=== PATIENT | male | born 1960 | race Caucasian/White ===

== ENCOUNTER 2016-06-12 19:55 | Inpatient (IN) | payer MEDICARE, MEDICAID ==
--- NOTE | 2016-06-12 20:09 | ED Physician Chart ---
Chief Complaint/HPI - Patient Information Date Seen:: 06/12/16 Time Seen:: 20:00 Chief Complaint:: change in mental status History of Present Illness:: 56-year-old male with worsening, constant, moderate to severe, change in mental status which is marked by increased agitation 2 days. Has associated aggressive behavior towards staff and other patients at his care facility. History limited as patient has underlying uncooperative behavior History provided by EMS and EMS run sheet Historian:: EMS Review:: Nurse's Note Reviewed, EMS run form Reviewed, Transfer documents Reviewed Review of Systems - Review of Systems Other: Complete system review otherwise unremarkable except as noted in HPI. Family Medical History - Family Member Mother History Unknown: Yes Physical Exam - Physical Examination Other:: INITIAL VITAL SIGNS: Reviewed by me GENERAL: Alert but uncooperative. No acute distress HEAD: Head is normocephalic and atraumatic EYES: EOMI. . No scleral icterus. No conjunctival injection ENT: Moist mucous membranes. NECK: Supple. No masses. Full range of motion RESPIRATORY: No tachypnea. Clear breath sounds bilaterally. No wheezing, rales, or rhonchi CV: Regular rate and rhythm. No murmurs, rubs, or gallops ABDOMEN: Soft, non-distended, non-tender. No guarding. No rebound. No masses. EXTREMITIES: No deformity. No cyanosis. No edema. SKIN: Warm and dry. No obvious rashes. NEUROLOGIC: Alert and oriented. Face is symmetric. Speech is normal. Moves all extremities equally. Motor and sensory distally intact. Labs/Radiology/EKG Results - Lab Results Results: Lab Results 06/12/16 06/12/16 Range/Units 22:17 22:17 WBC 11.1 H (4.8-10.8) Th/cmm RBC 4.93 (4.30-5.70) Mil/cmm Hgb 14.9 (13.2-17.3) gm/dL Hct 44.0 (39.0-49.0) % MCV 89.3 (80-99) fl MCH 30.1 H (26.0-30.0) pg MCHC Differential 33.8 (28.0-36.0) pg RDW 12.8 (11.5-20.0) % Plt Count 255 (150-400) Th/cmm MPV 7.5 fl Neutrophils % 58.8 (40.0-80.0) % Lymphocytes % 34.8 (20.0-50.0) % Monocytes % 4.9 (2.0-10.0) % Eosinophils % 1.2 (0.0-5.0) % Basophils % 0.3 (0.0-2.0) % Sodium 134 L (136-145) mEq/L Potassium 3.8 (3.5-5.1) mEq/L Chloride 104 (98-107) mEq/L Carbon Dioxide 26.4 (21.0-31.0) mEq/L Anion Gap 7.4 (7.0-16.0) BUN 20 (7-25) mg/dL Creatinine 0.9 (0.7-1.3) mg/dL Est GFR ( Amer) > 60.0 (>90) ml/min Est GFR (Non-Af Amer) > 60.0 ml/min BUN/Creatinine Ratio 22.2 Glucose 95 (70-105) mg/dL Calcium 9.8 (8.6-10.3) mg/dL Total Bilirubin 0.4 (0.3-1.0) mg/dL AST 13 (13-39) U/L ALT 6 L (7-52) U/L Alkaline Phosphatase 65 (34-104) U/L Total Protein 6.7 (6.0-8.3) gm/dL Albumin 3.9 L (4.2-5.5) gm/dL Globulin 2.8 gm/dL Albumin/Globulin Ratio 1.4 (1.0-1.8) Triglycerides 160 H (<150) mg/dL Cholesterol 154 (<200) mg/dL LDL Cholesterol Direct 107 (75-193) mg/dL HDL Cholesterol 32 (23-92) mg/dL - Radiology Results Results: CT head without contrast No acute disease ED Septic Shock - . Is Septic Shock (SBP<90, OR Lactate>4 mmol\L) present?: No Reassessment (Disposition) - Reassessment Reassessment:: Patient is extremely agitated and has totally uncooperative behavior. He is been aggressive toward staff and physically aggressive toward the nurses. Patient has altered mental status. I spoke to the primary admitting physician for the patient. He is good understanding of the case. He will admit the patient for further workup and treatment. Reassessment Condition:: Improved - Diagnosis Diagnosis:: Altered level of consciousness - Patient Disposition Discharge/Transfer:: Acute Care w/in this hosp Admitting Medical Physician:: Darion Auguste Time:: 23:11 Condition at Disposition:: Stable ED Discharge Plan - Patient Disposition Admit/Discharge/Transfer: Acute Care w/in this hosp
[2016-06-12] MEDS ORDERED: OLANZapine 5 mg Oral Disintegrating Tab PO ONE (20:10)
[2016-06-12] MEDS ORDERED: OLANZapine 5 mg Oral Disintegrating Tab ONE (21:13)
[2016-06-12 22:23] LABS: % BASOPHILS 0.3 % (0.0-2.0); % EOSINOPHILS 1.2 % (0.0-5.0); % LYMPHOCYTES 34.8 % (20.0-50.0); % MONOCYTES 4.9 % (2.0-10.0); % NEUTROPHILS 58.8 % (40.0-80.0); HEMOGLOBIN 14.9 gm/dL (13.2-17.3); MEAN CELL VOLUME 89.3 fl (80-99); MEAN CORPUSCULAR HEMOGLOBIN 30.1 pg (26.0-30.0); MEAN CORPUSCULAR HGB CONC 33.8 pg (28.0-36.0); MEAN PLATELET VOLUME 7.5 fl; NEUTROPHILE ABSOLUTE 6.6 Th/cmm (1.8-8.0); PLATELET COUNT 255 Th/cmm (150-400); RED BLOOD COUNT 4.93 Mil/cmm (4.30-5.70); RED CELL DISTRIBUTION WIDTH 12.8 % (11.5-20.0); WHITE BLOOD COUNT 11.1 Th/cmm (4.8-10.8)
[2016-06-12 22:39] LABS: ALB/GLOB RATIO 1.4 (1.0-1.8); ALKALINE PHOSPHATASE 65 U/L (34-104); ANION GAP 7.4 (7.0-16.0); BILIRUBIN,TOTAL 0.4 mg/dL (0.3-1.0); BUN - UREA NITROGEN 20 mg/dL (7-25); BUN/CREATININE RATIO 22.2; CALCIUM SERUM 9.8 mg/dL (8.6-10.3); CARBON DIOXIDE 26.4 mEq/L (21.0-31.0); CHLORIDE 104 mEq/L (98-107); CHOLESTEROL 154 mg/dL (<200); CREATININE - SERUM 0.9 mg/dL (0.7-1.3); GLUCOSE 95 mg/dL (70-105); POTASSIUM SERUM 3.8 mEq/L (3.5-5.1); SGOT 13 U/L (13-39); SGPT/ALT 6 U/L (7-52); SODIUM SERUM 134 mEq/L (136-145); TRIGLYCERIDES 160 mg/dL (<150)
[2016-06-12] MEDS ORDERED: Sodium Chloride 0.9% 1,000 ML IV ONE (22:47)
[2016-06-12 23:50] LABS: URINE BACTERIA OCCASIONAL /hpf (NONE SEEN); URINE BILIRUBIN NEGATIVE (NEGATIVE); URINE BLOOD NEGATIVE (NEGATIVE); URINE COLOR YELLOW; URINE EPITHELIAL CELLS NONE SEEN /lpf (FEW); URINE GLUCOSE (UA) NEGATIVE (NEGATIVE); URINE KETONE NEGATIVE (NEGATIVE); URINE PROTEIN NEGATIVE (NEGATIVE); URINE RBC 0-2 /hpf (0-5); URINE UROBILINOGEN 0.2 E.U./dL (0.2 - 1.0); URINE WBC 0-2 /hpf (0-5)
[2016-06-13] MEDS ORDERED: Sodium Chloride 0.9% 1,000 ML IV SCH (01:05)
[2016-06-13] MEDS ORDERED: Non-Formulary Item 1 EA (Ferrous Sulfate [Ferosul] 330 MG) PO SCH (09:00)
[2016-06-13] MEDS ORDERED: Non-Formulary Item 1 EA (Cranberry Fruit Concentrate [Cranberry] 450 MG) PO SCH (09:00)
[2016-06-13] MEDS: Ferrous Sulfate 325 MG TAB PO SCH ×2 (09:06→17:26)
--- NOTE | 2016-06-13 09:07 | General Progress Note ---
Objective - Results Result Diagrams: 06/12/16 22:17 06/12/16 22:17 Recent Labs: Laboratory Last Values WBC 11.1 Th/cmm (4.8-10.8) H 06/12/16 22: RBC 4.93 Mil/cmm (4.30-5.70) 06/12/16 22:17 Hgb 14.9 gm/dL (13.2-17.3) 06/12/16 22: Hct 44.0 % (39.0-49.0) 06/12/16 22: MCV 89.3 fl (80-99) 06/12/16 22: MCH 30.1 pg (26.0-30.0) H 06/12/16: MCHC Differential 33.8 pg (28.0-36.0) 06/12/16: RDW 12.8 % (11.5-20.0) 06/12/16 22: Plt Count 255 Th/cmm (150-400) 06/12/16 22: MPV 7.5 fl 06/12/16 22:17 Neutrophils % 58.8 % (40.0-80.0) 06/12/16 22: Lymphocytes % 34.8 % (20.0-50.0) 06/12/16: Monocytes % 4.9 % (2.0-10.0) 06/12/16: Eosinophils % 1.2 % (0.0-5.0) 06/12/16: Basophils % 0.3 % (0.0-2.0) 06/12/16 22:17 Sodium 134 mEq/L (136-145) L 06/12/16 22:17 Potassium 3.8 mEq/L (3.5-5.1) 06/12/16 22: Chloride 104 mEq/L (98-107) 06/12/16 22: Carbon Dioxide 26.4 mEq/L (21.0-31.0) 06/12/16 22:17 Anion Gap 7.4 (7.0-16.0) 06/12/16 22: BUN 20 mg/dL (7-25) 06/12/16 22: Creatinine 0.9 mg/dL (0.7-1.3) 06/12/16 22:17 Est GFR ( Amer) > 60.0 ml/min (>90) 06/12/16 22:17 Est GFR (Non-Af Amer) > 60.0 ml/min 06/12/16 22:17 BUN/Creatinine Ratio 22.2 06/12/16 22:17 Glucose 95 mg/dL (70-105) 06/12/16 22: Calcium 9.8 mg/dL (8.6-10.3) 06/12/16 22:17 Total Bilirubin 0.4 mg/dL (0.3-1.0) 06/12/16 22:17 AST 13 U/L (13-39) 06/12/16 22:17 ALT 6 U/L (7-52) L 06/12/16 22:17 Alkaline Phosphatase 65 U/L (34-104) 06/12/16 22:17 Total Protein 6.7 gm/dL (6.0-8.3) 06/12/16 22: Albumin 3.9 gm/dL (4.2-5.5) L 06/12/16 22: Globulin 2.8 gm/dL 06/12/16 22: Albumin/Globulin Ratio 1.4 (1.0-1.8) 06/12/16 22:17 Triglycerides 160 mg/dL (<150) H 06/12/16 22:17 Cholesterol 154 mg/dL (<200) 06/12/16 22:17 LDL Cholesterol Direct 107 mg/dL (75-193) 06/12/16 22: HDL Cholesterol 32 mg/dL (23-92) 06/12/16 22:17 TSH 1.81 uIU/ml (0.34-5.60) 06/12/16 22:17 Urine Source CLEAN C 06/12/16 23:00 Urine Color YELLOW 06/12/16 23:00 Urine Clarity CLEAR (CLEAR) 06/12/16 23:00 Urine pH 7.0 06/12/16 23:00 Ur Specific [place] 1.010 (1.005-1.030) 06/12/16 23:00 Urine Protein NEGATIVE mg/dL (NEGATIVE) 06/12/16 23:00 Urine Glucose (UA) NEGATIVE mg/dL (NEGATIVE) 06/12/16 23:00 Urine Ketones NEGATIVE mg/dL (NEGATIVE) 06/12/16 23:00 Urine Blood NEGATIVE (NEGATIVE) 06/12/16 23:00 Urine Nitrate NEGATIVE (NEGATIVE) 06/12/16 23:00 Urine Bilirubin NEGATIVE (NEGATIVE) 06/12/16 23:00 Urine Urobilinogen 0.2 E.U./dL (0.2 - 1.0) 06/12/16 23:00 Ur Leukocyte Esterase NEGATIVE (NEGATIVE) 06/12/16 23:00 Urine RBC 0-2 /hpf (0-5) H 06/12/16 23:00 Urine WBC 0-2 /hpf (0-5) 06/12/16 23:00 Ur Epithelial Cells NONE SEEN /lpf (FEW) 06/12/16 23:00 Urine Bacteria OCCASIONAL /hpf (NONE SEEN) 06/12/16 23:00 - Physical Exam Vitals and I&O: Vital Signs Temp 96.8 F 06/13/16 08:46 Pulse 77 06/13/16 08:46 Resp 18 06/13/16 08:46 BP 128/81 06/13/16 08:46 Pulse Ox 100 06/13/16 08:46 Active Medications: Current Medications Aripiprazole (Abilify) 2.5 mg PO DAILY [facility] PRN Reason: Protocol Stop: 08/12/16 08:59 Ascorbic Acid (Vitamin C) 500 mg PO DAILY [facility] Stop: 08/12/16 08:59 Carbidopa/Levodopa (Sinemet 25mg-100 Mg) 1 tab PO TID [facility] Stop: 08/12/16 08:59 Docusate Sodium (Colace) 200 mg PO HS [facility] Stop: 08/12/16 20:59 Ferrous Sulfate (Iron) 325 mg PO BID [facility] Stop: 08/12/16 08:59 Hydrocortisone (Cortef) 25 mg PO BID [facility] Stop: 08/12/16 08:59 Sodium Chloride (Nacl 0.9%) 1,000 mls @ 100 mls/hr IV .Q10H [facility] Stop: 08/12/16 01:04 Last Admin: 06/13/16 06:03 Dose: 100 mls/hr Lisinopril (Zestril) 10 mg PO DAILY [facility] Stop: 08/12/16 08:59 Lorazepam (Ativan) 1 mg IVP Q6HR PRN; Protocol PRN Reason: Agitation Stop: 08/12/16 00:59 Nitroglycerin (Nitrostat) 0.4 mg SL Q5MIN PRN PRN Reason: Chest Pain Stop: 08/12/16 01:05 Ondansetron HCl (Zofran Odt) 4 mg PO Q4HR PRN PRN Reason: Nausea / Vomiting Stop: 08/12/16 01:05 Pantoprazole Sodium (Protonix) 40 mg PO DAILY [facility] Stop: 08/12/16 08:59 Senna (Senna) 8.6 mg PO Q6HR PRN PRN Reason: Constipation Stop: 08/12/16 01:05 Sevelamer HCl (Renagel) 800 mg PO TIDWM [facility] Stop: 08/12/16 07:59 Vitamin B Complex/Vit C/Folic Acid (Vitamin B Complex W/Vitamin C) 1 tab PO DAILY [facility] Stop: 08/12/16 08:59
[2016-06-13] MEDS: Vitamin B Complex w/Vitamin C Tab PO SCH (09:08)
[2016-06-13] MEDS: Pantoprazole 40 mg EC Tab PO SCH (09:08)
--- NOTE | 2016-06-13 09:22 | Diagnostic Imaging Report ---
CT brain INDICATION: Rule out bleed Technique: Serial axial images were performed from the skull base to the vertex using 5 mm slice thickness and interval.CTDI [id number] FINDINGS: Ventricles are enlarged due to central white matter volume loss. Symmetrical low-density changes in the periventricular white matter..Cortical sulcal markings are prominent. There are no areas of hemorrhage or edema in the brain or brainstem. No extra-axial fluid collections. IMPRESSION: Atrophy. No acute intracranial pathology.
[2016-06-13 10:17] LABS: % BASOPHILS 0.2 % (0.0-2.0); % EOSINOPHILS 1.4 % (0.0-5.0); % LYMPHOCYTES 35.2 % (20.0-50.0); % NEUTROPHILS 58.2 % (40.0-80.0); HEMATOCRIT 42.9 % (39.0-49.0); HEMOGLOBIN 14.3 gm/dL (13.2-17.3); MEAN CELL VOLUME 90.3 fl (80-99); MEAN CORPUSCULAR HGB CONC 33.2 pg (28.0-36.0); MEAN PLATELET VOLUME 7.6 fl; NEUTROPHILE ABSOLUTE 5.9 Th/cmm (1.8-8.0); PLATELET COUNT 225 Th/cmm (150-400); RED BLOOD COUNT 4.75 Mil/cmm (4.30-5.70); RED CELL DISTRIBUTION WIDTH 12.5 % (11.5-20.0)
[2016-06-13 10:42] LABS: BNP < 5.0 pg/mL (5.0-100.0)
[2016-06-13 10:45] LABS: ALB/GLOB RATIO 1.4 (1.0-1.8); ALKALINE PHOSPHATASE 64 U/L (34-104); ANION GAP 8.9 (7.0-16.0); BILIRUBIN,TOTAL 0.5 mg/dL (0.3-1.0); BUN - UREA NITROGEN 20 mg/dL (7-25); BUN/CREATININE RATIO 22.2; CALCIUM SERUM 9.8 mg/dL (8.6-10.3); CARBON DIOXIDE 26.5 mEq/L (21.0-31.0); CHLORIDE 104 mEq/L (98-107); CHOLESTEROL 153 mg/dL (<200); CREATININE - SERUM 0.9 mg/dL (0.7-1.3); GLUCOSE 126 mg/dL (70-105); POTASSIUM SERUM 3.4 mEq/L (3.5-5.1); SGOT 13 U/L (13-39); SGPT/ALT 11 U/L (7-52); SODIUM SERUM 136 mEq/L (136-145); TRIGLYCERIDES 152 mg/dL (<150)
--- NOTE | 2016-06-13 19:57 | History & Physical ---
HISTORY OF PRESENT ILLNESS: This is a 56-year-old male patient admitted because of change in his mental condition and also increasing agitation for the last 2 days has been aggressive behavior. This patient is known to have a history of CVA in the past, history of hyperlipidemia. REVIEW OF SYSTEMS: Difficult to obtain. PHYSICAL EXAMINATION: GENERAL: The patient is awake and very uncooperative patient. HEAD: Normal. ENT: Normal. LUNGS: Clear. CARDIOVASCULAR SYSTEM: S1, S2 heard. ABDOMEN: Soft. Bowel sounds heard. CENTRAL NERVOUS SYSTEM: The patient has hemiplegia. LABORATORY DATA: White count was 11.1, hemoglobin 14.9, hematocrit was normal. Electrolytes were normal. A chest x-ray and the CAT scan negative. DIAGNOSES: Altered level of consciousness, acute encephalopathy. Psychosis, rule out sepsis, history of cerebrovascular accident and the patient is being admitted and I will go ahead and will follow the patient. We will give him Ativan 1 mg IV q.4h. and we will also have Dr. Nicole see the patient and also we will have Dr. Narendra Roach see the patient for leukocytosis, possible sepsis. I will follow the patient. JOB# [id number]
--- NOTE | 2016-06-14 00:43 | Admit Criteria Form ---
Admit Criteria Forms - Admit Criteria Diagnosis: ACUTE LOSS OF CONSCIOUSNESS- ALOC Clinical Indications for Inpatient Care (Place 'X' for any and all applicable criteria): Ongoing inpatient care may be needed for ANY ONE of the following(1)(2)(3)(5)(6) : [x ]I. Suspected serious etiology (eg, medical disorder, CERTIFIED EXECUTIVE CHEF event) of mental status change [ ]II. Danger to self or others not manageable at lower level of care [ ]III. Grave disability (eg, inability to perform self care necessary at lower level of care) [ ]IV. Agitation or inappropriate behavior interfering with care for primary condition (eg, attempting to discontinue lines or drains prematurely, unable to cooperate with respiratory care) [ ]V. Delirium [A] [D][E] as described by ANY ONE of the following(26): [ ]a) Delirium due to alcohol or sedative [F] withdrawal [ ]b) Delirium of uncertain etiology that has not responded to appropriate empiric treatment [ ]c) Delirium that prevents performance of a life-sustaining function (eg, feeding or hydrating oneself) [ ]. General contraindications and/or Inappropriate clinical situations for Observational Care in patients with Acute Loss of Consciousness, when ANY ONE of the following is required: [ ]a) Prediction of prolongation of LOS based on ANY ONE of the following may be considered as a contraindication for observational care 2, 3, 4, 5, 6, 7, 8 , 9, 10, 11 [ ]i) Age > 65 yrs. [ ]ii) Patient arriving by ambulance [ ]iii) Patient with high acuity [ ]iv) Patient requiring vital sign monitoring [ ]v) Patient on IV medication [ ]b) Systolic blood pressures 180mmHg 3,12 [ ]c) Patient with altered mental status including delirium and other alteration of consciousness, (3) [ ]d) Patient whose discharge disposition will be to a custodial home or rehabilitation home should not be managed in Emergency Department Observation Unit. CMS rule requires 3 days hospital stay before such placement.3,13 [ ]e) Patient with failure to thrive due to broad array of etiologies 3,16,17 [ ]f) Inability to ambulate 3,14 Extended stay beyond goal length of stay for the primary condition may be needed until ALL of the following are present(3)(5): [ ]a) Underlying medical etiology of mental status change is absent, or has been established and adequately treated [ ]b) Danger to self or others is absent or manageable at lower level of care. [ ]c) Behavior crisis management, including physical or chemical restraints, is not required or available at lower level of car [ ]d) Substance or alcohol withdrawal is absent or manageable at lower level of care. [ ]e) Behavioral symptoms (eg, agitation, somnolence, inappropriate behavior) are absent, or are manageable at lower level of care. The original [facility] content created by [facility] has been revised. The portions of the content which have been revised are identified through the use of italic text or in bold, and [facility] has neither reviewed nor approved the modified material. All other unmodified content is copyright [facility]. Please see references footnoted in the original [facility] edition 2016 Admit Criteria Met?: Yes
--- NOTE | 2016-06-14 08:38 | General Progress Note ---
Objective - Results Result Diagrams: 06/13/16 10:11 06/13/16 10:11 Recent Labs: Laboratory Last Values WBC 10.0 Th/cmm (4.8-10.8) 06/13/16 10:11 RBC 4.75 Mil/cmm (4.30-5.70) 06/13/16 10:11 Hgb 14.3 gm/dL (13.2-17.3) 06/13/16 10:11 Hct 42.9 % (39.0-49.0) 06/13/16 10:11 MCV 90.3 fl (80-99) 06/13/16 10:11 MCH 30.0 pg (26.0-30.0) 06/13/16 10:11 MCHC Differential 33.2 pg (28.0-36.0) 06/13/16 10:11 RDW 12.5 % (11.5-20.0) 06/13/16 10:11 Plt Count 225 Th/cmm (150-400) 06/13/16 10:11 MPV 7.6 fl 06/13/16 10:11 Neutrophils % 58.2 % (40.0-80.0) 06/13/16 10:11 Lymphocytes % 35.2 % (20.0-50.0) 06/13/16 10:11 Monocytes % 5.0 % (2.0-10.0) 06/13/16 10:11 Eosinophils % 1.4 % (0.0-5.0) 06/13/16 10:11 Basophils % 0.2 % (0.0-2.0) 06/13/16 10:11 Sodium 136 mEq/L (136-145) 06/13/16 10:11 Potassium 3.4 mEq/L (3.5-5.1) L 06/13/16 10:11 Chloride 104 mEq/L (98-107) 06/13/16 10:11 Carbon Dioxide 26.5 mEq/L (21.0-31.0) 06/13/16 10:11 Anion Gap 8.9 (7.0-16.0) 06/13/16 10:11 BUN 20 mg/dL (7-25) 06/13/16 10:11 Creatinine 0.9 mg/dL (0.7-1.3) 06/13/16 10:11 Est GFR ( Amer) > 60.0 ml/min (>90) 06/13/16 10:11 Est GFR (Non-Af Amer) > 60.0 ml/min 06/13/16 10:11 BUN/Creatinine Ratio 22.2 06/13/16 10:11 Glucose 126 mg/dL (70-105) H 06/13/16 10:11 Calcium 9.8 mg/dL (8.6-10.3) 06/13/16 10:11 Total Bilirubin 0.5 mg/dL (0.3-1.0) 06/13/16 10:11 AST 13 U/L (13-39) 06/13/16 10:11 ALT 11 U/L (7-52) 06/13/16 10:11 Alkaline Phosphatase 64 U/L (34-104) 06/13/16 10:11 B-Natriuretic Peptide < 5.0 pg/mL (5.0-100.0) L 06/13/16 10:11 Total Protein 6.5 gm/dL (6.0-8.3) 06/13/16 10:11 Albumin 3.8 gm/dL (4.2-5.5) L 06/13/16 10:11 Globulin 2.7 gm/dL 06/13/16 10:11 Albumin/Globulin Ratio 1.4 (1.0-1.8) 06/13/16 10:11 Triglycerides 152 mg/dL (<150) H 06/13/16 10:11 Cholesterol 153 mg/dL (<200) 06/13/16 10:11 LDL Cholesterol Direct 106 mg/dL (75-193) 06/13/16 10:11 HDL Cholesterol 30 mg/dL (23-92) 06/13/16 10:11 TSH 1.49 uIU/ml (0.34-5.60) 06/13/16 10:11 Urine Source CLEAN C 06/12/16 23:00 Urine Color YELLOW 06/12/16 23:00 Urine Clarity CLEAR (CLEAR) 06/12/16 23:00 Urine pH 7.0 06/12/16 23:00 Ur Specific [place] 1.010 (1.005-1.030) 06/12/16 23:00 Urine Protein NEGATIVE mg/dL (NEGATIVE) 06/12/16 23:00 Urine Glucose (UA) NEGATIVE mg/dL (NEGATIVE) 06/12/16 23:00 Urine Ketones NEGATIVE mg/dL (NEGATIVE) 06/12/16 23:00 Urine Blood NEGATIVE (NEGATIVE) 06/12/16 23:00 Urine Nitrate NEGATIVE (NEGATIVE) 06/12/16 23:00 Urine Bilirubin NEGATIVE (NEGATIVE) 06/12/16 23:00 Urine Urobilinogen 0.2 E.U./dL (0.2 - 1.0) 06/12/16 23:00 Ur Leukocyte Esterase NEGATIVE (NEGATIVE) 06/12/16 23:00 Urine RBC 0-2 /hpf (0-5) H 06/12/16 23:00 Urine WBC 0-2 /hpf (0-5) 06/12/16 23:00 Ur Epithelial Cells NONE SEEN /lpf (FEW) 06/12/16 23:00 Urine Bacteria OCCASIONAL /hpf (NONE SEEN) 06/12/16 23:00 - Physical Exam Vitals and I&O: Vital Signs Temp 98.4 F 06/14/16 04:00 Pulse 81 06/14/16 04:00 Resp 17 06/14/16 04:00 BP 115/69 06/14/16 04:00 Pulse Ox 97 06/14/16 04:00 Intake & Output 06/13/16 06/14/16 06/14/16 18:59 06:59 18:59 Intake Total 1000 100 Output Total 0 Balance 1000 100 Intake: Oral 1000 100 Output: Stool 0 Other: # Voids 3 3 Active Medications: Current Medications Aripiprazole (Abilify) 2.5 mg PO DAILY [facility] PRN Reason: Protocol Stop: 08/12/16 08:59 Last Admin: 06/13/16 09:05 Dose: 2.5 mg Ascorbic Acid (Vitamin C) 500 mg PO DAILY [facility] Stop: 08/12/16 08:59 Last Admin: 06/13/16 09:05 Dose: 500 mg Carbidopa/Levodopa (Sinemet 25mg-100 Mg) 1 tab PO TID [facility] Stop: 08/12/16 08:59 Last Admin: 06/13/16 22:23 Dose: 1 tab Docusate Sodium (Colace) 200 mg PO HS [facility] Stop: 08/12/16 20:59 Last Admin: 06/13/16 22:22 Dose: 200 mg Ferrous Sulfate (Iron) 325 mg PO BID [facility] Stop: 08/12/16 08:59 Last Admin: 06/13/16 17:26 Dose: 325 mg Hydrocortisone (Cortef) 25 mg PO BID [facility] Stop: 08/12/16 08:59 Last Admin: 06/13/16 17:26 Dose: 25 mg Sodium Chloride (Nacl 0.9%) 1,000 mls @ 100 mls/hr IV .Q10H [facility] Stop: 08/12/16 01:04 Last Admin: 06/13/16 06:03 Dose: 100 mls/hr Lisinopril (Zestril) 10 mg PO DAILY [facility] Stop: 08/12/16 08:59 Last Admin: 06/13/16 09:07 Dose: 10 mg Lorazepam (Ativan) 1 mg PO Q6HR PRN; Protocol PRN Reason: Agitation Stop: 08/12/16 17:06 Last Admin: 06/14/16 03:28 Dose: 1 mg Nitroglycerin (Nitrostat) 0.4 mg SL Q5MIN PRN PRN Reason: Chest Pain Stop: 08/12/16 01:05 Ondansetron HCl (Zofran Odt) 4 mg PO Q4HR PRN PRN Reason: Nausea / Vomiting Stop: 08/12/16 01:05 Pantoprazole Sodium (Protonix) 40 mg PO DAILY [facility] Stop: 08/12/16 08:59 Last Admin: 06/13/16 09:08 Dose: 40 mg Senna (Senna) 8.6 mg PO Q6HR PRN PRN Reason: Constipation Stop: 08/12/16 01:05 Sevelamer HCl (Renagel) 800 mg PO TIDWM [facility] Stop: 08/12/16 07:59 Last Admin: 06/13/16 17:26 Dose: 800 mg Vitamin B Complex/Vit C/Folic Acid (Vitamin B Complex W/Vitamin C) 1 tab PO DAILY [facility] Stop: 08/12/16 08:59 Last Admin: 06/13/16 09:08 Dose: 1 tab
[2016-06-14] MEDS: Vitamin B Complex w/Vitamin C Tab PO SCH (08:51)
[2016-06-14] MEDS: Ferrous Sulfate 325 MG TAB PO SCH ×2 (08:52→16:17)
[2016-06-14] MEDS: Pantoprazole 40 mg EC Tab PO SCH (08:54)
--- NOTE | 2016-06-14 19:55 | Consultation ---
REFERRING PHYSICIAN: Dr. Auguste. REASON FOR CONSULTATION: Leukocytosis. HISTORY OF PRESENT ILLNESS: The patient is a 56-year-old male with a past medical history of aspiration pneumonia, sepsis, UTI, muscle weakness, sacral ulcers, brought in from nursing facility for change in mental status. He was more agitated for last 2 days. Because of aggressive behavior, he was sent to the ER for further evaluation and management. On initial evaluation, the patient's temperature was 97.9 degrees Fahrenheit and WBC count was 11,100. ID consult was called for leukocytosis. PAST MEDICAL HISTORY: Includes history of sepsis and infections, include pneumonitis, UTI, pressure ulcer of sacral area and it has improved. the patient has high blood pressure, Parkinson disease, dementia. ALLERGIES: NKDA. MEDICATIONS: As per medication reconciliation sheet. Antibiotic barba, none. SOCIAL HISTORY: The patient lives in a nursing facility. No history of smoking, alcohol or drug use. REVIEW OF SYSTEMS: CONSTITUTIONAL: No fever, no chills. HEENT: No diplopia, no photophobia, no sore throat. RESPIRATORY: No cough, no shortness of breath. CARDIOVASCULAR: No chest pain or palpitation. GASTROINTESTINAL: No nausea, no vomiting, no diarrhea, no constipation. GENITOURINARY: No dysuria. NEUROLOGICAL: No headache, no dizziness, no focal weakness. PHYSICAL EXAMINATION: CURRENT VITAL SIGNS: Shows temperature is 98.2, pulse 90, respiration is 18, blood pressure 105/71. GENERAL: The patient is comfortable lying in the bed, not in acute distress. HEENT: Head is normocephalic, atraumatic. Oral cavity moist, pink tongue. Eyes: No pallor, no icterus. Pupils PERRLA, EOMI. NECK: Supple, no JVD, no carotid bruit. Trachea in midline. CHEST: Bilateral breath sounds. No crackles or wheezing. CARDIOVASCULAR: S1 and S2 within normal limits. Regular rhythm. No murmur, no gallop. ABDOMEN: Soft, nontender, nondistended. Bowel sounds present. EXTREMITIES: No cyanosis, no clubbing, no edema. NEUROLOGIC: Alert, awake, oriented x 3. LABORATORY DATA: Lab barba, current lab shows WBC count is 10,000, hemoglobin 14.3, hematocrit 42.9, platelets are 225,000, neutrophil is 58%. Sodium is 136, potassium 3.4, chloride 104, bicarbonate is 26, BUN is 20, creatinine 0.9, glucose is 126. Urinalysis shows rbc 0-2 and wbc 0-2 and no epithelial cells, occasional bacteria. IMPRESSION: 1. Leukocytosis, improved, most likely reactive. 2. Aggressive behavior, rule out secondary to dementia versus psychosis. 3. Parkinson disease. 4. Hypertension. RECOMMENDATIONS: We will monitor off antibiotic and we will check RPR, TSH and vitamin B12 level. Thank you, Dr. Auguste, for involving me in taking care of this patient. JOB# [id number] MTDD
--- NOTE | 2016-06-15 10:34 | Progress Notes ---
SUBJECTIVE: The patient is lying down in bed, awake, alert, and oriented x 2 with episodes of confusion. According to the nurses, the patient has been pulling out his IV access and refusing for reinsertion. OBJECTIVE: GENERAL: The patient is awake and alert, but uncooperative with episodes of confusion. HEENT: Head is atraumatic and normocephalic. ENT; external ears are normal. Eyes; bilateral PERRL. NECK: No JVD. No nuchal rigidity. CARDIOVASCULAR: Regular rate and rhythm, S1 and S2. No murmurs. PULMONARY: Clear to auscultation. GI: The patient is obese, soft, and nontender. Positive bowel sounds. GENITOURINARY: Negative for CVA tenderness. EXTREMITIES: Bilateral lower extremities weakness. No edema. DIAGNOSES: 1. Alerted level of consciousness. 2. Acute encephalopathy. 3. Psychosis. PLAN: We will wait for Dr. Nicole for patient to be evaluated. Then, we will see if he will be ready to be discharged back to the assisted. JOB# [id number]
== END 2016-06-14 17:45 | DRG 71 ==
LOC: ER 19:55 → MSI 06-13 00:40
PROVIDERS: ADMIT Internal Medicine; ATTEND Internal Medicine
DX: G93.40 Encephalopathy, unspecified (principal); E87.1 Hypo-osmolality and hyponatremia; G20 Parkinson's disease; I10 Essential (primary) hypertension; F29 Unspecified psychosis not due to a substance or known physiological condition; D72.829 Elevated white blood cell count, unspecified; E78.5 Hyperlipidemia, unspecified; Z88.8 Allergy status to other drugs, medicaments and biological substances; Z86.73 Personal history of transient ischemic attack (TIA), and cerebral infarction without residual deficits
CPT/HCPCS: 36415-UA; 70450-TC; 80053-TC; 80061-TC; 81001-TC; 82607-90; 83880-TC; 84443-TC; 85025-TC; 86592-TC; Z7610

== ENCOUNTER 2016-06-14 17:45 | Inpatient (IN) | payer MEDICARE, MEDICAID ==
[2016-06-14] MEDS ORDERED: Magnesium Hydroxide (MOM) 30 mL UDC GT PRN (21:24)
[2016-06-14] MEDS ORDERED: Maalox 30 mL Cup PO PRN (21:24)
[2016-06-14] MEDS ORDERED: Magnesium Hydroxide (MOM) 30 mL UDC PO PRN (21:24)
[2016-06-14] MEDS ORDERED: Maalox 30 mL Cup GT PRN (21:30)
[2016-06-15 00:36] VITALS: BP 123/78
--- NOTE | 2016-06-15 02:29 | Consultation ---
Covering for Dr. Nicole . IDENTIFYING INFORMATION: The patient is a 56-year-old male who is ____ patient has been confused. He was supposed to go to [facility]. The patient was confused, unable to give information. He was apparently diagnosed with acute encephalopathy and sepsis was started on Abilify 2.5 mg at bedtime; however, when I talked to the patient, he was alert. He was able to tell me his age, but it was after saying he was 26, then he said he is 25 and then 46 and then 56, unable to tell me his date of , not sure of the date. He looked at the board and said it is Tuesday. The patient was not sure of how many children he has. He denies any auditory or visual hallucinations. Denies any current substance abuse. He denies any hallucinations or paranoia. He is very confused, however. PAST PSYCHIATRIC HISTORY: The patient reports that he went to see a psychiatrist for fine tuning, but he was unable to elaborate. MEDICAL HISTORY: Deferred to the medical doctor. The patient apparently has been pulling his PEG tube. His IV is out. The patient has been acting in a very confused manner, easily agitated. FAMILY AND SOCIAL HISTORY: The patient is . He has 2 children, but he was not sure, he was never with his children. He ____ problems. He denies family psychotic disorder, but he is not a good historian. MENTAL STATUS EXAMINATION: The patient was appropriately dressed, well groomed. He was confused, unable to tell me the exact date. He was not sure about his age. Later after many trials, he was able to tell me, unable to participate in a meaningful conversation or make safe plan for self-care or participate in memory testing. His long and short term memory is poor, does not know where he is, why he is here. Insight and judgment are questionable. He denies any suicidal ideation or homicidal ideation. IMPRESSION: AXIS I: Delirium secondary to medical condition. The patient has sepsis, also psychosis, not otherwise specified. MEDICAL DIAGNOSES: Deferred to the medical. I do recommend to continue Abilify, transfer to [facility], if medically cleared. Thank you very much for allowing me to participate in the care of this most interesting gentleman. JOB# [id number]
[2016-06-15] MEDS ORDERED: Multivitamin Tab PO SCH (09:00)
--- NOTE | 2016-06-15 09:52 | General Progress Note ---
Objective - Physical Exam Vitals and I&O: Vital Signs Temp 98.0 F 06/15/16 05:57 Pulse 101 06/15/16 05:57 Resp 19 06/15/16 05:57 BP 131/84 06/15/16 05:57 Pulse Ox 94 06/15/16 05:57 Intake & Output 06/14/16 06/15/16 06/15/16 18:59 06:59 18:59 Intake Total 240 Balance 240 Intake: Oral 240 Other: # Voids 1 # Bowel Movements 0 Active Medications: Current Medications Acetaminophen (Tylenol) 650 mg GT Q4HR PRN PRN Reason: Pain Stop: 08/13/16 21:23 Al Hydrox/Mg Hydrox/Simethicone (Maalox) 30 ml GT Q4HR PRN PRN Reason: GI DISTRESS Stop: 08/13/16 21:23 Aripiprazole (Abilify) 2.5 mg GT DAILY [facility] PRN Reason: Protocol Stop: 08/14/16 08:59 Ascorbic Acid (Vitamin C) 500 mg GT DAILY [facility] Stop: 08/14/16 08:59 Carbidopa/Levodopa (Sinemet 25mg-100 Mg) 1 tab GT TID [facility] Stop: 08/14/16 08:59 Docusate Sodium (Colace) 200 mg PO DAILY [facility] Stop: 08/14/16 08:59 Ferrous Sulfate (Iron) 325 mg PO BID [facility] Stop: 08/14/16 08:59 Hydrocortisone (Cortef) 25 mg GT BID [facility] Stop: 08/14/16 08:59 Lisinopril (Zestril) 10 mg GT DAILY [facility] Stop: 08/14/16 08:59 Lorazepam (Ativan) 0.5 mg GT Q4HR PRN; Protocol PRN Reason: Anxiety Stop: 07/14/16 21:23 Multivitamins/Vitamin C (Theragran) 1 tab GT DAILY [facility] Stop: 08/14/16 08:59 Nitroglycerin (Nitrostat) 0.4 mg SL Q5MIN PRN PRN Reason: Chest Pain Stop: 08/13/16 21:49 Ondansetron HCl (Zofran Odt) 4 mg PO Q4H PRN PRN Reason: Nausea / Vomiting Stop: 08/13/16 21:50 Pantoprazole Sodium (Protonix) 40 mg GT DAILY [facility] Stop: 08/14/16 08:59 Senna (Senna) 8.6 mg GT Q6HR PRN PRN Reason: Constipation Stop: 08/14/16 00:00 Sevelamer HCl (Renagel) 800 mg PO TIDWM [facility] Stop: 08/14/16 07:59 Vitamin B Complex/Vit C/Folic Acid (Vitamin B Complex W/Vitamin C) 1 tab GT DAILY [facility] Stop: 08/14/16 08:59
[2016-06-15] MEDS: Vitamin B Complex w/Vitamin C Tab GT SCH (10:01)
[2016-06-15] MEDS: Pantoprazole 40 mg/Packet GT SCH (10:02)
[2016-06-15] MEDS: Ferrous Sulfate 325 MG TAB PO SCH ×2 (10:04→16:41)
[2016-06-15] MEDS: Multivitamin Tab GT SCH (10:07)
--- NOTE | 2016-06-15 14:43 | History & Physical ---
IDENTIFYING INFORMATION: The patient is a 56-year-old male. CHIEF COMPLAINT: The patient was transferred from the medical floor. HISTORY OF PRESENT ILLNESS: After I saw him, apparently he did spill water on one of the nurses and he was put on the hold. The patient himself is a poor historian, unable to give information appropriately. He has a history of being diagnosed with encephalopathy and sepsis and he was started on Abilify 2.5 mg at bedtime. The patient still unable to give information. He was unsure of his age today, yesterday was able to get his age after many trials. He is not sure of the date, why he is here. He is very confused and a poor historian. PAST PSYCHIATRIC HISTORY: The patient reported that he did see a psychiatrist, but he was unable to elaborate. He admits to ____ substance abuse, unable to elaborate. He denies any recent use of alcohol, drugs, but he is not a reliable historian. MEDICAL HISTORY: THE PATIENT IS ALLERGIC to AMBIEN. The patient has been on medications for parkinsonism and anemia, on iron and high blood pressure, nitroglycerin for ischemic heart disease and pantoprazole for GERD. FAMILY AND SOCIAL HISTORY: The patient currently is and has 2 children. He was not able to give me more information about his family. MENTAL STATUS EXAMINATION: The patient is appropriately dressed, not well groomed. He appeared to be confused, unable to tell me the date. He knows he is in the hospital, he is not sure why he is here, unable to provide meaningful conversation. He was aggressive with the staff. He denies any intent to harm himself or anybody, but he is a poor historian. His long and short term memory is poor. He denies any intent to harm himself. His insight and judgment is impaired. IMPRESSION: AXIS I: Psychosis, not otherwise specified, rule out bipolar disorder with psychosis, rule out drug abuse, psychosis. MEDICAL DIAGNOSIS: Deferred to the medical doctor. His assists, he is accepting treatment. Negative poor coping skills. INITIAL TREATMENT PLAN: Increase Abilify to 5 mg. We will do group therapy, milieu therapy, and individual therapy. ESTIMATED LENGTH OF STAY: 3-7 days. DISCHARGE CRITERIA: Decrease agitation, psychosis, no longer aggressive. After discharge, outpatient. JOB# [id number]
[2016-06-16] MEDS: Multivitamin Tab GT SCH (08:51)
[2016-06-16] MEDS: Vitamin B Complex w/Vitamin C Tab GT SCH (08:52)
[2016-06-16] MEDS: Ferrous Sulfate 325 MG TAB PO SCH ×2 (08:55→18:00)
[2016-06-16] MEDS: Pantoprazole 40 mg/Packet GT SCH (08:55)
--- NOTE | 2016-06-16 09:41 | General Progress Note ---
Objective - Physical Exam Vitals and I&O: Vital Signs Temp 97.9 F 06/16/16 06:07 Pulse 94 06/16/16 08:57 Resp 19 06/16/16 06:07 BP 113/73 06/16/16 08:57 Pulse Ox 92 06/16/16 06:07 Intake & Output 06/15/16 06/16/16 06/16/16 18:59 06:59 18:59 Intake Total 1800 0 Balance 1800 0 Intake: Oral 1800 0 Other: # Voids 4 3 # Bowel Movements 0 Active Medications: Current Medications Acetaminophen (Tylenol) 650 mg GT Q4HR PRN PRN Reason: Pain Stop: 08/13/16 21:23 Al Hydrox/Mg Hydrox/Simethicone (Maalox) 30 ml GT Q4HR PRN PRN Reason: GI DISTRESS Stop: 08/13/16 21:23 Aripiprazole (Abilify) 5 mg GT DAILY [facility] PRN Reason: Protocol Stop: 08/14/16 12:56 Last Admin: 06/16/16 08:51 Dose: 5 mg Ascorbic Acid (Vitamin C) 500 mg GT DAILY [facility] Stop: 08/14/16 08:59 Last Admin: 06/16/16 08:51 Dose: 500 mg Carbidopa/Levodopa (Sinemet 25mg-100 Mg) 1 tab GT TID [facility] Stop: 08/14/16 08:59 Last Admin: 06/16/16 08:52 Dose: 1 tab Docusate Sodium (Colace) 200 mg PO DAILY [facility] Stop: 08/14/16 08:59 Last Admin: 06/16/16 08:54 Dose: 200 mg Ferrous Sulfate (Iron) 325 mg PO BID [facility] Stop: 08/14/16 08:59 Last Admin: 06/16/16 08:55 Dose: 325 mg Hydrocortisone (Cortef) 25 mg GT BID [facility] Stop: 08/14/16 08:59 Last Admin: 06/16/16 08:56 Dose: 25 mg Lisinopril (Zestril) 10 mg GT DAILY [facility] Stop: 08/14/16 08:59 Last Admin: 06/16/16 08:57 Dose: 10 mg Lorazepam (Ativan) 0.5 mg GT Q4HR PRN; Protocol PRN Reason: Anxiety Stop: 07/14/16 21:23 Last Admin: 06/16/16 00:32 Dose: 0.5 mg Multivitamins/Vitamin C (Theragran) 1 tab GT DAILY [facility] Stop: 08/14/16 08:59 Last Admin: 06/16/16 08:51 Dose: 1 tab Nitroglycerin (Nitrostat) 0.4 mg SL Q5MIN PRN PRN Reason: Chest Pain Stop: 08/13/16 21:49 Ondansetron HCl (Zofran Odt) 4 mg PO Q4H PRN PRN Reason: Nausea / Vomiting Stop: 08/13/16 21:50 Pantoprazole Sodium (Protonix) 40 mg GT DAILY [facility] Stop: 08/14/16 08:59 Last Admin: 06/16/16 08:55 Dose: 40 mg Senna (Senna) 8.6 mg GT Q6HR PRN PRN Reason: Constipation Stop: 08/14/16 00:00 Sevelamer HCl (Renagel) 800 mg PO TIDWM [facility] Stop: 08/14/16 07:59 Last Admin: 06/16/16 08:50 Dose: 800 mg Vitamin B Complex/Vit C/Folic Acid (Vitamin B Complex W/Vitamin C) 1 tab GT DAILY [facility] Stop: 08/14/16 08:59 Last Admin: 06/16/16 08:52 Dose: 1 tab
--- NOTE | 2016-06-17 01:55 | Progress Notes ---
SUBJECTIVE: Chart reviewed and the patient interviewed. Also discussed the patient's condition with the staff and reviewed records and labs. The patient is still in angry and in irritable mood. The patient said, "my feet hurts" and then started to yell and scream. He is still agitated and in angry and in irritable mood and aggressive with the staff, especially when helping him with his ADLs. The patient also is confused, was not able to answer any of my questions coherently. He also is easily agitated and he is having severe anxiety, severe mood swings. ASSESSMENT: The patient is still psychotic. TREATMENT PLAN: We will continue monitoring his behavior and his condition closely. Also, yesterday Abilify increased to 5 mg everyday. We will continue same dose and we will continue to monitor his behavior and his condition closely. JOB# [id number]
--- NOTE | 2016-06-17 08:21 | General Progress Note ---
Objective - Physical Exam Vitals and I&O: Vital Signs Temp 97.6 F 06/17/16 07:17 Pulse 93 06/17/16 07:17 Resp 18 06/17/16 07:17 BP 122/81 06/17/16 07:17 Pulse Ox 98 06/17/16 07:17 Intake & Output 06/16/16 06/17/16 06/17/16 18:59 06:59 18:59 Intake Total 1000 Balance 1000 Intake: Oral 1000 Other: # Voids 3 2 # Bowel Movements 0 Active Medications: Current Medications Acetaminophen (Tylenol) 650 mg GT Q4HR PRN PRN Reason: Pain Stop: 08/13/16 21:23 Al Hydrox/Mg Hydrox/Simethicone (Maalox) 30 ml GT Q4HR PRN PRN Reason: GI DISTRESS Stop: 08/13/16 21:23 Aripiprazole (Abilify) 5 mg GT DAILY [facility] PRN Reason: Protocol Stop: 08/14/16 12:56 Last Admin: 06/16/16 08:51 Dose: 5 mg Ascorbic Acid (Vitamin C) 500 mg GT DAILY [facility] Stop: 08/14/16 08:59 Last Admin: 06/16/16 08:51 Dose: 500 mg Carbidopa/Levodopa (Sinemet 25mg-100 Mg) 1 tab GT TID [facility] Stop: 08/14/16 08:59 Last Admin: 06/16/16 20:28 Dose: 1 tab Docusate Sodium (Colace) 200 mg PO DAILY [facility] Stop: 08/14/16 08:59 Last Admin: 06/16/16 08:54 Dose: 200 mg Ferrous Sulfate (Iron) 325 mg PO BID [facility] Stop: 08/14/16 08:59 Last Admin: 06/16/16 18:00 Dose: 325 mg Hydrocortisone (Cortef) 25 mg GT BID [facility] Stop: 08/14/16 08:59 Last Admin: 06/16/16 18:00 Dose: 25 mg Lisinopril (Zestril) 10 mg GT DAILY [facility] Stop: 08/14/16 08:59 Last Admin: 06/16/16 08:57 Dose: 10 mg Lorazepam (Ativan) 0.5 mg GT Q4HR PRN; Protocol PRN Reason: Anxiety Stop: 07/14/16 21:23 Last Admin: 06/16/16 13:52 Dose: 0.5 mg Multivitamins/Vitamin C (Theragran) 1 tab GT DAILY [facility] Stop: 08/14/16 08:59 Last Admin: 06/16/16 08:51 Dose: 1 tab Nitroglycerin (Nitrostat) 0.4 mg SL Q5MIN PRN PRN Reason: Chest Pain Stop: 08/13/16 21:49 Ondansetron HCl (Zofran Odt) 4 mg PO Q4H PRN PRN Reason: Nausea / Vomiting Stop: 08/13/16 21:50 Pantoprazole Sodium (Protonix) 40 mg GT DAILY [facility] Stop: 08/14/16 08:59 Last Admin: 06/16/16 08:55 Dose: 40 mg Senna (Senna) 8.6 mg GT Q6HR PRN PRN Reason: Constipation Stop: 08/14/16 00:00 Sevelamer HCl (Renagel) 800 mg PO TIDWM [facility] Stop: 08/14/16 07:59 Last Admin: 06/16/16 18:00 Dose: 800 mg Vitamin B Complex/Vit C/Folic Acid (Vitamin B Complex W/Vitamin C) 1 tab GT DAILY [facility] Stop: 08/14/16 08:59 Last Admin: 06/16/16 08:52 Dose: 1 tab
[2016-06-17] MEDS: Pantoprazole 40 mg/Packet GT SCH (10:00)
[2016-06-17] MEDS: Vitamin B Complex w/Vitamin C Tab GT SCH (10:00)
[2016-06-17] MEDS: Multivitamin Tab GT SCH (10:00)
[2016-06-17] MEDS: Ferrous Sulfate 325 MG TAB PO SCH ×2 (10:00→18:00)
[2016-06-18] MEDS: Ferrous Sulfate 325 MG TAB PO SCH ×2 (08:07→16:59)
[2016-06-18] MEDS: Vitamin B Complex w/Vitamin C Tab GT SCH (08:07)
[2016-06-18] MEDS: Multivitamin Tab GT SCH (08:07)
[2016-06-18] MEDS: Pantoprazole 40 mg/Packet GT SCH (08:08)
--- NOTE | 2016-06-18 12:58 | General Progress Note ---
Subjective - Review of Systems Service Date: 06/18/16 Subjective: awake alert, nad Objective - Physical Exam Vitals and I&O: Vital Signs Temp 97.1 F 06/18/16 06:52 Pulse 89 06/18/16 08:08 Resp 18 06/18/16 08:00 BP 124/76 06/18/16 08:08 Pulse Ox 98 06/18/16 06:52 Intake & Output 06/17/16 06/18/16 06/18/16 18:59 06:59 18:59 Intake Total 960 Balance 960 Intake: Oral 960 Other: # Voids 3 2 # Bowel Movements 0 Active Medications: Current Medications Acetaminophen (Tylenol) 650 mg GT Q4HR PRN PRN Reason: Pain Stop: 08/13/16 21:23 Last Admin: 06/17/16 13:42 Dose: 650 mg Al Hydrox/Mg Hydrox/Simethicone (Maalox) 30 ml GT Q4HR PRN PRN Reason: GI DISTRESS Stop: 08/13/16 21:23 Aripiprazole (Abilify) 10 mg GT DAILY [facility] PRN Reason: Protocol Stop: 08/14/16 08:59 Last Admin: 06/18/16 08:07 Dose: 10 mg Ascorbic Acid (Vitamin C) 500 mg GT DAILY [facility] Stop: 08/14/16 08:59 Last Admin: 06/18/16 08:07 Dose: 500 mg Carbidopa/Levodopa (Sinemet 25mg-100 Mg) 1 tab GT TID [facility] Stop: 08/14/16 08:59 Last Admin: 06/18/16 08:07 Dose: 1 tab Docusate Sodium (Colace) 200 mg PO DAILY [facility] Stop: 08/14/16 08:59 Last Admin: 06/18/16 08:08 Dose: 200 mg Ferrous Sulfate (Iron) 325 mg PO BID [facility] BEDS AT [facility] Stop: 08/14/16 08:59 Last Admin: 06/18/16 08:07 Dose: 325 mg Hydrocortisone (Cortef) 25 mg GT BID [facility] 234 BEDS AT [facility] Stop: 08/14/16 08:59 Last Admin: 06/18/16 08:09 Dose: 25 mg Lisinopril (Zestril) 10 mg GT DAILY [facility] 234 BEDS AT [facility] Stop: 08/14/16 08:59 Last Admin: 06/18/16 08:08 Dose: 10 mg Lorazepam (Ativan) 0.5 mg GT Q4HR PRN; Protocol PRN Reason: Anxiety Stop: 07/14/16 21:23 Last Admin: 06/16/16 13:52 Dose: 0.5 mg Multivitamins/Vitamin C (Theragran) 1 tab GT DAILY [facility] 234 B[facility]S [facility] Stop: 08/14/16 08:59 Last Admin: 06/18/16 08:07 Dose: 1 tab Nitroglycerin (Nitrostat) 0.4 mg SL Q5MIN PRN PRN Reason: Chest Pain Stop: 08/13/16 21:49 Ondansetron HCl (Zofran Odt) 4 mg PO Q4H PRN PRN Reason: Nausea / Vomiting Stop: 08/13/16 21:50 Pantoprazole Sodium (Protonix) 40 mg GT DAILY [facility] 234 BEDS AT [facility] Stop: 08/14/16 08:59 Last Admin: 06/18/16 08:08 Dose: 40 mg Senna (Senna) 8.6 mg GT Q6HR PRN PRN Reason: Constipation Stop: 08/14/16 00:00 Sevelamer HCl (Renagel) 800 mg PO TIDWM [facility] 234 BEDS AT [facility] Stop: 08/14/16 07:59 Last Admin: 06/18/16 12:00 Dose: 800 mg Vitamin B Complex/Vit C/Folic Acid (Vitamin B Complex W/Vitamin C) 1 tab GT DAILY [facility] 234 BEDS AT [facility] Stop: 08/14/16 08:59 Last Admin: 06/18/16 08:07 Dose: 1 tab General: Alert, Oriented x3 Neck: Supple Cardiovascular: Regular rate Lungs: Clear to auscultation Abdomen: Bowel sounds Neurological: Normal gait Psych/Mental Status: Mental status NL Assessment/Plan - Assessment Assessment: ANEMIA GERD HTN - Plan Plan: FALL PRECAUTIONS CONTINUE CURRENT MEDICATIONS CPM
--- NOTE | 2016-06-18 22:04 | Progress Notes ---
SUBJECTIVE: Chart reviewed and the patient interviewed. Also discussed the patient's condition with the staff and reviewed records and labs. The patient during interview seems to be depressed and at certain times, he was tearful, complaining of "too noisy." The patient according to staff is showing and exhibiting child-like behavior and he still needs a lot of attentions and when he does not get it, he gets angry and gets irritable and agitated. He also still seems to be suspicious and seems to be paranoid. The patient also still at times seems to be angry and depressed. He also gets easily agitated when he does not get his requests being met and becomes demanding and agitated. Otherwise, the patient has been compliant with taking his medications and no side effects of medications. During interview, the patient at certain times was tearful and seems to be in a depressed mood. He also has labile affect and is severely anxious. ASSESSMENT: The patient is still psychotic and agitated. TREATMENT PLAN: We will continue monitoring his behavior and his condition closely. Also, increase Abilify to 10 mg every morning and we will continue to follow up his behavior and his medications closely. JOB# [id number]
[2016-06-19] MEDS: Multivitamin Tab GT SCH (09:57)
[2016-06-19] MEDS: Ferrous Sulfate 325 MG TAB PO SCH ×2 (09:57→16:51)
[2016-06-19] MEDS: Pantoprazole 40 mg/Packet GT SCH (09:58)
[2016-06-19] MEDS: Vitamin B Complex w/Vitamin C Tab GT SCH (09:58)
--- NOTE | 2016-06-19 23:38 | Progress Notes ---
SUBJECTIVE: Chart reviewed and the patient interviewed. Also, discussed the patient's condition with the staff and reviewed records and labs. The patient remains isolative and withdrawn, and he is still interacting minimally with others. The patient told the staff that he is "lazy." The patient is asking the staff to feed him and is asking staff to help him and he is being dependent on staff. The patient said that he is depressed because "nobody talks to me." He is still restless and he is still anxious and seems to be paranoid. He also still has severe mood swings and anxiety. ASSESSMENT: The patient is still psychotic. TREATMENT PLAN: We will continue monitoring his behavior and his condition closely. Also, we will increase Abilify to 15 mg every day and we will continue to follow up closely. [facility]# [id number]
[2016-06-20] MEDS: Vitamin B Complex w/Vitamin C Tab GT SCH (08:48)
[2016-06-20] MEDS: Ferrous Sulfate 325 MG TAB PO SCH ×2 (08:50→17:13)
[2016-06-20] MEDS: Multivitamin Tab GT SCH (08:52)
[2016-06-20] MEDS: Pantoprazole 40 mg/Packet GT SCH (08:52)
--- NOTE | 2016-06-20 18:20 | General Progress Note ---
Subjective - Review of Systems Service Date: 06/20/16 Subjective: awake alert, nad Objective - Physical Exam Vitals and I&O: Vital Signs Temp 98.0 F 06/20/16 14:56 Pulse 76 06/20/16 14:56 Resp 18 06/20/16 14:56 BP 123/87 06/20/16 14:56 Pulse Ox 97 06/20/16 14:56 Intake & Output 06/19/16 06/20/16 06/20/16 18:59 06:59 18:59 Intake Total 1300 0 Balance 1300 0 Intake: Oral 1300 0 Other: # Voids 2 2 # Bowel Movements 1 Active Medications: Current Medications Acetaminophen (Tylenol) 650 mg GT Q4HR PRN PRN Reason: Pain Stop: 08/13/16 21:23 Last Admin: 06/17/16 13:42 Dose: 650 mg Al Hydrox/Mg Hydrox/Simethicone (Maalox) 30 ml GT Q4HR PRN PRN Reason: GI DISTRESS Stop: 08/13/16 21:23 Aripiprazole (Abilify) 15 mg GT DAILY [facility] PRN Reason: Protocol Stop: 08/14/16 08:59 Last Admin: 06/20/16 08:52 Dose: 15 mg Ascorbic Acid (Vitamin C) 500 mg GT DAILY [facility] Stop: 08/14/16 08:59 Last Admin: 06/20/16 08:52 Dose: 500 mg Carbidopa/Levodopa (Sinemet 25mg-100 Mg) 1 tab GT TID [facility] Stop: 08/14/16 08:59 Last Admin: 06/20/16 13:03 Dose: 1 tab Docusate Sodium (Colace) 200 mg PO DAILY [facility] Stop: 08/14/16 08:59 Last Admin: 06/20/16 08:50 Dose: 200 mg Ferrous Sulfate (Iron) 325 mg PO BID [facility] Stop: 08/14/16 08:59 Last Admin: 06/20/16 17:13 Dose: 325 mg Hydrocortisone (Cortef) 25 mg GT BID [facility] Stop: 08/14/16 08:59 Last Admin: 06/20/16 17:13 Dose: 25 mg Lisinopril (Zestril) 10 mg GT DAILY [facility] Stop: 08/14/16 08:59 Last Admin: 06/20/16 08:50 Dose: 10 mg Lorazepam (Ativan) 0.5 mg GT Q4HR PRN; Protocol PRN Reason: Anxiety Stop: 07/14/16 21:23 Last Admin: 06/19/16 09:57 Dose: 0.5 mg Multivitamins/Vitamin C (Theragran) 1 tab GT DAILY [facility] Stop: 08/14/16 08:59 Last Admin: 06/20/16 08:52 Dose: 1 tab Nitroglycerin (Nitrostat) 0.4 mg SL Q5MIN PRN PRN Reason: Chest Pain Stop: 08/13/16 21:49 Ondansetron HCl (Zofran Odt) 4 mg PO Q4H PRN PRN Reason: Nausea / Vomiting Stop: 08/13/16 21:50 Pantoprazole Sodium (Protonix) 40 mg GT DAILY [facility] Stop: 08/14/16 08:59 Last Admin: 06/20/16 08:52 Dose: 40 mg Senna (Senna) 8.6 mg GT Q6HR PRN PRN Reason: Constipation Stop: 08/14/16 00:00 Sevelamer HCl (Renagel) 800 mg PO TIDWM [facility] Stop: 08/14/16 07:59 Last Admin: 06/20/16 17:13 Dose: 800 mg Vitamin B Complex/Vit C/Folic Acid (Vitamin B Complex W/Vitamin C) 1 tab GT DAILY [facility] Stop: 08/14/16 08:59 Last Admin: 06/20/16 08:48 Dose: 1 tab Assessment/Plan - Assessment Assessment: ANEMIA GERD HTN - Plan Plan: FALL PRECAUTIONS CONTINUE CURRENT MEDICATIONS CPM
--- NOTE | 2016-06-21 04:09 | Progress Notes ---
SUBJECTIVE: Chart reviewed and the patient interviewed. Also discussed the patient's condition with the staff and reviewed records and labs. The patient is still isolative and withdrawn and still stays in his bed all the time and refusing to leave the room. The patient also is still demanding and still asking the staff to do simple things for him. Also, complaining about staff because they do not respond to his demands and staff has been trying to limit his demands. The patient also is still in angry mood and yells and screams when staff do not respond to his demands. On the other hand, the patient is compliant with taking his medications. During interview, the patient has poor eye contact with low tone and rate of speech and his thought processes are circumstantial and he is trying to get my attention. He also is still restless at times. ASSESSMENT: The patient is still psychotic and demanding. TREATMENT PLAN: We will continue monitoring his behavior and his condition closely. Also, continue adjusting psychotropic medications and also working on discharge plans and placement issue. JOB# [id number]
--- NOTE | 2016-06-21 09:00 | General Progress Note ---
Subjective - Review of Systems Subjective: awake alert, nad Objective - Physical Exam Vitals and I&O: Vital Signs Temp 98.1 F 06/21/16 06:20 Pulse 95 06/21/16 06:20 Resp 19 06/21/16 06:20 BP 138/82 06/21/16 06:20 Pulse Ox 95 06/21/16 06:20 Intake & Output 06/20/16 06/21/16 06/21/16 18:59 06:59 18:59 Intake Total 900 0 Balance 900 0 Intake: Oral 900 0 Other: # Voids 4 3 # Bowel Movements 1 0 Stool Characteristics Soft Active Medications: Current Medications Acetaminophen (Tylenol) 650 mg GT Q4HR PRN PRN Reason: Pain Stop: 08/13/16 21:23 Last Admin: 06/17/16 13:42 Dose: 650 mg Al Hydrox/Mg Hydrox/Simethicone (Maalox) 30 ml GT Q4HR PRN PRN Reason: GI DISTRESS Stop: 08/13/16 21:23 Aripiprazole (Abilify) 15 mg GT DAILY [facility] PRN Reason: Protocol Stop: 08/14/16 08:59 Last Admin: 06/20/16 08:52 Dose: 15 mg Ascorbic Acid (Vitamin C) 500 mg GT DAILY [facility] Stop: 08/14/16 08:59 Last Admin: 06/20/16 08:52 Dose: 500 mg Carbidopa/Levodopa (Sinemet 25mg-100 Mg) 1 tab GT TID [facility] Stop: 08/14/16 08:59 Last Admin: 06/20/16 20:36 Dose: 1 tab Docusate Sodium (Colace) 200 mg PO DAILY [facility] Stop: 08/14/16 08:59 Last Admin: 06/20/16 08:50 Dose: 200 mg Ferrous Sulfate (Iron) 325 mg PO BID [facility] Stop: 08/14/16 08:59 Last Admin: 06/20/16 17:13 Dose: 325 mg Hydrocortisone (Cortef) 25 mg GT BID [facility] Stop: 08/14/16 08:59 Last Admin: 06/20/16 17:13 Dose: 25 mg Lisinopril (Zestril) 10 mg GT DAILY [facility] Stop: 08/14/16 08:59 Last Admin: 06/20/16 08:50 Dose: 10 mg Lorazepam (Ativan) 0.5 mg GT Q4HR PRN; Protocol PRN Reason: Anxiety Stop: 07/14/16 21:23 Last Admin: 06/21/16 00:29 Dose: 0.5 mg Multivitamins/Vitamin C (Theragran) 1 tab GT DAILY [facility] Stop: 08/14/16 08:59 Last Admin: 06/20/16 08:52 Dose: 1 tab Nitroglycerin (Nitrostat) 0.4 mg SL Q5MIN PRN PRN Reason: Chest Pain Stop: 08/13/16 21:49 Ondansetron HCl (Zofran Odt) 4 mg PO Q4H PRN PRN Reason: Nausea / Vomiting Stop: 08/13/16 21:50 Pantoprazole Sodium (Protonix) 40 mg GT DAILY [facility] Stop: 08/14/16 08:59 Last Admin: 06/20/16 08:52 Dose: 40 mg Senna (Senna) 8.6 mg GT Q6HR PRN PRN Reason: Constipation Stop: 08/14/16 00:00 Sevelamer HCl (Renagel) 800 mg PO TIDWM [facility] Stop: 08/14/16 07:59 Last Admin: 06/20/16 17:13 Dose: 800 mg Vitamin B Complex/Vit C/Folic Acid (Vitamin B Complex W/Vitamin C) 1 tab GT DAILY [facility] Stop: 08/14/16 08:59 Last Admin: 06/20/16 08:48 Dose: 1 tab Assessment/Plan - Assessment Assessment: ANEMIA GERD HTN - Plan Plan: FALL PRECAUTIONS CONTINUE CURRENT MEDICATIONS CPM
[2016-06-21] MEDS: Pantoprazole 40 mg/Packet GT SCH (10:21)
[2016-06-21] MEDS: Ferrous Sulfate 325 MG TAB PO SCH (10:22)
[2016-06-21] MEDS: Multivitamin Tab GT SCH (10:23)
[2016-06-21] MEDS: Vitamin B Complex w/Vitamin C Tab GT SCH (10:23)
--- NOTE | 2016-06-23 21:25 | Discharge Summary ---
FINAL DIAGNOSIS/PRIMARY DIAGNOSIS: Unspecified psychosis. REASON FOR HOSPITALIZATION: The patient was admitted to the hospital because of increased agitation and irritability and difficulty following any directions and paranoia. HOSPITAL COURSE: The patient continues to be anxious and in irritable mood. The patient has episodes of yelling and screaming and was attention seeking. Also, he was suspicious and paranoid. The patient also was needing a lots of redirections. The patient also was feeling lonely and staff has to give him lots of reassurance. Gradually, the patient's affect was brighter. The patient was less irritable and less agitated. He also was interacting slightly more. The patient was accepted back to his longterm, and the patient was discharged there. Physical exam of the patient showed no major medical problems. AFTER-DISCHARGE PLANS: The patient was discharged from the hospital with plan to be followed in the longterm. At the time of discharge, the patient was calm and less agitated and less irritable. [facility]# [id number]
== END 2016-06-21 17:30 | DRG 885 ==
LOC: GERO 17:45
PROVIDERS: ADMIT Psychiatry & Neurology Psychiatry; ATTEND Psychiatry & Neurology Psychiatry
DX: F29 Unspecified psychosis not due to a substance or known physiological condition (principal); G93.40 Encephalopathy, unspecified; A41.9 Sepsis, unspecified organism; F05 Delirium due to known physiological condition; D64.9 Anemia, unspecified; K21.9 Gastro-esophageal reflux disease without esophagitis; I10 Essential (primary) hypertension; Z93.1 Gastrostomy status
CPT/HCPCS: X3401; Z7610

== ENCOUNTER 2016-12-27 19:19 | Inpatient (IN) | payer MEDICARE, MEDICAID ==
[2016-12-27 20:33] LABS: ALB/GLOB RATIO 1.6 (1.0-1.8); ALKALINE PHOSPHATASE 61 U/L (34-104); ANION GAP 9.2 (7.0-16.0); BILIRUBIN,TOTAL 0.5 mg/dL (0.3-1.0); BUN - UREA NITROGEN 24 mg/dL (7-25); BUN/CREATININE RATIO 18.5; CARBON DIOXIDE 25.7 mEq/L (21.0-31.0); CHLORIDE 104 mEq/L (98-107); CHOLESTEROL 151 mg/dL (<200); CREATININE - SERUM 1.3 mg/dL (0.7-1.3); GLUCOSE 124 mg/dL (70-105); POTASSIUM SERUM 3.9 mEq/L (3.5-5.1); SGOT 11 U/L (13-39); SGPT/ALT 3 U/L (7-52); SODIUM SERUM 135 mEq/L (136-145); TRIGLYCERIDES 193 mg/dL (<150)
[2016-12-27 20:34] LABS: % BASOPHILS 0.5 % (0.0-2.0); % EOSINOPHILS 2.3 % (0.0-5.0); % LYMPHOCYTES 42.9 % (20.0-50.0); % MONOCYTES 6.7 % (2.0-10.0); % NEUTROPHILS 47.6 % (40.0-80.0); HEMOGLOBIN 16.1 gm/dL (13.2-17.3); MEAN CELL VOLUME 92.5 fl (80-99); MEAN CORPUSCULAR HEMOGLOBIN 31.2 pg (26.0-30.0); MEAN CORPUSCULAR HGB CONC 33.8 pg (28.0-36.0); NEUTROPHILE ABSOLUTE 6.1 Th/cmm (1.8-8.0); PLATELET COUNT 244 Th/cmm (150-400); RED BLOOD COUNT 5.15 Mil/cmm (4.30-5.70); RED CELL DISTRIBUTION WIDTH 12.2 % (11.5-20.0)
[2016-12-27 20:36] LABS: HEMATOCRIT 47.7 % (39.0-49.0); WHITE BLOOD COUNT 12.9 Th/cmm (4.8-10.8)
--- NOTE | 2016-12-27 20:53 | ED Physician Chart ---
Chief Complaint/HPI - Patient Information Date Seen:: 12/27/16 Time Seen:: 19:55 Chief Complaint:: elevated white count History of Present Illness:: THIS IS A 56 YO MALE SENT TO ER BECAUSE OF AN ELEVATED WHITE COUNT. HE IS CHRONICALLY ILL WITH PARKINSON'S, WEAKNESS, DYSPHAGIA AND ENCEPHALOPATHY. Allergies:: Allergies Allergy/AdvReac Type Severity Reaction Status Date / Time zolpidem [From Ambien] Allergy Verified 06/12/16 22:49 Vitals:: Vital Signs - 8 hr 12/27/16 19:45 Temp 98.1 F HR 85 RR 20 BP 130/70 O2 Sat % 97 Historian:: Medical Records Review:: Nurse's Note Reviewed, Old Chart Reviewed Review of Systems - Review of Systems General/Constitutional: No fever, No chills, No weight loss, No weakness, No diaphoresis, No edema, No loss of appetite, Other (THIS PATIENT CANNOT GIVE A REVIEW OF SYSTEMS) Skin: No skin lesions, No rash, No bruising Head: No headache, No light-headedness Eyes: No loss of vision, No pain, No diplopia ENT: No earache, No nasal drainage, No sore throat, No tinnitus Neck: No neck pain, No swelling, No thyromegaly, No stiffness, No mass noted Cardio Vascular: No chest pain, No palpitations, No PND, No orthopnea, No edema Pulmonary: No SOB, No cough, No sputum, No wheezing GI: No nausea, No vomiting, No diarrhea, No pain, No melena, No hematochezia, No constipation, No hematemesis G/U: No dysuria, No frequency, No hematuria Musculoskeletal: No bone or joint pain, No back pain, No muscle pain Endocrine: No polyuria, No polydipsia Psychiatric: No prior psych history, No depression, No anxiety, No suicidal ideation Hematopoietic: No bruising, No lymphadenopathy Allergic/Immuno: No urticaria, No angioedema Neurological: No syncope, No focal symptoms, No weakness, No paresthesia, No headache, No seizure, No dizziness, No confusion, No vertigo Past Medical History - Past Medical History Obtainable: Yes Past Medical History: Dementia, Other (PARKINSON'S, ENCEPHALOPATHY, SCHIZO) Family History: Heart disease Social History: Non Smoker, No Alcohol, No Drug Use, Care Facility Surgical History: None Psychiatricy History: Schizophrenia, Bipolar, Dementia Medication: Reviewed Family Medical History - Family Member Mother History Unknown: Yes Ethnicity: Unknown Living Status: Unknown Hx Family Cancer: (Unknown) Hx Family Coronary Artery Disease: (Unknown) Hx Family Congestive Heart Failure: (Unknown) Hx Family Hypertension: (Unknown) Hx Family Stroke: (Unknown) Hx Family Diabetes: (Unknown) Hx Family Seizures: (Unknown) Hx Family Dementia: (Unknown) Hx Family AIDS: (Unknown) Hx Family COPD: (Unknown) Hx Family Hepatitis: (Unknown) Hx Family Psychiatric Problems: (Unknown) Hx Family Tuberculosis: (Unknown) Physical Exam - Physical Examination General/Constitutional: Awake, Well-developed, well-nourished, Alert, No distress, GCS 15, Non-toxic appearing, Ambulatory Other Gen/Cons comments:: HE IS COMBATIVE AT TIMES. Head: Atraumatic Eyes: Lids, conjuctiva normal, PERRL, EOMI Skin: Nl inspection, No rash, No skin lesions, No ecchymosis, Well hydrated, No lymphadenopathy ENMT: External ears, nose nl, Nasal exam nl, Lips, teeth, gums nl Neck: Nontender, Full ROM w/o pain, No JVD, No nuchal rigidity, No bruit, No mass, No stridor Respiratory: Nl effort/Exclusion, Clear to Auscultation, No Wheeze/Rhonchi/Rales Cardio Vascular: RRR, No murmur, gallop, rubs, NL S1 S2 GI: No organomegaly, No hernia, Normal BS's, No mass/bruits, No McBurney tenderness Other GI comments:: HE HAS A LARGE AND DISTENDED ABDOMEN. : No CVA tenderness Extremities: No tenderness or effusion, Full ROM, normal strength in all extremities, No edema, Normal digits & nails Other Extremities comments:: BOTH LOWER EXTREMITIES HAVE MUSCLE WASTING AND SPASM. Neuro/Psych: Alert/oriented, DTR's symmetric, Normal sensory exam, Normal motor strength, Judgement/insight normal, Mood normal, Normal gait, No focal deficits Misc: normal gait, Normal back, No paraspinal tenderness Labs/Radiology/EKG Results - Lab Results Results: Laboratory Tests 12/27/16 12/27/16 12/27/16 19:54 19:54 19:54 WBC 12.9 H D RBC 5.15 Hgb 16.1 Hct 47.7 D MCV 92.5 MCH 31.2 H MCHC Differential 33.8 RDW 12.2 Plt Count 244 MPV 8.0 Neutrophils % 47.6 Lymphocytes % 42.9 Monocytes % 6.7 Eosinophils % 2.3 Basophils % 0.5 Sodium 135 L Potassium 3.9 Chloride 104 Carbon Dioxide 25.7 Anion Gap 9.2 BUN 24 Creatinine 1.3 Est GFR ( Amer) > 60.0 Est GFR (Non-Af Amer) > 60.0 BUN/Creatinine Ratio 18.5 Glucose 124 H Calcium 10.0 Total Bilirubin 0.5 AST 11 L ALT 3 L Alkaline Phosphatase 61 Troponin I Total Protein 6.5 Albumin 4.0 L Globulin 2.5 Albumin/Globulin Ratio 1.6 Triglycerides 193 H Cholesterol 151 LDL Cholesterol Direct 106 HDL Cholesterol 33 12/27/16 19:54 WBC RBC Hgb Hct MCV MCH MCHC Differential RDW Plt Count MPV Neutrophils % Lymphocytes % Monocytes % Eosinophils % Basophils % Sodium Potassium Chloride Carbon Dioxide Anion Gap BUN Creatinine Est GFR ( Amer) Est GFR (Non-Af Amer) BUN/Creatinine Ratio Glucose Calcium Total Bilirubin AST ALT Alkaline Phosphatase Troponin I < 0.01 L Total Protein Albumin Globulin Albumin/Globulin Ratio Triglycerides Cholesterol LDL Cholesterol Direct HDL Cholesterol - Radiology Results Results: CHEST X-RAY = NAD Assessment - Assessment General Assessment: ELEVATED WHITE COUNT ED Septic Shock - . Is Septic Shock (SBP<90, OR Lactate>4 mmol\L) present?: No - <6hrs of presentation: Vital Signs: Vital Signs - 8 hr 12/27/16 19:45 Temp 98.1 F HR 85 RR 20 BP 130/70 O2 Sat % 97 Reassessment (Disposition) - Diagnosis Diagnosis:: ELEVATED WHITE COUNT PARKINSON'S DISEASE - Patient Disposition Discharge/Transfer:: Acute Care w/in this hosp Admitting Medical Physician:: Darion Auguste Condition at Disposition:: Unchanged ED Discharge Plan - Patient Disposition Admit/Discharge/Transfer: Acute Care w/in this hosp Condition at Disposition: Unchanged
[2016-12-27 23:46] VITALS: BP 110/72
--- NOTE | 2016-12-28 08:21 | Diagnostic Imaging Report ---
CHEST X-RAY: AP view INDICATION: Fever and cough COMPARISON: None FINDINGS: Suboptimal lung the lungs are noted. There is no focal consolidation or pleural effusions . Atherosclerosis of the aortic arch is noted. The osseous structures are intact. IMPRESSION: Suboptimal lung lungs with no focal consolidation identified. Atherosclerotic vascular disease.
--- NOTE | 2016-12-28 15:54 | History & Physical ---
ADMIT DATE: 12/28/2016 CHIEF COMPLAINT: Elevated white count. HISTORY OF PRESENT ILLNESS: This is a 56-year-old male who is a resident of [facility], was brought here to [facility] for white count of 13.49 and ALOC with aggressive behavior and increase of confusion. The patient's whole lactic acid level in the ER was 2.07. For this reason, the patient is now admitted. PAST MEDICAL HISTORY: Dementia, Parkinson's, encephalopathy, schizophrenia. SOCIAL HISTORY: The patient is a custodial resident. SURGICAL HISTORY: None. MEDICATIONS: Please see medication reconciliation sheet. REVIEW OF SYSTEMS: GENERAL: Denies any fevers or chills. CARDIOVASCULAR: Denies any chest pain. RESPIRATORY: Denies any SOB. GASTROINTESTINAL: Denies nausea, vomiting, abdominal pain. GENITOURINARY: Denies increased frequency or dysuria. NEUROLOGIC: No headaches, seizures, or syncope. PHYSICAL EXAMINATION: SKIN: The patient is awake, alert in no apparent distress. VITAL SIGNS: Temperature 97.4, heart rate 63, blood pressure 131/76, respirations 19, O2 97%. HEENT: Head; normocephalic atraumatic. NECK: Supple. No mass. LUNGS: Clear bilaterally. HEART: Regular rhythm. ABDOMEN: Soft, nontender. DIAGNOSTICS: The patient had a chest x-ray done and the impression is suboptimal lungs with no focal consolidation identified. LABORATORY DATA: WBC 12.9, H and H is 16.1 and 47.7, platelet of 244. Sodium 135, potassium 3.9, chloride 104, BUN 24, creatinine 1.3 whole lactic acid 2.07. Recent lactic acid is 1.23. ASSESSMENT: 1. Sepsis. 2. Leukocytosis. 3. Hyponatremia. 4. Dementia. 5. Parkinson's. 6. History of encephalopathy. 7. History of schizophrenia. PLAN: The patient to be admitted to the med/surg unit. We will keep the patient on IV fluids for hydration. Get a swallow evaluation as well. Keep patient on IV antibiotics of Rocephin 1 g. JOB# [id number]
[2016-12-28] MEDS: Ferrous Sulfate 325 MG TAB PO SCH (16:30)
[2016-12-28 16:49] LABS: URINE BILIRUBIN NEGATIVE (NEGATIVE); URINE BLOOD NEGATIVE (NEGATIVE); URINE GLUCOSE (UA) NEGATIVE (NEGATIVE); URINE KETONE NEGATIVE (NEGATIVE); URINE PH 7.5 (4.6 - 8.0); URINE PROTEIN NEGATIVE (NEGATIVE); URINE UROBILINOGEN 0.2 E.U./dL (0.2 - 1.0)
[2016-12-28 16:52] LABS: URINE COLOR YELLOW
[2016-12-28 16:57] LABS: URINE BACTERIA NONE SEEN /hpf (NONE SEEN); URINE EPITHELIAL CELLS NONE SEEN /lpf (FEW); URINE RBC NONE SEEN /hpf (0-5); URINE WBC NONE SEEN /hpf (0-5)
[2016-12-28] MEDS: cefTRIAXone 1 GM in Sodium Chloride 0.9% 50 ML IV SCH (20:45)
[2016-12-29] MEDS: Pantoprazole 40 mg EC Tab PO SCH (07:02)
[2016-12-29 07:37] LABS: % BASOPHILS 0.4 % (0.0-2.0); % EOSINOPHILS 2.2 % (0.0-5.0); % LYMPHOCYTES 32.2 % (20.0-50.0); % MONOCYTES 5.7 % (2.0-10.0); % NEUTROPHILS 59.5 % (40.0-80.0); HEMATOCRIT 47.7 % (39.0-49.0); HEMOGLOBIN 16.6 gm/dL (13.2-17.3); MEAN CELL VOLUME 91.9 fl (80-99); MEAN CORPUSCULAR HEMOGLOBIN 31.9 pg (26.0-30.0); MEAN CORPUSCULAR HGB CONC 34.8 pg (28.0-36.0); NEUTROPHILE ABSOLUTE 7.2 Th/cmm (1.8-8.0); PLATELET COUNT 200 Th/cmm (150-400); RED BLOOD COUNT 5.19 Mil/cmm (4.30-5.70); RED CELL DISTRIBUTION WIDTH 12.1 % (11.5-20.0)
[2016-12-29 07:40] LABS: ANION GAP 10.9 (7.0-16.0); BUN - UREA NITROGEN 18 mg/dL (7-25); BUN/CREATININE RATIO 22.5; CALCIUM SERUM 9.9 mg/dL (8.6-10.3); CHLORIDE 105 mEq/L (98-107); CREATININE - SERUM 0.8 mg/dL (0.7-1.3); GLUCOSE 91 mg/dL (70-105); POTASSIUM SERUM 3.9 mEq/L (3.5-5.1); SODIUM SERUM 138 mEq/L (136-145)
[2016-12-29 08:23] LABS: WHITE BLOOD COUNT 12.1 Th/cmm (4.8-10.8)
--- NOTE | 2016-12-29 08:30 | General Progress Note ---
Subjective - Review of Systems Events since last encounter: no distress Objective - Results Result Diagrams: 12/29/16 07:00 12/29/16 07:00 Recent Labs: Laboratory Last Values WBC 12.1 Th/cmm (4.8-10.8) H 12/29/16 07:00 RBC 5.19 Mil/cmm (4.30-5.70) 12/29/16 07:00 Hgb 16.6 gm/dL (13.2-17.3) 12/29/16 07:00 Hct 47.7 % (39.0-49.0) 12/29/16 07:00 MCV 91.9 fl (80-99) 12/29/16 07:00 MCH 31.9 pg (26.0-30.0) H 12/29/16 07:00 MCHC Differential 34.8 pg (28.0-36.0) 12/29/16 07:00 RDW 12.1 % (11.5-20.0) 12/29/16 07:00 Plt Count 200 Th/cmm (150-400) 12/29/16 07:00 MPV 8.0 fl 12/29/16 07:00 Neutrophils % 59.5 % (40.0-80.0) 12/29/16 07:00 Lymphocytes % 32.2 % (20.0-50.0) 12/29/16 07:00 Monocytes % 5.7 % (2.0-10.0) 12/29/16 07:00 Eosinophils % 2.2 % (0.0-5.0) 12/29/16 07:00 Basophils % 0.4 % (0.0-2.0) 12/29/16 07:00 Sodium 138 mEq/L (136-145) 12/29/16 07:00 Potassium 3.9 mEq/L (3.5-5.1) 12/29/16 07:00 Chloride 105 mEq/L (98-107) 12/29/16 07:00 Carbon Dioxide 26.0 mEq/L (21.0-31.0) 12/29/16 07:00 Anion Gap 10.9 (7.0-16.0) 12/29/16 07:00 BUN 18 mg/dL (7-25) 12/29/16 07:00 Creatinine 0.8 mg/dL (0.7-1.3) 12/29/16 07:00 Est GFR ( Amer) > 60.0 ml/min (>90) 12/29/16 07:00 Est GFR (Non-Af Amer) > 60.0 ml/min 12/29/16 07:00 BUN/Creatinine Ratio 22.5 12/29/16 07:00 Glucose 91 mg/dL (70-105) 12/29/16 07:00 Whole Bld Lactic Acid 1.23 mmol/L (0.60-1.99) 12/27/16 22:45 Calcium 9.9 mg/dL (8.6-10.3) 12/29/16 07:00 Total Bilirubin 0.5 mg/dL (0.3-1.0) 12/27/16 19:54 AST 11 U/L (13-39) L 12/27/16 19:54 ALT 3 U/L (7-52) L 12/27/16 19:54 Alkaline Phosphatase 61 U/L (34-104) 12/27/16 19:54 Troponin I < 0.01 ng/mL (0.01-0.05) L 12/27/16 19:54 Total Protein 6.5 gm/dL (6.0-8.3) 12/27/16 19:54 Albumin 4.0 gm/dL (4.2-5.5) L 12/27/16 19:54 Globulin 2.5 gm/dL 12/27/16 19:54 Albumin/Globulin Ratio 1.6 (1.0-1.8) 12/27/16 19:54 Triglycerides 193 mg/dL (<150) H 12/27/16 19:54 Cholesterol 151 mg/dL (<200) 12/27/16 19:54 LDL Cholesterol Direct 106 mg/dL (75-193) 12/27/16 19:54 HDL Cholesterol 33 mg/dL (23-92) 12/27/16 19:54 TSH 2.46 uIU/ml (0.34-5.60) 12/27/16 19:54 Urine Source CLEAN C 12/28/16 16:05 Urine Color YELLOW 12/28/16 16:05 Urine Clarity CLEAR (CLEAR) 12/28/16 16:05 Urine pH 7.5 (4.6 - 8.0) 12/28/16 16:05 Ur Specific [place] 1.010 (1.005-1.030) 12/28/16 16:05 Urine Protein NEGATIVE mg/dL (NEGATIVE) 12/28/16 16:05 Urine Glucose (UA) NEGATIVE mg/dL (NEGATIVE) 12/28/16 16:05 Urine Ketones NEGATIVE mg/dL (NEGATIVE) 12/28/16 16:05 Urine Blood NEGATIVE (NEGATIVE) 12/28/16 16:05 Urine Nitrate NEGATIVE (NEGATIVE) 12/28/16 16:05 Urine Bilirubin NEGATIVE (NEGATIVE) 12/28/16 16:05 Urine Urobilinogen 0.2 E.U./dL (0.2 - 1.0) 12/28/16 16:05 Ur Leukocyte Esterase NEGATIVE (NEGATIVE) 12/28/16 16:05 Urine RBC NONE SEEN /hpf (0-5) 12/28/16 16:05 Urine WBC NONE SEEN /hpf (0-5) 12/28/16 16:05 Ur Epithelial Cells NONE SEEN /lpf (FEW) 12/28/16 16:05 Urine Bacteria NONE SEEN /hpf (NONE SEEN) 12/28/16 16:05 RPR NONREACTIVE (NONREACTIVE) 12/27/16 19:54 - Physical Exam Vitals and I&O: Vital Signs Temp 97.7 F 12/29/16 07:41 Pulse 73 12/29/16 07:41 Resp 17 12/29/16 07:41 BP 130/77 12/29/16 07:41 Pulse Ox 97 12/29/16 07:41 Intake & Output 12/28/16 12/29/16 12/29/16 18:59 06:59 18:59 Intake Total 200 50 Output Total 300 Balance -100 50 Weight (lbs) 99.79 kg Intake: Intake, IV Amount 50 cefTRIAXone 1 gm In 50 Sodium Chloride 0.9% 50 ml @ 100 mls/hr IV Q24HR PENDING SALE TO [facility] Rx#:[id number] Oral 200 Output: Emesis 100 Other 200 Other: # Voids 5 Active Medications: Current Medications Acetaminophen (Tylenol) 650 mg PO Q6H PRN PRN Reason: FOR MILD PAIN Stop: 02/26/17 14:53 Aripiprazole (Abilify) 20 mg PO DAILY PENDING SALE TO [facility] Stop: 02/27/17 08:59 Ascorbic Acid (Vitamin C) 500 mg PO DAILY PENDING SALE TO [facility] Stop: 02/27/17 08:59 Carbidopa/Levodopa (Sinemet 25mg-100 Mg) 1 tab PO TID [facility] Stop: 02/26/17 20:59 Last Admin: 12/28/16 20:44 Dose: 1 tab Docusate Sodium (Colace) 200 mg PO HS [facility] Stop: 02/26/17 20:59 Last Admin: 12/28/16 20:44 Dose: 200 mg Ferrous Sulfate (Iron) 325 mg PO BID [facility] Stop: 02/26/17 16:59 Last Admin: 12/28/16 16:30 Dose: Not Given Hydrocortisone (Cortef) 25 mg PO DAILY [facility] Stop: 02/27/17 08:59 Ceftriaxone Sodium 1 gm/ (Sodium Chloride) 50 mls @ 100 mls/hr IV Q24HR [facility] Stop: 02/26/17 20:59 Last Infusion: 12/29/16 01:02 Dose: Infused Lisinopril (Zestril) 10 mg PO DAILY [facility] Stop: 02/27/17 08:59 Miscellaneous (Cranberry Fruit Concentrate [Cranberry]) 450 mg PO DAILY [facility]URDES Stop: 02/27/17 08:59 Nitroglycerin (Nitrostat) 0.4 mg SL Q5MIN PRN PRN Reason: Chest Pain Stop: 02/26/17 14:53 Pantoprazole Sodium (Protonix) 20 mg PO QDAC [facility] Stop: 02/27/17 07:29 Last Admin: 12/29/16 07:02 Dose: 20 mg Sevelamer HCl (Renagel) 800 mg PO TIDWM [facility] Stop: 02/26/17 16:59 Last Admin: 12/28/16 16:30 Dose: Not Given Vitamin B Complex/Vit C/Folic Acid (Vitamin B Complex W/Vitamin C) 1 tab PO DAILY [facility]UR[facility] Stop: 02/27/17 08:59
[2016-12-29] MEDS ORDERED: Non-Formulary Item 1 EA (Cranberry Fruit Concentrate [Cranberry] 450 MG) PO SCH (09:00)
[2016-12-29] MEDS: Ferrous Sulfate 325 MG TAB PO SCH ×2 (10:01→17:06)
[2016-12-29] MEDS: Vitamin B Complex w/Vitamin C Tab PO SCH (10:01)
[2016-12-29] MEDS: D5-0.9%NS 1,000 ML IV SCH (18:25)
[2016-12-29] MEDS: cefTRIAXone 1 GM in Sodium Chloride 0.9% 50 ML IV SCH (21:58)
--- NOTE | 2016-12-30 04:48 | Admit Criteria Form ---
Admit Criteria Forms - Admit Criteria Diagnosis: SEPSIS and OTHER FEBRILE ILLNESS, W/O FOCAL INFECTION Clinical Indications for Admission to Inpatient Care ( Place 'X' for any and all applicable criteria): Admission is indicated for ANY ONE of the following (1)(2)(3)(4): [ ] I. Bacteremia [ X]II. Suspected or identified specific infection requiring hospitalization (eg, meningitis, endocarditis) [ ]III. Hemodynamic instability [ ]IV. Altered mental status [ ]V. Failure or unavailability of outpatient antimicrobial treatment [ ]. Hypoxemia [ ]VII. Seizures [ ]VIII. High-risk febrile neutropenia [ ]IX. Need for parenteral antibiotic in patient who is likely to abuse vascular access device (eg, injection drug user) [A](7) [ ]X. Temperature greater than 104.9 degrees F (40.5 degrees C) (oral) [ ]XI. Inpatient admission required rather than observation care because of ANY ONE of the following: [ ]1) Specific infection identified that is too severe for outpatient treatment or observation care trial [ ]2) Metabolic disorder (eg, hypoglycemia, hyperglycemia, metabolic acidosis) that is severe or persistent [ ]3) Temperature greater than 103.1 degrees F (39.5 degrees C) ( oral) that is not responsive to observation care treatment [ ]4) IV fluid to replace significant ongoing (eg, for over 24 hours) losses (> 3 L/m2 per day) [ ]5) Supplemental oxygen or respiratory treatments for over 24 hours that is performable only in acute inpatient setting [ ]6) Parenteral nutrition regimen need that must be implemented on inpatient basis [ ]7) Strict or protective (eg, laminar flow) isolation [ ]8) Other condition, treatment or monitoring requiring inpatient admission Extended stay beyond goal length of stay may be needed for(1)(3) [ ]a) Sepsis or septic shock(22) [ ]b) Positive blood cultures [ ]c) Insufficient oral intake [ ]d) High-risk febrile neutropenia(29)(30) [ ]e) Continued fever and clinical instability [ ]f) Clinically active comorbid illness (e.g,heart failure, renal failure , diabetes) The original [facility] [employer] content created by Zana Fong has been revised. The portions of the content which have been revised are identified through the use of italic text or in bold, and [employer] has neither reviewed nor approved the modified material. All other unmodified content is copyright [facility]. Please see references footnoted in the original [facility] edition 2016 Admit Criteria Met?: Yes
[2016-12-30] MEDS: Pantoprazole 40 mg EC Tab PO SCH (06:51)
--- NOTE | 2016-12-30 08:10 | General Progress Note ---
Subjective - Review of Systems Events since last encounter: no distress Objective - Results Result Diagrams: 12/29/16 07:00 12/29/16 07:00 Recent Labs: Laboratory Last Values WBC 12.1 Th/cmm (4.8-10.8) H 12/29/16 07:00 RBC 5.19 Mil/cmm (4.30-5.70) 12/29/16 07:00 Hgb 16.6 gm/dL (13.2-17.3) 12/29/16 07:00 Hct 47.7 % (39.0-49.0) 12/29/16 07:00 MCV 91.9 fl (80-99) 12/29/16 07:00 MCH 31.9 pg (26.0-30.0) H 12/29/16 07:00 MCHC Differential 34.8 pg (28.0-36.0) 12/29/16 07:00 RDW 12.1 % (11.5-20.0) 12/29/16 07:00 Plt Count 200 Th/cmm (150-400) 12/29/16 07:00 MPV 8.0 fl 12/29/16 07:00 Neutrophils % 59.5 % (40.0-80.0) 12/29/16 07:00 Lymphocytes % 32.2 % (20.0-50.0) 12/29/16 07:00 Monocytes % 5.7 % (2.0-10.0) 12/29/16 07:00 Eosinophils % 2.2 % (0.0-5.0) 12/29/16 07:00 Basophils % 0.4 % (0.0-2.0) 12/29/16 07:00 Sodium 138 mEq/L (136-145) 12/29/16 07:00 Potassium 3.9 mEq/L (3.5-5.1) 12/29/16 07:00 Chloride 105 mEq/L (98-107) 12/29/16 07:00 Carbon Dioxide 26.0 mEq/L (21.0-31.0) 12/29/16 07:00 Anion Gap 10.9 (7.0-16.0) 12/29/16 07:00 BUN 18 mg/dL (7-25) 12/29/16 07:00 Creatinine 0.8 mg/dL (0.7-1.3) 12/29/16 07:00 Est GFR ( Amer) > 60.0 ml/min (>90) 12/29/16 07:00 Est GFR (Non-Af Amer) > 60.0 ml/min 12/29/16 07:00 BUN/Creatinine Ratio 22.5 12/29/16 07:00 Glucose 91 mg/dL (70-105) 12/29/16 07:00 Whole Bld Lactic Acid 1.23 mmol/L (0.60-1.99) 12/27/16 22:45 Calcium 9.9 mg/dL (8.6-10.3) 12/29/16 07:00 Total Bilirubin 0.5 mg/dL (0.3-1.0) 12/27/16 19:54 AST 11 U/L (13-39) L 12/27/16 19:54 ALT 3 U/L (7-52) L 12/27/16 19:54 Alkaline Phosphatase 61 U/L (34-104) 12/27/16 19:54 Troponin I < 0.01 ng/mL (0.01-0.05) L 12/27/16 19:54 Total Protein 6.5 gm/dL (6.0-8.3) 12/27/16 19:54 Albumin 4.0 gm/dL (4.2-5.5) L 12/27/16 19:54 Globulin 2.5 gm/dL 12/27/16 19:54 Albumin/Globulin Ratio 1.6 (1.0-1.8) 12/27/16 19:54 Triglycerides 193 mg/dL (<150) H 12/27/16 19:54 Cholesterol 151 mg/dL (<200) 12/27/16 19:54 LDL Cholesterol Direct 106 mg/dL (75-193) 12/27/16 19:54 HDL Cholesterol 33 mg/dL (23-92) 12/27/16 19:54 TSH 2.46 uIU/ml (0.34-5.60) 12/27/16 19:54 Urine Source CLEAN C 12/28/16 16:05 Urine Color YELLOW 12/28/16 16:05 Urine Clarity CLEAR (CLEAR) 12/28/16 16:05 Urine pH 7.5 (4.6 - 8.0) 12/28/16 16:05 Ur Specific [place] 1.010 (1.005-1.030) 12/28/16 16:05 Urine Protein NEGATIVE mg/dL (NEGATIVE) 12/28/16 16:05 Urine Glucose (UA) NEGATIVE mg/dL (NEGATIVE) 12/28/16 16:05 Urine Ketones NEGATIVE mg/dL (NEGATIVE) 12/28/16 16:05 Urine Blood NEGATIVE (NEGATIVE) 12/28/16 16:05 Urine Nitrate NEGATIVE (NEGATIVE) 12/28/16 16:05 Urine Bilirubin NEGATIVE (NEGATIVE) 12/28/16 16:05 Urine Urobilinogen 0.2 E.U./dL (0.2 - 1.0) 12/28/16 16:05 Ur Leukocyte Esterase NEGATIVE (NEGATIVE) 12/28/16 16:05 Urine RBC NONE SEEN /hpf (0-5) 12/28/16 16:05 Urine WBC NONE SEEN /hpf (0-5) 12/28/16 16:05 Ur Epithelial Cells NONE SEEN /lpf (FEW) 12/28/16 16:05 Urine Bacteria NONE SEEN /hpf (NONE SEEN) 12/28/16 16:05 RPR NONREACTIVE (NONREACTIVE) 12/27/16 19:54 - Physical Exam Vitals and I&O: Vital Signs Temp 98.6 F 12/30/16 03:00 Pulse 45 12/30/16 03:00 Resp 20 12/29/16 23:00 BP 113/72 12/30/16 03:00 Pulse Ox 19 12/30/16 03:00 Intake & Output 12/29/16 12/30/16 12/30/16 18:59 06:59 18:59 Intake Total 25 300 Balance 25 300 Weight (lbs) 99.79 kg 99.79 kg Intake: Oral 25 Tube Feeding 300 Other: # Voids 3 2 # Bowel Movements 1 0 Active Medications: Current Medications Acetaminophen (Tylenol) 650 mg PO Q6H PRN PRN Reason: FOR MILD PAIN Stop: 02/26/17 14:53 Aripiprazole (Abilify) 20 mg PO DAILY [facility]URDES Stop: 02/27/17 08:59 Last Admin: 12/29/16 09:58 Dose: 20 mg Ascorbic Acid (Vitamin C) 500 mg PO DAILY [facility]URDES Stop: 02/27/17 08:59 Last Admin: 12/29/16 10:00 Dose: 500 mg Carbidopa/Levodopa (Sinemet 25mg-100 Mg) 1 tab PO TID [facility]URDES Stop: 02/26/17 20:59 Last Admin: 12/29/16 21:59 Dose: 1 tab Docusate Sodium (Colace) 200 mg PO HS [facility]URDES Stop: 02/26/17 20:59 Last Admin: 12/29/16 21:58 Dose: 200 mg Ferrous Sulfate (Iron) 325 mg PO BID [facility]URDES Stop: 02/26/17 16:59 Last Admin: 12/29/16 17:06 Dose: 325 mg Hydrocortisone (Cortef) 25 mg PO DAILY [facility]URDES Stop: 02/27/17 08:59 Last Admin: 12/29/16 09:59 Dose: 25 mg Ceftriaxone Sodium 1 gm/ (Sodium Chloride) 50 mls @ 100 mls/hr IV Q24HR [facility] Stop: 02/26/17 20:59 Last Admin: 12/29/16 21:58 Dose: 100 mls/hr Dextrose/Sodium Chloride (D5-0.9%Ns) 1,000 mls @ 50 mls/hr IV .Q20H [facility] Stop: 02/27/17 17:38 Last Admin: 12/29/16 18:25 Dose: 50 mls/hr Lisinopril (Zestril) 10 mg PO DAILY [facility]URDES Stop: 02/27/17 08:59 Last Admin: 12/29/16 09:59 Dose: 10 mg Nitroglycerin (Nitrostat) 0.4 mg SL Q5MIN PRN PRN Reason: Chest Pain Stop: 02/26/17 14:53 Pantoprazole Sodium (Protonix) 20 mg PO QDAC [facility]DES Stop: 02/27/17 07:29 Last Admin: 12/30/16 06:51 Dose: 20 mg Sevelamer HCl (Renagel) 800 mg PO TIDWM [facility]DES Stop: 02/26/17 16:59 Last Admin: 12/29/16 17:07 Dose: Not Given Vitamin B Complex/Vit C/Folic Acid (Vitamin B Complex W/Vitamin C) 1 tab PO DAILY [facility]URDES Stop: 02/27/17 08:59 Last Admin: 12/29/16 10:01 Dose: 1 tab General: No acute distress HEENT: Atraumatic Cardiovascular: Regular rate, Normal S1, Normal S2 Abdomen: Bowel sounds Assessment/Plan - Problem List Patient Problems: All Active Problems Dementia (Acute) F03.90 History of encephalopathy (Acute) Z86.69 History of schizoaffective disorder (Acute) Z86.59 Hyponatremia (Acute) E87.1 Leukocytosis (Acute) D72.829 Parkinson disease (Acute) G20 Sepsis (Acute) - Plan Plan: monitor vitals/diet labs f/up consultats Nutritional Asmnt/Malnutr-PDOC - Dietary Evaluation Malnutrition Findings (Please click <Entered> for more info): Nutritional Asmnt/Malnutrition Start: 12/28/16 18: 00 Text: Status: Complete Freq: Document 12/29/16 18:25 [facility] (Rec: 12/29/16 18:33 [facility] [id number]) Nutritional Asmnt/Malnutrition Patient General Information Nutritional Screening Consult Diagnosis Sepsis, leukocytosis, hyponatreamia Pertinent Medical Hx/Surgical Hx Dementia, Parkinson's, encephalopathy, schizophrenia Subjective Information Nutrition Consult for dysphagia received and completed. [facility] 56[facility] with chief complainta of elevated white countand ALOC. Swallow evaluation completed on 12/28 with need for video swallow evaluation pending 12/30. Pt placed NPO for dinner due to poor tolerance of regular diet . Pt was awake and able to answer simple questions. Pt reports good appetite prior to admit. Pt does not know UBW or wt hx but states clothes feel looser. Pt appears well nourished with no signs of muscle or fat depletion. Per chart, pt had orders to flush feeding tube with 200 ml water every 6 hours. Current Diet Order/ Nutrition Support NPO Patient / S.O Not Indicated Pertinent Medications Vitamin C, Ceftriaxone Sodium, D5-0.9 ns, Coalce, Iron, Protonix, Renagel, Vitamin B Complex Pertinent Labs Reviewed Nutritional Hx/Data Height 1.91 m Height (Calculated Centimeters) 190.5 Current Weight (lbs) 99.79 kg Weight (Calculated Kilograms) 99.8 Weight (Calculated Grams) 09126.3 Usual body Weight (lbs) 220 % Usual Body Weight 100 [place]bin Body Weight 196 % Albin Body Weight 112 Recent Weight Change Yes Weight Status Overweight GI Symptoms GI Symptoms None Difficult in: Swallowing Food Allergies No Usual diet at home Pureed CCD, honey thick liquid diet with large portions Skin Integrity/Comment: Kenan 12. Skin intact. Current %PO Negligible < 25% Estimated Nutritional Goals BEE in Kcals: Using Current wt Calories/Kcals/Kg Based on current wt 100 kg with consideration of sepsis, overwt status Kcals Calculated 3112-8701 kcals/day (25-28 kcals/kg) Protein: Using Current wt Protein g/kg: Based on current wt 100 kg with consideration of sepsis, overwt status Protein Calculated 120 gm/day (1.2 gm/kg) Fluid: ml 9478-2211 ml/day (25-30 ml/kg) Nutritional Problem 1. Problem Problem Swallowing difficulty related to Etiology possible oral dysphagia as evidenced by Signs/Symptoms: need for textured diet with thickened liquids, swallow evaluation. Malnutrition Alert Protein-Calorie Malnutrition N/A Is there a minimum of two criteria No selected? Query Text:Check all the applicable criteria. A minimum of two criteria are recommended for diagnosis of either severe or non-severe malnutrition. Malnutrition Related to Morbid Obesity Malnutrition related to morbid obesity No Intervention/Recommendation Comments 1. Diet per MD/DO and MECHANICAL INTEGRITY SPECIALIST. 2. If pt passes swallow evaluation, recommend Boost supplement TID with meals to help meet estimated nutritional needs. 3. If pt is not fit for oral diet, recommend start enteral nutrition support. Expected Outcomes/Goals Expected Outcomes/Goals Have pt meet at least 75% of estimated nutritional needs with acceptable tolerance. Physician Parameters for PEM Serum Albumin (g/dl) 3.5 - 5.0 (Normal)
[2016-12-30] MEDS: Vitamin B Complex w/Vitamin C Tab PO SCH (10:24)
[2016-12-30] MEDS: Ferrous Sulfate 325 MG TAB PO SCH ×2 (10:24→18:10)
--- NOTE | 2016-12-30 12:28 | Diagnostic Imaging Report ---
Portable chest x-ray HISTORY: Shortness of breath, cough Compared to prior exam December 27, 2016, radiopaque contrast (barium) is noted in the left lower lobe bronchial tree. Residual contrast also noted within the distal esophagus. IMPRESSION: 1. Findings associated with aspiration of area into the left lower lobe bronchial tree 2. Dilated lower esophagus with residual contrast. A DEDICATED ESOPHAGRAM IS RECOMMENDED FOR FURTHER ASSESSMENT OF THE LOWER ESOPHAGUS AND GASTROESOPHAGEAL JUNCTION AREA.
[2016-12-30] MEDS ORDERED: Fleet Enema 135 mL RC PRN (12:30)
--- NOTE | 2016-12-30 13:51 | Diagnostic Imaging Report ---
KUB single view HISTORY: Constipation. COMPARISON: None FINDINGS: Copious amount of stool is noted with distal fecal impaction. General gas-filled loops of bowel are noted. Percutaneous gastric feeding tube is noted. Degenerative changes of spine are noted with scoliosis. Degenerative changes of pelvis are noted. Atherosclerosis is noted. IMPRESSION: Copious amount of stool with distal fecal impaction. Correlate clinically for constipation and probable mild ileus.
--- NOTE | 2016-12-30 14:08 | Diagnostic Imaging Report ---
Video barium swallow (modified, in conjunction with speech pathology) HISTORY: Dysphagia The exam was performed in conjunction with speech pathology. Barium preparations of varying density and consistency were administered by mouth. Aspiration noted. See separate speech pathology report for observations and recommendations. 37 seconds fluoroscopy time was utilized. IT SHOULD BE NOTED THAT THIS EXAMINATION IS LIMITED TO THE OROPHARYNX AND CERVICAL ESOPHAGEAL REGION. IF EVALUATION OF THE THORACIC ESOPHAGUS IS NEEDED, A DEDICATED ESOPHAGRAM SHOULD BE PERFORMED.
[2016-12-30] MEDS: D5-0.9%NS 1,000 ML IV SCH (16:15)
[2016-12-30] MEDS ORDERED: Magnesium Citrate 1.75 GM/300 mL Bottle GT ONE (18:33)
[2016-12-30] MEDS: cefTRIAXone 1 GM in Sodium Chloride 0.9% 50 ML IV SCH (22:03)
--- NOTE | 2016-12-30 22:11 | Consultation ---
DATE OF CONSULTATION: 12/30/2016 REASON FOR CONSULTATION: Fecal impaction. HISTORY OF PRESENT ILLNESS: This consult was obtained through the request of Dr. Celestin for this 56-year-old with history of encephalopathy, possible some sort of dementia, Parkinson's disease, schizophrenia, dysphagia status post G-tube, who was admitted from a nursing facility for sepsis, was found while in the hospital with abdominal pain. He had an x-ray, which showed fecal impaction. GI consult was called in for further evaluation. The patient is responsive, but stating he is okay. The patient had an enema, which resulted in some good bowel movement. No documentation of weight loss, nausea, vomiting. PAST MEDICAL HISTORY: Dementia, Parkinson's disease, encephalopathy, schizophrenia. PAST SURGICAL HISTORY: Not known. SOCIAL HISTORY: Nonsmoker, nonalcoholic, non-IV drug abuser. FAMILY HISTORY: Noncontributory. ALLERGIES: ZOLPIDEM. MEDICATIONS: Tylenol, Abilify, vitamin C, carbidopa, Rocephin, Colace, iron, Solu-Cortef, lisinopril, nitroglycerin, and Zofran. REVIEW OF SYSTEMS: Unobtainable. PHYSICAL EXAMINATION: GENERAL: The patient is awake, oriented to self. VITAL SIGNS: Blood pressure is 114/72, heart rate 75, respiratory rate is 19, temperature is 98.6. HEAD AND NECK: Pupils reactive to light and accommodation. Extraocular muscles could not be tested. Oral cavity, no lesion. NECK: Supple, no jugular venous distention, no carotid bruit or lymph node. CHEST: Good respiratory movements. LUNGS: Clear to auscultation. CARDIOVASCULAR: Regular rate and rhythm. No murmur or gallop. ABDOMEN: Soft. There is a G-tube in place. Bowel sounds are present. EXTREMITIES: Lower extremities, no edema. CENTRAL NERVOUS SYSTEM: Unable to evaluate. The patient is barely moving his legs. LABORATORY DATA: White count is 12.1, H and H of 16.6 and 47.7, with platelets of 200. Liver enzymes were normal. X-ray showed fecal impaction. IMPRESSION: A 56-year-old with several medical problems admitted for sepsis and now with fecal impaction. fecal impaction, give the patient and then stop, mineral oil twice daily, then we will resume tube feeding and then further recommendations to follow. [facility]# [id number]
[2016-12-31] MEDS: Pantoprazole 40 mg EC Tab PO SCH (06:49)
--- NOTE | 2016-12-31 08:53 | General Progress Note ---
Subjective - Review of Systems Events since last encounter: no distress Objective - Results Result Diagrams: 12/29/16 07:00 12/29/16 07:00 Recent Labs: Laboratory Last Values WBC 12.1 Th/cmm (4.8-10.8) H 12/29/16 07:00 RBC 5.19 Mil/cmm (4.30-5.70) 12/29/16 07:00 Hgb 16.6 gm/dL (13.2-17.3) 12/29/16 07:00 Hct 47.7 % (39.0-49.0) 12/29/16 07:00 MCV 91.9 fl (80-99) 12/29/16 07:00 MCH 31.9 pg (26.0-30.0) H 12/29/16 07:00 MCHC Differential 34.8 pg (28.0-36.0) 12/29/16 07:00 RDW 12.1 % (11.5-20.0) 12/29/16 07:00 Plt Count 200 Th/cmm (150-400) 12/29/16 07:00 MPV 8.0 fl 12/29/16 07:00 Neutrophils % 59.5 % (40.0-80.0) 12/29/16 07:00 Lymphocytes % 32.2 % (20.0-50.0) 12/29/16 07:00 Monocytes % 5.7 % (2.0-10.0) 12/29/16 07:00 Eosinophils % 2.2 % (0.0-5.0) 12/29/16 07:00 Basophils % 0.4 % (0.0-2.0) 12/29/16 07:00 Sodium 138 mEq/L (136-145) 12/29/16 07:00 Potassium 3.9 mEq/L (3.5-5.1) 12/29/16 07:00 Chloride 105 mEq/L (98-107) 12/29/16 07:00 Carbon Dioxide 26.0 mEq/L (21.0-31.0) 12/29/16 07:00 Anion Gap 10.9 (7.0-16.0) 12/29/16 07:00 BUN 18 mg/dL (7-25) 12/29/16 07:00 Creatinine 0.8 mg/dL (0.7-1.3) 12/29/16 07:00 Est GFR ( Amer) > 60.0 ml/min (>90) 12/29/16 07:00 Est GFR (Non-Af Amer) > 60.0 ml/min 12/29/16 07:00 BUN/Creatinine Ratio 22.5 12/29/16 07:00 Glucose 91 mg/dL (70-105) 12/29/16 07:00 Whole Bld Lactic Acid 1.23 mmol/L (0.60-1.99) 12/27/16 22:45 Calcium 9.9 mg/dL (8.6-10.3) 12/29/16 07:00 Total Bilirubin 0.5 mg/dL (0.3-1.0) 12/27/16 19:54 AST 11 U/L (13-39) L 12/27/16 19:54 ALT 3 U/L (7-52) L 12/27/16 19:54 Alkaline Phosphatase 61 U/L (34-104) 12/27/16 19:54 Troponin I < 0.01 ng/mL (0.01-0.05) L 12/27/16 19:54 Total Protein 6.5 gm/dL (6.0-8.3) 12/27/16 19:54 Albumin 4.0 gm/dL (4.2-5.5) L 12/27/16 19:54 Globulin 2.5 gm/dL 12/27/16 19:54 Albumin/Globulin Ratio 1.6 (1.0-1.8) 12/27/16 19:54 Triglycerides 193 mg/dL (<150) H 12/27/16 19:54 Cholesterol 151 mg/dL (<200) 12/27/16 19:54 LDL Cholesterol Direct 106 mg/dL (75-193) 12/27/16 19:54 HDL Cholesterol 33 mg/dL (23-92) 12/27/16 19:54 TSH 2.46 uIU/ml (0.34-5.60) 12/27/16 19:54 Urine Source CLEAN C 12/28/16 16:05 Urine Color YELLOW 12/28/16 16:05 Urine Clarity CLEAR (CLEAR) 12/28/16 16:05 Urine pH 7.5 (4.6 - 8.0) 12/28/16 16:05 Ur Specific [place] 1.010 (1.005-1.030) 12/28/16 16:05 Urine Protein NEGATIVE mg/dL (NEGATIVE) 12/28/16 16:05 Urine Glucose (UA) NEGATIVE mg/dL (NEGATIVE) 12/28/16 16:05 Urine Ketones NEGATIVE mg/dL (NEGATIVE) 12/28/16 16:05 Urine Blood NEGATIVE (NEGATIVE) 12/28/16 16:05 Urine Nitrate NEGATIVE (NEGATIVE) 12/28/16 16:05 Urine Bilirubin NEGATIVE (NEGATIVE) 12/28/16 16:05 Urine Urobilinogen 0.2 E.U./dL (0.2 - 1.0) 12/28/16 16:05 Ur Leukocyte Esterase NEGATIVE (NEGATIVE) 12/28/16 16:05 Urine RBC NONE SEEN /hpf (0-5) 12/28/16 16:05 Urine WBC NONE SEEN /hpf (0-5) 12/28/16 16:05 Ur Epithelial Cells NONE SEEN /lpf (FEW) 12/28/16 16:05 Urine Bacteria NONE SEEN /hpf (NONE SEEN) 12/28/16 16:05 RPR NONREACTIVE (NONREACTIVE) 12/27/16 19:54 - Physical Exam Vitals and I&O: Vital Signs Temp 97.4 F 12/31/16 03:00 Pulse 84 12/31/16 03:00 Resp 18 12/31/16 03:00 BP 122/70 12/31/16 03:00 Pulse Ox 97 12/31/16 03:00 Intake & Output 12/30/16 12/31/16 12/31/16 18:59 06:59 18:59 Intake Total 1000 1145.833 Output Total 0 Balance 1000 1145.833 Weight (lbs) 104.054 kg Intake: Intake, IV Amount 1000 195.833 D5-0.9%Ns 1,000 ml @ 50 1000 145.833 mls/hr IV .Q20H LURDES Rx#: [id number] cefTRIAXone 1 gm In 50 Sodium Chloride 0.9% 50 ml @ 100 mls/hr IV Q24HR LURDES Rx#:[id number] Oral 0 Tube Feeding 250 Other 700 Output: Stool 0 Other: # Voids 1 # Bowel Movements 1 Active Medications: Current Medications Acetaminophen (Tylenol) 650 mg PO Q6H PRN PRN Reason: FOR MILD PAIN Stop: 02/26/17 14:53 Aripiprazole (Abilify) 20 mg PO DAILY LURDES Stop: 02/27/17 08:59 Last Admin: 12/30/16 10:26 Dose: 20 mg Ascorbic Acid (Vitamin C) 500 mg PO DAILY LURDES Stop: 02/27/17 08:59 Last Admin: 12/30/16 10:24 Dose: 500 mg Carbidopa/Levodopa (Sinemet 25mg-100 Mg) 1 tab PO TID LURDES Stop: 02/26/17 20:59 Last Admin: 12/30/16 22:03 Dose: 1 tab Docusate Sodium (Colace) 200 mg PO HS LURDES Stop: 02/26/17 20:59 Last Admin: 12/30/16 22:03 Dose: 200 mg Ferrous Sulfate (Iron) 325 mg PO BID LURDES Stop: 02/26/17 16:59 Last Admin: 12/30/16 18:10 Dose: 325 mg Hydrocortisone (Cortef) 25 mg PO DAILY LURDES Stop: 02/27/17 08:59 Last Admin: 12/30/16 10:23 Dose: 25 mg Ceftriaxone Sodium 1 gm/ (Sodium Chloride) 50 mls @ 100 mls/hr IV Q24HR LURDES Stop: 02/26/17 20:59 Last Infusion: 12/31/16 06:49 Dose: Infused Dextrose/Sodium Chloride (D5-0.9%Ns) 1,000 mls @ 50 mls/hr IV .Q20H LURDES Stop: 02/27/17 17:38 Last Infusion: 12/30/16 19:10 Dose: 50 mls/hr Lisinopril (Zestril) 10 mg PO DAILY LURDES Stop: 02/27/17 08:59 Last Admin: 12/30/16 10:24 Dose: 10 mg Mineral Oil (Mineral Oil 30 Ml) 30 ml GT BID LURDES Stop: 02/28/17 18:44 Last Admin: 12/30/16 22:03 Dose: 30 ml Nitroglycerin (Nitrostat) 0.4 mg SL Q5MIN PRN PRN Reason: Chest Pain Stop: 02/26/17 14:53 Ondansetron HCl (Zofran) 4 mg IV Q6H PRN PRN Reason: Nausea / Vomiting Stop: 02/28/17 12:28 Last Admin: 12/30/16 15:06 Dose: 4 mg Pantoprazole Sodium (Protonix) 20 mg PO QDAC LURDES Stop: 02/27/17 07:29 Last Admin: 12/31/16 06:49 Dose: Not Given Sevelamer HCl (Renagel) 800 mg PO TIDWM LURDES Stop: 02/26/17 16:59 Last Admin: 12/30/16 18:47 Dose: Not Given Sodium Phosphate (Fleet Enema) 135 ml RC HS PRN PRN Reason: Constipation Stop: 02/28/17 12:29 Last Admin: 12/30/16 15:10 Dose: 135 ml Vitamin B Complex/Vit C/Folic Acid (Vitamin B Complex W/Vitamin C) 1 tab PO DAILY LURDES Stop: 02/27/17 08:59 Last Admin: 12/30/16 10:24 Dose: 1 tab General: No acute distress HEENT: Atraumatic Cardiovascular: Regular rate, Normal S1, Normal S2 Abdomen: Bowel sounds Assessment/Plan - Problem List Patient Problems: All Active Problems Dementia (Acute) F03.90 History of encephalopathy (Acute) Z86.69 History of schizoaffective disorder (Acute) Z86.59 Hyponatremia (Acute) E87.1 Leukocytosis (Acute) D72.829 Parkinson disease (Acute) G20 Sepsis (Acute) - Plan Plan: monitor vitals/diet labs f/up consultats Nutritional Asmnt/Malnutr-PDOC - Dietary Evaluation Malnutrition Findings (Please click <Entered> for more info): Nutritional Asmnt/Malnutrition Start: 12/28/16 18: 00 Text: Status: Complete Freq: Document 12/29/16 18:25 [facility] (Rec: 12/29/16 18:33 [facility] [id number]) Nutritional Asmnt/Malnutrition Patient General Information Nutritional Screening Consult Diagnosis Sepsis, leukocytosis, hyponatreamia Pertinent Medical Hx/Surgical Hx Dementia, Parkinson's, encephalopathy, schizophrenia Subjective Information Nutrition Consult for dysphagia received and completed. Pt is a 56-year-old male from [facility] admitted with chief complainta of elevated white countand ALOC. Swallow evaluation completed on 12/28 with need for video swallow evaluation pending 12/30. Pt placed NPO for dinner due to poor tolerance of regular diet . Pt was awake and able to answer simple questions. Pt reports good appetite prior to admit. Pt does not know UBW or wt hx but states clothes feel looser. Pt appears well nourished with no signs of muscle or fat depletion. Per chart, pt had orders to flush feeding tube with 200 ml water every 6 hours. Current Diet Order/ Nutrition Support NPO Patient / S.O Not Indicated Pertinent Medications Vitamin C, Ceftriaxone Sodium, D5-0.9 ns, Coalce, Iron, Protonix, Renagel, Vitamin B Complex Pertinent Labs Reviewed Nutritional Hx/Data Height 1.91 m Height (Calculated Centimeters) 190.5 Current Weight (lbs) 99.79 kg Weight (Calculated Kilograms) 99.8 Weight (Calculated Grams) 99717.3 Usual body Weight (lbs) 220 % Usual Body Weight 100 Magnet Body Weight 196 % Magnet Body Weight 112 Recent Weight Change Yes Weight Status Overweight GI Symptoms GI Symptoms None Difficult in: Swallowing Food Allergies No Usual diet at home Pureed CCD, honey thick liquid diet with large portions Skin Integrity/Comment: Kenan 12. Skin intact. Current %PO Negligible < 25% Estimated Nutritional Goals BEE in Kcals: Using Current wt Calories/Kcals/Kg Based on current wt 100 kg with consideration of sepsis, overwt status Kcals Calculated 9037-0973 kcals/day (25-28 kcals/kg) Protein: Using Current wt Protein g/kg: Based on current wt 100 kg with consideration of sepsis, overwt status Protein Calculated 120 gm/day (1.2 gm/kg) Fluid: ml 2823-2721 ml/day (25-30 ml/kg) Nutritional Problem 1. Problem Problem Swallowing difficulty related to Etiology possible oral dysphagia as evidenced by Signs/Symptoms: need for textured diet with thickened liquids, swallow evaluation. Malnutrition Alert Protein-Calorie Malnutrition N/A Is there a minimum of two criteria No selected? Query Text:Check all the applicable criteria. A minimum of two criteria are recommended for diagnosis of either severe or non-severe malnutrition. Malnutrition Related to Morbid Obesity Malnutrition related to morbid obesity No Intervention/Recommendation Comments 1. Diet per MD/DO and COMPUTER CONSOLE OPERATOR. 2. If pt passes swallow evaluation, recommend Boost supplement TID with meals to help meet estimated nutritional needs. 3. If pt is not fit for oral diet, recommend start enteral nutrition support. Expected Outcomes/Goals Expected Outcomes/Goals Have pt meet at least 75% of estimated nutritional needs with acceptable tolerance. Physician Parameters for PEM Serum Albumin (g/dl) 3.5 - 5.0 (Normal)
[2016-12-31] MEDS: Ferrous Sulfate 325 MG TAB PO SCH ×2 (10:54→18:36)
[2016-12-31] MEDS: Vitamin B Complex w/Vitamin C Tab PO SCH (10:56)
[2016-12-31] MEDS: D5-0.9%NS 1,000 ML IV SCH (10:56)
--- NOTE | 2016-12-31 15:52 | GI Progress Note ---
Subjective - Review of Systems Service Date: 12/31/16 Events since last encounter: Pt continues with mineral oil enemas, had a BM per nursing. Leukocytosis and abd pain improved. Objective - Results Result Diagrams: 12/29/16 07:00 12/29/16 07:00 Recent Labs: Laboratory Last Values WBC 12.1 Th/cmm (4.8-10.8) H 12/29/16 07:00 RBC 5.19 Mil/cmm (4.30-5.70) 12/29/16 07:00 Hgb 16.6 gm/dL (13.2-17.3) 12/29/16 07:00 Hct 47.7 % (39.0-49.0) 12/29/16 07:00 MCV 91.9 fl (80-99) 12/29/16 07:00 MCH 31.9 pg (26.0-30.0) H 12/29/16 07:00 MCHC Differential 34.8 pg (28.0-36.0) 12/29/16 07:00 RDW 12.1 % (11.5-20.0) 12/29/16 07:00 Plt Count 200 Th/cmm (150-400) 12/29/16 07:00 MPV 8.0 fl 12/29/16 07:00 Neutrophils % 59.5 % (40.0-80.0) 12/29/16 07:00 Lymphocytes % 32.2 % (20.0-50.0) 12/29/16 07:00 Monocytes % 5.7 % (2.0-10.0) 12/29/16 07:00 Eosinophils % 2.2 % (0.0-5.0) 12/29/16 07:00 Basophils % 0.4 % (0.0-2.0) 12/29/16 07:00 Sodium 138 mEq/L (136-145) 12/29/16 07:00 Potassium 3.9 mEq/L (3.5-5.1) 12/29/16 07:00 Chloride 105 mEq/L (98-107) 12/29/16 07:00 Carbon Dioxide 26.0 mEq/L (21.0-31.0) 12/29/16 07:00 Anion Gap 10.9 (7.0-16.0) 12/29/16 07:00 BUN 18 mg/dL (7-25) 12/29/16 07:00 Creatinine 0.8 mg/dL (0.7-1.3) 12/29/16 07:00 Est GFR ( Amer) > 60.0 ml/min (>90) 12/29/16 07:00 Est GFR (Non-Af Amer) > 60.0 ml/min 12/29/16 07:00 BUN/Creatinine Ratio 22.5 12/29/16 07:00 Glucose 91 mg/dL (70-105) 12/29/16 07:00 Whole Bld Lactic Acid 1.23 mmol/L (0.60-1.99) 12/27/16 22:45 Calcium 9.9 mg/dL (8.6-10.3) 12/29/16 07:00 Total Bilirubin 0.5 mg/dL (0.3-1.0) 12/27/16 19:54 AST 11 U/L (13-39) L 12/27/16 19:54 ALT 3 U/L (7-52) L 12/27/16 19:54 Alkaline Phosphatase 61 U/L (34-104) 12/27/16 19:54 Troponin I < 0.01 ng/mL (0.01-0.05) L 12/27/16 19:54 Total Protein 6.5 gm/dL (6.0-8.3) 12/27/16 19:54 Albumin 4.0 gm/dL (4.2-5.5) L 12/27/16 19:54 Globulin 2.5 gm/dL 12/27/16 19:54 Albumin/Globulin Ratio 1.6 (1.0-1.8) 12/27/16 19:54 Triglycerides 193 mg/dL (<150) H 12/27/16 19:54 Cholesterol 151 mg/dL (<200) 12/27/16 19:54 LDL Cholesterol Direct 106 mg/dL (75-193) 12/27/16 19:54 HDL Cholesterol 33 mg/dL (23-92) 12/27/16 19:54 TSH 2.46 uIU/ml (0.34-5.60) 12/27/16 19:54 Urine Source CLEAN C 12/28/16 16:05 Urine Color YELLOW 12/28/16 16:05 Urine Clarity CLEAR (CLEAR) 12/28/16 16:05 Urine pH 7.5 (4.6 - 8.0) 12/28/16 16:05 Ur Specific Molt 1.010 (1.005-1.030) 12/28/16 16:05 Urine Protein NEGATIVE mg/dL (NEGATIVE) 12/28/16 16:05 Urine Glucose (UA) NEGATIVE mg/dL (NEGATIVE) 12/28/16 16:05 Urine Ketones NEGATIVE mg/dL (NEGATIVE) 12/28/16 16:05 Urine Blood NEGATIVE (NEGATIVE) 12/28/16 16:05 Urine Nitrate NEGATIVE (NEGATIVE) 12/28/16 16:05 Urine Bilirubin NEGATIVE (NEGATIVE) 12/28/16 16:05 Urine Urobilinogen 0.2 E.U./dL (0.2 - 1.0) 12/28/16 16:05 Ur Leukocyte Esterase NEGATIVE (NEGATIVE) 12/28/16 16:05 Urine RBC NONE SEEN /hpf (0-5) 12/28/16 16:05 Urine WBC NONE SEEN /hpf (0-5) 12/28/16 16:05 Ur Epithelial Cells NONE SEEN /lpf (FEW) 12/28/16 16:05 Urine Bacteria NONE SEEN /hpf (NONE SEEN) 12/28/16 16:05 RPR NONREACTIVE (NONREACTIVE) 12/27/16 19:54 - Physical Exam Vitals and I&O: Vital Signs Temp 97.4 F 12/31/16 03:00 Pulse 84 12/31/16 03:00 Resp 18 12/31/16 03:00 BP 122/70 12/31/16 03:00 Pulse Ox 97 12/31/16 03:00 Intake & Output 12/30/16 12/31/16 12/31/16 18:59 06:59 18:59 Intake Total 1000 1145.833 Output Total 0 Balance 1000 1145.833 Weight (lbs) 104.054 kg Intake: Intake, IV Amount 1000 195.833 D5-0.9%Ns 1,000 ml @ 50 1000 145.833 mls/hr IV .Q20H LUR[facility] Rx#: [id number] cefTRIAXone 1 gm In 50 Sodium Chloride 0.9% 50 ml @ 100 mls/hr IV Q24HR LURDES Rx#:[id number] Oral 0 Tube Feeding 250 Other 700 Output: Stool 0 Other: # Voids 1 # Bowel Movements 1 Active Medications: Current Medications Acetaminophen (Tylenol) 650 mg PO Q6H PRN PRN Reason: FOR MILD PAIN Stop: 02/26/17 14:53 Aripiprazole (Abilify) 20 mg PO DAILY LURDES Stop: 02/27/17 08:59 Last Admin: 12/31/16 10:54 Dose: Not Given Ascorbic Acid (Vitamin C) 500 mg PO DAILY LURDES Stop: 02/27/17 08:59 Last Admin: 12/31/16 10:54 Dose: Not Given Carbidopa/Levodopa (Sinemet 25mg-100 Mg) 1 tab PO TID LURDES Stop: 02/26/17 20:59 Last Admin: 12/31/16 10:54 Dose: Not Given Docusate Sodium (Colace) 200 mg PO HS LURDES Stop: 02/26/17 20:59 Last Admin: 12/30/16 22:03 Dose: 200 mg Ferrous Sulfate (Iron) 325 mg PO BID LURDES Stop: 02/26/17 16:59 Last Admin: 12/31/16 10:54 Dose: Not Given Hydrocortisone (Cortef) 25 mg PO DAILY LURDES Stop: 02/27/17 08:59 Last Admin: 12/31/16 10:54 Dose: Not Given Ceftriaxone Sodium 1 gm/ (Sodium Chloride) 50 mls @ 100 mls/hr IV Q24HR LURDES Stop: 02/26/17 20:59 Last Infusion: 12/31/16 06:49 Dose: Infused Dextrose/Sodium Chloride (D5-0.9%Ns) 1,000 mls @ 50 mls/hr IV .Q20H LURDES Stop: 02/27/17 17:38 Last Admin: 12/31/16 10:56 Dose: Not Given Lisinopril (Zestril) 10 mg PO DAILY LURDES Stop: 02/27/17 08:59 Last Admin: 12/31/16 10:55 Dose: Not Given Mineral Oil (Mineral Oil 30 Ml) 30 ml GT BID LURDES Stop: 02/28/17 18:44 Last Admin: 12/31/16 10:55 Dose: Not Given Nitroglycerin (Nitrostat) 0.4 mg SL Q5MIN PRN PRN Reason: Chest Pain Stop: 02/26/17 14:53 Ondansetron HCl (Zofran) 4 mg IV Q6H PRN PRN Reason: Nausea / Vomiting Stop: 02/28/17 12:28 Last Admin: 12/30/16 15:06 Dose: 4 mg Pantoprazole Sodium (Protonix) 20 mg PO QDAC LURDES Stop: 02/27/17 07:29 Last Admin: 12/31/16 06:49 Dose: Not Given Sevelamer HCl (Renagel) 800 mg PO TIDWM LURDES Stop: 02/26/17 16:59 Last Admin: 12/31/16 10:53 Dose: Not Given Sodium Phosphate (Fleet Enema) 135 ml RC HS PRN PRN Reason: Constipation Stop: 02/28/17 12:29 Last Admin: 12/30/16 15:10 Dose: 135 ml Vitamin B Complex/Vit C/Folic Acid (Vitamin B Complex W/Vitamin C) 1 tab PO DAILY LURDES Stop: 02/27/17 08:59 Last Admin: 12/31/16 10:56 Dose: Not Given General: No acute distress HEENT: Atraumatic Cardiovascular: Regular rate, Normal S1, Normal S2 Abdomen: Bowel sounds, Soft, Other (non tender, no rebounding, no guard. PEG in place and c/d/i) Assessment/Plan - Problem List Patient Problems: All Active Problems Dementia (Acute) F03.90 History of encephalopathy (Acute) Z86.69 History of schizoaffective disorder (Acute) Z86.59 Hyponatremia (Acute) E87.1 Leukocytosis (Acute) D72.829 Parkinson disease (Acute) G20 Sepsis (Acute) - Assessment Assessment: # Obstipation # Leukocytosis # Dementia # Parkinsons disease Pt improving after mineral oil enemas and mag citrate administration yesterday. He is receiving ceftriaxone as well and leukocytosis is better. Plan: - 7 day course of abx - would continue mineral oil enemas here, and on discharge - continue laxatives as ordered Thank you for allowing me to assist in the care of this patient
--- NOTE | 2016-12-31 15:55 | Consultation ---
DATE OF CONSULTATION: 12/30/2016 PRIMARY CARE PHYSICIAN: Dr. Auguste. HISTORY OF PRESENT ILLNESS: This is a 56-year-old male who was brought to the Emergency Room on 12/27/2016, with complaint of increased white count. The patient was found to have aspiration pneumonia and Infectious consultation. The patient's antibiotic adjusted and examined as soon as possible. PAST MEDICAL HISTORY: Parkinson disease, chronic kidney disease, hyperlipidemia, recurrent pneumonia. FAMILY HISTORY: Negative. SOCIAL HISTORY: Nonsmoker. REVIEW OF SYSTEMS: A 14-point review of system negative except above. PHYSICAL EXAMINATION: GENERAL: The patient is an elderly female. VITAL SIGNS: Temperature is 97.4, pulse 83, respirations 18, blood pressure 119/76. HEENT: Mild pallor. No icterus. Pupils are reactive to light. NECK: Supple. LUNGS: Breath sounds bilateral vesicular. HEART: S1, S2. ABDOMEN: Soft. Bowel sounds present. LYMPHATIC: No thyroid, no cervical lymph nodes. DIAGNOSTIC DATA: Chest x-ray shows infiltrate suggestive of pneumonia. DIAGNOSES: Aspiration pneumonia and nausea. PLAN: The patient was started on Rocephin, supportive care. Regarding Parkinson's, carbidopa. Depression, Abilify. Rest of the care as ordered in CPOE. Thank you Dr. Auguste for this consultation. JOB# [id number]
[2016-12-31] MEDS: cefTRIAXone 1 GM in Sodium Chloride 0.9% 50 ML IV SCH (22:07)
--- NOTE | 2017-01-06 13:23 | Discharge Summary ---
DATE OF DISCHARGE: 12/31/2016 HOSPITAL COURSE: This is a very well-known patient from [place]. This is a ____ 56-year-old male patient known to have a history of CVA with hemiparesis, history of Parkinson, ____, schizophrenia, ____ failure to thrive and not able to eat. He had a workup done by GI and the patient eventually improved and was able to eat, and sepsis improved. The patient needed much psychiatric help, so he was sent to [facility] where I will be following the patient. FINAL DIAGNOSES: Sepsis improved, hyponatremia improved, failure to thrive improved, history of dementia, history of Parkinson's disease, schizophrenia. I will follow medically ____. Condition at the time of transfer to the Geropsych Unit is stable. JOB# [id number]
== END 2016-12-31 23:20 | DRG 871 ==
LOC: ER 19:19 → MSI 20:50
PROVIDERS: ADMIT Internal Medicine; ATTEND Internal Medicine
DX: A41.9 Sepsis, unspecified organism (principal); G92 Toxic encephalopathy; J69.0 Pneumonitis due to inhalation of food and vomit; G20 Parkinson's disease; E87.1 Hypo-osmolality and hyponatremia; R13.10 Dysphagia, unspecified; F03.90 Unspecified dementia, unspecified severity, without behavioral disturbance, psychotic disturbance, mood disturbance, and anxiety; F20.9 Schizophrenia, unspecified; F31.9 Bipolar disorder, unspecified; K56.41 Fecal impaction; Z88.8 Allergy status to other drugs, medicaments and biological substances; Z82.49 Family history of ischemic heart disease and other diseases of the circulatory system; Z93.1 Gastrostomy status
CPT/HCPCS: 36415-UA; 71010-TC; 74000-TC; 74220-TC; 80048-TC; 80053-TC; 80061-TC; 81001-TC; 83605; 84443-TC; 84484-TC; 85025-TC; 86592-TC; 87070; 92611; 93005; J0696; J2405; J7042; X3401; X7704; Z7610

== ENCOUNTER 2016-12-31 23:23 | Inpatient (IN) | payer MEDICARE, MEDICAID ==
[2017-01-01 00:27] VITALS: BP 114/73
[2017-01-01] MEDS ORDERED: Maalox 30 mL Cup PO PRN (00:38)
[2017-01-01] MEDS ORDERED: Magnesium Hydroxide (MOM) 30 mL UDC PO PRN (00:38)
[2017-01-01] MEDS ORDERED: SEVELAMER CARBONATE 0.8 GM GT SCH (08:00)
[2017-01-01] MEDS ORDERED: Multivitamin Tab PO SCH (09:00)
[2017-01-01] MEDS ORDERED: Non-Formulary Item 1 EA (Cranberry Fruit Concentrate [Cranberry] 450 MG) GT SCH (09:00)
[2017-01-01] MEDS: Ferrous Sulfate 300 MG/5 ML UDC GT SCH ×2 (10:17→19:04)
[2017-01-01] MEDS: Vitamin B Complex w/Vitamin C Tab GT SCH (10:18)
[2017-01-01] MEDS: Multivitamin Tab GT SCH (10:18)
[2017-01-01] MEDS: Pantoprazole 40 mg/Packet GT SCH (10:18)
--- NOTE | 2017-01-01 11:43 | General Progress Note ---
Objective - Physical Exam Vitals and I&O: Vital Signs Temp 97.7 F 01/01/17 06:36 Pulse 75 01/01/17 10:17 Resp 18 01/01/17 06:36 BP 116/76 01/01/17 10:17 Pulse Ox 92 01/01/17 06:36 Intake & Output 12/31/16 01/01/17 01/01/17 18:59 06:59 18:59 Weight (lbs) 103.873 kg Active Medications: Current Medications Acetaminophen (Tylenol) 650 mg GT Q6HR PRN PRN Reason: Pain (Mild) Stop: 03/02/17 00:49 Al Hydrox/Mg Hydrox/Simethicone (Maalox) 30 ml PO Q4HR PRN PRN Reason: GI DISTRESS Stop: 03/02/17 00:37 Aripiprazole (Abilify) 20 mg GT DAILY LURDES Stop: 03/02/17 08:59 Last Admin: 01/01/17 10:17 Dose: 20 mg Ascorbic Acid (Vitamin C) 500 mg GT DAILY LURDES Stop: 03/02/17 08:59 Last Admin: 01/01/17 10:17 Dose: 500 mg Carbidopa/Levodopa (Sinemet 25mg-100 Mg) 1 tab GT TID LURDES Stop: 03/02/17 08:59 Last Admin: 01/01/17 10:17 Dose: 1 tab Ferrous Sulfate (Iron) 300 mg GT BID LURDES Stop: 03/02/17 08:59 Last Admin: 01/01/17 10:17 Dose: 300 mg Hydrocortisone (Cortef) 25 mg GT DAILY LURDES Stop: 03/02/17 08:59 Last Admin: 01/01/17 10:16 Dose: 25 mg Lisinopril (Zestril) 10 mg GT DAILY LURDES Stop: 03/02/17 08:59 Last Admin: 01/01/17 10:17 Dose: 10 mg Lorazepam (Ativan) 0.5 mg PO Q4HR PRN; Protocol PRN Reason: Agitation Stop: 01/31/17 00:37 Magnesium Hydroxide (Milk Of Magnesia) 30 ml PO HS PRN PRN Reason: Constipation Miscellaneous (Cranberry Fruit Concentrate [Cranberry]) 450 mg GT DAILY LURDES Stop: 03/02/17 08:59 Miscellaneous (Sevelamer Carbonate [Renvela]) 0.8 gm GT TIDWM LURDES Stop: 03/02/17 07:59 Multivitamins/Vitamin C (Theragran) 1 tab GT DAILY LURDES Stop: 03/02/17 08:59 Last Admin: 01/01/17 10:18 Dose: 1 tab Pantoprazole Sodium (Protonix) 40 mg GT DAILY LURDES Stop: 03/02/17 08:59 Last Admin: 01/01/17 10:18 Dose: 40 mg Vitamin B Complex/Vit C/Folic Acid (Vitamin B Complex W/Vitamin C) 1 tab GT DAILY LURDES Stop: 03/02/17 08:59 Last Admin: 01/01/17 10:18 Dose: 1 tab Assessment/Plan - Problem List Patient Problems: All Active Problems Dementia (Acute) F03.90 History of encephalopathy (Acute) Z86.69 History of schizoaffective disorder (Acute) Z86.59 Hyponatremia (Acute) E87.1 Leukocytosis (Acute) D72.829 Parkinson disease (Acute) G20 Sepsis (Acute) Nutritional Asmnt/Malnutr-PDOC - Dietary Evaluation Malnutrition Findings (Please click <Entered> for more info): Nutritional Asmnt/Malnutrition Start: 01/01/17 10: 25 Text: Status: Complete Freq: Document 01/01/17 10:25 MONIKA (Rec: 01/01/17 10:35 MONIKA RUIZ- [email or web address]) Nutritional Asmnt/Malnutrition Patient General Information Nutritional Screening High Risk Screening Diagnosis Psychosis Pertinent Medical Hx/Surgical Hx schizophrenia, bipolar, parkinsons disease, MS, encephalopathy, dementia, dysphagia Subjective Information Pt sitting up in bed with RN at bedside administering medications at time of visit Current Diet Order/ Nutrition Support Isosource 1.5 160ml [id number] ( 1440kcals, 65g protein and 730ml free water Patient / S.O Can't verbalize diet edu Pertinent Medications maalox, vit C, Fe, cardidopa, MOM, theragran, protonix, Vit B complex, vit C folic acid Pertinent Labs no labs noted Nutritional Hx/Data Height 1.91 m Height (Calculated Centimeters) 190.5 Current Weight (lbs) 103.873 kg Weight (Calculated Kilograms) 103.9 Weight (Calculated Grams) 360193.7 Recent Weight Change No Weight Status Overweight GI Symptoms GI Symptoms None Difficult in: Chewing Swallowing Food Allergies No Cultural/Ethnic/Mormon Belief None noted Usual diet at home Tube Feeding Skin Integrity/Comment: rafat score 14 Estimated Nutritional Goals BEE in Kcals: Using Current wt Calories/Kcals/Kg 25-30kcals/kg Kcals Calculated 2600-3120kcals/day Protein: Using Current wt Protein g/kg+/kg Protein Calculated 104g+/day Fluid: ml 2600-3120ml/day (1ml/kcal) Nutritional Problem 1. Problem Problem Inadequate enteral nutrition infusion Etiology related to increased nutrient needs Signs/Symptoms: as evidenced by current TF not meeting estimated needs. Intervention/Recommendation Comments Recommend Nutren 2.0 260ml 5x/ day to provide 2600kcals, 109g protein and 897ml free water Recommend 280ml free water 5 x /day seperate from TF formula. Expected Outcomes/Goals Expected Outcomes/Goals Tolerate TF
--- NOTE | 2017-01-01 13:42 | Psychosocial Evaluation ---
DATE OF SERVICE: 01/01/2017 AGE: 56. SEX: Male. PHYSICIAN: Dr. Nicole. CHIEF COMPLAINT: Agitation. HISTORY OF PRESENT ILLNESS: The patient is a 56-year-old male who was transferred from medical floor to the Geropsych Unit because of increased agitation. The patient has been agitated and has been restless. The patient also is irritable and labile. He also has difficulty following staff directions. The patient also has been unpredictable and he has needed lots of redirections. The patient also is having mood swings. PAST PSYCHIATRIC HISTORY: The patient has history of what seems to be dementia and psychosis. MEDICATIONS: The patient is taking Abilify 20 mg everyday. PAST MEDICAL HISTORY: The patient has a G-tube placed. He also has gastritis. ALLERGIES: No known allergies. MENTAL STATUS EXAMINATION: The patient appears older than stated age. Disheveled. Irritable moods. Thought processes are with ____ of speech. The patient did not answer questions regarding hallucinations or delusions, but actively responding to stimuli. The patient did not answer questions regarding suicide or homicide. The patient is alert and oriented to situation, but not to the place or person. Impaired immediate and recent memory, but intact remote memory. Poor insight. Poor judgment. ASSESSMENT: PRIMARY DIAGNOSIS: Unspecified psychosis. SECONDARY DIAGNOSIS: Rule out depressive disorder with psychosis. TREATMENT PLAN: We will continue monitoring his behavior and his condition closely. Also, continue Abilify in a dose of 20 mg everyday and we will monitor the dose. ESTIMATED LENGTH OF STAY: 5-7 days. THE PATIENT'S STRENGTHS AND WEAKNESSES: The patient's strength is not clear at this time. Weakness is poor impulse control. AFTER DISCHARGE PLAN: Outpatient treatment and followup will continue as an outpatient. CRITERIA FOR DISCHARGE: The patient will be calmer and less agitated and will stabilize psychotropic medications and we will establish outpatient treatment plans. JOB# [id number]
--- NOTE | 2017-01-01 22:47 | Admit Criteria Form ---
Admit Criteria Forms - Admit Criteria Diagnosis: PSYCHIATRIC DISORDERS (Place 'X' for any and all applicable criteria): Ongoing inpatient care may be needed for 1 or more of the following(1)(2)(3)(4)( 6)(7)(8): [ ]I. Danger to self or others not manageable at lower level of care. [ ]II. Grave disability (eg, inability to perform self care necessary at lower level of care) [X ]III. Agitation or inappropriate behavior interfering with care for primary condition (eg, attempting to discontinue lines or drains prematurely, unable to cooperate with respiratory care) [ ]IV. Severe disability or disorder indicated by ALL of the following: [ ]a) Severe behavioral health disorder-related symptoms or condition indicated by 1 or more of the following: [ ]i) Severe problem with cognition, memory, judgment, or impulse control [ ]ii) Severe clinical manifestations (eg, hallucinations, delusions, other acute psychotic symptoms, ariel, extreme agitation or anxiety) [ ]b) Patient management at lower level of care is not feasible until acute intervention or modification is initiated. Extended stay beyond goal length of stay for the primary condition may be needed until ALLof the following are present(1)(2)(3)(4)(722)(23): [ ]a) Danger to self or others is absent or manageable at lower level of care [ ]b) Behavior crisis management, including physical or chemical restraints, is required and is not available at a lower level of care. [ ]c) Behavioral symptoms (e.g., agitation, somnolence, inappropriate behavior) are present, and are not manageable at a lower level of care. [ ]d) Patient cannot understand follow-up treatment and crisis plan. [ ]e) Provider and supports are sufficiently available at lower level of care. [ ]f) Patient can participate (e.g., verify absence of plan for harm) and is in needed of monitoring. The original [facility] content created by [facility] [employer] has been revised. The portions of the content which have been revised are identified through the use of italic text or in bold, and [facility] [employer] has neither reviewed nor approved the modified material. All other unmodified content is copyright [facility]. Please see references footnoted in the original [facility] edition 2017 Admit Criteria Met?: Yes
[2017-01-02] MEDS: Vitamin B Complex w/Vitamin C Tab GT SCH (09:38)
[2017-01-02] MEDS: Pantoprazole 40 mg/Packet GT SCH (09:38)
[2017-01-02] MEDS: Ferrous Sulfate 300 MG/5 ML UDC GT SCH ×2 (09:39→17:07)
[2017-01-02] MEDS: Multivitamin Tab GT SCH (09:39)
--- NOTE | 2017-01-02 16:44 | History & Physical ---
ADMIT DATE: 01/02/2017 HISTORY OF PRESENT ILLNESS: This patient was admitted from the medical unit to the Geropsych Unit for his increasing agitation. The patient is known to have a history of multiple medical problems including dementia and CVA with hemiparesis, has problem with swallowing and had a GI swallow eval done and is able to swallow now and he is on a pureed diet. Because of his increasing agitation, Dr. Danilo Nicole was consulted and he planned the patient to go to Geropsych Unit. PAST MEDICAL HISTORY: As enumerated above. The patient has a G-tube replaced and the patient has history of gastritis. PHYSICAL EXAMINATION: HEAD: Normal. ENT: Normal. LUNGS: Clear. CARDIOVASCULAR SYSTEM: S1, S2 heard. ABDOMEN: Soft. Bowel sounds are heard. CENTRAL NERVOUS SYSTEM: The patient is agitated, depressed, and hemiparetic. DIAGNOSES: Hemiparesis, history of cerebrovascular accident, status post G-tube, history of failure to thrive and history of severe agitation, psychosis, and depression. The patient is going to be followed by Dr. Carrasco and I will follow the patient medically. JOB# [id number]
[2017-01-03] MEDS: Multivitamin Tab GT SCH (09:43)
[2017-01-03] MEDS: Ferrous Sulfate 300 MG/5 ML UDC GT SCH ×2 (09:43→16:25)
[2017-01-03] MEDS: Vitamin B Complex w/Vitamin C Tab GT SCH (09:43)
[2017-01-03] MEDS: Pantoprazole 40 mg/Packet GT SCH (09:44)
--- NOTE | 2017-01-04 01:49 | Progress Notes ---
DATE: 01/03/[address] Nicole. Case was discussed with staff of the patient, reviewed records. This is a 56-year-old male who was transferred from the medical floor to the Geropsych Unit because of increased agitation, has been agitated, restless. The patient is also irritable, labile. He has difficulty following staff directions. He has been unpredictable and has needed a lot of redirection with mood swings, irritability and also with history of dementia. He was on Abilify 20 mg a day. The patient has been on Abilify with no side effects. Continues to be unpredictable, impulsive, needing redirection. Continues to have poor insight and unable to make safe plan for self-care. We will continue the patient in group therapy, milieu therapy, adjust medication as needed. JOB# [id number]
[2017-01-04] MEDS: Multivitamin Tab GT SCH (09:29)
[2017-01-04] MEDS: Ferrous Sulfate 300 MG/5 ML UDC GT SCH ×2 (09:29→17:25)
[2017-01-04] MEDS: Vitamin B Complex w/Vitamin C Tab GT SCH (09:30)
[2017-01-04] MEDS: Pantoprazole 40 mg/Packet GT SCH (09:31)
--- NOTE | 2017-01-04 09:40 | General Progress Note ---
Subjective - Review of Systems Subjective: awake, confused, nad Objective - Physical Exam Vitals and I&O: Vital Signs Temp 97.6 F 01/04/17 07:04 Pulse 87 01/04/17 09:30 Resp 20 01/04/17 07:04 BP 125/75 01/04/17 09:30 Pulse Ox 95 01/04/17 07:04 Intake & Output 01/03/17 01/04/17 01/04/17 18:59 06:59 18:59 Intake Total 0 Balance 0 Intake: Oral 0 Other: # Voids 5 1 3 # Bowel Movements 0 0 Active Medications: Current Medications Acetaminophen (Tylenol) 650 mg GT Q6HR PRN PRN Reason: Pain (Mild) Stop: 03/02/17 00:49 Al Hydrox/Mg Hydrox/Simethicone (Maalox) 30 ml PO Q4HR PRN PRN Reason: GI DISTRESS Stop: 03/02/17 00:37 Aripiprazole (Abilify) 20 mg GT DAILY LURDES Stop: 03/02/17 08:59 Last Admin: 01/04/17 09:29 Dose: 20 mg Ascorbic Acid (Vitamin C) 500 mg GT DAILY LURDES Stop: 03/02/17 08:59 Last Admin: 01/04/17 09:29 Dose: 500 mg Carbidopa/Levodopa (Sinemet 25mg-100 Mg) 1 tab GT TID LURDES Stop: 03/02/17 08:59 Last Admin: 01/04/17 09:29 Dose: 1 tab Ferrous Sulfate (Iron) 300 mg GT BID LURDES Stop: 03/02/17 08:59 Last Admin: 01/04/17 09:29 Dose: 300 mg Hydrocortisone (Cortef) 25 mg GT DAILY LURDES Stop: 03/02/17 08:59 Last Admin: 01/04/17 09:31 Dose: 25 mg Lisinopril (Zestril) 10 mg GT DAILY LURDES Stop: 03/02/17 08:59 Last Admin: 01/04/17 09:30 Dose: 10 mg Lorazepam (Ativan) 0.5 mg PO Q4HR PRN; Protocol PRN Reason: Agitation Stop: 01/31/17 00:37 Magnesium Hydroxide (Milk Of Magnesia) 30 ml PO HS PRN PRN Reason: Constipation Miscellaneous (Sevelamer Carbonate [Renvela]) 0.8 gm GT TIDWM LURDES Stop: 03/02/17 07:59 Multivitamins/Vitamin C (Theragran) 1 tab GT DAILY LURDES Stop: 03/02/17 08:59 Last Admin: 01/04/17 09:29 Dose: 1 tab Pantoprazole Sodium (Protonix) 40 mg GT DAILY LURDES Stop: 03/02/17 08:59 Last Admin: 01/04/17 09:31 Dose: 40 mg Vitamin B Complex/Vit C/Folic Acid (Vitamin B Complex W/Vitamin C) 1 tab GT DAILY LURDES Stop: 03/02/17 08:59 Last Admin: 01/04/17 09:30 Dose: 1 tab Assessment/Plan - Problem List Patient Problems: All Active Problems Dementia (Acute) F03.90 History of encephalopathy (Acute) Z86.69 History of schizoaffective disorder (Acute) Z86.59 Hyponatremia (Acute) E87.1 Leukocytosis (Acute) D72.829 Parkinson disease (Acute) G20 Sepsis (Acute) Nutritional Asmnt/Malnutr-PDOC - Dietary Evaluation Malnutrition Findings (Please click <Entered> for more info): Nutritional Asmnt/Malnutrition Start: 01/01/17 10: 25 Text: Status: Complete Freq: Document 01/01/17 10:25 MONIKA (Rec: 01/01/17 10:35 MONIKA RUIZ [email or web address]) Nutritional Asmnt/Malnutrition Patient General Information Nutritional Screening High Risk Screening Diagnosis Psychosis Pertinent Medical Hx/Surgical Hx schizophrenia, bipolar, parkinsons disease, MS, encephalopathy, dementia, dysphagia Subjective Information Pt sitting up in bed with RN at bedside administering medications at time of visit Current Diet Order/ Nutrition Support Isosource 1.5 160ml [id number] ( 1440kcals, 65g protein and 730ml free water Patient / S.O Can't verbalize diet edu Pertinent Medications maalox, vit C, Fe, cardidopa, MOM, theragran, protonix, Vit B complex, vit C folic acid Pertinent Labs no labs noted Nutritional Hx/Data Height 1.91 m Height (Calculated Centimeters) 190.5 Current Weight (lbs) 103.873 kg Weight (Calculated Kilograms) 103.9 Weight (Calculated Grams) 156136.7 Recent Weight Change No Weight Status Overweight GI Symptoms GI Symptoms None Difficult in: Chewing Swallowing Food Allergies No Cultural/Ethnic/Catholic Belief None noted Usual diet at home Tube Feeding Skin Integrity/Comment: rafat score 14 Estimated Nutritional Goals BEE in Kcals: Using Current wt Calories/Kcals/Kg 25-30kcals/kg Kcals Calculated 2600-3120kcals/day Protein: Using Current wt Protein g/kg+/kg Protein Calculated 104g+/day Fluid: ml 2600-3120ml/day (1ml/kcal) Nutritional Problem 1. Problem Problem Inadequate enteral nutrition infusion Etiology related to increased nutrient needs Signs/Symptoms: as evidenced by current TF not meeting estimated needs. Intervention/Recommendation Comments Recommend Nutren 2.0 260ml 5x/ day to provide 2600kcals, 109g protein and 897ml free water Recommend 280ml free water 5 x /day seperate from TF formula. Expected Outcomes/Goals Expected Outcomes/Goals Tolerate TF
--- NOTE | 2017-01-04 14:49 | Progress Notes ---
DATE: 01/04/2017 Case was discussed with staff of the patient, reviewed records. The patient continues to isolate himself. Continues to have poor insight. Continues to need redirection. Continues to have episodes of agitation and restlessness. He is demented, confused. He denies any side effects of the medication, no sedation, no nausea, no extrapyramidal symptoms. We will continue to work with the patient in group therapy, milieu therapy, adjust the medication as needed. JOB# [id number]
[2017-01-05] MEDS: Ferrous Sulfate 300 MG/5 ML UDC GT SCH ×2 (09:45→18:11)
[2017-01-05] MEDS: Vitamin B Complex w/Vitamin C Tab GT SCH (09:45)
[2017-01-05] MEDS: Multivitamin Tab GT SCH (09:46)
[2017-01-05] MEDS: Pantoprazole 40 mg/Packet GT SCH (09:46)
--- NOTE | 2017-01-05 14:42 | General Progress Note ---
Subjective - Review of Systems Events since last encounter: patient still confused agitated at times , irritable Subjective: awake, confused, nad Objective - Physical Exam Vitals and I&O: Vital Signs Temp 97.8 F 01/05/17 05:15 Pulse 68 01/05/17 05:15 Resp 19 01/05/17 05:15 BP 112/68 01/05/17 05:15 Pulse Ox 94 01/05/17 05:15 Intake & Output 01/04/17 01/05/17 01/05/17 18:59 06:59 18:59 Intake Total 0 Balance 0 Intake: Oral 0 Other: # Voids 5 2 # Bowel Movements 0 0 Active Medications: Current Medications Acetaminophen (Tylenol) 650 mg GT Q6HR PRN PRN Reason: Pain (Mild) Stop: 03/02/17 00:49 Al Hydrox/Mg Hydrox/Simethicone (Maalox) 30 ml PO Q4HR PRN PRN Reason: GI DISTRESS Stop: 03/02/17 00:37 Aripiprazole (Abilify) 20 mg GT DAILY [facility] Stop: 03/02/17 08:59 Last Admin: 01/05/17 09:48 Dose: 20 mg Ascorbic Acid (Vitamin C) 500 mg GT DAILY [facility] Stop: 03/02/17 08:59 Last Admin: 01/05/17 09:46 Dose: 500 mg Carbidopa/Levodopa (Sinemet 25mg-100 Mg) 1 tab GT TID [facility] Stop: 03/02/17 08:59 Last Admin: 01/05/17 09:45 Dose: 1 tab Ferrous Sulfate (Iron) 300 mg GT BID [facility] Stop: 03/02/17 08:59 Last Admin: 01/05/17 09:45 Dose: 300 mg Hydrocortisone (Cortef) 25 mg GT DAILY [facility] Stop: 03/02/17 08:59 Last Admin: 01/05/17 11:40 Dose: 25 mg Lisinopril (Zestril) 10 mg GT DAILY [facility] Stop: 03/02/17 08:59 Last Admin: 01/05/17 09:47 Dose: Not Given Lorazepam (Ativan) 0.5 mg PO Q4HR PRN; Protocol PRN Reason: Agitation Stop: 01/31/17 00:37 Last Admin: 01/05/17 09:45 Dose: 0.5 mg Magnesium Hydroxide (Milk Of Magnesia) 30 ml PO HS PRN PRN Reason: Constipation Miscellaneous (Sevelamer Carbonate [Renvela]) 0.8 gm GT TIDWM [facility] Stop: 03/02/17 07:59 Multivitamins/Vitamin C (Theragran) 1 tab GT DAILY [facility] Stop: 03/02/17 08:59 Last Admin: 01/05/17 09:46 Dose: 1 tab Pantoprazole Sodium (Protonix) 40 mg GT DAILY [facility] Stop: 03/02/17 08:59 Last Admin: 01/05/17 09:46 Dose: 40 mg Vitamin B Complex/Vit C/Folic Acid (Vitamin B Complex W/Vitamin C) 1 tab GT DAILY [facility] Stop: 03/02/17 08:59 Last Admin: 01/05/17 09:45 Dose: 1 tab Assessment/Plan - Problem List Patient Problems: All Active Problems Dementia (Acute) F03.90 History of encephalopathy (Acute) Z86.69 History of schizoaffective disorder (Acute) Z86.59 Hyponatremia (Acute) E87.1 Leukocytosis (Acute) D72.829 Parkinson disease (Acute) G20 Sepsis (Acute) Nutritional Asmnt/Malnutr-PDOC - Dietary Evaluation Malnutrition Findings (Please click <Entered> for more info): Nutritional Asmnt/Malnutrition Start: 01/01/17 10: 25 Text: Status: Complete Freq: Document 01/01/17 10:25 MONIKA (Rec: 01/01/17 10:35 MONIKA SARA- [email or web address]) Nutritional Asmnt/Malnutrition Patient General Information Nutritional Screening High Risk Screening Diagnosis Psychosis Pertinent Medical Hx/Surgical Hx schizophrenia, bipolar, parkinsons disease, MS, encephalopathy, dementia, dysphagia Subjective Information Pt sitting up in bed with RN at bedside administering medications at time of visit Current Diet Order/ Nutrition Support Isosource 1.5 160ml O0ezxze ( 1440kcals, 65g protein and 730ml free water Patient / S.O Can't verbalize diet edu Pertinent Medications maalox, vit C, Fe, cardidopa, MOM, theragran, protonix, Vit B complex, vit C folic acid Pertinent Labs no labs noted Nutritional Hx/Data Height 1.91 m Height (Calculated Centimeters) 190.5 Current Weight (lbs) 103.873 kg Weight (Calculated Kilograms) 103.9 Weight (Calculated Grams) 327807.7 Recent Weight Change No Weight Status Overweight GI Symptoms GI Symptoms None Difficult in: Chewing Swallowing Food Allergies No Cultural/Ethnic/Anabaptism Belief None noted Usual diet at home Tube Feeding Skin Integrity/Comment: rafat score 14 Estimated Nutritional Goals BEE in Kcals: Using Current wt Calories/Kcals/Kg 25-30kcals/kg Kcals Calculated 2600-3120kcals/day Protein: Using Current wt Protein g/kg+/kg Protein Calculated 104g+/day Fluid: ml 2600-3120ml/day (1ml/kcal) Nutritional Problem 1. Problem Problem Inadequate enteral nutrition infusion Etiology related to increased nutrient needs Signs/Symptoms: as evidenced by current TF not meeting estimated needs. Intervention/Recommendation Comments Recommend Nutren 2.0 260ml 5x/ day to provide 2600kcals, 109g protein and 897ml free water Recommend 280ml free water 5 x /day seperate from TF formula. Expected Outcomes/Goals Expected Outcomes/Goals Tolerate TF
--- NOTE | 2017-01-06 05:06 | Progress Notes ---
DATE: 01/05/2017 SUBJECTIVE: Chart reviewed and the patient interviewed. Also discussed the patient's condition with the staff and reviewed records and labs. The patient is pounding on the side rail and is extremely irritable and agitated. The patient also is actively hallucinating and actively responding. Also, I am trying to talk to the patient, but he is irritable and agitated and incoherent with his conversation. Also, still having severe mood swings and severe anxiety. Also seems to be preoccupied. Also, personal hygiene is poor. ASSESSMENT: The patient is still agitated and psychotic. TREATMENT PLAN: Continue monitoring his behavior closely. Also, continue working on his psychosis and continue to follow up. [facility]# [id number]
[2017-01-06] MEDS: Vitamin B Complex w/Vitamin C Tab GT SCH (09:00)
[2017-01-06] MEDS: Multivitamin Tab GT SCH (09:00)
[2017-01-06] MEDS: Pantoprazole 40 mg/Packet GT SCH (09:00)
[2017-01-06] MEDS: Ferrous Sulfate 300 MG/5 ML UDC GT SCH ×2 (09:00→17:34)
--- NOTE | 2017-01-06 10:26 | General Progress Note ---
Subjective - Review of Systems Events since last encounter: confused , agitated Subjective: awake, confused, nad Objective - Physical Exam Vitals and I&O: Vital Signs Temp 97.3 F 01/06/17 07:00 Pulse 60 01/06/17 07:00 Resp 19 01/06/17 07:00 BP 116/78 01/06/17 07:00 Pulse Ox 98 01/06/17 07:00 Intake & Output 01/05/17 01/06/17 01/06/17 18:59 06:59 18:59 Intake Total 940 Balance 940 Intake: Other 940 Other: # Voids 3 Active Medications: Current Medications Acetaminophen (Tylenol) 650 mg GT Q6HR PRN PRN Reason: Pain (Mild) Stop: 03/02/17 00:49 Al Hydrox/Mg Hydrox/Simethicone (Maalox) 30 ml PO Q4HR PRN PRN Reason: GI DISTRESS Stop: 03/02/17 00:37 Aripiprazole (Abilify) 20 mg GT DAILY [facility] Stop: 03/02/17 08:59 Last Admin: 01/05/17 09:48 Dose: 20 mg Ascorbic Acid (Vitamin C) 500 mg GT DAILY [facility] Stop: 03/02/17 08:59 Last Admin: 01/05/17 09:46 Dose: 500 mg Carbidopa/Levodopa (Sinemet 25mg-100 Mg) 1 tab GT TID [facility] Stop: 03/02/17 08:59 Last Admin: 01/05/17 20:37 Dose: 1 tab Ferrous Sulfate (Iron) 300 mg GT BID [facility] Stop: 03/02/17 08:59 Last Admin: 01/05/17 18:11 Dose: 300 mg Hydrocortisone (Cortef) 25 mg GT DAILY [facility] Stop: 03/02/17 08:59 Last Admin: 01/05/17 11:40 Dose: 25 mg Lisinopril (Zestril) 10 mg GT DAILY [facility] Stop: 03/02/17 08:59 Last Admin: 01/05/17 09:47 Dose: Not Given Lorazepam (Ativan) 0.5 mg PO Q4HR PRN; Protocol PRN Reason: Agitation Stop: 01/31/17 00:37 Last Admin: 01/05/17 09:45 Dose: 0.5 mg Magnesium Hydroxide (Milk Of Magnesia) 30 ml PO HS PRN PRN Reason: Constipation Miscellaneous (Sevelamer Carbonate [Renvela]) 0.8 gm GT TIDWM [facility] Stop: 03/02/17 07:59 Multivitamins/Vitamin C (Theragran) 1 tab GT DAILY [facility] Stop: 03/02/17 08:59 Last Admin: 01/05/17 09:46 Dose: 1 tab Pantoprazole Sodium (Protonix) 40 mg GT DAILY [facility] Stop: 03/02/17 08:59 Last Admin: 01/05/17 09:46 Dose: 40 mg Vitamin B Complex/Vit C/Folic Acid (Vitamin B Complex W/Vitamin C) 1 tab GT DAILY [facility] Stop: 03/02/17 08:59 Last Admin: 01/05/17 09:45 Dose: 1 tab Assessment/Plan - Problem List Patient Problems: All Active Problems Dementia (Acute) F03.90 History of encephalopathy (Acute) Z86.69 History of schizoaffective disorder (Acute) Z86.59 Hyponatremia (Acute) E87.1 Leukocytosis (Acute) D72.829 Parkinson disease (Acute) G20 Sepsis (Acute) Nutritional Asmnt/Malnutr-PDOC - Dietary Evaluation Malnutrition Findings (Please click <Entered> for more info): Nutritional Asmnt/Malnutrition Start: 01/01/17 10: 25 Text: Status: Complete Freq: Document 01/01/17 10:25 MONIKA (Rec: 01/01/17 10:35 MONIKA RUIZ- FNS1) Nutritional Asmnt/Malnutrition Patient General Information Nutritional Screening High Risk Screening Diagnosis Psychosis Pertinent Medical Hx/Surgical Hx schizophrenia, bipolar, parkinsons disease, MS, encephalopathy, dementia, dysphagia Subjective Information Pt sitting up in bed with RN at bedside administering medications at time of visit Current Diet Order/ Nutrition Support Isosource 1.5 160ml T2kpksw ( 1440kcals, 65g protein and 730ml free water Patient / S.O Can't verbalize diet edu Pertinent Medications maalox, vit C, Fe, cardidopa, MOM, theragran, protonix, Vit B complex, vit C folic acid Pertinent Labs no labs noted Nutritional Hx/Data Height 1.91 m Height (Calculated Centimeters) 190.5 Current Weight (lbs) 103.873 kg Weight (Calculated Kilograms) 103.9 Weight (Calculated Grams) 760846.7 Recent Weight Change No Weight Status Overweight GI Symptoms GI Symptoms None Difficult in: Chewing Swallowing Food Allergies No Cultural/Ethnic/Alevism Belief None noted Usual diet at home Tube Feeding Skin Integrity/Comment: rafat score 14 Estimated Nutritional Goals BEE in Kcals: Using Current wt Calories/Kcals/Kg 25-30kcals/kg Kcals Calculated 2600-3120kcals/day Protein: Using Current wt Protein g/kg+/kg Protein Calculated 104g+/day Fluid: ml 2600-3120ml/day (1ml/kcal) Nutritional Problem 1. Problem Problem Inadequate enteral nutrition infusion Etiology related to increased nutrient needs Signs/Symptoms: as evidenced by current TF not meeting estimated needs. Intervention/Recommendation Comments Recommend Nutren 2.0 260ml 5x/ day to provide 2600kcals, 109g protein and 897ml free water Recommend 280ml free water 5 x /day seperate from TF formula. Expected Outcomes/Goals Expected Outcomes/Goals Tolerate TF
== END 2017-01-06 20:40 | DRG 885 ==
LOC: GERO 23:23
PROVIDERS: ADMIT Psychiatry & Neurology Psychiatry; ATTEND Psychiatry & Neurology Psychiatry
DX: F29 Unspecified psychosis not due to a substance or known physiological condition (principal); F03.90 Unspecified dementia, unspecified severity, without behavioral disturbance, psychotic disturbance, mood disturbance, and anxiety; I69.359 Hemiplegia and hemiparesis following cerebral infarction affecting unspecified side; F32.9 Major depressive disorder, single episode, unspecified; R62.7 Adult failure to thrive; Z88.8 Allergy status to other drugs, medicaments and biological substances; Z93.1 Gastrostomy status
CPT/HCPCS: 82948-90; 94760; X3401; Z7610

== ENCOUNTER 2017-01-06 20:00 | Inpatient (IN) | payer MEDICARE, MEDICAID ==
[2017-01-06 22:06] LABS: HEMATOCRIT 48.5 % (39.0-49.0); HEMOGLOBIN 16.8 gm/dL (13.2-17.3); MEAN CELL VOLUME 92.2 fl (80-99); MEAN CORPUSCULAR HEMOGLOBIN 31.9 pg (26.0-30.0); MEAN CORPUSCULAR HGB CONC 34.6 pg (28.0-36.0); MEAN PLATELET VOLUME 8.8 fl; PLATELET COUNT 218 Th/cmm (150-400); RED BLOOD COUNT 5.26 Mil/cmm (4.30-5.70); RED CELL DISTRIBUTION WIDTH 12.8 % (11.5-20.0)
[2017-01-06] MEDS: D5-0.45NS 1,000 ML IV SCH (22:07)
[2017-01-06] MEDS: Azithromycin 500 MG in Sodium Chloride 0.9% 250 ML IV SCH (22:12)
[2017-01-06 22:19] LABS: ALB/GLOB RATIO 1.4 (1.0-1.8); ALKALINE PHOSPHATASE 58 U/L (34-104); ANION GAP 10.3 (7.0-16.0); BILIRUBIN,TOTAL 0.7 mg/dL (0.3-1.0); BUN - UREA NITROGEN 30 mg/dL (7-25); CALCIUM SERUM 9.9 mg/dL (8.6-10.3); CARBON DIOXIDE 25.6 mEq/L (21.0-31.0); CHLORIDE 104 mEq/L (98-107); GLUCOSE 182 mg/dL (70-105); POTASSIUM SERUM 3.9 mEq/L (3.5-5.1); SGOT 12 U/L (13-39); SGPT/ALT 11 U/L (7-52); SODIUM SERUM 136 mEq/L (136-145)
[2017-01-06 22:21] LABS: WHITE BLOOD COUNT 23.8 Th/cmm (4.8-10.8)
[2017-01-06 22:34] LABS: BAND NEUTROPHILE 7 % (0-10); NEUTROPHILS 78 % (40-80); PLATELET ESTIMATE ADEQUATE (NORMAL); PLATELET MORPHOLOGY NORMAL (NORMAL); TOTAL CELLS COUNTED 100
[2017-01-06] MEDS: cefTRIAXone 1 GM in Sodium Chloride 0.9% 50 ML IV SCH (23:00)
--- NOTE | 2017-01-07 04:13 | Progress Notes ---
DATE: 01/06/2017 Case was discussed with staff of the patient, reviewed records. Covering for Dr. Nicole. This is a well-known case to me as I have seen him covering for Dr. Nicole. He continues to isolate himself, stays in his room. Continues to be unpredictable, impulsive, and needing redirection. Continues to have poor insight, confused. He has been compliant with the medication with no side effects, no sedation, no nausea, no extrapyramidal symptoms. He is on Abilify. It was increased by Dr. Nicole to 20 mg a day and we will continue to work with the patient in group therapy, milieu therapy, adjust medication as needed. JOB# [id number]
[2017-01-07 06:09] LABS: URINE BILIRUBIN NEGATIVE (NEGATIVE); URINE BLOOD NEGATIVE (NEGATIVE); URINE GLUCOSE (UA) NEGATIVE (NEGATIVE); URINE KETONE NEGATIVE (NEGATIVE); URINE PH 6.5 (4.6 - 8.0); URINE PROTEIN TRACE mg/dL (NEGATIVE)
[2017-01-07 06:15] LABS: URINE COLOR YELLOW
[2017-01-07 06:17] LABS: URINE AMORPHOUS SEDIMENT FEW URATES (NONE SEEN); URINE BACTERIA 1+ /hpf (NONE SEEN); URINE EPITHELIAL CELLS FEW /lpf (FEW); URINE HYALINE CAST 0-2 /lpf (0-2); URINE RBC 0-1 /hpf (0-5); URINE WBC 0-2 /hpf (0-5)
[2017-01-07] MEDS: D5-0.45NS 1,000 ML IV SCH ×2 (08:10→18:10)
--- NOTE | 2017-01-07 08:28 | Diagnostic Imaging Report ---
Exam: Portable examination of the chest. HISTORY: Shortness of breath Findings: Portable upright examination of chest at 2204 hours was reviewed the study demonstrates no evidence for active pulmonic infiltrates or effusions. The costophrenic angles are clear. Bony thorax intact. Mild congestion cannot be excluded. IMPRESSION 1. No acute disease 2. Question of mild congestion
[2017-01-07] MEDS ORDERED: VTE Chemical Prophylaxis Screen/Admission MC PRN (14:44)
[2017-01-07] MEDS ORDERED: Probiotic Screen MC PRN (15:29)
[2017-01-07] MEDS: Lactobacillus Rhamnosus 10 Billion CFU Capsule PO SCH (16:31)
[2017-01-07] MEDS: Ferrous Sulfate 325 MG TAB PO SCH (16:36)
[2017-01-07] MEDS: Vitamin B Complex w/Vitamin C Tab PO SCH (16:36)
--- NOTE | 2017-01-07 20:25 | General Progress Note ---
Objective - Results Result Diagrams: 01/06/17 21:50 01/06/17 21:50 Recent Labs: Laboratory Last Values WBC 23.8 Th/cmm (4.8-10.8) H* D 01/06/17 21:50 RBC 5.26 Mil/cmm (4.30-5.70) 01/06/17 21:50 Hgb 16.8 gm/dL (13.2-17.3) 01/06/17 21:50 Hct 48.5 % (39.0-49.0) 01/06/17 21:50 MCV 92.2 fl (80-99) 01/06/17 21:50 MCH 31.9 pg (26.0-30.0) H 01/06/17 21:50 MCHC Differential 34.6 pg (28.0-36.0) 01/06/17 21:50 RDW 12.8 % (11.5-20.0) 01/06/17 21:50 Plt Count 218 Th/cmm (150-400) 01/06/17 21:50 MPV 8.8 fl 01/06/17 21:50 Band Neutrophils % 7 % (0-10) 01/06/17 21:50 Neutrophils (Manual) 78 % (40-80) 01/06/17 21:50 Lymphocytes 10 % (20-50) L 01/06/17 21:50 Monocytes 5 % (2-10) 01/06/17 21:50 Platelet Estimate ADEQUATE (NORMAL) 01/06/17 21:50 Platelet Morphology NORMAL (NORMAL) 01/06/17 21:50 RBC Morph Micro Appear NORMAL (NORMAL) 01/06/17 21:50 Sodium 136 mEq/L (136-145) 01/06/17 21:50 Potassium 3.9 mEq/L (3.5-5.1) 01/06/17 21:50 Chloride 104 mEq/L (98-107) 01/06/17 21:50 Carbon Dioxide 25.6 mEq/L (21.0-31.0) 01/06/17 21:50 Anion Gap 10.3 (7.0-16.0) 01/06/17 21:50 BUN 30 mg/dL (7-25) H 01/06/17 21:50 Creatinine 1.0 mg/dL (0.7-1.3) 01/06/17 21:50 Est GFR ( Amer) > 60.0 ml/min (>90) 01/06/17 21:50 Est GFR (Non-Af Amer) > 60.0 ml/min 01/06/17 21:50 BUN/Creatinine Ratio 30.0 01/06/17 21:50 Glucose 182 mg/dL (70-105) H 01/06/17 21:50 Hemoglobin A1c % 4.8 % (4.0-6.0) 01/06/17 21:50 Whole Bld Lactic Acid 1.70 mmol/L (0.60-1.99) 01/06/17 21:50 Calcium 9.9 mg/dL (8.6-10.3) 01/06/17 21:50 Total Bilirubin 0.7 mg/dL (0.3-1.0) 01/06/17 21:50 AST 12 U/L (13-39) L 01/06/17 21:50 ALT 11 U/L (7-52) 01/06/17 21:50 Alkaline Phosphatase 58 U/L (34-104) 01/06/17 21:50 Total Protein 6.7 gm/dL (6.0-8.3) 01/06/17 21:50 Albumin 3.9 gm/dL (4.2-5.5) L 01/06/17 21:50 Globulin 2.8 gm/dL 01/06/17 21:50 Albumin/Globulin Ratio 1.4 (1.0-1.8) 01/06/17 21:50 Urine Source CLEAN C 01/07/17 05:17 Urine Color YELLOW 01/07/17 05:17 Urine Clarity SLIGHT CLOUDY (CLEAR) 01/07/17 05:17 Urine pH 6.5 (4.6 - 8.0) 01/07/17 05:17 Ur Specific [place] 1.010 (1.005-1.030) 01/07/17 05:17 Urine Protein TRACE mg/dL (NEGATIVE) 01/07/17 05:17 Urine Glucose (UA) NEGATIVE mg/dL (NEGATIVE) 01/07/17 05:17 Urine Ketones NEGATIVE mg/dL (NEGATIVE) 01/07/17 05:17 Urine Blood NEGATIVE (NEGATIVE) 01/07/17 05:17 Urine Nitrate NEGATIVE (NEGATIVE) 01/07/17 05:17 Urine Bilirubin NEGATIVE (NEGATIVE) 01/07/17 05:17 Urine Urobilinogen 1.0 E.U./dL (0.2 - 1.0) 01/07/17 05:17 Ur Leukocyte Esterase NEGATIVE (NEGATIVE) 01/07/17 05:17 Urine RBC 0-1 /hpf (0-5) 01/07/17 05:17 Urine WBC 0-2 /hpf (0-5) 01/07/17 05:17 Ur Epithelial Cells FEW /lpf (FEW) 01/07/17 05:17 Amorphous Sediment FEW URATES (NONE SEEN) 01/07/17 05:17 Urine Bacteria 1+ /hpf (NONE SEEN) H 01/07/17 05:17 Hyaline Casts 0-2 /lpf (0-2) H 01/07/17 05:17 - Physical Exam Vitals and I&O: Vital Signs Temp 99.1 F 01/07/17 16:00 Pulse 101 01/07/17 19:00 Resp 18 01/07/17 19:00 BP 115/57 01/07/17 19:00 Pulse Ox 98 01/07/17 19:00 Intake & Output 01/07/17 01/07/17 01/08/17 06:59 18:59 06:59 Intake Total 300 2320 Output Total 300 0 Balance 0 2320 Weight (lbs) 103.873 kg 103.873 kg Intake: Intake, IV Amount 300 2000 Azithromycin 500 mg In 250 Sodium Chloride 0.9% 250 ml @ 250 mls/hr IV Q24HR [facility] Rx#:[id number] D5-0.45NS 1,000 ml @ 100 2000 mls/hr IV .Q10H [facility] Rx#: [id number] cefTRIAXone 1 gm In 50 Sodium Chloride 0.9% 50 ml @ 100 mls/hr IV Q24HR [facility] Rx#:[id number] Tube Feeding 240 Other 80 Output: Urine 300 Stool 0 Other: # Voids 1 2 # Bowel Movements 1 0 Active Medications: Current Medications Acetaminophen (Tylenol 650mg/20.3ml Suspension) 650 mg GT Q6H PRN PRN Reason: Fever > 101 Stop: 03/07/17 21:32 Last Admin: 01/06/17 22:07 Dose: 650 mg Acetaminophen (Tylenol) 650 mg PO Q6H PRN PRN Reason: MILD PAIN Stop: 03/08/17 15:39 Aripiprazole (Abilify) 20 mg PO DAILY [facility] Stop: 03/08/17 16:59 Last Admin: 01/07/17 17:02 Dose: 20 mg Ascorbic Acid (Vitamin C) 500 mg PO DAILY [facility] Stop: 03/09/17 08:59 Carbidopa/Levodopa (Sinemet 25mg-100 Mg) 1 tab PO TID [facility] Stop: 03/08/17 20:59 Docusate Sodium (Colace) 200 mg PO HS [facility] Stop: 03/08/17 20:59 Ferrous Sulfate (Iron) 325 mg PO BID [facility] Stop: 03/08/17 16:59 Last Admin: 01/07/17 16:36 Dose: 325 mg Heparin Sodium (Porcine) (Heparin) 5,000 units SUBQ Q12HR [facility] Stop: 03/08/17 20:59 Hydrocortisone (Cortef) 25 mg PO DAILY [facility] Stop: 03/08/17 16:59 Last Admin: 01/07/17 17:02 Dose: 25 mg Azithromycin 500 mg/ Sodium (Chloride) 250 mls @ 250 mls/hr IV Q24HR [facility] Stop: 03/07/17 21:59 Last Infusion: 01/07/17 02:51 Dose: Infused Dextrose/Sodium Chloride (D5-0.45ns) 1,000 mls @ 100 mls/hr IV .Q10H [facility] Stop: 03/07/17 21:38 Last Admin: 01/07/17 18:10 Dose: 100 mls/hr Ceftriaxone Sodium 1 gm/ (Sodium Chloride) 50 mls @ 100 mls/hr IV Q24HR [facility] Stop: 03/07/17 21:59 Last Infusion: 01/07/17 02:51 Dose: Infused Lactobacillus Rhamnosus (Culturelle) 1 each PO DAILY [facility] Stop: 03/08/17 15:59 Last Admin: 01/07/17 16:31 Dose: 1 each Lisinopril (Zestril) 10 mg PO DAILY [facility] Stop: 03/08/17 16:59 Last Admin: 01/07/17 17:00 Dose: Not Given Miscellaneous (Vte Chemical Prophylaxis Screen/ Admission) 1 ea PRN PRN PRN Reason: PROTOCOL Stop: 03/08/17 14:43 Miscellaneous (Probiotic Screen) 1 ea PRN PRN PRN Reason: PROTOCOL Stop: 03/08/17 15:28 Miscellaneous (Cranberry Fruit Concentrate [Cranberry]) 450 mg PO DAILY [facility] Stop: 03/09/17 08:59 Nitroglycerin (Nitrostat) 0.4 mg SL Q5MIN PRN PRN Reason: Chest Pain Stop: 03/08/17 15:39 Pantoprazole Sodium (Protonix) 40 mg PO QDAC [facility] Stop: 03/09/17 07:29 Sevelamer HCl (Renagel) 800 mg PO TIDWM [facility] Stop: 03/08/17 16:59 Last Admin: 01/07/17 16:36 Dose: 800 mg Vitamin B Complex/Vit C/Folic Acid (Vitamin B Complex W/Vitamin C) 1 tab PO DAILY [facility] Stop: 03/08/17 16:59 Last Admin: 01/07/17 16:36 Dose: 1 tab Assessment/Plan - Problem List Patient Problems: All Active Problems Dementia (Acute) F03.90 History of encephalopathy (Acute) Z86.69 History of schizoaffective disorder (Acute) Z86.59 Hyponatremia (Acute) E87.1 Leukocytosis (Acute) D72.829 Parkinson disease (Acute) G20 Sepsis (Acute)
[2017-01-07] MEDS: Azithromycin 500 MG in Sodium Chloride 0.9% 250 ML IV SCH (21:00)
--- NOTE | 2017-01-07 21:08 | History & Physical ---
ADMIT DATE: 01/06/2017 HISTORY OF PRESENT ILLNESS: The patient is well known to me. The [facility]. The patient is known to have history of hypertension, history of CVA, history of right hemiparesis, initially was admitted to the [facility] for his failure to thrive, abdominal pain, and the patient ended up having a G-tube. The patient was feeling better, was sent to Geropsych Unit. Apparently yesterday he deteriorated and had possible aspiration, desaturated, and the heart rate went up to 150s, and the patient was sent to ICU, and the patient has been covered with antibiotics and all the labs and all the septic workup has been initiated. Dr. Roach has seen the patient, ID doctor. It is difficult to obtain any history from the patient. PHYSICAL EXAMINATION: HEAD: Normal. ENT: Normal. NECK: Supple. LUNGS: Bilateral rales. CARDIOVASCULAR SYSTEM: S1, S2 heard. ABDOMEN: Soft. Bowel sounds are heard. CENTRAL NERVOUS SYSTEM: Grossly normal. PLAN: The patient is going to be on broad spectrum antibiotics and oxygen and I will follow the patient along with Dr. Roach, ID doctor, and will follow from there. JOB# [id number]
[2017-01-07] MEDS: cefTRIAXone 1 GM in Sodium Chloride 0.9% 50 ML IV SCH (22:00)
[2017-01-08] MEDS: D5-0.45NS 1,000 ML IV SCH ×2 (04:13→15:17)
[2017-01-08] MEDS: Pantoprazole 40 mg EC Tab PO SCH (07:17)
[2017-01-08 07:35] LABS: % EOSINOPHILS 2.1 % (0.0-5.0); % MONOCYTES 4.5 % (2.0-10.0); % NEUTROPHILS 69.4 % (40.0-80.0); MEAN CELL VOLUME 92.5 fl (80-99); MEAN CORPUSCULAR HEMOGLOBIN 31.8 pg (26.0-30.0); MEAN CORPUSCULAR HGB CONC 34.3 pg (28.0-36.0); MEAN PLATELET VOLUME 8.2 fl; NEUTROPHILE ABSOLUTE 9.5 Th/cmm (1.8-8.0); PLATELET COUNT 212 Th/cmm (150-400); RED BLOOD COUNT 4.31 Mil/cmm (4.30-5.70); RED CELL DISTRIBUTION WIDTH 12.7 % (11.5-20.0)
[2017-01-08 07:45] LABS: HEMATOCRIT 39.9 % (39.0-49.0); HEMOGLOBIN 13.7 gm/dL (13.2-17.3); WHITE BLOOD COUNT 13.7 Th/cmm (4.8-10.8)
[2017-01-08 07:52] LABS: ALB/GLOB RATIO 1.2 (1.0-1.8); ALKALINE PHOSPHATASE 47 U/L (34-104); ANION GAP 4.7 (7.0-16.0); BILIRUBIN,TOTAL 0.5 mg/dL (0.3-1.0); BUN - UREA NITROGEN 24 mg/dL (7-25); CALCIUM SERUM 9.4 mg/dL (8.6-10.3); CARBON DIOXIDE 29.8 mEq/L (21.0-31.0); CHLORIDE 104 mEq/L (98-107); CREATININE - SERUM 0.8 mg/dL (0.7-1.3); GLUCOSE 120 mg/dL (70-105); POTASSIUM SERUM 3.5 mEq/L (3.5-5.1); SGOT 10 U/L (13-39); SGPT/ALT 7 U/L (7-52); SODIUM SERUM 135 mEq/L (136-145)
[2017-01-08] MEDS: Vitamin B Complex w/Vitamin C Tab PO SCH (08:32)
[2017-01-08] MEDS: Ferrous Sulfate 325 MG TAB PO SCH ×2 (08:32→17:02)
[2017-01-08] MEDS: Lactobacillus Rhamnosus 10 Billion CFU Capsule PO SCH (08:35)
[2017-01-08] MEDS ORDERED: Albuterol/Ipratropium Neb 3 ML AERS HHN PRN ×2 (08:40→09:00)
[2017-01-08] MEDS ORDERED: Albuterol/Ipratropium Neb 3 ML AERS HHN ONE (08:49)
[2017-01-08] MEDS ORDERED: Non-Formulary Item 1 EA (Cranberry Fruit Concentrate [Cranberry] 450 MG) PO SCH (09:00)
--- NOTE | 2017-01-08 10:10 | Diagnostic Imaging Report ---
Portable chest x-ray Time: 0 914 History: Pneumonia Allowing for portable technique the heart size is normal. No focal pulmonary parenchymal processes. No hilar or mediastinal abnormalities. Impression: No acute abnormalities.
--- NOTE | 2017-01-08 10:54 | Progress Notes ---
DATE: 01/08/2017 SUBJECTIVE: The patient was seen in his room, lying on the bed. The patient is a poor historian due to medical condition. The patient appears to be awake, alert and oriented x 2-3 with episodes of confusion. Otherwise, the patient appears to be comfortable, in no acute distress. OBJECTIVE: VITAL SIGNS: Temperature 98.2, heart rate of 87, blood pressure 91/51, respirations 20, 94% on room air. HEENT: Head is atraumatic, normocephalic. Eyes: Bilateral conjunctivae are clear. Bilateral pupils are equally round and reactive. NECK: Supple. No JVD. CARDIOVASCULAR: S1 and S2, without murmur, sinus rhythm on the monitor. PULMONARY: Bibasilar crackles noted. GASTROINTESTINAL: Soft and nontender without guarding. Positive bowel sounds. MUSCULOSKELETAL: No clubbing, no cyanosis noted. ASSESSMENT: 1. Obesity. 2. Aspiration pneumonia. 3. Osteoarthritis. 4. Parkinson's disease. 5. Iron deficiency anemia. 6. Hypertension. 7. Gastroesophageal reflux disease. PLAN: We will continue to keep the patient in ICU. We will monitor the patient's blood pressure and condition. We will do a chest x-ray for today. We will give the patient breathing treatment as needed. We will monitor for any signs of sepsis. Treatment plans were discussed with Dr. Auguste. Treatment plans were discussed with the patient's nurse. JOB# [id number]
--- NOTE | 2017-01-08 18:51 | Consultation ---
DATE OF CONSULTATION: 01/08/2017 PRIMARY CARE PHYSICIAN: Dr. Auguste. HISTORY OF PRESENT ILLNESS: This is a 56-year-old male from [facility] who was transferred to ICU because of shortness of breath, aspiration pneumonia. The patient discussed with Dr. Auguste and started on antibiotics. Chest x-ray reviewed shows clear lung rausch. However, the patient has leukocytosis 23,000. PAST MEDICAL HISTORY: Parkinson's disease, chronic kidney disease, hyperlipidemia, and recurrent aspiration. FAMILY HISTORY: Negative. SOCIAL HISTORY: Nonsmoker. REVIEW OF SYSTEMS: A 14-point review of systems unable to obtain. PHYSICAL EXAMINATION: GENERAL: The patient is confused, resting tremor. VITAL SIGNS: Temperature 99.6, pulse 95, respiration is 18, and blood pressure 115/56. HEENT: Mild pallor, no icterus or plaque. NECK: Supple. LUNGS: Breath sounds bilateral vesicular. CARDIOVASCULAR: S1, S2. ABDOMEN: Soft, bowel sounds present. LYMPHATIC: No thyromegaly, no cervical lymph nodes. NEURO: Resting tremor present. DIAGNOSES: Leukocytosis, probably aspiration. PLAN: Supplemental oxygen, Rocephin started. We will discontinue azithromycin. Restart usual medications and supportive care. Rest of the care as ordered in CPOE. Also, the patient's urine shows 1+ bacteria suggestive of bacteriuria and possible UTI. Thank you Dr. Auguste for this consultation. JOB# [id number]
[2017-01-08] MEDS: cefTRIAXone 1 GM in Sodium Chloride 0.9% 50 ML IV SCH (21:48)
--- NOTE | 2017-01-08 23:22 | Admit Criteria Form ---
Admit Criteria Forms - Admit Criteria Diagnosis: PNEUMONIA DUE TO ASPIRATION Clinical Indications for Admission to Inpatient Care (Place 'X' for any and all applicable criteria): Admission to inpatient status for two midnights or more is indicated for ANY ONE of the following(1)(2)(3): [X ]I. Hemodynamic instability Respiratory abnormalities [ ]II. Hypoxemia [ ]III. Respiratory findings (eg, dyspnea, Tachypnea) that persist despite treatment (eg, in emergency department, observation care) [ ]IV. Altered mental status that is severe or persistent [ ]V. Dehydration that is severe or persistent [ ]. Failure of outpatient treatment [ ]VII. Uncompensated respiratory acidosis (eg, hypercapnia, pH below 7.35) [ ]VIII. Ability of patient to protect airway unclear [ ]IX. Aspiration pneumonitis associated with an acute event (e.g., hematemesis, drug overdose) that requires inpatient care [ ]X. Patient receives chronic care in a setting (eg, fpc care, fpc facility) where care for the aspiration has failed or cannot be provided (eg, patient is clinically unstable, and aggressive medical are is desired) (4) Extended stay beyond goal length of stay may be needed for(1)(6): [ ]a) Continued aspiration [ ]b) Severe or nosocomial infection [ ]c) Empyema, atelectasis, large pleural effusion or lung abscess [ ]d) Severe hypoxemia or respiratory failure [ ]e) Comorbid clinically significant electrolyte disorder or acute renal injury (eg, hypernatremia, hyponatremia) [ ]f) Need for parenteral or tube (enteral) feedings (eg, severe malnutrition [ ]g) Active comorbidities (eg, heart failure, COPD, renal failure) [ ]h) Comorbid severe neurologic problems(2)(17) The original [employer] content created by [employer] has been revised. The portions of the content which have been revised are identified through the use of italic text or in bold, and [facility] has neither reviewed nor approved the modified material. All other unmodified content is copyright [employer]. Please see references footnoted in the original [facility] edition 2017 Admit Criteria Met?: Yes
[2017-01-09] MEDS: D5-0.45NS 1,000 ML IV SCH ×3 (01:09→20:14)
[2017-01-09 05:07] LABS: % BASOPHILS 0.2 % (0.0-2.0); % EOSINOPHILS 2.9 % (0.0-5.0); % LYMPHOCYTES 29.9 % (20.0-50.0); % MONOCYTES 6.1 % (2.0-10.0); % NEUTROPHILS 60.9 % (40.0-80.0); HEMATOCRIT 38.1 % (39.0-49.0); MEAN CELL VOLUME 92.7 fl (80-99); MEAN CORPUSCULAR HEMOGLOBIN 31.7 pg (26.0-30.0); MEAN CORPUSCULAR HGB CONC 34.2 pg (28.0-36.0); MEAN PLATELET VOLUME 8.8 fl; NEUTROPHILE ABSOLUTE 6.5 Th/cmm (1.8-8.0); PLATELET COUNT 214 Th/cmm (150-400); RED BLOOD COUNT 4.11 Mil/cmm (4.30-5.70); RED CELL DISTRIBUTION WIDTH 12.8 % (11.5-20.0)
[2017-01-09 05:20] LABS: WHITE BLOOD COUNT 10.6 Th/cmm (4.8-10.8)
[2017-01-09 05:28] LABS: BUN - UREA NITROGEN 19 mg/dL (7-25); BUN/CREATININE RATIO 23.8; CALCIUM SERUM 9.4 mg/dL (8.6-10.3); CARBON DIOXIDE 29.6 mEq/L (21.0-31.0); CHLORIDE 107 mEq/L (98-107); CREATININE - SERUM 0.8 mg/dL (0.7-1.3); GLUCOSE 126 mg/dL (70-105); POTASSIUM SERUM 3.6 mEq/L (3.5-5.1); SODIUM SERUM 139 mEq/L (136-145)
[2017-01-09] MEDS: Pantoprazole 40 mg EC Tab PO SCH (06:53)
[2017-01-09] MEDS: Lactobacillus Rhamnosus 10 Billion CFU Capsule PO SCH (08:26)
[2017-01-09] MEDS: Ferrous Sulfate 325 MG TAB PO SCH ×2 (08:26→16:10)
[2017-01-09] MEDS: Vitamin B Complex w/Vitamin C Tab PO SCH (08:26)
--- NOTE | 2017-01-09 11:29 | General Progress Note ---
Subjective - Review of Systems Events since last encounter: patient with no distress on antibiotics Objective - Results Result Diagrams: 01/09/17 04:37 01/09/17 04:37 Recent Labs: Laboratory Last Values WBC 10.6 Th/cmm (4.8-10.8) D 01/09/17 04:37 RBC 4.11 Mil/cmm (4.30-5.70) L 01/09/17 04:37 Hgb 13.0 gm/dL (13.2-17.3) L 01/09/17 04:37 Hct 38.1 % (39.0-49.0) L 01/09/17 04:37 MCV 92.7 fl (80-99) 01/09/17 04:37 MCH 31.7 pg (26.0-30.0) H 01/09/17 04:37 MCHC Differential 34.2 pg (28.0-36.0) 01/09/17 04:37 RDW 12.8 % (11.5-20.0) 01/09/17 04:37 Plt Count 214 Th/cmm (150-400) 01/09/17 04:37 MPV 8.8 fl 01/09/17 04:37 Neutrophils % 60.9 % (40.0-80.0) 01/09/17 04:37 Band Neutrophils % 7 % (0-10) 01/06/17 21:50 Lymphocytes % 29.9 % (20.0-50.0) 01/09/17 04:37 Monocytes % 6.1 % (2.0-10.0) 01/09/17 04:37 Eosinophils % 2.9 % (0.0-5.0) 01/09/17 04:37 Basophils % 0.2 % (0.0-2.0) 01/09/17 04:37 Neutrophils (Manual) 78 % (40-80) 01/06/17 21:50 Lymphocytes 10 % (20-50) L 01/06/17 21:50 Monocytes 5 % (2-10) 01/06/17 21:50 Platelet Estimate ADEQUATE (NORMAL) 01/06/17 21:50 Platelet Morphology NORMAL (NORMAL) 01/06/17 21:50 RBC Morph Micro Appear NORMAL (NORMAL) 01/06/17 21:50 Sodium 139 mEq/L (136-145) 01/09/17 04:37 Potassium 3.6 mEq/L (3.5-5.1) 01/09/17 04:37 Chloride 107 mEq/L (98-107) 01/09/17 04:37 Carbon Dioxide 29.6 mEq/L (21.0-31.0) 01/09/17 04:37 Anion Gap 6.0 (7.0-16.0) L 01/09/17 04:37 BUN 19 mg/dL (7-25) 01/09/17 04:37 Creatinine 0.8 mg/dL (0.7-1.3) 01/09/17 04:37 Est GFR ( Amer) > 60.0 ml/min (>90) 01/09/17 04:37 Est GFR (Non-Af Amer) > 60.0 ml/min 01/09/17 04:37 BUN/Creatinine Ratio 23.8 01/09/17 04:37 Glucose 126 mg/dL (70-105) H 01/09/17 04:37 Hemoglobin A1c % 4.8 % (4.0-6.0) 01/06/17 21:50 Whole Bld Lactic Acid 1.70 mmol/L (0.60-1.99) 01/06/17 21:50 Calcium 9.4 mg/dL (8.6-10.3) 01/09/17 04:37 Total Bilirubin 0.5 mg/dL (0.3-1.0) 01/08/17 07:29 AST 10 U/L (13-39) L 01/08/17 07:29 ALT 7 U/L (7-52) 01/08/17 07:29 Alkaline Phosphatase 47 U/L (34-104) 01/08/17 07:29 Total Protein 6.0 gm/dL (6.0-8.3) 01/08/17 07:29 Albumin 3.3 gm/dL (4.2-5.5) L 01/08/17 07:29 Globulin 2.7 gm/dL 01/08/17 07:29 Albumin/Globulin Ratio 1.2 (1.0-1.8) 01/08/17 07:29 Urine Source CLEAN C 01/07/17 05:17 Urine Color YELLOW 01/07/17 05:17 Urine Clarity SLIGHT CLOUDY (CLEAR) 01/07/17 05:17 Urine pH 6.5 (4.6 - 8.0) 01/07/17 05:17 Ur Specific [place] 1.010 (1.005-1.030) 01/07/17 05:17 Urine Protein TRACE mg/dL (NEGATIVE) 01/07/17 05:17 Urine Glucose (UA) NEGATIVE mg/dL (NEGATIVE) 01/07/17 05:17 Urine Ketones NEGATIVE mg/dL (NEGATIVE) 01/07/17 05:17 Urine Blood NEGATIVE (NEGATIVE) 01/07/17 05:17 Urine Nitrate NEGATIVE (NEGATIVE) 01/07/17 05:17 Urine Bilirubin NEGATIVE (NEGATIVE) 01/07/17 05:17 Urine Urobilinogen 1.0 E.U./dL (0.2 - 1.0) 01/07/17 05:17 Ur Leukocyte Esterase NEGATIVE (NEGATIVE) 01/07/17 05:17 Urine RBC 0-1 /hpf (0-5) 01/07/17 05:17 Urine WBC 0-2 /hpf (0-5) 01/07/17 05:17 Ur Epithelial Cells FEW /lpf (FEW) 01/07/17 05:17 Amorphous Sediment FEW URATES (NONE SEEN) 01/07/17 05:17 Urine Bacteria 1+ /hpf (NONE SEEN) H 01/07/17 05:17 Hyaline Casts 0-2 /lpf (0-2) H 01/07/17 05:17 - Physical Exam Vitals and I&O: Vital Signs Temp 98.4 F 01/09/17 08:00 Pulse 74 01/09/17 10:00 Resp 23 01/09/17 10:00 BP 105/60 01/09/17 10:00 Pulse Ox 97 01/09/17 10:00 Intake & Output 01/08/17 01/09/17 01/09/17 18:59 06:59 18:59 Intake Total 7245.932 2192.667 915 Output Total 1550 1400 Balance 91.667 216.667 915 Weight (lbs) 104.78 kg 105.233 kg Intake: Intake, IV Amount 244.325 7975.667 915 D5-0.45NS 1,000 ml @ 100 821.667 986.667 915 mls/hr IV .Q10H [facility] Rx#: [id number] cefTRIAXone 1 gm In 50 Sodium Chloride 0.9% 50 ml @ 100 mls/hr IV Q24HR [facility] Rx#:[id number] Tube Feeding 720 480 Other 100 100 Output: Urine 1550 1400 Other: # Bowel Movements 0 0 Active Medications: Current Medications Acetaminophen (Tylenol 650mg/20.3ml Suspension) 650 mg GT Q6H PRN PRN Reason: Fever > 101 Stop: 03/07/17 21:32 Last Admin: 01/06/17 22:07 Dose: 650 mg Acetaminophen (Tylenol) 650 mg PO Q6H PRN PRN Reason: MILD PAIN Stop: 03/08/17 15:39 Albuterol/Ipratropium (Duoneb Neb) 3 ml HHN Q4HRT PRN PRN Reason: Wheezing Stop: 03/09/17 08:39 Aripiprazole (Abilify) 20 mg PO DAILY LUR[facility] Stop: 03/08/17 16:59 Last Admin: 01/09/17 08:25 Dose: 20 mg Ascorbic Acid (Vitamin C) 500 mg PO DAILY LURDES Stop: 03/09/17 08:59 Last Admin: 01/09/17 08:26 Dose: 500 mg Carbidopa/Levodopa (Sinemet 25mg-100 Mg) 1 tab PO TID LUR[facility] Stop: 03/08/17 20:59 Last Admin: 01/09/17 09:34 Dose: 1 tab Docusate Sodium (Colace) 200 mg PO HS LURDES Stop: 03/08/17 20:59 Last Admin: 01/08/17 20:20 Dose: 200 mg Ferrous Sulfate (Iron) 325 mg PO BID LURDES Stop: 03/08/17 16:59 Last Admin: 01/09/17 08:26 Dose: 325 mg Heparin Sodium (Porcine) (Heparin) 5,000 units SUBQ Q12HR [facility] Stop: 03/08/17 20:59 Last Admin: 01/09/17 08:26 Dose: 5,000 units Hydrocortisone (Cortef) 25 mg PO DAILY LURDES Stop: 03/08/17 16:59 Last Admin: 01/09/17 08:26 Dose: 25 mg Dextrose/Sodium Chloride (D5-0.45ns) 1,000 mls @ 100 mls/hr IV .Q10H [facility] Stop: 03/07/17 21:38 Last Admin: 01/09/17 10:18 Dose: 100 mls/hr Ceftriaxone Sodium 1 gm/ (Sodium Chloride) 50 mls @ 100 mls/hr IV Q24HR [facility] Stop: 03/07/17 21:59 Last Infusion: 01/08/17 22:18 Dose: Infused Lactobacillus Rhamnosus (Culturelle) 1 each PO DAILY LURDES Stop: 03/08/17 15:59 Last Admin: 01/09/17 08:26 Dose: 1 each Lisinopril (Zestril) 10 mg PO DAILY LURDES Stop: 03/08/17 16:59 Last Admin: 01/09/17 08:26 Dose: Not Given Miscellaneous (Vte Chemical Prophylaxis Screen/ Admission) 1 ea PRN PRN PRN Reason: PROTOCOL Stop: 03/08/17 14:43 Miscellaneous (Probiotic Screen) 1 ea PRN PRN PRN Reason: PROTOCOL Stop: 03/08/17 15:28 Nitroglycerin (Nitrostat) 0.4 mg SL Q5MIN PRN PRN Reason: Chest Pain Stop: 03/08/17 15:39 Pantoprazole Sodium (Protonix) 40 mg PO QDAC [facility]UR[facility] Stop: 03/09/17 07:29 Last Admin: 01/09/17 06:53 Dose: 40 mg Vitamin B Complex/Vit C/Folic Acid (Vitamin B Complex W/Vitamin C) 1 tab PO DAILY LURDES Stop: 03/08/17 16:59 Last Admin: 01/09/17 08:26 Dose: 1 tab General: No acute distress HEENT: Atraumatic Neck: Supple Cardiovascular: Regular rate, Normal S1, Normal S2 Abdomen: Bowel sounds Assessment/Plan - Problem List Patient Problems: All Active Problems Dementia (Acute) F03.90 History of encephalopathy (Acute) Z86.69 History of schizoaffective disorder (Acute) Z86.59 Hyponatremia (Acute) E87.1 Leukocytosis (Acute) D72.829 Parkinson disease (Acute) G20 Sepsis (Acute) - Plan Plan: iv antibiotics labs will monitor Nutritional Asmnt/Malnutr-PDOC - Dietary Evaluation Malnutrition Findings (Please click <Entered> for more info): Nutritional Asmnt/Malnutrition Start: 01/08/17 10: 52 Text: Status: Complete Freq: Document 01/08/17 10:52 VALERIA (Rec: 01/08/17 11:17 VALERIA SARA- FNS1) Nutritional Asmnt/Malnutrition Patient General Information Nutritional Screening High Risk Screening Diagnosis (reason for visit) R/O aspiration pneumonia Pertinent Medical Hx/Surgical Hx Hypertension, CVA, right hemiparesis Subjective Information Per H&P, patient was initially admitted [facility] for [facility], abdominal pain and ended up having a G-tube, sent to [facility] and possible aspirated, now in ICU. Per nursing, patient is tolerating tube feeding bolus', and is receiving 1 can q 4 hours. Current Diet Order/ Nutrition Support Nutren 2.0 240ml (1 can) q 4 hours (1440 ml, 2880 kcal, 120 gm protein) Patient / S.O Not Indicated Pertinent Medications vitamin C, abx, colace, iron, culturelle, protonix, vitmain B complex with C Pertinent Labs (01/08) Albumin 3.3 (decreased) Nutritional Hx/Data Height 1.91 m Height (Calculated Centimeters) 190.5 Current Weight (lbs) 104.78 kg Weight (Calculated Kilograms) 104.8 Weight (Calculated Grams) 248598.8 [place] Body Weight 196 % [place] Body Weight 117 Weight Status Overweight GI Symptoms Food Allergies No Cultural/Ethnic/Orthodoxy Belief none indicated Skin Integrity/Comment: Kenan 14 Estimated Nutritional Goals BEE in Kcals: Adj wt of IBW Calories/Kcals/Kg IBW 196lb/89.1kg Kcals Calculated 2228-2673kcal (25-30kcal/kg) Protein: Adj wt of IBW Protein g/kg: (1/gkg) Protein Calculated 89g Fluid: ml 2228-2673ml (1ml/kcal) Nutritional Problem 1. Problem Problem Excessive enteral infusion related to Etiology tube feeding order Signs/Symptoms: current tube feeding regimen providing >107% of high end calorie needs and 134% protein needs. Intervention/Recommendation Comments 1. Modify tube feeding regimen from 1 can q4 hours 5 cans/ day. This would provide 1200 ml volume, 2400 kcal, 100 gm protein. Expected Outcomes/Goals Expected Outcomes/Goals Pt to meet 100% of estimated nutritional needs on bolus feeding with tolerance.
[2017-01-09] MEDS: Magnesium Hydroxide (MOM) 30 mL UDC PO PRN (20:52)
[2017-01-09] MEDS: cefTRIAXone 1 GM in Sodium Chloride 0.9% 50 ML IV SCH (21:35)
--- NOTE | 2017-01-10 05:20 | Consultation ---
DATE OF CONSULTATION: 01/09/2017 IDENTIFYING INFORMATION: The patient was transferred to the medical floor after the ICU on the 01/06/2017. The patient is well-known case to me as I was seeing him at in [facility], covering for Dr. Nicole had to be transferred to ICU. He has a history of right hemiparesis, CVA, hypertension. The patient is a poor historian. He is unable to eat. Abdominal pain, he also is yet to have his G-tube. He deteriorated while he was in [facility] with possible aspiration with a high heart rate so was sent to the ICU. PAST PSYCHIATRIC HISTORY: The patient was at [facility] for a few days and transferred. The patient unable to give me more information about his condition. MEDICAL HISTORY: As per Dr. Auguste, the patient with a history of CVA, hypertension, right hemiparesis, and G-tube. ALLERGIES: HE IS ALLERGIC TO ZOLPIDEM. MEDICATIONS: He is on multiple antibiotic. He is on carbidopa and levodopa, iron, lactulose, lactobacillus. He is on lisinopril, nitroglycerin, pantoprazole, probiotic cream and Abilify 20 mg a day. FAMILY AND SOCIAL HISTORY: Refer to previous records. The patient unable to give me information. MENTAL STATUS EXAMINATION: The patient is appropriately dressed, not well groomed. He was semi-alert, unable to carry on conversation with poor insight. Unable to make safe plan for self-care. Unable to test his memory. Generally preoccupied. Unable to make safe plan for self-care. He denies any suicidal ideation or homicidal ideation by nodding his head. He denies hallucination by nodding his head. His insight and judgment are impaired. IMPRESSION: AXIS I: Psychosis, not otherwise specified. MEDICAL DIAGNOSES: Deferred to Dr. Auguste. I would recommend to continue medication. The patient needs follow up with the psychiatrist upon discharge. Thank you very much for telling me to participate in the care of this most interesting gentleman. JOB# [id number]
[2017-01-10] MEDS: D5-0.45NS 1,000 ML IV SCH ×2 (05:38→16:09)
[2017-01-10] MEDS: Pantoprazole 40 mg EC Tab PO SCH (06:36)
[2017-01-10] MEDS: Ferrous Sulfate 325 MG TAB PO SCH ×2 (08:29→16:10)
[2017-01-10] MEDS: Lactobacillus Rhamnosus 10 Billion CFU Capsule PO SCH (08:29)
[2017-01-10] MEDS: Vitamin B Complex w/Vitamin C Tab PO SCH (08:44)
[2017-01-10 09:12] LABS: % BASOPHILS 1.5 % (0.0-2.0); % EOSINOPHILS 2.6 % (0.0-5.0); % LYMPHOCYTES 31.8 % (20.0-50.0); % MONOCYTES 7.1 % (2.0-10.0); HEMATOCRIT 39.3 % (39.0-49.0); MEAN CELL VOLUME 93.1 fl (80-99); MEAN CORPUSCULAR HEMOGLOBIN 30.7 pg (26.0-30.0); MEAN PLATELET VOLUME 8.4 fl; NEUTROPHILE ABSOLUTE 5.4 Th/cmm (1.8-8.0); PLATELET COUNT 221 Th/cmm (150-400); RED BLOOD COUNT 4.22 Mil/cmm (4.30-5.70); RED CELL DISTRIBUTION WIDTH 12.2 % (11.5-20.0); WHITE BLOOD COUNT 9.4 Th/cmm (4.8-10.8)
--- NOTE | 2017-01-10 13:02 | General Progress Note ---
Subjective - Review of Systems Events since last encounter: no acute distress patient is able to eat well Objective - Results Result Diagrams: 01/10/17 08:45 01/09/17 04:37 Recent Labs: Laboratory Last Values WBC 9.4 Th/cmm (4.8-10.8) 01/10/17 08:45 RBC 4.22 Mil/cmm (4.30-5.70) L 01/10/17 08:45 Hgb 13.0 gm/dL (13.2-17.3) L 01/10/17 08:45 Hct 39.3 % (39.0-49.0) 01/10/17 08:45 MCV 93.1 fl (80-99) 01/10/17 08:45 MCH 30.7 pg (26.0-30.0) H 01/10/17 08:45 MCHC Differential 33.0 pg (28.0-36.0) 01/10/17 08:45 RDW 12.2 % (11.5-20.0) 01/10/17 08:45 Plt Count 221 Th/cmm (150-400) 01/10/17 08:45 MPV 8.4 fl 01/10/17 08:45 Neutrophils % 57.0 % (40.0-80.0) 01/10/17 08:45 Band Neutrophils % 7 % (0-10) 01/06/17 21:50 Lymphocytes % 31.8 % (20.0-50.0) 01/10/17 08:45 Monocytes % 7.1 % (2.0-10.0) 01/10/17 08:45 Eosinophils % 2.6 % (0.0-5.0) 01/10/17 08:45 Basophils % 1.5 % (0.0-2.0) 01/10/17 08:45 Neutrophils (Manual) 78 % (40-80) 01/06/17 21:50 Lymphocytes 10 % (20-50) L 01/06/17 21:50 Monocytes 5 % (2-10) 01/06/17 21:50 Platelet Estimate ADEQUATE (NORMAL) 01/06/17 21:50 Platelet Morphology NORMAL (NORMAL) 01/06/17 21:50 RBC Morph Micro Appear NORMAL (NORMAL) 01/06/17 21:50 Sodium 139 mEq/L (136-145) 01/09/17 04:37 Potassium 3.6 mEq/L (3.5-5.1) 01/09/17 04:37 Chloride 107 mEq/L (98-107) 01/09/17 04:37 Carbon Dioxide 29.6 mEq/L (21.0-31.0) 01/09/17 04:37 Anion Gap 6.0 (7.0-16.0) L 01/09/17 04:37 BUN 19 mg/dL (7-25) 01/09/17 04:37 Creatinine 0.8 mg/dL (0.7-1.3) 01/09/17 04:37 Est GFR ( Amer) > 60.0 ml/min (>90) 01/09/17 04:37 Est GFR (Non-Af Amer) > 60.0 ml/min 01/09/17 04:37 BUN/Creatinine Ratio 23.8 01/09/17 04:37 Glucose 126 mg/dL (70-105) H 01/09/17 04:37 Hemoglobin A1c % 4.8 % (4.0-6.0) 01/06/17 21:50 Whole Bld Lactic Acid 1.70 mmol/L (0.60-1.99) 01/06/17 21:50 Calcium 9.4 mg/dL (8.6-10.3) 01/09/17 04:37 Total Bilirubin 0.5 mg/dL (0.3-1.0) 01/08/17 07:29 AST 10 U/L (13-39) L 01/08/17 07:29 ALT 7 U/L (7-52) 01/08/17 07:29 Alkaline Phosphatase 47 U/L (34-104) 01/08/17 07:29 Total Protein 6.0 gm/dL (6.0-8.3) 01/08/17 07:29 Albumin 3.3 gm/dL (4.2-5.5) L 01/08/17 07:29 Globulin 2.7 gm/dL 01/08/17 07:29 Albumin/Globulin Ratio 1.2 (1.0-1.8) 01/08/17 07:29 Urine Source CLEAN C 01/07/17 05:17 Urine Color YELLOW 01/07/17 05:17 Urine Clarity SLIGHT CLOUDY (CLEAR) 01/07/17 05:17 Urine pH 6.5 (4.6 - 8.0) 01/07/17 05:17 Ur Specific [place] 1.010 (1.005-1.030) 01/07/17 05:17 Urine Protein TRACE mg/dL (NEGATIVE) 01/07/17 05:17 Urine Glucose (UA) NEGATIVE mg/dL (NEGATIVE) 01/07/17 05:17 Urine Ketones NEGATIVE mg/dL (NEGATIVE) 01/07/17 05:17 Urine Blood NEGATIVE (NEGATIVE) 01/07/17 05:17 Urine Nitrate NEGATIVE (NEGATIVE) 01/07/17 05:17 Urine Bilirubin NEGATIVE (NEGATIVE) 01/07/17 05:17 Urine Urobilinogen 1.0 E.U./dL (0.2 - 1.0) 01/07/17 05:17 Ur Leukocyte Esterase NEGATIVE (NEGATIVE) 01/07/17 05:17 Urine RBC 0-1 /hpf (0-5) 01/07/17 05:17 Urine WBC 0-2 /hpf (0-5) 01/07/17 05:17 Ur Epithelial Cells FEW /lpf (FEW) 01/07/17 05:17 Amorphous Sediment FEW URATES (NONE SEEN) 01/07/17 05:17 Urine Bacteria 1+ /hpf (NONE SEEN) H 01/07/17 05:17 Hyaline Casts 0-2 /lpf (0-2) H 01/07/17 05:17 - Physical Exam Vitals and I&O: Vital Signs Temp 98.0 F 01/10/17 12:00 Pulse 84 01/10/17 12:00 Resp 19 01/10/17 12:00 BP 114/61 01/10/17 12:00 Pulse Ox 95 01/10/17 12:00 Intake & Output 01/09/17 01/10/17 01/10/17 18:59 06:59 18:59 Intake Total 1755 2853.333 Output Total 1750 1200 Balance 5 1653.333 Weight (lbs) 106.141 kg 107.161 kg Intake: Intake, IV Amount 915 1983.333 D5-0.45NS 1,000 ml @ 728 825 2570.333 mls/hr IV .Q10H COUNT [facility]ES [facility] Rx#: [id number] cefTRIAXone 1 gm In 50 Sodium Chloride 0.9% 50 ml @ 100 mls/hr IV Q24HR COUNT [facility]CLUDES THE [facility] Rx#:[id number] Tube Feeding 720 720 Other 120 150 Output: Urine 1750 1200 Other: # Bowel Movements 0 0 Active Medications: Current Medications Acetaminophen (Tylenol 650mg/20.3ml Suspension) 650 mg GT Q6H PRN PRN Reason: Fever > 101 Stop: 03/07/17 21:32 Last Admin: 01/06/17 22:07 Dose: 650 mg Acetaminophen (Tylenol) 650 mg PO Q6H PRN PRN Reason: MILD PAIN Stop: 03/08/17 15:39 Albuterol/Ipratropium (Duoneb Neb) 3 ml HHN Q4HRT PRN PRN Reason: Wheezing Stop: 03/09/17 08:39 Last Admin: 01/10/17 11:31 Dose: 3 ml Aripiprazole (Abilify) 20 mg PO HS LURDES Stop: 03/11/17 20:59 Ascorbic Acid (Vitamin C) 500 mg PO DAILY LURDES Stop: 03/09/17 08:59 Last Admin: 01/10/17 08:36 Dose: 500 mg Carbidopa/Levodopa (Sinemet 25mg-100 Mg) 1 tab PO TID@0600,1400,2100 [facility]UR[facility] Stop: 03/10/17 20:59 Last Admin: 01/10/17 13:00 Dose: 1 tab Docusate Sodium (Colace) 200 mg PO HS LURDES Stop: 03/08/17 20:59 Last Admin: 01/09/17 20:51 Dose: 200 mg Ferrous Sulfate (Iron) 325 mg PO BID LURDES Stop: 03/08/17 16:59 Last Admin: 01/10/17 08:29 Dose: 325 mg Heparin Sodium (Porcine) (Heparin) 5,000 units SUBQ Q12HR [facility] Stop: 03/08/17 20:59 Last Admin: 01/10/17 08:28 Dose: 5,000 units Hydrocortisone (Cortef) 25 mg PO DAILY LURDES Stop: 03/08/17 16:59 Last Admin: 01/10/17 08:36 Dose: 25 mg Dextrose/Sodium Chloride (D5-0.45ns) 1,000 mls @ 100 mls/hr IV .Q10H [facility] Stop: 03/07/17 21:38 Last Admin: 01/10/17 05:38 Dose: 100 mls/hr Ceftriaxone Sodium 1 gm/ (Sodium Chloride) 50 mls @ 100 mls/hr IV Q24HR [facility] Stop: 03/07/17 21:59 Last Infusion: 01/09/17 22:05 Dose: Infused Lactobacillus Rhamnosus (Culturelle) 1 each PO DAILY LURDES Stop: 03/08/17 15:59 Last Admin: 01/10/17 08:29 Dose: 1 each Lisinopril (Zestril) 10 mg PO DAILY LURDES Stop: 03/08/17 16:59 Last Admin: 01/10/17 08:29 Dose: Not Given Lorazepam (Ativan) 1 mg IVP Q4HR PRN; Protocol PRN Reason: Agitation Stop: 03/10/17 20:38 Last Admin: 01/10/17 05:00 Dose: 1 mg Magnesium Hydroxide (Milk Of Magnesia) 30 ml PO HS PRN PRN Reason: Constipation Stop: 03/10/17 14:19 Last Admin: 01/09/17 20:52 Dose: 30 ml Miscellaneous (Vte Chemical Prophylaxis Screen/ Admission) 1 ea PRN PRN PRN Reason: PROTOCOL Stop: 03/08/17 14:43 Miscellaneous (Probiotic Screen) 1 [facility] PRN PRN PRN Reason: PROTOCOL Stop: 03/08/17 15:28 Nitroglycerin (Nitrostat) 0.4 mg SL Q5MIN PRN PRN Reason: Chest Pain Stop: 03/08/17 15:39 Pantoprazole Sodium (Protonix) 40 mg PO QDAC [facility] Stop: 03/09/17 07:29 Last Admin: 01/10/17 06:36 Dose: 40 mg Vitamin B Complex/Vit C/Folic Acid (Vitamin B Complex W/Vitamin C) 1 tab PO DAILY LURDES Stop: 03/08/17 16:59 Last Admin: 01/10/17 08:44 Dose: 1 tab General: No acute distress HEENT: Atraumatic Neck: Supple Cardiovascular: Regular rate, Normal S1, Normal S2 Abdomen: Bowel sounds Assessment/Plan - Problem List Patient Problems: All Active Problems Dementia (Acute) F03.90 History of encephalopathy (Acute) Z86.69 History of schizoaffective disorder (Acute) Z86.59 Hyponatremia (Acute) E87.1 Leukocytosis (Acute) D72.829 Parkinson disease (Acute) G20 Sepsis (Acute) - Plan Plan: iv antibiotics labs will monitor Nutritional Asmnt/Malnutr-PDOC - Dietary Evaluation Malnutrition Findings (Please click <Entered> for more info): Nutritional Asmnt/Malnutrition Start: 01/08/17 10: 52 Text: Status: Complete Freq: Document 01/08/17 10:52 VALERIA (Rec: 01/08/17 11:17 VALERIA SARA- FNS1) Nutritional Asmnt/Malnutrition Patient General Information Nutritional Screening High Risk Screening Diagnosis (reason for visit) R/O aspiration pneumonia Pertinent Medical Hx/Surgical Hx Hypertension, CVA, right hemiparesis Subjective Information Per H&P, patient was initially admitted [facility], abdominal pain and ended up having a G-tube, sent to [facility] and possible aspirated, now in ICU. Per nursing, patient is tolerating tube feeding bolus', and is receiving 1 can q 4 hours. Current Diet Order/ Nutrition Support Nutren 2.0 240ml (1 can) q 4 hours (1440 ml, 2880 kcal, 120 gm protein) Patient / S.O Not Indicated Pertinent Medications vitamin C, abx, colace, iron, culturelle, protonix, vitmain B complex with C Pertinent Labs (01/08) Albumin 3.3 (decreased) Nutritional Hx/Data Height 1.91 m Height (Calculated Centimeters) 190.5 Current Weight (lbs) 104.78 kg Weight (Calculated Kilograms) 104.8 Weight (Calculated Grams) 579291.8 [place] Body Weight 196 % [place] Body Weight 117 Weight Status Overweight GI Symptoms Food Allergies No Cultural/Ethnic/Buddhism Belief none indicated Skin Integrity/Comment: Kenan Manning Estimated Nutritional Goals BEE in Kcals: Adj wt of IBW Calories/Kcals/Kg IBW 196lb/89.1kg Kcals Calculated 2228-2673kcal (25-30kcal/kg) Protein: Adj wt of IBW Protein g/kg: (1/gkg) Protein Calculated 89g Fluid: ml 2228-2673ml (1ml/kcal) Nutritional Problem 1. Problem Problem Excessive enteral infusion related to Etiology tube feeding order Signs/Symptoms: current tube feeding regimen providing >107% of high end calorie needs and 134% protein needs. Intervention/Recommendation Comments 1. Modify tube feeding regimen from 1 can q4 hours 5 cans/ day. This would provide 1200 ml volume, 2400 kcal, 100 gm protein. Expected Outcomes/Goals Expected Outcomes/Goals Pt to meet 100% of estimated nutritional needs on bolus feeding with tolerance.
[2017-01-10] MEDS: Magnesium Hydroxide (MOM) 30 mL UDC PO PRN (20:29)
[2017-01-10] MEDS: cefTRIAXone 1 GM in Sodium Chloride 0.9% 50 ML IV SCH (23:06)
--- NOTE | 2017-01-11 00:49 | Progress Notes ---
DATE: 01/10/2017 Case was discussed with staff of the patient, reviewed records. The patient is in ICU. Continues to be unable to participate in meaningful conversation, demented, confused. Continues to have poor insight. Sleeping better, eating better, no side effects with the medication, no sedation, no nausea. Thank you very much for allowing me to participate in the care of this most interesting gentleman. JOB# [id number]
[2017-01-11] MEDS: Pantoprazole 40 mg EC Tab PO SCH (06:52)
[2017-01-11] MEDS: Vitamin B Complex w/Vitamin C Tab PO SCH (08:32)
[2017-01-11] MEDS: Lactobacillus Rhamnosus 10 Billion CFU Capsule PO SCH (08:33)
[2017-01-11] MEDS: Ferrous Sulfate 325 MG TAB PO SCH (08:33)
--- NOTE | 2017-01-11 15:25 | General Progress Note ---
Subjective - Review of Systems Events since last encounter: patient still confused Objective - Results Result Diagrams: 01/10/17 08:45 01/09/17 04:37 Recent Labs: Laboratory Last Values WBC 9.4 Th/cmm (4.8-10.8) 01/10/17 08:45 RBC 4.22 Mil/cmm (4.30-5.70) L 01/10/17 08:45 Hgb 13.0 gm/dL (13.2-17.3) L 01/10/17 08:45 Hct 39.3 % (39.0-49.0) 01/10/17 08:45 MCV 93.1 fl (80-99) 01/10/17 08:45 MCH 30.7 pg (26.0-30.0) H 01/10/17 08:45 MCHC Differential 33.0 pg (28.0-36.0) 01/10/17 08:45 RDW 12.2 % (11.5-20.0) 01/10/17 08:45 Plt Count 221 Th/cmm (150-400) 01/10/17 08:45 MPV 8.4 fl 01/10/17 08:45 Neutrophils % 57.0 % (40.0-80.0) 01/10/17 08:45 Band Neutrophils % 7 % (0-10) 01/06/17 21:50 Lymphocytes % 31.8 % (20.0-50.0) 01/10/17 08:45 Monocytes % 7.1 % (2.0-10.0) 01/10/17 08:45 Eosinophils % 2.6 % (0.0-5.0) 01/10/17 08:45 Basophils % 1.5 % (0.0-2.0) 01/10/17 08:45 Neutrophils (Manual) 78 % (40-80) 01/06/17 21:50 Lymphocytes 10 % (20-50) L 01/06/17 21:50 Monocytes 5 % (2-10) 01/06/17 21:50 Platelet Estimate ADEQUATE (NORMAL) 01/06/17 21:50 Platelet Morphology NORMAL (NORMAL) 01/06/17 21:50 RBC Morph Micro Appear NORMAL (NORMAL) 01/06/17 21:50 Sodium 139 mEq/L (136-145) 01/09/17 04:37 Potassium 3.6 mEq/L (3.5-5.1) 01/09/17 04:37 Chloride 107 mEq/L (98-107) 01/09/17 04:37 Carbon Dioxide 29.6 mEq/L (21.0-31.0) 01/09/17 04:37 Anion Gap 6.0 (7.0-16.0) L 01/09/17 04:37 BUN 19 mg/dL (7-25) 01/09/17 04:37 Creatinine 0.8 mg/dL (0.7-1.3) 01/09/17 04:37 Est GFR ( Amer) > 60.0 ml/min (>90) 01/09/17 04:37 Est GFR (Non-Af Amer) > 60.0 ml/min 01/09/17 04:37 BUN/Creatinine Ratio 23.8 01/09/17 04:37 Glucose 126 mg/dL (70-105) H 01/09/17 04:37 Hemoglobin A1c % 4.8 % (4.0-6.0) 01/06/17 21:50 Whole Bld Lactic Acid 1.70 mmol/L (0.60-1.99) 01/06/17 21:50 Calcium 9.4 mg/dL (8.6-10.3) 01/09/17 04:37 Total Bilirubin 0.5 mg/dL (0.3-1.0) 01/08/17 07:29 AST 10 U/L (13-39) L 01/08/17 07:29 ALT 7 U/L (7-52) 01/08/17 07:29 Alkaline Phosphatase 47 U/L (34-104) 01/08/17 07:29 Total Protein 6.0 gm/dL (6.0-8.3) 01/08/17 07:29 Albumin 3.3 gm/dL (4.2-5.5) L 01/08/17 07:29 Globulin 2.7 gm/dL 01/08/17 07:29 Albumin/Globulin Ratio 1.2 (1.0-1.8) 01/08/17 07:29 Urine Source CLEAN C 01/07/17 05:17 Urine Color YELLOW 01/07/17 05:17 Urine Clarity SLIGHT CLOUDY (CLEAR) 01/07/17 05:17 Urine pH 6.5 (4.6 - 8.0) 01/07/17 05:17 Ur Specific [place] 1.010 (1.005-1.030) 01/07/17 05:17 Urine Protein TRACE mg/dL (NEGATIVE) 01/07/17 05:17 Urine Glucose (UA) NEGATIVE mg/dL (NEGATIVE) 01/07/17 05:17 Urine Ketones NEGATIVE mg/dL (NEGATIVE) 01/07/17 05:17 Urine Blood NEGATIVE (NEGATIVE) 01/07/17 05:17 Urine Nitrate NEGATIVE (NEGATIVE) 01/07/17 05:17 Urine Bilirubin NEGATIVE (NEGATIVE) 01/07/17 05:17 Urine Urobilinogen 1.0 E.U./dL (0.2 - 1.0) 01/07/17 05:17 Ur Leukocyte Esterase NEGATIVE (NEGATIVE) 01/07/17 05:17 Urine RBC 0-1 /hpf (0-5) 01/07/17 05:17 Urine WBC 0-2 /hpf (0-5) 01/07/17 05:17 Ur Epithelial Cells FEW /lpf (FEW) 01/07/17 05:17 Amorphous Sediment FEW URATES (NONE SEEN) 01/07/17 05:17 Urine Bacteria 1+ /hpf (NONE SEEN) H 01/07/17 05:17 Hyaline Casts 0-2 /lpf (0-2) H 01/07/17 05:17 - Physical Exam Vitals and I&O: Vital Signs Temp 98.6 F 01/11/17 13:06 Pulse 77 01/11/17 13:06 Resp 19 01/11/17 13:15 BP 125/74 01/11/17 13:06 Pulse Ox 98 01/11/17 13:06 Intake & Output 01/10/17 01/11/17 01/11/17 18:59 06:59 18:59 Intake Total 1870 Output Total 1550 Balance 320 Weight (lbs) 107.161 kg 102.965 kg Intake: Intake, IV Amount 1000 D5-0.45NS 1,000 ml @ 100 1000 mls/hr IV .Q10H LURDES Rx#: [id number] Tube Feeding 750 Other 120 Output: Urine 1550 Other: # Bowel Movements 0 Stool Characteristics Soft Brown Active Medications: Current Medications Acetaminophen (Tylenol 650mg/20.3ml Suspension) 650 mg GT Q6H PRN PRN Reason: Fever > 101 Stop: 03/07/17 21:32 Last Admin: 01/06/17 22:07 Dose: 650 mg Acetaminophen (Tylenol) 650 mg PO Q6H PRN PRN Reason: MILD PAIN Stop: 03/08/17 15:39 Albuterol/Ipratropium (Duoneb Neb) 3 ml HHN Q4HRT PRN PRN Reason: Wheezing Stop: 03/09/17 08:39 Last Admin: 01/10/17 11:31 Dose: 3 ml Aripiprazole (Abilify) 20 mg PO HS LURDES Stop: 03/11/17 20:59 Last Admin: 01/10/17 20:59 Dose: 20 mg Ascorbic Acid (Vitamin C) 500 mg PO DAILY LURDES Stop: 03/09/17 08:59 Last Admin: 01/11/17 08:32 Dose: 500 mg Carbidopa/Levodopa (Sinemet 25mg-100 Mg) 1 tab PO TID@0600,1400,2100 LURDES Stop: 03/10/17 20:59 Last Admin: 01/11/17 14:56 Dose: 1 tab Docusate Sodium (Colace) 200 mg PO HS LURDES Stop: 03/08/17 20:59 Last Admin: 01/10/17 20:29 Dose: 200 mg Ferrous Sulfate (Iron) 325 mg PO BID LURDES Stop: 03/08/17 16:59 Last Admin: 01/11/17 08:33 Dose: 325 mg Heparin Sodium (Porcine) (Heparin) 5,000 units SUBQ Q12HR LURDES Stop: 03/08/17 20:59 Last Admin: 01/11/17 08:32 Dose: 5,000 units Hydrocortisone (Cortef) 25 mg PO DAILY LURDES Stop: 03/08/17 16:59 Last Admin: 01/11/17 08:32 Dose: 25 mg Dextrose/Sodium Chloride (D5-0.45ns) 1,000 mls @ 100 mls/hr IV .Q10H LURDES Stop: 03/07/17 21:38 Last Admin: 01/10/17 16:09 Dose: 100 mls/hr Ceftriaxone Sodium 1 gm/ (Sodium Chloride) 50 mls @ 100 mls/hr IV Q24HR LURDES Stop: 03/07/17 21:59 Last Admin: 01/10/17 23:06 Dose: 100 mls/hr Lactobacillus Rhamnosus (Culturelle) 1 each PO DAILY LURDES Stop: 03/08/17 15:59 Last Admin: 01/11/17 08:33 Dose: 1 each Lisinopril (Zestril) 10 mg PO DAILY LURDES Stop: 03/08/17 16:59 Last Admin: 01/11/17 08:33 Dose: 10 mg Lorazepam (Ativan) 0.5 mg IVP Q6HR PRN; Protocol PRN Reason: Agitation Stop: 03/10/17 20:38 Last Admin: 01/10/17 20:29 Dose: 0.5 mg Magnesium Hydroxide (Milk Of Magnesia) 30 ml PO HS PRN PRN Reason: Constipation Stop: 03/10/17 14:19 Last Admin: 01/10/17 20:29 Dose: 30 ml Miscellaneous (Vte Chemical Prophylaxis Screen/ Admission) 1 ea PRN PRN PRN Reason: PROTOCOL Stop: 03/08/17 14:43 Miscellaneous (Probiotic Screen) 1 [facility] PRN PRN PRN Reason: PROTOCOL Stop: 03/08/17 15:28 Nitroglycerin (Nitrostat) 0.4 mg SL Q5MIN PRN PRN Reason: Chest Pain Stop: 03/08/17 15:39 Pantoprazole Sodium (Protonix) 40 mg PO QDAC LURDES Stop: 03/09/17 07:29 Last Admin: 01/11/17 06:52 Dose: 40 mg Vitamin B Complex/Vit C/Folic Acid (Vitamin B Complex W/Vitamin C) 1 tab PO DAILY LURDES Stop: 03/08/17 16:59 Last Admin: 01/11/17 08:32 Dose: 1 tab General: No acute distress HEENT: Atraumatic Neck: Supple Cardiovascular: Regular rate, Normal S1, Normal S2 Abdomen: Bowel sounds Assessment/Plan - Problem List Patient Problems: All Active Problems Dementia (Acute) F03.90 History of encephalopathy (Acute) Z86.69 History of schizoaffective disorder (Acute) Z86.59 Hyponatremia (Acute) E87.1 Leukocytosis (Acute) D72.829 Parkinson disease (Acute) G20 Sepsis (Acute) - Plan Plan: iv antibiotics labs will monitor Nutritional Asmnt/Malnutr-PDOC - Dietary Evaluation Malnutrition Findings (Please click <Entered> for more info): Nutritional Asmnt/Malnutrition Start: 01/08/17 10: 52 Text: Status: Complete Freq: Document 01/08/17 10:52 VALERIA (Rec: 01/08/17 11:17 VALERIA SARA- [email or web address]) Nutritional Asmnt/Malnutrition Patient General Information Nutritional Screening High Risk Screening Diagnosis (reason for visit) R/O aspiration pneumonia Pertinent Medical Hx/Surgical Hx Hypertension, CVA, right hemiparesis Subjective Information Per H&P, patient was [facility], abdominal pain and ended up having a G-tube, sent to [facility] and possible aspirated, now in ICU. Per nursing, patient is tolerating tube feeding bolus', and is receiving 1 can q 4 hours. Current Diet Order/ Nutrition Support Nutren 2.0 240ml (1 can) q 4 hours (1440 ml, 2880 kcal, 120 gm protein) Patient / S.O Not Indicated Pertinent Medications vitamin C, abx, colace, iron, culturelle, protonix, vitmain B complex with C Pertinent Labs (01/08) Albumin 3.3 (decreased) Nutritional Hx/Data Height 1.91 m Height (Calculated Centimeters) 190.5 Current Weight (lbs) 104.78 kg Weight (Calculated Kilograms) 104.8 Weight (Calculated Grams) 200358.8 [place] Body Weight 196 % [place] Body Weight 117 Weight Status Overweight GI Symptoms Food Allergies No Cultural/Ethnic/Roman [employer] Belief none indicated Skin Integrity/Comment: Kenan 14 Estimated Nutritional Goals BEE in Kcals: Adj wt of IBW Calories/Kcals/Kg IBW 196lb/89.1kg Kcals Calculated 2228-2673kcal (25-30kcal/kg) Protein: Adj wt of IBW Protein g/kg: (1/gkg) Protein Calculated 89g Fluid: ml 2228-2673ml (1ml/kcal) Nutritional Problem 1. Problem Problem Excessive enteral infusion related to Etiology tube feeding order Signs/Symptoms: current tube feeding regimen providing >107% of high end calorie needs and 134% protein needs. Intervention/Recommendation Comments 1. Modify tube feeding regimen from 1 can q4 hours 5 cans/ day. This would provide 1200 ml volume, 2400 kcal, 100 gm protein. Expected Outcomes/Goals Expected Outcomes/Goals Pt to meet 100% of estimated nutritional needs on bolus feeding with tolerance.
--- NOTE | 2017-01-11 18:47 | Infectious Disease Prog Note ---
Infectious Disease Subjective - Review of Systems Service Date: 01/11/17 Subjective: CC ASPIRATION HPI- PT SCHEDULE FOR DISCHARGE D/W PMD ROS NO FEVR O?E VSS CHEAR S CLEAR ABD SOFT EXT NO EDEMA DX PN ASPIRATION ROCEPHUIN X Y 7 DAYS Infectious Disease Objective - Results Result Diagrams: 01/10/17 08:45 01/09/17 04:37 Recent Labs: Laboratory Last Values WBC 9.4 Th/cmm (4.8-10.8) 01/10/17 08:45 RBC 4.22 Mil/cmm (4.30-5.70) L 01/10/17 08:45 Hgb 13.0 gm/dL (13.2-17.3) L 01/10/17 08:45 Hct 39.3 % (39.0-49.0) 01/10/17 08:45 MCV 93.1 fl (80-99) 01/10/17 08:45 MCH 30.7 pg (26.0-30.0) H 01/10/17 08:45 MCHC Differential 33.0 pg (28.0-36.0) 01/10/17 08:45 RDW 12.2 % (11.5-20.0) 01/10/17 08:45 Plt Count 221 Th/cmm (150-400) 01/10/17 08:45 MPV 8.4 fl 01/10/17 08:45 Neutrophils % 57.0 % (40.0-80.0) 01/10/17 08:45 Band Neutrophils % 7 % (0-10) 01/06/17 21:50 Lymphocytes % 31.8 % (20.0-50.0) 01/10/17 08:45 Monocytes % 7.1 % (2.0-10.0) 01/10/17 08:45 Eosinophils % 2.6 % (0.0-5.0) 01/10/17 08:45 Basophils % 1.5 % (0.0-2.0) 01/10/17 08:45 Neutrophils (Manual) 78 % (40-80) 01/06/17 21:50 Lymphocytes 10 % (20-50) L 01/06/17 21:50 Monocytes 5 % (2-10) 01/06/17 21:50 Platelet Estimate ADEQUATE (NORMAL) 01/06/17 21:50 Platelet Morphology NORMAL (NORMAL) 01/06/17 21:50 RBC Morph Micro Appear NORMAL (NORMAL) 01/06/17 21:50 Sodium 139 mEq/L (136-145) 01/09/17 04:37 Potassium 3.6 mEq/L (3.5-5.1) 01/09/17 04:37 Chloride 107 mEq/L (98-107) 01/09/17 04:37 Carbon Dioxide 29.6 mEq/L (21.0-31.0) 01/09/17 04:37 Anion Gap 6.0 (7.0-16.0) L 01/09/17 04:37 BUN 19 mg/dL (7-25) 01/09/17 04:37 Creatinine 0.8 mg/dL (0.7-1.3) 01/09/17 04:37 Est GFR ( Amer) > 60.0 ml/min (>90) 01/09/17 04:37 Est GFR (Non-Af Amer) > 60.0 ml/min 01/09/17 04:37 BUN/Creatinine Ratio 23.8 01/09/17 04:37 Glucose 126 mg/dL (70-105) H 01/09/17 04:37 Hemoglobin A1c % 4.8 % (4.0-6.0) 01/06/17 21:50 Whole Bld Lactic Acid 1.70 mmol/L (0.60-1.99) 01/06/17 21:50 Calcium 9.4 mg/dL (8.6-10.3) 01/09/17 04:37 Total Bilirubin 0.5 mg/dL (0.3-1.0) 01/08/17 07:29 AST 10 U/L (13-39) L 01/08/17 07:29 ALT 7 U/L (7-52) 01/08/17 07:29 Alkaline Phosphatase 47 U/L (34-104) 01/08/17 07:29 Total Protein 6.0 gm/dL (6.0-8.3) 01/08/17 07:29 Albumin 3.3 gm/dL (4.2-5.5) L 01/08/17 07:29 Globulin 2.7 gm/dL 01/08/17 07:29 Albumin/Globulin Ratio 1.2 (1.0-1.8) 01/08/17 07:29 Urine Source CLEAN C 01/07/17 05:17 Urine Color YELLOW 01/07/17 05:17 Urine Clarity SLIGHT CLOUDY (CLEAR) 01/07/17 05:17 Urine pH 6.5 (4.6 - 8.0) 01/07/17 05:17 Ur Specific [place] 1.010 (1.005-1.030) 01/07/17 05:17 Urine Protein TRACE mg/dL (NEGATIVE) 01/07/17 05:17 Urine Glucose (UA) NEGATIVE mg/dL (NEGATIVE) 01/07/17 05:17 Urine Ketones NEGATIVE mg/dL (NEGATIVE) 01/07/17 05:17 Urine Blood NEGATIVE (NEGATIVE) 01/07/17 05:17 Urine Nitrate NEGATIVE (NEGATIVE) 01/07/17 05:17 Urine Bilirubin NEGATIVE (NEGATIVE) 01/07/17 05:17 Urine Urobilinogen 1.0 E.U./dL (0.2 - 1.0) 01/07/17 05:17 Ur Leukocyte Esterase NEGATIVE (NEGATIVE) 01/07/17 05:17 Urine RBC 0-1 /hpf (0-5) 01/07/17 05:17 Urine WBC 0-2 /hpf (0-5) 01/07/17 05:17 Ur Epithelial Cells FEW /lpf (FEW) 01/07/17 05:17 Amorphous Sediment FEW URATES (NONE SEEN) 01/07/17 05:17 Urine Bacteria 1+ /hpf (NONE SEEN) H 01/07/17 05:17 Hyaline Casts 0-2 /lpf (0-2) H 01/07/17 05:17 - Physical Exam Vitals and I&O: Vital Signs Temp 98.6 F 01/11/17 16:18 Pulse 76 01/11/17 16:18 Resp 19 01/11/17 16:18 BP 101/54 01/11/17 16:18 Pulse Ox 99 01/11/17 16:18 Intake & Output 01/10/17 01/11/17 01/11/17 18:59 06:59 18:59 Intake Total 1870 Output Total 1550 Balance 320 Weight (lbs) 107.161 kg 102.965 kg Intake: Intake, IV Amount 1000 D5-0.45NS 1,000 ml @ 100 1000 mls/hr IV .Q10H LURDES Rx#: [id number] Tube Feeding 750 Other 120 Output: Urine 1550 Other: # Bowel Movements 0 Stool Characteristics Soft Brown Infectious Disease Assmt/Plan - Problem List Patient Problems: All Active Problems Dementia (Acute) F03.90 History of encephalopathy (Acute) Z86.69 History of schizoaffective disorder (Acute) Z86.59 Hyponatremia (Acute) E87.1 Leukocytosis (Acute) D72.829 Parkinson disease (Acute) G20 Sepsis (Acute) Nutritional Asmnt/Malnutr-PDOC - Dietary Evaluation Malnutrition Findings (Please click <Entered> for more info): Nutritional Asmnt/Malnutrition Start: 01/08/17 10: 52 Text: Status: Complete Freq: Document 01/08/17 10:52 VALERIA (Rec: 01/08/17 11:17 VALERIA RUIZ- [email or web address]) Nutritional Asmnt/Malnutrition Patient General Information Nutritional Screening High Risk Screening Diagnosis (reason for visit) R/O aspiration pneumonia Pertinent Medical Hx/Surgical Hx Hypertension, CVA, right hemiparesis Subjective Information Per H&P, patient was [facility], abdominal pain and ended up having a G-tube, sent to [facility] and possible aspirated, now in ICU. Per nursing, patient is tolerating tube feeding bolus', and is receiving 1 can q 4 hours. Current Diet Order/ Nutrition Support Nutren 2.0 240ml (1 can) q 4 hours (1440 ml, 2880 kcal, 120 gm protein) Patient / S.O Not Indicated Pertinent Medications vitamin C, abx, colace, iron, culturelle, protonix, vitmain B complex with C Pertinent Labs (01/08) Albumin 3.3 (decreased) Nutritional Hx/Data Height 1.91 m Height (Calculated Centimeters) 190.5 Current Weight (lbs) 104.78 kg Weight (Calculated Kilograms) 104.8 Weight (Calculated Grams) 311534.8 [place] Body Weight 196 % [place] Body Weight 117 Weight Status Overweight GI Symptoms Food Allergies No Cultural/Ethnic/Pentecostal Belief none indicated Skin Integrity/Comment: Kenan Manning Estimated Nutritional Goals BEE in Kcals: Adj wt of IBW Calories/Kcals/Kg IBW 196lb/89.1kg Kcals Calculated 2228-2673kcal (25-30kcal/kg) Protein: Adj wt of IBW Protein g/kg: (1/gkg) Protein Calculated 89g Fluid: ml 2228-2673ml (1ml/kcal) Nutritional Problem 1. Problem Problem Excessive enteral infusion related to Etiology tube feeding order Signs/Symptoms: current tube feeding regimen providing >107% of high end calorie needs and 134% protein needs. Intervention/Recommendation Comments 1. Modify tube feeding regimen from 1 can q4 hours 5 cans/ day. This would provide 1200 ml volume, 2400 kcal, 100 gm protein. Expected Outcomes/Goals Expected Outcomes/Goals Pt to meet 100% of estimated nutritional needs on bolus feeding with tolerance.
--- NOTE | 2017-01-12 00:39 | Progress Notes ---
DATE: 01/11/2017 Case was discussed with staff of the patient, reviewed records. The patient yesterday had to decrease Ativan to 0.5 mg every 6 hours because he gets too sedated with it and he got it few times a day before. He is sleeping better, eating better. He is out of ICU. He is showing some progress. He is unable to participate in meaningful conversation or make safe plan for self-care. Unpredictable, impulsive. He denies any intent to harm himself or anyone. Thank you very much for allowing me to participate in the care of this most interesting gentleman. JOB# [id number]
== END 2017-01-11 15:50 | disposition home or self-care (01) | DRG 177 ==
LOC: ICU 20:00 → TELE 01-10 17:45
PROVIDERS: ADMIT Internal Medicine; ATTEND Internal Medicine
DX: J69.0 Pneumonitis due to inhalation of food and vomit (principal); G92 Toxic encephalopathy; I69.351 Hemiplegia and hemiparesis following cerebral infarction affecting right dominant side; G20 Parkinson's disease; M19.90 Unspecified osteoarthritis, unspecified site; D50.9 Iron deficiency anemia, unspecified; K21.9 Gastro-esophageal reflux disease without esophagitis; E66.9 Obesity, unspecified; E78.5 Hyperlipidemia, unspecified; I12.9 Hypertensive chronic kidney disease with stage 1 through stage 4 chronic kidney disease, or unspecified chronic kidney disease; N18.9 Chronic kidney disease, unspecified; F29 Unspecified psychosis not due to a substance or known physiological condition; Z88.8 Allergy status to other drugs, medicaments and biological substances; Z68.28 Body mass index [BMI] 28.0-28.9, adult
CPT/HCPCS: 36415-UA; 71010-TC; 80048-TC; 80053-TC; 81001-TC; 83036-90; 83605; 85007-TC; 85025-TC; 85027-TC; 87086-90; 94640; 94760; J0456; J0696; J1644; J2060; Z7610

== ENCOUNTER 2017-06-10 15:54 | Inpatient (IN) | payer MEDICARE, MEDICAID ==
--- NOTE | 2017-06-10 16:10 | ED Physician Chart ---
ED Chief Complaint/HPI - Patient Information Date Seen:: 06/10/17 Time Seen:: 16:02 Chief Complaint:: Agitation and aggressiveness History of Present Illness:: 57 yo male was brought from [facility] to ER for evaluation of increased agitation and disruptive behavior. The patient also had tremor due to Parkinson's disease. The patient had been on hydrocortisone 20mg daily. Allergies:: Allergies Allergy/AdvReac Type Severity Reaction Status Date / Time zolpidem [From Ambien] Allergy Verified 06/12/16 22:49 ED Review of Systems - Review of Systems General/Constitutional: No fever, No chills, Other (Dysphagia) Skin: No bruising Head: No headache Eyes: No pain ENT: No nasal drainage Neck: No neck pain Cardio Vascular: No chest pain Pulmonary: No SOB GI: No nausea, No vomiting, Other (G-tube) Musculoskeletal: No bone or joint pain, Other (tremor) ED Past Medical History - Past Medical History Past Medical History: HTN, DM, Asthma/COPD, CVA/TIA (right hemiparesis), PUD/ GERD, Other (Parkinson's disease, anemia, chronic renal disease, encephalopathy , dysphagia) Social History: Non Smoker, No Alcohol, No Drug Use Psychiatricy History: Schizophrenia, Other (psychosis) Family Medical History - Family Member Mother History Unknown: Yes Ethnicity: Unknown Living Status: Unknown Hx Family Cancer: (Unknown) Hx Family Coronary Artery Disease: (Unknown) Hx Family Congestive Heart Failure: (Unknown) Hx Family Hypertension: (Unknown) Hx Family Stroke: (Unknown) Hx Family Diabetes: (Unknown) Hx Family Seizures: (Unknown) Hx Family Dementia: (Unknown) Hx Family AIDS: (Unknown) Hx Family HIV: No Hx Family COPD: (Unknown) Hx Family Hepatitis: (Unknown) Hx Family Psychiatric Problems: (Unknown) Hx Family Tuberculosis: (Unknown) ED Physical Exam - Physical Examination General/Constitutional: Awake, Alert Head: Atraumatic Eyes: PERRL Skin: No ecchymosis ENMT: Nasal exam nl Neck: No nuchal rigidity Respiratory: No Wheeze/Rhonchi/Rales Cardio Vascular: RRR, No murmur, gallop, rubs, NL S1 S2 GI: No tenderness/rebounding/guarding Other GI comments:: G-tube intact Other Extremities comments:: Resting tremor bilateral upper extremities Other Neuro/Psych comments:: Right sided weakness ED Assessment - Assessment General Assessment: Schizophrenia Psychosis Parkinson's disease Leukocytosis likely secondary to hydrocortisone use Assessment/Comments:: Cleared for [facility] admit ED Septic Shock - . Is Septic Shock (SBP<90, OR Lactate>4 mmol\L) present?: No ED Reassessment (Disposition) - Reassessment Reassessment Condition:: Unchanged - Patient Disposition Discharge/Transfer:: [facility] w/in this hosp
[2017-06-10 16:34] LABS: % BASOPHILS 0.8 % (0.0-2.0); % EOSINOPHILS 1.9 % (0.0-5.0); % LYMPHOCYTES 27.2 % (20.0-50.0); % MONOCYTES 5.6 % (2.0-10.0); % NEUTROPHILS 64.5 % (40.0-80.0); BASOPHILE ABSOLUTE 0.1 Th/cumm (0-0.2); EOSINOPHILE ABSOLUTE 0.2 Th/cmm (0.1-0.4); HEMOGLOBIN 14.8 gm/dL (12-16); LYMPHOCYTE ABSOLUTE 3.4 Th/cmm (1.5-3.0); MEAN CELL VOLUME 91.4 fl (80-99); MEAN CORPUSCULAR HEMOGLOBIN 30.3 pg (26.0-30.0); MEAN CORPUSCULAR HGB CONC 33.2 pg (28.0-36.0); MEAN PLATELET VOLUME 6.8 fl; MONOCYTE ABSOLUTE 0.7 Th/cmm (0.3-1.0); NEUTROPHILE ABSOLUTE 8.2 Th/cmm (1.8-8.0); RED BLOOD COUNT 4.89 Mil/cmm (4.30-5.70)
[2017-06-10 16:38] LABS: HEMATOCRIT 44.7 % (41.0-60); WHITE BLOOD COUNT 12.6 Th/cmm (4.8-10.8)
[2017-06-10 16:39] LABS: PLATELET COUNT 323 Th/cmm (150-400)
[2017-06-10 16:50] LABS: ALB/GLOB RATIO 1.2 (1.0-1.8); ALBUMIN 3.8 gm/dL (4.2-5.5); ALKALINE PHOSPHATASE 54 U/L (34-104); ANION GAP 11.4 (7.0-16.0); BILIRUBIN,TOTAL 0.3 mg/dL (0.3-1.0); BUN - UREA NITROGEN 20 mg/dL (7-25); CALCIUM SERUM 9.6 mg/dL (8.6-10.3); CARBON DIOXIDE 25.6 mEq/L (21.0-31.0); CHLORIDE 103 mEq/L (98-107); GFR AFRICAN-AMERICAN > 60.0 ml/min (>90); GFR NON AFRICAN-AMERICAN > 60.0 ml/min; GLUCOSE 111 mg/dL (70-105); SGOT 15 U/L (13-39); SGPT/ALT 12 U/L (7-52); SODIUM SERUM 136 mEq/L (136-145); TOTAL PROTEIN,SERUM 6.9 gm/dL (6.0-8.3)
[2017-06-10 18:09] LABS: URINE MICROSCOPIC INDICATED? YES; URINE SOURCE RANDOM
[2017-06-10 18:10] LABS: URINE BILIRUBIN NEGATIVE (NEGATIVE); URINE BLOOD NEGATIVE (NEGATIVE); URINE GLUCOSE (UA) NEGATIVE (NEGATIVE); URINE KETONE NEGATIVE (NEGATIVE); URINE LEUKOCYTE ESTERASE NEGATIVE (NEGATIVE); URINE NITRATE NEGATIVE (NEGATIVE); URINE PROTEIN NEGATIVE (NEGATIVE); URINE UROBILINOGEN 0.2 E.U./dL (0.2 - 1.0)
[2017-06-10 18:11] LABS: URINE CLARITY CLEAR (CLEAR); URINE COLOR YELLOW
[2017-06-10 18:13] LABS: URINE BACTERIA NONE SEEN /hpf (NONE SEEN); URINE EPITHELIAL CELLS NONE SEEN /lpf (FEW); URINE RBC NONE SEEN /hpf (0-5); URINE WBC NONE SEEN /hpf (0-5)
[2017-06-10 19:09] VITALS: BP 110/71
[2017-06-10] MEDS ORDERED: Maalox 30 mL Cup PO PRN (21:26)
[2017-06-10] MEDS ORDERED: Magnesium Hydroxide (MOM) 30 mL UDC PO PRN (21:26)
--- NOTE | 2017-06-10 21:40 | History and Physical ---
History of Present Illness - HPI Chief Complaint: AGGRESSIVE BEHAVIOR HPI: THIS IS A 57 YEAR OLD MALE ADMITTED TO [facility] DUE TO AGGRESSIVE BEHAVIOR TOWARDS NURSING STAFF AT THE SNF. Vital Signs: Last Vital Signs Temp 98.5 F 06/10/17 16:13 Pulse 77 06/10/17 16:13 Resp 16 06/10/17 16:13 BP 110/71 06/10/17 19:08 Pulse Ox 95 06/10/17 16:13 Past Medical History Other History: HTN, DM, Asthma/COPD, CVA/TIA (right hemiparesis), PUD/GERD, Other (Parkinson's disease, anemia, chronic renal disease, encephalopathy, dysphagia) Family Medical History - Family Member Mother History Unknown: Yes Ethnicity: Unknown Living Status: Unknown Hx Family Cancer: (Unknown) Hx Family Coronary Artery Disease: (Unknown) Hx Family Congestive Heart Failure: (Unknown) Hx Family Hypertension: (Unknown) Hx Family Stroke: (Unknown) Hx Family Diabetes: (Unknown) Hx Family Seizures: (Unknown) Hx Family Dementia: (Unknown) Hx Family AIDS: (Unknown) Hx Family HIV: No Hx Family COPD: (Unknown) Hx Family Hepatitis: (Unknown) Hx Family Psychiatric Problems: (Unknown) Hx Family Tuberculosis: (Unknown) Social History Smoke: No Alcohol: None Drugs: None Lives: Shelter - Medications Home Medications: Home Medication Medication Instructions Recorded Type Ferrous Sulfate [Iron] 325 mg PO BID #0 tab 06/21/16 Rx Nitroglycerin [Nitrostat*] 0.4 mg SL Q5MIN PRN #0 tab 06/21/16 Rx Acetaminophen [Tylenol] 650 mg PO Q6HR PRN 12/27/16 History Aripiprazole [Abilify*] 20 mg PO DAILY 12/27/16 History Ascorbic Acid [Vitamin C] 500 mg PO DAILY 12/27/16 History Carbidopa/Levodopa [Sinemet 25-100 1 tab PO TID 12/27/16 History mg Tablet] Cranberry Fruit Concentrate 450 mg PO DAILY 12/27/16 History [Cranberry] Docusate Sodium [Colace] 200 mg PO HS 12/27/16 History Folic Acid/Vit Bcomp,C 1 tab PO DAILY 12/27/16 History [Nephro-Chiquita Tablet] Hydrocortisone [Cortef] 25 mg PO DAILY 12/27/16 History Lisinopril [Zestril*] 10 mg PO DAILY 12/27/16 History Omeprazole 20 mg PO DAILY 12/27/16 History Sevelamer Carbonate [Renvela] 0.8 gm PO TIDWM 12/27/16 History - Allergies Allergies/Adverse Reactions: Allergies Allergy/AdvReac Type Severity Reaction Status Date / Time zolpidem [From Ambien] Allergy Verified 06/12/16 22:49 Review of Systems - Review of Systems Constitutional: Report: No Significant Eyes: Report: No Significant ENT: Report: No Significant Respiratory: Report: No Significant Cardiovascular: Report: No Significant Gastrointestinal: Report: No Significant Genitourinary: Report: No Significant Musculoskeletal: Report: No Significant Skin: Report: No Significant Neurological: Report: No Significant Physical Exam - Physical Exam HEENT: Report: Ears Nose Throat within normal limits Neck: Report: Within normal limits Cardiovascular Systems: Report: +s1/s2 noted Respiratory: Report: Breath Sounds are within normal limits Abdomen: Report: Non-tender to palpation Back: Report: Inspection of back is within normal limits. Skin: Report: Color of skin is within normal limits Neuro/Psych: Report: Mood affect is within normal limits - Assessment Assessment: HTN DM Asthma/COPD HX CVA/TIA W\Right hemiparesis PUD/GERD Parkinson's disease anemia chronic renal disease - Plan Plan: MONITOR GLUCOSE FALL PRECAUTIONS CONTINUE CURRENT ORDERS
[2017-06-11] MEDS: Vitamin B Complex w/Vitamin C Tab PO SCH (08:30)
[2017-06-11] MEDS: Multivitamin Tab PO SCH (08:30)
[2017-06-11] MEDS: Pantoprazole 40 mg EC Tab PO SCH (08:30)
[2017-06-11] MEDS: Ferrous Sulfate 325 MG TAB PO SCH ×2 (08:31→17:44)
[2017-06-11] MEDS ORDERED: Non-Formulary Item 1 EA (Cranberry Fruit Concentrate [Cranberry] 450 MG) PO SCH (09:00)
--- NOTE | 2017-06-11 09:09 | Diagnostic Imaging Report ---
CHEST X-RAY: AP view INDICATION: Shortness of breath COMPARISON: Chest x-ray 01/08/2017 FINDINGS: Faint right midlung density is noted. Chronic lung changes are noted. No pleural effusions. Note the right costophrenic angle is incompletely visualized. Heart size is normal. Degenerative changes of the spine are noted. IMPRESSION: Faint right midlung density possibly representing early developing infiltrate in this region. Clinical correlation and follow-up is recommended.
--- NOTE | 2017-06-12 02:04 | Progress Notes ---
DATE: 06/11/2017 SUBJECTIVE: The patient was seen in his room, lying on the bed. The patient appears to be confused and guarded at this time, but otherwise denies any pain or discomfort and the patient is in no acute distress. OBJECTIVE: VITAL SIGNS: Temperature 98.1, heart rate of 88, respirations of 18, blood pressure 110/71, 94% on room air. HEENT: Head is atraumatic and normocephalic. Eyes: Bilateral conjunctivae are clear. Bilateral pupils are equally round and reactive. NECK: Supple. No JVD. CARDIOVASCULAR: S1 and S2 without murmur. PULMONARY: Clear to auscultation. GASTROINTESTINAL: Soft and nontender without guarding. Positive bowel sounds. MUSCULOSKELETAL: No clubbing. No cyanosis noted. ASSESSMENT: 1. Psychosis. 2. Parkinson's disease. 3. Hypertension. 4. Diabetes. 5. Gastroesophageal reflux disease. 6. Chronic obstructive pulmonary disease. 7. History of cerebrovascular accident with left-sided weakness. 8. Anemia. PLAN: We will keep the patient in Inpatient [facility] Unit. We will follow up with the psychiatrist to monitor the patient's condition and behavior. We are also going to monitor the patient's nutritional status. Treatment plans were discussed with the patient's nurse. Treatment plans were discussed with Dr. Auguste. JOB# [id number]
[2017-06-12] MEDS: Vitamin B Complex w/Vitamin C Tab PO SCH (09:43)
[2017-06-12] MEDS: Pantoprazole 40 mg EC Tab PO SCH (09:43)
[2017-06-12] MEDS: Ferrous Sulfate 325 MG TAB PO SCH ×2 (09:44→16:22)
[2017-06-12] MEDS: Multivitamin Tab PO SCH (09:44)
--- NOTE | 2017-06-12 10:10 | General Progress Note ---
Subjective - Review of Systems Events since last encounter: patient confused guarded Objective - Results Result Diagrams: 06/10/17 16:25 06/10/17 16:25 Recent Labs: Laboratory Last Values WBC 12.6 Th/cmm (4.8-10.8) H D 06/10/17 16:25 RBC 4.89 Mil/cmm (4.30-5.70) 06/10/17 16:25 Hgb 14.8 gm/dL (12-16) 06/10/17 16:25 Hct 44.7 % (41.0-60) D 06/10/17 16:25 MCV 91.4 fl (80-99) 06/10/17 16:25 MCH 30.3 pg (26.0-30.0) H 06/10/17 16:25 MCHC Differential 33.2 pg (28.0-36.0) 06/10/17 16:25 RDW 12.0 % (11.5-20.0) 06/10/17 16:25 Plt Count 323 Th/cmm (150-400) D 06/10/17 16:25 MPV 6.8 fl 06/10/17 16:25 Neutrophils % 64.5 % (40.0-80.0) 06/10/17 16:25 Lymphocytes % 27.2 % (20.0-50.0) 06/10/17 16:25 Monocytes % 5.6 % (2.0-10.0) 06/10/17 16:25 Eosinophils % 1.9 % (0.0-5.0) 06/10/17 16:25 Basophils % 0.8 % (0.0-2.0) 06/10/17 16:25 Sodium 136 mEq/L (136-145) 06/10/17 16:25 Potassium 4.0 mEq/L (3.5-5.1) 06/10/17 16:25 Chloride 103 mEq/L (98-107) 06/10/17 16:25 Carbon Dioxide 25.6 mEq/L (21.0-31.0) 06/10/17 16:25 Anion Gap 11.4 (7.0-16.0) 06/10/17 16:25 BUN 20 mg/dL (7-25) 06/10/17 16:25 Creatinine 1.0 mg/dL (0.7-1.3) 06/10/17 16:25 Est GFR ( Amer) > 60.0 ml/min (>90) 06/10/17 16:25 Est GFR (Non-Af Amer) > 60.0 ml/min 06/10/17 16:25 BUN/Creatinine Ratio 20.0 06/10/17 16:25 Glucose 111 mg/dL (70-105) H 06/10/17 16:25 Whole Bld Lactic Acid 0.90 mmol/L (0.60-1.99) 06/10/17 16:25 Calcium 9.6 mg/dL (8.6-10.3) 06/10/17 16:25 Total Bilirubin 0.3 mg/dL (0.3-1.0) 06/10/17 16:25 AST 15 U/L (13-39) 06/10/17 16:25 ALT 12 U/L (7-52) 06/10/17 16:25 Alkaline Phosphatase 54 U/L (34-104) 06/10/17 16:25 Total Protein 6.9 gm/dL (6.0-8.3) 06/10/17 16:25 Albumin 3.8 gm/dL (4.2-5.5) L 06/10/17 16:25 Globulin 3.1 gm/dL 06/10/17 16:25 Albumin/Globulin Ratio 1.2 (1.0-1.8) 06/10/17 16:25 TSH 1.02 uIU/ml (0.34-5.60) 06/10/17 16:25 Urine Source RANDOM 06/10/17 17:18 Urine Color YELLOW 06/10/17 17:18 Urine Clarity CLEAR (CLEAR) 06/10/17 17:18 Urine pH 7.0 (4.6 - 8.0) 06/10/17 17:18 Ur Specific [place] 1.010 (1.005-1.030) 06/10/17 17:18 Urine Protein NEGATIVE mg/dL (NEGATIVE) 06/10/17 17:18 Urine Glucose (UA) NEGATIVE mg/dL (NEGATIVE) 06/10/17 17:18 Urine Ketones NEGATIVE mg/dL (NEGATIVE) 06/10/17 17:18 Urine Blood NEGATIVE (NEGATIVE) 06/10/17 17:18 Urine Nitrate NEGATIVE (NEGATIVE) 06/10/17 17:18 Urine Bilirubin NEGATIVE (NEGATIVE) 06/10/17 17:18 Urine Urobilinogen 0.2 E.U./dL (0.2 - 1.0) 06/10/17 17:18 Ur Leukocyte Esterase NEGATIVE (NEGATIVE) 06/10/17 17:18 Urine RBC NONE SEEN /hpf (0-5) 06/10/17 17:18 Urine WBC NONE SEEN /hpf (0-5) 06/10/17 17:18 Ur Epithelial Cells NONE SEEN /lpf (FEW) 06/10/17 17:18 Urine Bacteria NONE SEEN /hpf (NONE SEEN) 06/10/17 17:18 - Physical Exam Vitals and I&O: Vital Signs Temp 97.5 F 06/11/17 14:00 Pulse 88 06/12/17 09:43 Resp 19 06/11/17 20:00 BP 120/80 06/12/17 09:43 Pulse Ox 96 06/11/17 14:00 Intake & Output 06/11/17 06/12/17 06/12/17 18:59 06:59 18:59 Intake Total 800 Balance 800 Intake: Oral 800 Other: # Voids 3 # Bowel Movements 0 Active Medications: Current Medications Acetaminophen (Tylenol) 650 mg PO Q4HR PRN PRN Reason: Mild Pain / Temp above 100 Stop: 08/09/17 21:25 Al Hydrox/Mg Hydrox/Simethicone (Maalox) 30 ml PO Q4HR PRN PRN Reason: GI DISTRESS Stop: 08/09/17 21:25 Ascorbic Acid (Vitamin C) 500 mg PO DAILY [facility] Stop: 08/10/17 08:59 Last Admin: 06/12/17 09:44 Dose: 500 mg Carbidopa/Levodopa (Sinemet 25mg-100 Mg) 1 tab PO TID [facility] Stop: 08/10/17 08:59 Last Admin: 06/12/17 09:44 Dose: 1 tab Docusate Sodium (Colace) 200 mg PO HS [facility] Stop: 08/10/17 20:59 Last Admin: 06/11/17 20:59 Dose: 200 mg Ferrous Sulfate (Iron) 325 mg PO BID [facility] Stop: 08/10/17 08:59 Last Admin: 06/12/17 09:44 Dose: Not Given Hydrocortisone (Cortef) 25 mg PO DAILY [facility] Stop: 08/10/17 08:59 Last Admin: 06/12/17 09:50 Dose: Not Given Lisinopril (Zestril) 10 mg PO DAILY [facility] Stop: 08/10/17 08:59 Last Admin: 06/12/17 09:43 Dose: 10 mg Lorazepam (Ativan) 0.5 mg PO Q4HR PRN; Protocol PRN Reason: Anxiety Stop: 07/10/17 21:25 Last Admin: 06/12/17 09:44 Dose: 0.5 mg Magnesium Hydroxide (Milk Of Magnesia) 30 ml PO HS PRN PRN Reason: Constipation Multivitamins/Vitamin C (Theragran) 1 tab PO DAILY [facility] Stop: 08/10/17 08:59 Last Admin: 06/12/17 09:44 Dose: Not Given Nitroglycerin (Nitrostat) 0.4 mg SL Q5MIN PRN PRN Reason: Chest Pain Stop: 08/09/17 21:30 Pantoprazole Sodium (Protonix) 40 mg PO DAILY [facility] Stop: 08/10/17 08:59 Last Admin: 06/12/17 09:43 Dose: 40 mg Quetiapine Fumarate (Seroquel) 12.5 mg PO HS [facility] PRN Reason: Protocol Stop: 08/10/17 20:59 Last Admin: 06/11/17 21:00 Dose: 12.5 mg Sevelamer Carbonate (Renvela) 800 mg PO TIDWM [facility] Stop: 08/10/17 07:59 Last Admin: 06/12/17 09:43 Dose: 800 mg Vitamin B Complex/Vit C/Folic Acid (Vitamin B Complex W/Vitamin C) 1 tab PO DAILY [facility] Stop: 08/10/17 08:59 Last Admin: 06/12/17 09:43 Dose: 1 tab Assessment/Plan - Problem List Patient Problems: All Active Problems Dementia (Acute) F03.90 History of encephalopathy (Acute) Z86.69 History of schizoaffective disorder (Acute) Z86.59 Hyponatremia (Acute) E87.1 Leukocytosis (Acute) D72.829 Parkinson disease (Acute) G20 Sepsis (Acute)
--- NOTE | 2017-06-12 20:48 | Progress Notes ---
DATE: 06/12/2017 SUBJECTIVE: Staff was spoken to, the patient is interviewed. Mood is noted to be irritable. Affect is constricted. Coping was noted to be very poor. The patient has been getting easily agitated and the patient has been on the Abilify up to 20 mg and has not been of any help and hence it is decided to start the patient on the low dose of the Seroquel and the Abilify is going to be gradually decreased and the patient is going to be continued on the Seroquel, which has been started at 12.5 mg. Possibly, it is going to be increased to 25 mg today and patient is going to be followed up with supportive therapy. The patient is not ready to be discharged in view of his aggressive behavior. ASSESSMENT: The patient is still psychotic. PLAN: To continue the patient with the current medications and encouraged the patient to verbalize the concerns rather than to act out. JOB# [id number]
--- NOTE | 2017-06-12 22:15 | Psychosocial Evaluation ---
DATE OF SERVICE: 06/11/2017 CHIEF COMPLAINT: "I'm okay." HISTORY OF PRESENT ILLNESS: The patient is a 57-year-old male who was sent from his half-way facility for increased agitation and aggressive behavior. The patient has a history of CVA and right hemiparesis and other medical issues. The patient was medically cleared in the ER, now is on a Geropsych unit. The patient has been threatening at his place and having episodes of yelling. PAST PSYCHIATRIC HISTORY: Significant for psychosis. PAST MEDICAL HISTORY: The patient was medically cleared in the ER. The patient has hypertension, CVA, and right hemiparesis. The patient is followed by Dr. Auguste for H and P. PSYCHOSOCIAL HISTORY: The patient resides in a half-way facility, requires complete care. MENTAL STATUS EXAMINATION: The patient is awake, oriented to person, knew he is at some kind of hospital, did not know the date. Affect is dysphoric, irritable. The patient appears to be somewhat guarded. He is aware of his surroundings. Insight is limited. The patient's strengths: The patient is passively accepting treatment. The patient's weakness, lack of insight. ASSESSMENT: Psychosis, not otherwise specified; rule out major depressive disorder with psychosis; dementia of vascular type. MEDICAL: As per medical history. PLAN: We will admit the patient for hospitalization to help patient improve his agitation and aggressive behavior to further treat his symptoms. ESTIMATED LENGTH OF STAY: 7 days. CRITERIA FOR DISCHARGE: Improved condition, further stabilization and no agitation, safe disposition. The patient has a history of Parkinson's disease, he is currently on Abilify 20 mg daily which probably go into exacerbate some of his APS symptoms, Seroquel might be a better option. JOB# [id number]
[2017-06-13] MEDS: Vitamin B Complex w/Vitamin C Tab PO SCH (09:58)
[2017-06-13] MEDS: Multivitamin Tab PO SCH (09:58)
[2017-06-13] MEDS: Pantoprazole 40 mg EC Tab PO SCH (09:58)
[2017-06-13] MEDS: Ferrous Sulfate 325 MG TAB PO SCH ×2 (09:58→17:46)
--- NOTE | 2017-06-13 10:16 | General Progress Note ---
Subjective - Review of Systems Events since last encounter: patient withdrawn, irritable Objective - Results Result Diagrams: 06/10/17 16:25 06/10/17 16:25 Recent Labs: Laboratory Last Values WBC 12.6 Th/cmm (4.8-10.8) H D 06/10/17 16:25 RBC 4.89 Mil/cmm (4.30-5.70) 06/10/17 16:25 Hgb 14.8 gm/dL (12-16) 06/10/17 16:25 Hct 44.7 % (41.0-60) D 06/10/17 16:25 MCV 91.4 fl (80-99) 06/10/17 16:25 MCH 30.3 pg (26.0-30.0) H 06/10/17 16:25 MCHC Differential 33.2 pg (28.0-36.0) 06/10/17 16:25 RDW 12.0 % (11.5-20.0) 06/10/17 16:25 Plt Count 323 Th/cmm (150-400) D 06/10/17 16:25 MPV 6.8 fl 06/10/17 16:25 Neutrophils % 64.5 % (40.0-80.0) 06/10/17 16:25 Lymphocytes % 27.2 % (20.0-50.0) 06/10/17 16:25 Monocytes % 5.6 % (2.0-10.0) 06/10/17 16:25 Eosinophils % 1.9 % (0.0-5.0) 06/10/17 16:25 Basophils % 0.8 % (0.0-2.0) 06/10/17 16:25 Sodium 136 mEq/L (136-145) 06/10/17 16:25 Potassium 4.0 mEq/L (3.5-5.1) 06/10/17 16:25 Chloride 103 mEq/L (98-107) 06/10/17 16:25 Carbon Dioxide 25.6 mEq/L (21.0-31.0) 06/10/17 16:25 Anion Gap 11.4 (7.0-16.0) 06/10/17 16:25 BUN 20 mg/dL (7-25) 06/10/17 16:25 Creatinine 1.0 mg/dL (0.7-1.3) 06/10/17 16:25 Est GFR ( Amer) > 60.0 ml/min (>90) 06/10/17 16:25 Est GFR (Non-Af Amer) > 60.0 ml/min 06/10/17 16:25 BUN/Creatinine Ratio 20.0 06/10/17 16:25 Glucose 111 mg/dL (70-105) H 06/10/17 16:25 Whole Bld Lactic Acid 0.90 mmol/L (0.60-1.99) 06/10/17 16:25 Calcium 9.6 mg/dL (8.6-10.3) 06/10/17 16:25 Total Bilirubin 0.3 mg/dL (0.3-1.0) 06/10/17 16:25 AST 15 U/L (13-39) 06/10/17 16:25 ALT 12 U/L (7-52) 06/10/17 16:25 Alkaline Phosphatase 54 U/L (34-104) 06/10/17 16:25 Total Protein 6.9 gm/dL (6.0-8.3) 06/10/17 16:25 Albumin 3.8 gm/dL (4.2-5.5) L 06/10/17 16:25 Globulin 3.1 gm/dL 06/10/17 16:25 Albumin/Globulin Ratio 1.2 (1.0-1.8) 06/10/17 16:25 TSH 1.02 uIU/ml (0.34-5.60) 06/10/17 16:25 Urine Source RANDOM 06/10/17 17:18 Urine Color YELLOW 06/10/17 17:18 Urine Clarity CLEAR (CLEAR) 06/10/17 17:18 Urine pH 7.0 (4.6 - 8.0) 06/10/17 17:18 Ur Specific [place] 1.010 (1.005-1.030) 06/10/17 17:18 Urine Protein NEGATIVE mg/dL (NEGATIVE) 06/10/17 17:18 Urine Glucose (UA) NEGATIVE mg/dL (NEGATIVE) 06/10/17 17:18 Urine Ketones NEGATIVE mg/dL (NEGATIVE) 06/10/17 17:18 Urine Blood NEGATIVE (NEGATIVE) 01/26/18 17:18 Urine Nitrate NEGATIVE (NEGATIVE) 06/10/17 17:18 Urine Bilirubin NEGATIVE (NEGATIVE) 06/10/17 17:18 Urine Urobilinogen 0.2 E.U./dL (0.2 - 1.0) 06/10/17 17:18 Ur Leukocyte Esterase NEGATIVE (NEGATIVE) 06/10/17 17:18 Urine RBC NONE SEEN /hpf (0-5) 06/10/17 17:18 Urine WBC NONE SEEN /hpf (0-5) 06/10/17 17:18 Ur Epithelial Cells NONE SEEN /lpf (FEW) 06/10/17 17:18 Urine Bacteria NONE SEEN /hpf (NONE SEEN) 06/10/17 17:18 - Physical Exam Vitals and I&O: Vital Signs Temp 98.2 F 06/13/17 05:38 Pulse 72 06/13/17 09:59 Resp 18 06/13/17 05:38 BP 119/72 06/13/17 09:59 Pulse Ox 98 06/13/17 05:38 Intake & Output 06/12/17 06/13/17 06/13/17 18:59 06:59 18:59 Intake Total 800 0 Balance 800 0 Weight (lbs) 108.862 kg Intake: Oral 800 0 Other: # Voids 2 4 # Bowel Movements 1 1 Active Medications: Current Medications Acetaminophen (Tylenol) 650 mg PO Q4HR PRN PRN Reason: Mild Pain / Temp above 100 Stop: 08/09/17 21:25 Al Hydrox/Mg Hydrox/Simethicone (Maalox) 30 ml PO Q4HR PRN PRN Reason: GI DISTRESS Stop: 08/09/17 21:25 Ascorbic Acid (Vitamin C) 500 mg PO DAILY [facility] Stop: 08/10/17 08:59 Last Admin: 06/13/17 09:58 Dose: 500 mg Carbidopa/Levodopa (Sinemet 25mg-100 Mg) 1 tab PO TID [facility] Stop: 08/10/17 08:59 Last Admin: 06/13/17 09:58 Dose: 1 tab Docusate Sodium (Colace) 200 mg PO HS [facility] Stop: 08/10/17 20:59 Last Admin: 06/12/17 21:00 Dose: 200 mg Ferrous Sulfate (Iron) 325 mg PO BID [facility] Stop: 08/10/17 08:59 Last Admin: 06/13/17 09:58 Dose: 325 mg Hydrocortisone (Cortef) 25 mg PO DAILY [facility] Stop: 08/10/17 08:59 Last Admin: 06/12/17 09:50 Dose: Not Given Lisinopril (Zestril) 10 mg PO DAILY [facility] Stop: 08/10/17 08:59 Last Admin: 06/13/17 09:59 Dose: 10 mg Lorazepam (Ativan) 0.5 mg PO Q4HR PRN; Protocol PRN Reason: Anxiety Stop: 07/10/17 21:25 Last Admin: 06/12/17 22:02 Dose: 0.5 mg Magnesium Hydroxide (Milk Of Magnesia) 30 ml PO HS PRN PRN Reason: Constipation Multivitamins/Vitamin C (Theragran) 1 tab PO DAILY [facility] Stop: 08/10/17 08:59 Last Admin: 06/13/17 09:58 Dose: 1 tab Nitroglycerin (Nitrostat) 0.4 mg SL Q5MIN PRN PRN Reason: Chest Pain Stop: 08/09/17 21:30 Pantoprazole Sodium (Protonix) 40 mg PO DAILY [facility] Stop: 08/10/17 08:59 Last Admin: 06/13/17 09:58 Dose: 40 mg Quetiapine Fumarate (Seroquel) 25 mg PO HS [facility] PRN Reason: Protocol Stop: 08/10/17 20:59 Last Admin: 06/12/17 21:00 Dose: 25 mg Sevelamer Carbonate (Renvela) 800 mg PO TIDWM [facility] Stop: 08/10/17 07:59 Last Admin: 06/12/17 16:03 Dose: Not Given Vitamin B Complex/Vit C/Folic Acid (Vitamin B Complex W/Vitamin C) 1 tab PO DAILY [facility] Stop: 08/10/17 08:59 Last Admin: 06/13/17 09:58 Dose: 1 tab Assessment/Plan - Problem List Patient Problems: All Active Problems Dementia (Acute) F03.90 History of encephalopathy (Acute) Z86.69 History of schizoaffective disorder (Acute) Z86.59 Hyponatremia (Acute) E87.1 Leukocytosis (Acute) D72.829 Parkinson disease (Acute) G20 Sepsis (Acute)
--- NOTE | 2017-06-13 16:36 | Progress Notes ---
DATE: 06/13/2017 SUBJECTIVE: Staff was spoken to. The patient is interviewed. Mood is noted to be irritable. Affect is constricted. Coping skills are noted to be still poor. Insight and judgment are also noted to be impaired. The patient has been having difficult time. The patient has been placed on the Seroquel 25 mg at bedtime and has been able to tolerate. No side effects to the medications are noted. ASSESSMENT: The patient is still impulsive. PLAN: To continue the patient with the supportive therapy, I encouraged the patient to verbalize the concerns rather than to act out. JOB# [id number]
[2017-06-14] MEDS: Ferrous Sulfate 325 MG TAB PO SCH ×2 (08:04→17:18)
[2017-06-14] MEDS: Vitamin B Complex w/Vitamin C Tab PO SCH (08:04)
[2017-06-14] MEDS: Multivitamin Tab PO SCH (08:04)
[2017-06-14] MEDS: Pantoprazole 40 mg EC Tab PO SCH (08:04)
--- NOTE | 2017-06-14 15:22 | Progress Notes ---
DATE: 06/14/2017 Staff was spoken to. The patient is interviewed. Mood is noted to be irritable. Affect is constricted. Coping skills are noted to be poor. The patient has been placed on 25 mg of the Seroquel, which she has been able to tolerate. The aggressive behavior seems to be coming down. No side effects to the medications are noted at this time. The patient has been able to tolerate. ASSESSMENT: The patient is still impulsive. PLAN: To continue the patient with the supportive therapy. Encouraged the patient to verbalize the concerns rather than to act out. JOB# [id number]
--- NOTE | 2017-06-14 21:09 | Internal Medicine Prog Note ---
Internal Medicine Subjective - Subjective Service Date: 06/14/17 Patient seen and examined:: with staff Patient is:: awake Per staff patient has:: tolerating meds Internal Medicine Objective - Results Result Diagrams: 06/10/17 16:25 06/10/17 16:25 Recent Labs: Laboratory Last Values WBC 12.6 Th/cmm (4.8-10.8) H D 06/10/17 16:25 RBC 4.89 Mil/cmm (4.30-5.70) 06/10/17 16:25 Hgb 14.8 gm/dL (12-16) 06/10/17 16:25 Hct 44.7 % (41.0-60) D 06/10/17 16:25 MCV 91.4 fl (80-99) 06/10/17 16:25 MCH 30.3 pg (26.0-30.0) H 06/10/17 16:25 MCHC Differential 33.2 pg (28.0-36.0) 06/10/17 16:25 RDW 12.0 % (11.5-20.0) 06/10/17 16:25 Plt Count 323 Th/cmm (150-400) D 06/10/17 16:25 MPV 6.8 fl 06/10/17 16:25 Neutrophils % 64.5 % (40.0-80.0) 06/10/17 16:25 Lymphocytes % 27.2 % (20.0-50.0) 06/10/17 16:25 Monocytes % 5.6 % (2.0-10.0) 06/10/17 16:25 Eosinophils % 1.9 % (0.0-5.0) 06/10/17 16:25 Basophils % 0.8 % (0.0-2.0) 06/10/17 16:25 Sodium 136 mEq/L (136-145) 06/10/17 16:25 Potassium 4.0 mEq/L (3.5-5.1) 06/10/17 16:25 Chloride 103 mEq/L (98-107) 06/10/17 16:25 Carbon Dioxide 25.6 mEq/L (21.0-31.0) 06/10/17 16:25 Anion Gap 11.4 (7.0-16.0) 06/10/17 16:25 BUN 20 mg/dL (7-25) 06/10/17 16:25 Creatinine 1.0 mg/dL (0.7-1.3) 06/10/17 16:25 Est GFR ( Amer) > 60.0 ml/min (>90) 06/10/17 16:25 Est GFR (Non-Af Amer) > 60.0 ml/min 06/10/17 16:25 BUN/Creatinine Ratio 20.0 06/10/17 16:25 Glucose 111 mg/dL (70-105) H 06/10/17 16:25 Whole Bld Lactic Acid 0.90 mmol/L (0.60-1.99) 06/10/17 16:25 Calcium 9.6 mg/dL (8.6-10.3) 06/10/17 16:25 Total Bilirubin 0.3 mg/dL (0.3-1.0) 06/10/17 16:25 AST 15 U/L (13-39) 06/10/17 16:25 ALT 12 U/L (7-52) 06/10/17 16:25 Alkaline Phosphatase 54 U/L (34-104) 06/10/17 16:25 Total Protein 6.9 gm/dL (6.0-8.3) 06/10/17 16:25 Albumin 3.8 gm/dL (4.2-5.5) L 06/10/17 16:25 Globulin 3.1 gm/dL 06/10/17 16:25 Albumin/Globulin Ratio 1.2 (1.0-1.8) 06/10/17 16:25 TSH 1.02 uIU/ml (0.34-5.60) 06/10/17 16:25 Urine Source RANDOM 06/10/17 17:18 Urine Color YELLOW 06/10/17 17:18 Urine Clarity CLEAR (CLEAR) 06/10/17 17:18 Urine pH 7.0 (4.6 - 8.0) 06/10/17 17:18 Ur Specific [place] 1.010 (1.005-1.030) 06/10/17 17:18 Urine Protein NEGATIVE mg/dL (NEGATIVE) 06/10/17 17:18 Urine Glucose (UA) NEGATIVE mg/dL (NEGATIVE) 06/10/17 17:18 Urine Ketones NEGATIVE mg/dL (NEGATIVE) 06/10/17 17:18 Urine Blood NEGATIVE (NEGATIVE) 06/10/17 17:18 Urine Nitrate NEGATIVE (NEGATIVE) 06/10/17 17:18 Urine Bilirubin NEGATIVE (NEGATIVE) 06/10/17 17:18 Urine Urobilinogen 0.2 E.U./dL (0.2 - 1.0) 06/10/17 17:18 Ur Leukocyte Esterase NEGATIVE (NEGATIVE) 06/10/17 17:18 Urine RBC NONE SEEN /hpf (0-5) 06/10/17 17:18 Urine WBC NONE SEEN /hpf (0-5) 06/10/17 17:18 Ur Epithelial Cells NONE SEEN /lpf (FEW) 06/10/17 17:18 Urine Bacteria NONE SEEN /hpf (NONE SEEN) 06/10/17 17:18 - Physical Exam Vitals and I&O: Vital Signs Temp 99.3 F 06/14/17 20:14 Pulse 78 06/14/17 20:14 Resp 19 06/14/17 20:14 BP 108/59 06/14/17 20:14 Pulse Ox 94 06/14/17 20:14 Intake & Output 06/14/17 06/14/17 06/15/17 06:59 18:59 06:59 Intake Total 240 950 120 Balance 240 950 120 Intake: Oral 240 950 120 Other: # Voids 1 4 1 # Bowel Movements 1 Active Medications: Current Medications Acetaminophen (Tylenol) 650 mg PO Q4HR PRN PRN Reason: Mild Pain / Temp above 100 Stop: 08/09/17 21:25 Last Admin: 06/14/17 20:38 Dose: 650 mg Al Hydrox/Mg Hydrox/Simethicone (Maalox) 30 ml PO Q4HR PRN PRN Reason: GI DISTRESS Stop: 08/09/17 21:25 Ascorbic Acid (Vitamin C) 500 mg PO DAILY [facility] Stop: 08/10/17 08:59 Last Admin: 06/14/17 08:04 Dose: 500 mg Carbidopa/Levodopa (Sinemet 25mg-100 Mg) 1 tab PO TID [facility] Stop: 08/10/17 08:59 Last Admin: 06/14/17 20:38 Dose: 1 tab Docusate Sodium (Colace) 200 mg PO HS [facility] Stop: 08/10/17 20:59 Last Admin: 06/14/17 20:38 Dose: 200 mg Ferrous Sulfate (Iron) 325 mg PO BID [facility] Stop: 08/10/17 08:59 Last Admin: 06/14/17 17:18 Dose: 325 mg Hydrocortisone (Cortef) 25 mg PO DAILY [facility] Stop: 08/10/17 08:59 Last Admin: 06/14/17 08:14 Dose: 25 mg Lisinopril (Zestril) 10 mg PO DAILY [facility] Stop: 08/10/17 08:59 Last Admin: 06/14/17 08:04 Dose: 10 mg Lorazepam (Ativan) 0.5 mg PO Q4HR PRN; Protocol PRN Reason: Anxiety Stop: 07/10/17 21:25 Last Admin: 06/12/17 22:02 Dose: 0.5 mg Magnesium Hydroxide (Milk Of Magnesia) 30 ml PO HS PRN PRN Reason: Constipation Multivitamins/Vitamin C (Theragran) 1 tab PO DAILY [facility] Stop: 08/10/17 08:59 Last Admin: 06/14/17 08:04 Dose: 1 tab Nitroglycerin (Nitrostat) 0.4 mg SL Q5MIN PRN PRN Reason: Chest Pain Stop: 08/09/17 21:30 Pantoprazole Sodium (Protonix) 40 mg PO DAILY [facility] Stop: 08/10/17 08:59 Last Admin: 06/14/17 08:04 Dose: 40 mg Quetiapine Fumarate (Seroquel) 25 mg PO HS [facility] PRN Reason: Protocol Stop: 08/10/17 20:59 Last Admin: 06/14/17 20:38 Dose: 25 mg Sevelamer Carbonate (Renvela) 800 mg PO TIDWM [facility] Stop: 08/10/17 07:59 Last Admin: 06/14/17 17:18 Dose: 800 mg Vitamin B Complex/Vit C/Folic Acid (Vitamin B Complex W/Vitamin C) 1 tab PO DAILY [facility] Stop: 08/10/17 08:59 Last Admin: 06/14/17 08:04 Dose: 1 tab General: alert HEENT: NC/AT, PERRLA Neck: Supple Lungs: CTAB Neurological: alert Internal Medicine Assmt/Plan - Assessment Assessment: HTN DM Asthma/COPD HX CVA/TIA W\Right hemiparesis PUD/GERD Parkinson's disease anemia chronic renal disease - Plan Plan: MONITOR GLUCOSE FALL PRECAUTIONS CONTINUE CURRENT ORDERS
--- NOTE | 2017-06-15 03:05 | Consultation ---
DATE OF CONSULTATION: 06/12/2017 TYPE OF CONSULTATION: Psychology REQUESTING PHYSICIAN: Rozina Pena M.D. CONSULTING PSYCHOLOGIST: William Cruz, Ph.D. HISTORY OF PRESENT ILLNESS: The following is by review of medical record as well as by the patient's self report. According to record review, the patient is a 57-year-old male who is being admitted due to increased agitation and aggressive behavior. The patient has a history of CVA and right hemiparesis. Upon interview, the patient presents as difficult to redirect. The patient is having intermittent episodes of yelling and screaming. The patient did not respond to the majority of the clinical interview. Further evaluation is needed. The patient did indicate by yes or no answer that he is not experiencing any suicidal ideation, plan or intention. PAST MEDICAL HISTORY: Please see H and P by Dr. Auguste. PAST PSYCHIATRIC HISTORY: Details are unknown. History of psychosis. CURRENT MEDICATIONS: Please see medication reconciliation sheet. SUBSTANCE ABUSE HISTORY: Record indicates there is no history. The patient did not answer these questions. PSYCHOSOCIAL HISTORY: The patient is a resident of a longterm facility. The patient did not answer questions about educational or occupational history or jain affiliation. The patient did not answer questions about family history. MENTAL STATUS EXAMINATION: The patient appears to be his stated age. The patient's attitude is uncooperative and guarded. Speech is loud and hyperverbal at times. Eye contact is poor. Mood is irritable. Affect is constricted. the patient is guarded. The patient's impulse control is poor. Sensorium is alert , but oriented to self only. The patient does not know the day, date, time, or place. He is aware of his surroundings and know that he is in the hospital. The patient did not perform serial 3 subtractions. Concentration is compromised. The patient did not perform the memory evaluation, this needs further examination. It seems that the patient's immediate and short term memory may be impaired. The patient did not answer questions about interpretation of proverbs. Insight is poor. Judgment is compromised. 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 AXIS II: Deferred. AXIS III: Please see medical history and history and physical by Dr. Auguste. PLAN: The patient is seen by Dr. Griffiths covering for Dr. Pena for psychiatric evaluation and for the management of the patient's psychotropic medications. The patient is currently on Abilify 20 mg daily. We will provide de-escalation as well as limit setting to assist the patient in becoming more redirectable. We will provide motivational enhancement as well as positive reinforcement for the patient to become compliant and stay compliant with all aspects of his care and treatment. We will provide reality testing, reality orientation and differentiation and integration. The patient will be monitored closely. We will provide supportive therapy as well for further stabilization and that the patient will be able to demonstrate no agitation or aggression prior to his discharge. We will provide coping strategies for chronic long-term mental illness as well. Thank you, Dr. Pena and Dr. Griffiths for this consult and the opportunity to participate in this patient's care. JOB# [id number]
[2017-06-15] MEDS: Pantoprazole 40 mg EC Tab PO SCH (08:55)
[2017-06-15] MEDS: Ferrous Sulfate 325 MG TAB PO SCH ×2 (08:55→16:34)
[2017-06-15] MEDS: Vitamin B Complex w/Vitamin C Tab PO SCH (08:55)
[2017-06-15] MEDS: Multivitamin Tab PO SCH (08:55)
--- NOTE | 2017-06-15 09:56 | General Progress Note ---
Subjective - Review of Systems Events since last encounter: tolerating meds in no distress Objective - Results Result Diagrams: 06/10/17 16:25 06/10/17 16:25 Recent Labs: Laboratory Last Values WBC 12.6 Th/cmm (4.8-10.8) H D 06/10/17 16:25 RBC 4.89 Mil/cmm (4.30-5.70) 06/10/17 16:25 Hgb 14.8 gm/dL (12-16) 06/10/17 16:25 Hct 44.7 % (41.0-60) D 06/10/17 16:25 MCV 91.4 fl (80-99) 06/10/17 16:25 MCH 30.3 pg (26.0-30.0) H 06/10/17 16:25 MCHC Differential 33.2 pg (28.0-36.0) 06/10/17 16:25 RDW 12.0 % (11.5-20.0) 06/10/17 16:25 Plt Count 323 Th/cmm (150-400) D 06/10/17 16:25 MPV 6.8 fl 06/10/17 16:25 Neutrophils % 64.5 % (40.0-80.0) 06/10/17 16:25 Lymphocytes % 27.2 % (20.0-50.0) 06/10/17 16:25 Monocytes % 5.6 % (2.0-10.0) 06/10/17 16:25 Eosinophils % 1.9 % (0.0-5.0) 06/10/17 16:25 Basophils % 0.8 % (0.0-2.0) 06/10/17 16:25 Sodium 136 mEq/L (136-145) 06/10/17 16:25 Potassium 4.0 mEq/L (3.5-5.1) 06/10/17 16:25 Chloride 103 mEq/L (98-107) 06/10/17 16:25 Carbon Dioxide 25.6 mEq/L (21.0-31.0) 06/10/17 16:25 Anion Gap 11.4 (7.0-16.0) 06/10/17 16:25 BUN 20 mg/dL (7-25) 06/10/17 16:25 Creatinine 1.0 mg/dL (0.7-1.3) 06/10/17 16:25 Est GFR ( Amer) > 60.0 ml/min (>90) 06/10/17 16:25 Est GFR (Non-Af Amer) > 60.0 ml/min 06/10/17 16:25 BUN/Creatinine Ratio 20.0 06/10/17 16:25 Glucose 111 mg/dL (70-105) H 06/10/17 16:25 Whole Bld Lactic Acid 0.90 mmol/L (0.60-1.99) 06/10/17 16:25 Calcium 9.6 mg/dL (8.6-10.3) 06/10/17 16:25 Total Bilirubin 0.3 mg/dL (0.3-1.0) 06/10/17 16:25 AST 15 U/L (13-39) 06/10/17 16:25 ALT 12 U/L (7-52) 06/10/17 16:25 Alkaline Phosphatase 54 U/L (34-104) 06/10/17 16:25 Total Protein 6.9 gm/dL (6.0-8.3) 06/10/17 16:25 Albumin 3.8 gm/dL (4.2-5.5) L 06/10/17 16:25 Globulin 3.1 gm/dL 06/10/17 16:25 Albumin/Globulin Ratio 1.2 (1.0-1.8) 06/10/17 16:25 TSH 1.02 uIU/ml (0.34-5.60) 06/10/17 16:25 Urine Source RANDOM 06/10/17 17:18 Urine Color YELLOW 06/10/17 17:18 Urine Clarity CLEAR (CLEAR) 06/10/17 17:18 Urine pH 7.0 (4.6 - 8.0) 06/10/17 17:18 Ur Specific [place] 1.010 (1.005-1.030) 06/10/17 17:18 Urine Protein NEGATIVE mg/dL (NEGATIVE) 06/10/17 17:18 Urine Glucose (UA) NEGATIVE mg/dL (NEGATIVE) 06/10/17 17:18 Urine Ketones NEGATIVE mg/dL (NEGATIVE) 06/10/17 17:18 Urine Blood NEGATIVE (NEGATIVE) 06/10/17 17:18 Urine Nitrate NEGATIVE (NEGATIVE) 06/10/17 17:18 Urine Bilirubin NEGATIVE (NEGATIVE) 06/10/17 17:18 Urine Urobilinogen 0.2 E.U./dL (0.2 - 1.0) 06/10/17 17:18 Ur Leukocyte Esterase NEGATIVE (NEGATIVE) 06/10/17 17:18 Urine RBC NONE SEEN /hpf (0-5) 06/10/17 17:18 Urine WBC NONE SEEN /hpf (0-5) 06/10/17 17:18 Ur Epithelial Cells NONE SEEN /lpf (FEW) 06/10/17 17:18 Urine Bacteria NONE SEEN /hpf (NONE SEEN) 06/10/17 17:18 - Physical Exam Vitals and I&O: Vital Signs Temp 97.9 F 06/15/17 06:20 Pulse 78 06/15/17 08:54 Resp 19 06/15/17 06:20 BP 120/80 06/15/17 08:54 Pulse Ox 98 06/15/17 06:20 Intake & Output 06/14/17 06/15/17 06/15/17 18:59 06:59 18:59 Intake Total 950 120 Balance 950 120 Weight (lbs) 108.862 kg Intake: Oral 950 120 Other: # Voids 4 3 # Bowel Movements 1 1 Active Medications: Current Medications Acetaminophen (Tylenol) 650 mg PO Q4HR PRN PRN Reason: Mild Pain / Temp above 100 Stop: 08/09/17 21:25 Last Admin: 06/14/17 20:38 Dose: 650 mg Al Hydrox/Mg Hydrox/Simethicone (Maalox) 30 ml PO Q4HR PRN PRN Reason: GI DISTRESS Stop: 08/09/17 21:25 Ascorbic Acid (Vitamin C) 500 mg PO DAILY [facility] Stop: 08/10/17 08:59 Last Admin: 06/15/17 08:55 Dose: 500 mg Carbidopa/Levodopa (Sinemet 25mg-100 Mg) 1 tab PO TID [facility] Stop: 08/10/17 08:59 Last Admin: 06/15/17 08:55 Dose: 1 tab Docusate Sodium (Colace) 200 mg PO HS [facility] Stop: 08/10/17 20:59 Last Admin: 06/14/17 20:38 Dose: 200 mg Ferrous Sulfate (Iron) 325 mg PO BID [facility] Stop: 08/10/17 08:59 Last Admin: 06/15/17 08:55 Dose: 325 mg Hydrocortisone (Cortef) 25 mg PO DAILY [facility] Stop: 08/10/17 08:59 Last Admin: 06/15/17 08:54 Dose: 25 mg Lisinopril (Zestril) 10 mg PO DAILY [facility] Stop: 08/10/17 08:59 Last Admin: 06/15/17 08:54 Dose: 10 mg Lorazepam (Ativan) 0.5 mg PO Q4HR PRN; Protocol PRN Reason: Anxiety Stop: 07/10/17 21:25 Last Admin: 06/15/17 04:08 Dose: 0.5 mg Magnesium Hydroxide (Milk Of Magnesia) 30 ml PO HS PRN PRN Reason: Constipation Multivitamins/Vitamin C (Theragran) 1 tab PO DAILY [facility] Stop: 08/10/17 08:59 Last Admin: 06/15/17 08:55 Dose: 1 tab Nitroglycerin (Nitrostat) 0.4 mg SL Q5MIN PRN PRN Reason: Chest Pain Stop: 08/09/17 21:30 Pantoprazole Sodium (Protonix) 40 mg PO DAILY [facility] Stop: 08/10/17 08:59 Last Admin: 06/15/17 08:55 Dose: 40 mg Quetiapine Fumarate (Seroquel) 25 mg PO HS [facility] PRN Reason: Protocol Stop: 08/10/17 20:59 Last Admin: 06/14/17 20:38 Dose: 25 mg Sevelamer Carbonate (Renvela) 800 mg PO TIDWM [facility] Stop: 08/10/17 07:59 Last Admin: 06/15/17 08:54 Dose: 800 mg Vitamin B Complex/Vit C/Folic Acid (Vitamin B Complex W/Vitamin C) 1 tab PO DAILY [facility] Stop: 08/10/17 08:59 Last Admin: 06/15/17 08:55 Dose: 1 tab Assessment/Plan - Problem List Patient Problems: All Active Problems Dementia (Acute) F03.90 History of encephalopathy (Acute) Z86.69 History of schizoaffective disorder (Acute) Z86.59 Hyponatremia (Acute) E87.1 Leukocytosis (Acute) D72.829 Parkinson disease (Acute) G20 Sepsis (Acute)
--- NOTE | 2017-06-16 03:39 | Progress Notes ---
DATE: 06/15/2017 SUBJECTIVE: Staff was spoken to. The patient is interviewed. Mood is noted to be irritable. Affect is constricted. The patient is getting easily frustrated and attempts to lose the temper. No side effects to the medications are noted. The patient has been placed on 25 mg of Seroquel to help with his insomnia, impulsivity and paranoia. The patient has been able to tolerate the medication. PLAN: To continue the patient with the current medications. I encouraged the patient to verbalize the concerns rather than to act out. JOB# [id number]
--- NOTE | 2017-06-16 08:27 | General Progress Note ---
Subjective - Review of Systems Events since last encounter: patient irritable n no distress Objective - Results Result Diagrams: 06/10/17 16:25 06/10/17 16:25 Recent Labs: Laboratory Last Values WBC 12.6 Th/cmm (4.8-10.8) H D 06/10/17 16:25 RBC 4.89 Mil/cmm (4.30-5.70) 06/10/17 16:25 Hgb 14.8 gm/dL (12-16) 06/10/17 16:25 Hct 44.7 % (41.0-60) D 06/10/17 16:25 MCV 91.4 fl (80-99) 06/10/17 16:25 MCH 30.3 pg (26.0-30.0) H 06/10/17 16:25 MCHC Differential 33.2 pg (28.0-36.0) 06/10/17 16:25 RDW 12.0 % (11.5-20.0) 06/10/17 16:25 Plt Count 323 Th/cmm (150-400) D 06/10/17 16:25 MPV 6.8 fl 06/10/17 16:25 Neutrophils % 64.5 % (40.0-80.0) 06/10/17 16:25 Lymphocytes % 27.2 % (20.0-50.0) 06/10/17 16:25 Monocytes % 5.6 % (2.0-10.0) 06/10/17 16:25 Eosinophils % 1.9 % (0.0-5.0) 06/10/17 16:25 Basophils % 0.8 % (0.0-2.0) 06/10/17 16:25 Sodium 136 mEq/L (136-145) 06/10/17 16:25 Potassium 4.0 mEq/L (3.5-5.1) 06/10/17 16:25 Chloride 103 mEq/L (98-107) 06/10/17 16:25 Carbon Dioxide 25.6 mEq/L (21.0-31.0) 06/10/17 16:25 Anion Gap 11.4 (7.0-16.0) 06/10/17 16:25 BUN 20 mg/dL (7-25) 06/10/17 16:25 Creatinine 1.0 mg/dL (0.7-1.3) 06/10/17 16:25 Est GFR ( Amer) > 60.0 ml/min (>90) 06/10/17 16:25 Est GFR (Non-Af Amer) > 60.0 ml/min 06/10/17 16:25 BUN/Creatinine Ratio 20.0 06/10/17 16:25 Glucose 111 mg/dL (70-105) H 06/10/17 16:25 Whole Bld Lactic Acid 0.90 mmol/L (0.60-1.99) 06/10/17 16:25 Calcium 9.6 mg/dL (8.6-10.3) 06/10/17 16:25 Total Bilirubin 0.3 mg/dL (0.3-1.0) 06/10/17 16:25 AST 15 U/L (13-39) 06/10/17 16:25 ALT 12 U/L (7-52) 06/10/17 16:25 Alkaline Phosphatase 54 U/L (34-104) 06/10/17 16:25 Total Protein 6.9 gm/dL (6.0-8.3) 06/10/17 16:25 Albumin 3.8 gm/dL (4.2-5.5) L 06/10/17 16:25 Globulin 3.1 gm/dL 06/10/17 16:25 Albumin/Globulin Ratio 1.2 (1.0-1.8) 06/10/17 16:25 TSH 1.02 uIU/ml (0.34-5.60) 06/10/17 16:25 Urine Source RANDOM 06/10/17 17:18 Urine Color YELLOW 06/10/17 17:18 Urine Clarity CLEAR (CLEAR) 06/10/17 17:18 Urine pH 7.0 (4.6 - 8.0) 06/10/17 17:18 Ur Specific [place] 1.010 (1.005-1.030) 06/10/17 17:18 Urine Protein NEGATIVE mg/dL (NEGATIVE) 06/10/17 17:18 Urine Glucose (UA) NEGATIVE mg/dL (NEGATIVE) 06/10/17 17:18 Urine Ketones NEGATIVE mg/dL (NEGATIVE) 06/10/17 17:18 Urine Blood NEGATIVE (NEGATIVE) 06/10/17 17:18 Urine Nitrate NEGATIVE (NEGATIVE) 06/10/17 17:18 Urine Bilirubin NEGATIVE (NEGATIVE) 06/10/17 17:18 Urine Urobilinogen 0.2 E.U./dL (0.2 - 1.0) 06/10/17 17:18 Ur Leukocyte Esterase NEGATIVE (NEGATIVE) 06/10/17 17:18 Urine RBC NONE SEEN /hpf (0-5) 06/10/17 17:18 Urine WBC NONE SEEN /hpf (0-5) 06/10/17 17:18 Ur Epithelial Cells NONE SEEN /lpf (FEW) 06/10/17 17:18 Urine Bacteria NONE SEEN /hpf (NONE SEEN) 06/10/17 17:18 - Physical Exam Vitals and I&O: Vital Signs Temp 97 F 06/16/17 06:18 Pulse 80 06/16/17 06:18 Resp 19 06/16/17 06:18 BP 126/69 06/16/17 06:18 Pulse Ox 96 06/16/17 06:18 Intake & Output 06/15/17 06/16/17 06/16/17 18:59 06:59 18:59 Intake Total 1000 Balance 1000 Intake: Oral 1000 Other: # Voids 3 3 # Bowel Movements 1 Active Medications: Current Medications Acetaminophen (Tylenol) 650 mg PO Q4HR PRN PRN Reason: Mild Pain / Temp above 100 Stop: 08/09/17 21:25 Last Admin: 06/14/17 20:38 Dose: 650 mg Al Hydrox/Mg Hydrox/Simethicone (Maalox) 30 ml PO Q4HR PRN PRN Reason: GI DISTRESS Stop: 08/09/17 21:25 Ascorbic Acid (Vitamin C) 500 mg PO DAILY [facility] Stop: 08/10/17 08:59 Last Admin: 06/15/17 08:55 Dose: 500 mg Carbidopa/Levodopa (Sinemet 25mg-100 Mg) 1 tab PO TID [facility] Stop: 08/10/17 08:59 Last Admin: 06/15/17 21:35 Dose: 1 tab Docusate Sodium (Colace) 200 mg PO HS [facility] Stop: 08/10/17 20:59 Last Admin: 06/15/17 21:36 Dose: 200 mg Ferrous Sulfate (Iron) 325 mg PO BID [facility] Stop: 08/10/17 08:59 Last Admin: 06/15/17 16:34 Dose: 325 mg Hydrocortisone (Cortef) 25 mg PO DAILY [facility] Stop: 08/10/17 08:59 Last Admin: 06/15/17 08:54 Dose: 25 mg Lisinopril (Zestril) 10 mg PO DAILY [facility] Stop: 08/10/17 08:59 Last Admin: 06/15/17 08:54 Dose: 10 mg Lorazepam (Ativan) 0.5 mg PO Q4HR PRN; Protocol PRN Reason: Anxiety Stop: 07/10/17 21:25 Last Admin: 06/15/17 04:08 Dose: 0.5 mg Magnesium Hydroxide (Milk Of Magnesia) 30 ml PO HS PRN PRN Reason: Constipation Multivitamins/Vitamin C (Theragran) 1 tab PO DAILY [facility] Stop: 08/10/17 08:59 Last Admin: 06/15/17 08:55 Dose: 1 tab Nitroglycerin (Nitrostat) 0.4 mg SL Q5MIN PRN PRN Reason: Chest Pain Stop: 08/09/17 21:30 Pantoprazole Sodium (Protonix) 40 mg PO DAILY [facility] Stop: 08/10/17 08:59 Last Admin: 06/15/17 08:55 Dose: 40 mg Quetiapine Fumarate (Seroquel) 25 mg PO HS [facility] PRN Reason: Protocol Stop: 08/10/17 20:59 Last Admin: 06/15/17 21:36 Dose: 25 mg Sevelamer Carbonate (Renvela) 800 mg PO TIDWM [facility] Stop: 08/10/17 07:59 Last Admin: 06/15/17 16:34 Dose: 800 mg Vitamin B Complex/Vit C/Folic Acid (Vitamin B Complex W/Vitamin C) 1 tab PO DAILY [facility] Stop: 08/10/17 08:59 Last Admin: 06/15/17 08:55 Dose: 1 tab Assessment/Plan - Problem List Patient Problems: All Active Problems Dementia (Acute) F03.90 History of encephalopathy (Acute) Z86.69 History of schizoaffective disorder (Acute) Z86.59 Hyponatremia (Acute) E87.1 Leukocytosis (Acute) D72.829 Parkinson disease (Acute) G20 Sepsis (Acute)
[2017-06-16] MEDS: Multivitamin Tab PO SCH (08:51)
[2017-06-16] MEDS: Vitamin B Complex w/Vitamin C Tab PO SCH (08:51)
[2017-06-16] MEDS: Ferrous Sulfate 325 MG TAB PO SCH ×2 (08:51→17:48)
[2017-06-16] MEDS: Pantoprazole 40 mg EC Tab PO SCH (08:51)
--- NOTE | 2017-06-16 17:05 | Progress Notes ---
DATE: 06/16/2017 SUBJECTIVE: Staff was spoken to. The patient is interviewed. Mood is noted to be irritable. Affect is constricted. The patient is getting easily irritable and angry with the staff members and the patient has not been able to contract for safety. No side effects to the medications are noted. Coping skills at this time are noted to be very poor. ASSESSMENT: The patient is still impulsive and needs to be closely monitored. The patient is currently on the Seroquel 25 mg at bedtime and we are closely monitoring for his impulsive behavior. PLAN: To continue the patient with the supportive therapy. I encouraged the patient to verbalize the concerns rather than to act out. JOB# [id number]
[2017-06-17] MEDS: Multivitamin Tab PO SCH (10:06)
[2017-06-17] MEDS: Vitamin B Complex w/Vitamin C Tab PO SCH (10:06)
[2017-06-17] MEDS: Ferrous Sulfate 325 MG TAB PO SCH ×2 (10:06→17:32)
[2017-06-17] MEDS: Pantoprazole 40 mg EC Tab PO SCH (10:07)
--- NOTE | 2017-06-17 14:54 | Internal Medicine Prog Note ---
Internal Medicine Subjective - Subjective Service Date: 06/17/17 Patient is:: awake Per staff patient has:: tolerating meds Internal Medicine Objective - Results Result Diagrams: 06/10/17 16:25 06/10/17 16:25 Recent Labs: Laboratory Last Values WBC 12.6 Th/cmm (4.8-10.8) H D 06/10/17 16:25 RBC 4.89 Mil/cmm (4.30-5.70) 06/10/17 16:25 Hgb 14.8 gm/dL (12-16) 06/10/17 16:25 Hct 44.7 % (41.0-60) D 06/10/17 16:25 MCV 91.4 fl (80-99) 06/10/17 16:25 MCH 30.3 pg (26.0-30.0) H 06/10/17 16:25 MCHC Differential 33.2 pg (28.0-36.0) 06/10/17 16:25 RDW 12.0 % (11.5-20.0) 06/10/17 16:25 Plt Count 323 Th/cmm (150-400) D 06/10/17 16:25 MPV 6.8 fl 06/10/17 16:25 Neutrophils % 64.5 % (40.0-80.0) 06/10/17 16:25 Lymphocytes % 27.2 % (20.0-50.0) 06/10/17 16:25 Monocytes % 5.6 % (2.0-10.0) 06/10/17 16:25 Eosinophils % 1.9 % (0.0-5.0) 06/10/17 16:25 Basophils % 0.8 % (0.0-2.0) 06/10/17 16:25 Sodium 136 mEq/L (136-145) 06/10/17 16:25 Potassium 4.0 mEq/L (3.5-5.1) 06/10/17 16:25 Chloride 103 mEq/L (98-107) 06/10/17 16:25 Carbon Dioxide 25.6 mEq/L (21.0-31.0) 06/10/17 16:25 Anion Gap 11.4 (7.0-16.0) 06/10/17 16:25 BUN 20 mg/dL (7-25) 06/10/17 16:25 Creatinine 1.0 mg/dL (0.7-1.3) 06/10/17 16:25 Est GFR ( Amer) > 60.0 ml/min (>90) 06/10/17 16:25 Est GFR (Non-Af Amer) > 60.0 ml/min 06/10/17 16:25 BUN/Creatinine Ratio 20.0 06/10/17 16:25 Glucose 111 mg/dL (70-105) H 06/10/17 16:25 Whole Bld Lactic Acid 0.90 mmol/L (0.60-1.99) 06/10/17 16:25 Calcium 9.6 mg/dL (8.6-10.3) 06/10/17 16:25 Total Bilirubin 0.3 mg/dL (0.3-1.0) 06/10/17 16:25 AST 15 U/L (13-39) 06/10/17 16:25 ALT 12 U/L (7-52) 06/10/17 16:25 Alkaline Phosphatase 54 U/L (34-104) 06/10/17 16:25 Total Protein 6.9 gm/dL (6.0-8.3) 06/10/17 16:25 Albumin 3.8 gm/dL (4.2-5.5) L 06/10/17 16:25 Globulin 3.1 gm/dL 06/10/17 16:25 Albumin/Globulin Ratio 1.2 (1.0-1.8) 06/10/17 16:25 TSH 1.02 uIU/ml (0.34-5.60) 06/10/17 16:25 Urine Source RANDOM 06/10/17 17:18 Urine Color YELLOW 06/10/17 17:18 Urine Clarity CLEAR (CLEAR) 06/10/17 17:18 Urine pH 7.0 (4.6 - 8.0) 06/10/17 17:18 Ur Specific [place] 1.010 (1.005-1.030) 06/10/17 17:18 Urine Protein NEGATIVE mg/dL (NEGATIVE) 06/10/17 17:18 Urine Glucose (UA) NEGATIVE mg/dL (NEGATIVE) 06/10/17 17:18 Urine Ketones NEGATIVE mg/dL (NEGATIVE) 06/10/17 17:18 Urine Blood NEGATIVE (NEGATIVE) 06/10/17 17:18 Urine Nitrate NEGATIVE (NEGATIVE) 06/10/17 17:18 Urine Bilirubin NEGATIVE (NEGATIVE) 06/10/17 17:18 Urine Urobilinogen 0.2 E.U./dL (0.2 - 1.0) 06/10/17 17:18 Ur Leukocyte Esterase NEGATIVE (NEGATIVE) 06/10/17 17:18 Urine RBC NONE SEEN /hpf (0-5) 06/10/17 17:18 Urine WBC NONE SEEN /hpf (0-5) 06/10/17 17:18 Ur Epithelial Cells NONE SEEN /lpf (FEW) 06/10/17 17:18 Urine Bacteria NONE SEEN /hpf (NONE SEEN) 06/10/17 17:18 - Physical Exam Vitals and I&O: Vital Signs Temp 97.4 F 06/17/17 14:00 Pulse 85 06/17/17 14:00 Resp 19 06/17/17 14:00 BP 113/69 06/17/17 14:00 Pulse Ox 98 06/17/17 14:00 Intake & Output 06/16/17 06/17/17 06/17/17 18:59 06:59 18:59 Intake Total 3400 240 Balance 3400 240 Intake: Oral 3400 240 Other: # Voids 5 1 # Bowel Movements 0 Active Medications: Current Medications Acetaminophen (Tylenol) 650 mg PO Q4HR PRN PRN Reason: Mild Pain / Temp above 100 Stop: 08/09/17 21:25 Last Admin: 06/14/17 20:38 Dose: 650 mg Al Hydrox/Mg Hydrox/Simethicone (Maalox) 30 ml PO Q4HR PRN PRN Reason: GI DISTRESS Stop: 08/09/17 21:25 Ascorbic Acid (Vitamin C) 500 mg PO DAILY [facility] Stop: 08/10/17 08:59 Last Admin: 06/17/17 10:07 Dose: 500 mg Carbidopa/Levodopa (Sinemet 25mg-100 Mg) 1 tab PO TID [facility] Stop: 08/10/17 08:59 Last Admin: 06/17/17 10:06 Dose: 1 tab Docusate Sodium (Colace) 200 mg PO HS [facility] Stop: 08/10/17 20:59 Last Admin: 06/16/17 20:48 Dose: 200 mg Ferrous Sulfate (Iron) 325 mg PO BID [facility] Stop: 08/10/17 08:59 Last Admin: 06/17/17 10:06 Dose: 325 mg Hydrocortisone (Cortef) 25 mg PO DAILY [facility] Stop: 08/10/17 08:59 Last Admin: 06/17/17 10:05 Dose: 25 mg Lisinopril (Zestril) 10 mg PO DAILY [facility] Stop: 08/10/17 08:59 Last Admin: 06/17/17 10:06 Dose: 10 mg Lorazepam (Ativan) 0.5 mg PO Q4HR PRN; Protocol PRN Reason: Anxiety Stop: 07/10/17 21:25 Last Admin: 06/15/17 04:08 Dose: 0.5 mg Magnesium Hydroxide (Milk Of Magnesia) 30 ml PO HS PRN PRN Reason: Constipation Multivitamins/Vitamin C (Theragran) 1 tab PO DAILY [facility] Stop: 08/10/17 08:59 Last Admin: 06/17/17 10:06 Dose: 1 tab Nitroglycerin (Nitrostat) 0.4 mg SL Q5MIN PRN PRN Reason: Chest Pain Stop: 08/09/17 21:30 Pantoprazole Sodium (Protonix) 40 mg PO DAILY [facility] Stop: 08/10/17 08:59 Last Admin: 06/17/17 10:07 Dose: 40 mg Quetiapine Fumarate (Seroquel) 25 mg PO HS [facility] PRN Reason: Protocol Stop: 08/10/17 20:59 Last Admin: 06/16/17 20:48 Dose: 25 mg Sevelamer Carbonate (Renvela) 800 mg PO TIDWM [facility] Stop: 08/10/17 07:59 Last Admin: 06/17/17 13:47 Dose: Not Given Vitamin B Complex/Vit C/Folic Acid (Vitamin B Complex W/Vitamin C) 1 tab PO DAILY [facility] Stop: 08/10/17 08:59 Last Admin: 06/17/17 10:06 Dose: 1 tab General: alert HEENT: NC/AT, PERRLA Neck: Supple Lungs: CTAB Neurological: alert Internal Medicine Assmt/Plan - Assessment Assessment: HTN DM Asthma/COPD HX CVA/TIA W\Right hemiparesis PUD/GERD Parkinson's disease anemia chronic renal disease - Plan Plan: MONITOR GLUCOSE FALL PRECAUTIONS CONTINUE CURRENT ORDERS Nutritional Asmnt/Malnutr-PDOC - Dietary Evaluation Malnutrition Findings (Please click <Entered> for more info): Nutritional Asmnt/Malnutrition Start: 06/16/17 15: 47 Text: Status: Complete Freq: Document 06/16/17 15:47 MIKEY (Rec: 06/16/17 15:52 [email or web address] [id number]) Nutritional Asmnt/Malnutrition Patient General Information Nutritional Screening Moderate Risk Diagnosis psychosis Pertinent Medical Hx/Surgical Hx HTN, DM, asthma/COPD, CVA/TIA, PUD/GERD, parkinson's disease anemia, CKD, encephalopathy, dysphagia Subjective Information Pt seen lying in bed at time of visit. Pt reported good appetite. Per records, PO intake 100%. Current Diet Order/ Nutrition Support pureed, nectar thick liquid Pertinent Labs 06/10 Na 136, K 4.0, Cl 103, BUn 20, Cr 1.0, Glucose 111, Ca 9.6 Nutritional Hx/Data Height 6 ft 4 in Height (Calculated Centimeters) 193.0 Current Weight (lbs) 240 lb Weight (Calculated Kilograms) 108.9 Weight (Calculated Grams) 448039.2 [place] Body Weight 202 % [place] Body Weight 119 Body Mass Index (BMI) 29.2 Weight Status Overweight GI Symptoms GI Symptoms None Last BM 06/15 x 2 Difficult in: None Skin Integrity/Comment: intact Estimated Nutritional Goals Calories/Kcals/Kg 25-30 based on IBW 92kg Kcals Calculated 8317-3356 Protein g/k Protein Calculated 92 Fluid: ml 2300-2730ml (1ml/kcal) Nutritional Problem No current Nutrition Prob Problem N/A Malnutrition Alert Protein-Calorie Malnutrition N/A Is there a minimum of two criteria No selected? Query Text:Check all the applicable criteria. A minimum of two criteria are recommended for diagnosis of either severe or non-severe malnutrition. Intervention/Recommendation Comments 1. Continue with current diet as ordered. 2. Monitor PO intake, wt, labs and skin integrity 3. F/U as low risk in 7 days, 2/8 Expected Outcomes/Goals Expected Outcomes/Goals 1. PO intake to meet at least 75% of nutritional needs. 2. Wt stability, skin to remain intact, labs to approach WNL.
--- NOTE | 2017-06-18 00:41 | Progress Notes ---
DATE: 06/17/2017 SUBJECTIVE: Staff was spoken to. The patient is interviewed. Mood is irritable. Affect is constricted. Coping skills are noted to be still poor. The patient is getting easily frustrated. No side effects to the medications are noted. The patient is currently on the Seroquel and has been able to tolerate the medications. ASSESSMENT: The patient is still impulsive. PLAN: To continue the patient with the supportive therapy. Encouraged the patient to verbalize the concerns rather than to act out. JOB# [id number]
[2017-06-18] MEDS: Multivitamin Tab PO SCH (08:16)
[2017-06-18] MEDS: Vitamin B Complex w/Vitamin C Tab PO SCH (08:16)
[2017-06-18] MEDS: Pantoprazole 40 mg EC Tab PO SCH (08:16)
[2017-06-18] MEDS: Ferrous Sulfate 325 MG TAB PO SCH ×2 (08:17→16:54)
--- NOTE | 2017-06-18 19:09 | Progress Notes ---
DATE: 06/18/2017 SUBJECTIVE: Staff was spoken to. The patient is interviewed. Mood is irritable. Affect is constricted. The patient's coping skills are noted to be still poor. The patient has been able to tolerate the 25 mg of the Seroquel. Impulsivity is still a problem, but no major behavioral problems are noted today. ASSESSMENT: The patient is still impulsive. PLAN: To continue the patient on the current medications and follow up. JOB# [id number]
--- NOTE | 2017-06-18 19:28 | Progress Notes ---
DATE: 06/18/2017 SUBJECTIVE: The patient was seen in his room, lying in the bed. The patient appears to be calm. At this time, denies any pain or discomfort. Otherwise, the patient is in no acute distress. OBJECTIVE: VITAL SIGNS: Temperature 97.1, heart rate 70, blood pressure 125/73, respirations of 20, 95% on room air. HEENT: Head is atraumatic and normocephalic. Eyes: Bilateral conjunctivae are clear. Bilateral pupils are equally round and reactive. NECK: Supple. No JVD. CARDIOVASCULAR: S1 and S2 without murmur. PULMONARY: Clear to auscultation. GASTROINTESTINAL: Soft and nontender without guarding. Positive bowel sounds. MUSCULOSKELETAL: No clubbing. No cyanosis noted. ASSESSMENT: 1. Psychosis. 2. Parkinson's disease. 3. Hypertension. 4. Diabetes. 5. Gastroesophageal reflux disease. 6. Chronic obstructive pulmonary disease. 7. Anemia. 8. History of cerebrovascular accident. PLAN: We will keep the patient in [facility]patient [facility] and we will follow up with a psychiatrist to monitor the patient's behavior. Treatment plans were discussed with the patient's nurse. Treatment plans were discussed with Dr. Auguste. JOB# [id number]
--- NOTE | 2017-06-19 09:05 | General Progress Note ---
Subjective - Review of Systems Events since last encounter: patient awake alert in no distress Objective - Results Result Diagrams: 06/10/17 16:25 06/10/17 16:25 Recent Labs: Laboratory Last Values WBC 12.6 Th/cmm (4.8-10.8) H D 06/10/17 16:25 RBC 4.89 Mil/cmm (4.30-5.70) 06/10/17 16:25 Hgb 14.8 gm/dL (12-16) 06/10/17 16:25 Hct 44.7 % (41.0-60) D 06/10/17 16:25 MCV 91.4 fl (80-99) 06/10/17 16:25 MCH 30.3 pg (26.0-30.0) H 06/10/17 16:25 MCHC Differential 33.2 pg (28.0-36.0) 06/10/17 16:25 RDW 12.0 % (11.5-20.0) 06/10/17 16:25 Plt Count 323 Th/cmm (150-400) D 06/10/17 16:25 MPV 6.8 fl 06/10/17 16:25 Neutrophils % 64.5 % (40.0-80.0) 06/10/17 16:25 Lymphocytes % 27.2 % (20.0-50.0) 06/10/17 16:25 Monocytes % 5.6 % (2.0-10.0) 06/10/17 16:25 Eosinophils % 1.9 % (0.0-5.0) 06/10/17 16:25 Basophils % 0.8 % (0.0-2.0) 06/10/17 16:25 Sodium 136 mEq/L (136-145) 06/10/17 16:25 Potassium 4.0 mEq/L (3.5-5.1) 06/10/17 16:25 Chloride 103 mEq/L (98-107) 06/10/17 16:25 Carbon Dioxide 25.6 mEq/L (21.0-31.0) 06/10/17 16:25 Anion Gap 11.4 (7.0-16.0) 06/10/17 16:25 BUN 20 mg/dL (7-25) 06/10/17 16:25 Creatinine 1.0 mg/dL (0.7-1.3) 06/10/17 16:25 Est GFR ( Amer) > 60.0 ml/min (>90) 06/10/17 16:25 Est GFR (Non-Af Amer) > 60.0 ml/min 06/10/17 16:25 BUN/Creatinine Ratio 20.0 06/10/17 16:25 Glucose 111 mg/dL (70-105) H 06/10/17 16:25 Whole Bld Lactic Acid 0.90 mmol/L (0.60-1.99) 06/10/17 16:25 Calcium 9.6 mg/dL (8.6-10.3) 06/10/17 16:25 Total Bilirubin 0.3 mg/dL (0.3-1.0) 06/10/17 16:25 AST 15 U/L (13-39) 06/10/17 16:25 ALT 12 U/L (7-52) 06/10/17 16:25 Alkaline Phosphatase 54 U/L (34-104) 06/10/17 16:25 Total Protein 6.9 gm/dL (6.0-8.3) 06/10/17 16:25 Albumin 3.8 gm/dL (4.2-5.5) L 06/10/17 16:25 Globulin 3.1 gm/dL 06/10/17 16:25 Albumin/Globulin Ratio 1.2 (1.0-1.8) 06/10/17 16:25 TSH 1.02 uIU/ml (0.34-5.60) 06/10/17 16:25 Urine Source RANDOM 06/10/17 17:18 Urine Color YELLOW 06/10/17 17:18 Urine Clarity CLEAR (CLEAR) 06/10/17 17:18 Urine pH 7.0 (4.6 - 8.0) 06/10/17 17:18 Ur Specific [place] 1.010 (1.005-1.030) 06/10/17 17:18 Urine Protein NEGATIVE mg/dL (NEGATIVE) 06/10/17 17:18 Urine Glucose (UA) NEGATIVE mg/dL (NEGATIVE) 06/10/17 17:18 Urine Ketones NEGATIVE mg/dL (NEGATIVE) 06/10/17 17:18 Urine Blood NEGATIVE (NEGATIVE) 06/10/17 17:18 Urine Nitrate NEGATIVE (NEGATIVE) 06/10/17 17:18 Urine Bilirubin NEGATIVE (NEGATIVE) 06/10/17 17:18 Urine Urobilinogen 0.2 E.U./dL (0.2 - 1.0) 06/10/17 17:18 Ur Leukocyte Esterase NEGATIVE (NEGATIVE) 06/10/17 17:18 Urine RBC NONE SEEN /hpf (0-5) 06/10/17 17:18 Urine WBC NONE SEEN /hpf (0-5) 06/10/17 17:18 Ur Epithelial Cells NONE SEEN /lpf (FEW) 06/10/17 17:18 Urine Bacteria NONE SEEN /hpf (NONE SEEN) 06/10/17 17:18 - Physical Exam Vitals and I&O: Vital Signs Temp 97.8 F 06/18/17 21:22 Pulse 80 06/18/17 21:22 Resp 20 06/18/17 21:22 BP 122/67 06/18/17 21:22 Pulse Ox 94 06/18/17 21:22 Intake & Output 06/18/17 06/19/17 06/19/17 18:59 06:59 18:59 Intake Total 1000 120 Output Total 1 Balance 1000 119 Intake: Oral 1000 120 Output: Stool 1 Other: # Voids 5 1 # Bowel Movements 1 Active Medications: Current Medications Acetaminophen (Tylenol) 650 mg PO Q4HR PRN PRN Reason: Mild Pain / Temp above 100 Stop: 08/09/17 21:25 Last Admin: 06/14/17 20:38 Dose: 650 mg Al Hydrox/Mg Hydrox/Simethicone (Maalox) 30 ml PO Q4HR PRN PRN Reason: GI DISTRESS Stop: 08/09/17 21:25 Ascorbic Acid (Vitamin C) 500 mg PO DAILY [facility] Stop: 08/10/17 08:59 Last Admin: 06/18/17 08:17 Dose: 500 mg Carbidopa/Levodopa (Sinemet 25mg-100 Mg) 1 tab PO TID [facility] Stop: 08/10/17 08:59 Last Admin: 06/18/17 21:27 Dose: 1 tab Docusate Sodium (Colace) 200 mg PO HS [facility] Stop: 08/10/17 20:59 Last Admin: 06/18/17 21:28 Dose: 200 mg Ferrous Sulfate (Iron) 325 mg PO BID [facility] Stop: 08/10/17 08:59 Last Admin: 06/18/17 16:54 Dose: 325 mg Hydrocortisone (Cortef) 25 mg PO DAILY [facility] Stop: 08/10/17 08:59 Last Admin: 06/18/17 08:18 Dose: 25 mg Lisinopril (Zestril) 10 mg PO DAILY [facility] Stop: 08/10/17 08:59 Last Admin: 06/18/17 08:16 Dose: 10 mg Lorazepam (Ativan) 0.5 mg PO Q4HR PRN; Protocol PRN Reason: Anxiety Stop: 07/10/17 21:25 Last Admin: 06/15/17 04:08 Dose: 0.5 mg Magnesium Hydroxide (Milk Of Magnesia) 30 ml PO HS PRN PRN Reason: Constipation Multivitamins/Vitamin C (Theragran) 1 tab PO DAILY [facility] Stop: 08/10/17 08:59 Last Admin: 06/18/17 08:16 Dose: 1 tab Nitroglycerin (Nitrostat) 0.4 mg SL Q5MIN PRN PRN Reason: Chest Pain Stop: 08/09/17 21:30 Pantoprazole Sodium (Protonix) 40 mg PO DAILY [facility] Stop: 08/10/17 08:59 Last Admin: 06/18/17 08:16 Dose: 40 mg Quetiapine Fumarate (Seroquel) 25 mg PO HS [facility] PRN Reason: Protocol Stop: 08/10/17 20:59 Last Admin: 06/18/17 21:28 Dose: 25 mg Sevelamer Carbonate (Renvela) 800 mg PO TIDWM [facility] Stop: 08/10/17 07:59 Last Admin: 06/18/17 16:54 Dose: 800 mg Vitamin B Complex/Vit C/Folic Acid (Vitamin B Complex W/Vitamin C) 1 tab PO DAILY [facility] Stop: 08/10/17 08:59 Last Admin: 06/18/17 08:16 Dose: 1 tab Assessment/Plan - Problem List Patient Problems: All Active Problems Dementia (Acute) F03.90 History of encephalopathy (Acute) Z86.69 History of schizoaffective disorder (Acute) Z86.59 Hyponatremia (Acute) E87.1 Leukocytosis (Acute) D72.829 Parkinson disease (Acute) G20 Sepsis (Acute) Nutritional Asmnt/Malnutr-PDOC - Dietary Evaluation Malnutrition Findings (Please click <Entered> for more info): Nutritional Asmnt/Malnutrition Start: 06/16/17 15: 47 Text: Status: Complete Freq: Document 06/16/17 15:47 GRANTLANNY (Rec: 06/16/17 15:52 GRANTLANNY [email or web address]) Nutritional Asmnt/Malnutrition Patient General Information Nutritional Screening Moderate Risk Diagnosis psychosis Pertinent Medical Hx/Surgical Hx HTN, DM, asthma/COPD, CVA/TIA, PUD/GERD, parkinson's disease anemia, CKD, encephalopathy, dysphagia Subjective Information Pt seen lying in bed at time of visit. Pt reported good appetite. Per records, PO intake 100%. Current Diet Order/ Nutrition Support pureed, nectar thick liquid Pertinent Labs 06/10 Na 136, K 4.0, Cl 103, BUn 20, Cr 1.0, Glucose 111, Ca 9.6 Nutritional Hx/Data Height 1.93 m Height (Calculated Centimeters) 193.0 Current Weight (lbs) 108.862 kg Weight (Calculated Kilograms) 108.9 Weight (Calculated Grams) 446010.2 [place] Body Weight 202 % [place] Body Weight 119 Body Mass Index (BMI) 29.2 Weight Status Overweight GI Symptoms GI Symptoms None Last BM 06/15 x 2 Difficult in: None Skin Integrity/Comment: intact Estimated Nutritional Goals Calories/Kcals/Kg 25-30 based on IBW 92kg Kcals Calculated 5489-1414 Protein g/k Protein Calculated 92 Fluid: ml 2300-2730ml (1ml/kcal) Nutritional Problem No current Nutrition Prob Problem N/A Malnutrition Alert Protein-Calorie Malnutrition N/A Is there a minimum of two criteria No selected? Query Text:Check all the applicable criteria. A minimum of two criteria are recommended for diagnosis of either severe or non-severe malnutrition. Intervention/Recommendation Comments 1. Continue with current diet as ordered. 2. Monitor PO intake, wt, labs and skin integrity 3. F/U as low risk in 7 days, 2/8 Expected Outcomes/Goals Expected Outcomes/Goals 1. PO intake to meet at least 75% of nutritional needs. 2. Wt stability, skin to remain intact, labs to approach WNL.
[2017-06-19] MEDS: Vitamin B Complex w/Vitamin C Tab PO SCH (09:55)
[2017-06-19] MEDS: Pantoprazole 40 mg EC Tab PO SCH (09:55)
[2017-06-19] MEDS: Multivitamin Tab PO SCH (09:55)
[2017-06-19] MEDS: Ferrous Sulfate 325 MG TAB PO SCH ×2 (09:55→16:11)
--- NOTE | 2017-06-19 23:22 | Progress Notes ---
DATE: 06/19/2017 PSYCHIATRIC PROGRESS NOTE SUBJECTIVE: Staff was spoken to. The patient is interviewed. Mood is noted to be irritable. Affect is constricted. Coping skills are noted to still poor. The patient has been having difficult time to cope with the stress. The patient is getting easily frustrated for being in here and he needs to be at home. ASSESSMENT: The patient is still impulsive. PLAN: To continue the patient with the Seroquel and followup. JOB# [id number]
[2017-06-20] MEDS: Ferrous Sulfate 325 MG TAB PO SCH ×2 (08:34→16:46)
[2017-06-20] MEDS: Pantoprazole 40 mg EC Tab PO SCH (08:35)
[2017-06-20] MEDS: Vitamin B Complex w/Vitamin C Tab PO SCH (08:40)
[2017-06-20] MEDS: Multivitamin Tab PO SCH (08:41)
--- NOTE | 2017-06-20 21:03 | Internal Medicine Prog Note ---
Internal Medicine Subjective - Subjective Service Date: 06/20/17 Patient seen and examined:: with staff Patient is:: awake Per staff patient has:: tolerating meds Internal Medicine Objective - Results Result Diagrams: 06/10/17 16:25 06/10/17 16:25 Recent Labs: Laboratory Last Values WBC 12.6 Th/cmm (4.8-10.8) H D 06/10/17 16:25 RBC 4.89 Mil/cmm (4.30-5.70) 06/10/17 16:25 Hgb 14.8 gm/dL (12-16) 06/10/17 16:25 Hct 44.7 % (41.0-60) D 06/10/17 16:25 MCV 91.4 fl (80-99) 06/10/17 16:25 MCH 30.3 pg (26.0-30.0) H 06/10/17 16:25 MCHC Differential 33.2 pg (28.0-36.0) 06/10/17 16:25 RDW 12.0 % (11.5-20.0) 06/10/17 16:25 Plt Count 323 Th/cmm (150-400) D 06/10/17 16:25 MPV 6.8 fl 06/10/17 16:25 Neutrophils % 64.5 % (40.0-80.0) 06/10/17 16:25 Lymphocytes % 27.2 % (20.0-50.0) 06/10/17 16:25 Monocytes % 5.6 % (2.0-10.0) 06/10/17 16:25 Eosinophils % 1.9 % (0.0-5.0) 06/10/17 16:25 Basophils % 0.8 % (0.0-2.0) 06/10/17 16:25 Sodium 136 mEq/L (136-145) 06/10/17 16:25 Potassium 4.0 mEq/L (3.5-5.1) 06/10/17 16:25 Chloride 103 mEq/L (98-107) 06/10/17 16:25 Carbon Dioxide 25.6 mEq/L (21.0-31.0) 06/10/17 16:25 Anion Gap 11.4 (7.0-16.0) 06/10/17 16:25 BUN 20 mg/dL (7-25) 06/10/17 16:25 Creatinine 1.0 mg/dL (0.7-1.3) 06/10/17 16:25 Est GFR ( Amer) > 60.0 ml/min (>90) 06/10/17 16:25 Est GFR (Non-Af Amer) > 60.0 ml/min 06/10/17 16:25 BUN/Creatinine Ratio 20.0 06/10/17 16:25 Glucose 111 mg/dL (70-105) H 06/10/17 16:25 Whole Bld Lactic Acid 0.90 mmol/L (0.60-1.99) 06/10/17 16:25 Calcium 9.6 mg/dL (8.6-10.3) 06/10/17 16:25 Total Bilirubin 0.3 mg/dL (0.3-1.0) 06/10/17 16:25 AST 15 U/L (13-39) 06/10/17 16:25 ALT 12 U/L (7-52) 06/10/17 16:25 Alkaline Phosphatase 54 U/L (34-104) 06/10/17 16:25 Total Protein 6.9 gm/dL (6.0-8.3) 06/10/17 16:25 Albumin 3.8 gm/dL (4.2-5.5) L 06/10/17 16:25 Globulin 3.1 gm/dL 06/10/17 16:25 Albumin/Globulin Ratio 1.2 (1.0-1.8) 06/10/17 16:25 TSH 1.02 uIU/ml (0.34-5.60) 06/10/17 16:25 Urine Source RANDOM 06/10/17 17:18 Urine Color YELLOW 06/10/17 17:18 Urine Clarity CLEAR (CLEAR) 06/10/17 17:18 Urine pH 7.0 (4.6 - 8.0) 06/10/17 17:18 Ur Specific [place] 1.010 (1.005-1.030) 06/10/17 17:18 Urine Protein NEGATIVE mg/dL (NEGATIVE) 06/10/17 17:18 Urine Glucose (UA) NEGATIVE mg/dL (NEGATIVE) 06/10/17 17:18 Urine Ketones NEGATIVE mg/dL (NEGATIVE) 06/10/17 17:18 Urine Blood NEGATIVE (NEGATIVE) 06/10/17 17:18 Urine Nitrate NEGATIVE (NEGATIVE) 06/10/17 17:18 Urine Bilirubin NEGATIVE (NEGATIVE) 06/10/17 17:18 Urine Urobilinogen 0.2 E.U./dL (0.2 - 1.0) 06/10/17 17:18 Ur Leukocyte Esterase NEGATIVE (NEGATIVE) 06/10/17 17:18 Urine RBC NONE SEEN /hpf (0-5) 06/10/17 17:18 Urine WBC NONE SEEN /hpf (0-5) 06/10/17 17:18 Ur Epithelial Cells NONE SEEN /lpf (FEW) 06/10/17 17:18 Urine Bacteria NONE SEEN /hpf (NONE SEEN) 06/10/17 17:18 - Physical Exam Vitals and I&O: Vital Signs Temp 98 F 06/20/17 20:01 Pulse 85 06/20/17 20:01 Resp 19 06/20/17 20:01 BP 116/77 06/20/17 20:01 Pulse Ox 96 06/20/17 20:01 Intake & Output 06/20/17 06/20/17 06/21/17 06:59 18:59 06:59 Intake Total 120 1000 120 Output Total 1 Balance 119 1000 120 Intake: Oral 120 1000 120 Output: Stool 1 Other: # Voids 1 5 1 # Bowel Movements 2 Stool Characteristics Soft Active Medications: Current Medications Acetaminophen (Tylenol) 650 mg PO Q4HR PRN PRN Reason: Mild Pain / Temp above 100 Stop: 08/09/17 21:25 Last Admin: 06/14/17 20:38 Dose: 650 mg Al Hydrox/Mg Hydrox/Simethicone (Maalox) 30 ml PO Q4HR PRN PRN Reason: GI DISTRESS Stop: 08/09/17 21:25 Ascorbic Acid (Vitamin C) 500 mg PO DAILY [facility] Stop: 08/10/17 08:59 Last Admin: 06/20/17 08:34 Dose: 500 mg Carbidopa/Levodopa (Sinemet 25mg-100 Mg) 1 tab PO TID [facility] Stop: 08/10/17 08:59 Last Admin: 06/20/17 14:13 Dose: 1 tab Docusate Sodium (Colace) 200 mg PO HS [facility] Stop: 03/28/18 20:59 Last Admin: 06/19/17 20:59 Dose: 200 mg Ferrous Sulfate (Iron) 325 mg PO BID [facility] Stop: 08/10/17 08:59 Last Admin: 06/20/17 16:46 Dose: 325 mg Hydrocortisone (Cortef) 25 mg PO DAILY [facility] Stop: 08/10/17 08:59 Last Admin: 06/20/17 08:43 Dose: 25 mg Lisinopril (Zestril) 10 mg PO DAILY [facility] Stop: 08/10/17 08:59 Last Admin: 06/20/17 08:39 Dose: Not Given Lorazepam (Ativan) 0.5 mg PO Q4HR PRN; Protocol PRN Reason: Anxiety Stop: 07/10/17 21:25 Last Admin: 06/20/17 09:58 Dose: 0.5 mg Magnesium Hydroxide (Milk Of Magnesia) 30 ml PO HS PRN PRN Reason: Constipation Multivitamins/Vitamin C (Theragran) 1 tab PO DAILY [facility] Stop: 08/10/17 08:59 Last Admin: 06/20/17 08:41 Dose: 1 tab Nitroglycerin (Nitrostat) 0.4 mg SL Q5MIN PRN PRN Reason: Chest Pain Stop: 08/09/17 21:30 Pantoprazole Sodium (Protonix) 40 mg PO DAILY [facility] Stop: 08/10/17 08:59 Last Admin: 06/20/17 08:35 Dose: 40 mg Quetiapine Fumarate (Seroquel) 25 mg PO HS [facility] PRN Reason: Protocol Stop: 08/10/17 20:59 Last Admin: 06/19/17 20:59 Dose: 25 mg Sevelamer Carbonate (Renvela) 800 mg PO TIDWM [facility] Stop: 08/10/17 07:59 Last Admin: 06/20/17 16:46 Dose: 800 mg Vitamin B Complex/Vit C/Folic Acid (Vitamin B Complex W/Vitamin C) 1 tab PO DAILY [facility] Stop: 08/10/17 08:59 Last Admin: 06/20/17 08:40 Dose: 1 tab General: alert HEENT: NC/AT, PERRLA Neck: Supple Lungs: CTAB Neurological: alert Nutritional Asmnt/Malnutr-PDOC - Dietary Evaluation Malnutrition Findings (Please click <Entered> for more info): Nutritional Asmnt/Malnutrition Start: 06/16/17 15: 47 Text: Status: Complete Freq: Document 06/16/17 15:47 LCHARRYG (Rec: 06/16/17 15:52 LCHARRYG [email or web address]) Nutritional Asmnt/Malnutrition Patient General Information Nutritional Screening Moderate Risk Diagnosis psychosis Pertinent Medical Hx/Surgical Hx HTN, DM, asthma/COPD, CVA/TIA, PUD/GERD, parkinson's disease anemia, CKD, encephalopathy, dysphagia Subjective Information Pt seen lying in bed at time of visit. Pt reported good appetite. Per records, PO intake 100%. Current Diet Order/ Nutrition Support pureed, nectar thick liquid Pertinent Labs 06/10 Na 136, K 4.0, Cl 103, BUn 20, Cr 1.0, Glucose 111, Ca 9.6 Nutritional Hx/Data Height 1.93 m Height (Calculated Centimeters) 193.0 Current Weight (lbs) 108.862 kg Weight (Calculated Kilograms) 108.9 Weight (Calculated Grams) 037415.2 [place] Body Weight 202 % [place] Body Weight 119 Body Mass Index (BMI) 29.2 Weight Status Overweight GI Symptoms GI Symptoms None Last BM 06/15 x 2 Difficult in: None Skin Integrity/Comment: intact Estimated Nutritional Goals Calories/Kcals/Kg 25-30 based on IBW 92kg Kcals Calculated 2785-8153 Protein g/k Protein Calculated 92 Fluid: ml 2300-2730ml (1ml/kcal) Nutritional Problem No current Nutrition Prob Problem N/A Malnutrition Alert Protein-Calorie Malnutrition N/A Is there a minimum of two criteria No selected? Query Text:Check all the applicable criteria. A minimum of two criteria are recommended for diagnosis of either severe or non-severe malnutrition. Intervention/Recommendation Comments 1. Continue with current diet as ordered. 2. Monitor PO intake, wt, labs and skin integrity 3. F/U as low risk in 7 days, 2/8 Expected Outcomes/Goals Expected Outcomes/Goals 1. PO intake to meet at least 75% of nutritional needs. 2. Wt stability, skin to remain intact, labs to approach WNL.
--- NOTE | 2017-06-21 03:00 | Progress Notes ---
DATE: 06/20/2017 PSYCHIATRIC PROGRESS NOTE SUBJECTIVE: Staff was spoken to. The patient is interviewed. Mood is noted to be anxious. Affect is appropriate. The irritability and anger seems to be coming down and the patient is able to tolerate the Seroquel. No side effects to the medications are noted. The patient's coping skills; however re noted to be poor and patient is a total care patient. ASSESSMENT: The patient is being closely monitored for impulsivity. PLAN: To continue the patient with Seroquel and followup. [facility]# [id number]
[2017-06-21] MEDS: Pantoprazole 40 mg EC Tab PO SCH (09:30)
[2017-06-21] MEDS: Vitamin B Complex w/Vitamin C Tab PO SCH (09:30)
[2017-06-21] MEDS: Ferrous Sulfate 325 MG TAB PO SCH ×2 (09:30→17:15)
[2017-06-21] MEDS: Multivitamin Tab PO SCH (09:31)
--- NOTE | 2017-06-21 12:26 | Internal Medicine Prog Note ---
Internal Medicine Subjective - Subjective Service Date: 06/21/17 Patient is:: awake Per staff patient has:: tolerating meds Internal Medicine Objective - Results Result Diagrams: 06/10/17 16:25 06/10/17 16:25 Recent Labs: Laboratory Last Values WBC 12.6 Th/cmm (4.8-10.8) H D 06/10/17 16:25 RBC 4.89 Mil/cmm (4.30-5.70) 06/10/17 16:25 Hgb 14.8 gm/dL (12-16) 06/10/17 16:25 Hct 44.7 % (41.0-60) D 06/10/17 16:25 MCV 91.4 fl (80-99) 06/10/17 16:25 MCH 30.3 pg (26.0-30.0) H 06/10/17 16:25 MCHC Differential 33.2 pg (28.0-36.0) 06/10/17 16:25 RDW 12.0 % (11.5-20.0) 06/10/17 16:25 Plt Count 323 Th/cmm (150-400) D 06/10/17 16:25 MPV 6.8 fl 06/10/17 16:25 Neutrophils % 64.5 % (40.0-80.0) 06/10/17 16:25 Lymphocytes % 27.2 % (20.0-50.0) 06/10/17 16:25 Monocytes % 5.6 % (2.0-10.0) 06/10/17 16:25 Eosinophils % 1.9 % (0.0-5.0) 06/10/17 16:25 Basophils % 0.8 % (0.0-2.0) 06/10/17 16:25 Sodium 136 mEq/L (136-145) 06/10/17 16:25 Potassium 4.0 mEq/L (3.5-5.1) 06/10/17 16:25 Chloride 103 mEq/L (98-107) 06/10/17 16:25 Carbon Dioxide 25.6 mEq/L (21.0-31.0) 06/10/17 16:25 Anion Gap 11.4 (7.0-16.0) 06/10/17 16:25 BUN 20 mg/dL (7-25) 06/10/17 16:25 Creatinine 1.0 mg/dL (0.7-1.3) 06/10/17 16:25 Est GFR ( Amer) > 60.0 ml/min (>90) 06/10/17 16:25 Est GFR (Non-Af Amer) > 60.0 ml/min 06/10/17 16:25 BUN/Creatinine Ratio 20.0 06/10/17 16:25 Glucose 111 mg/dL (70-105) H 06/10/17 16:25 Whole Bld Lactic Acid 0.90 mmol/L (0.60-1.99) 06/10/17 16:25 Calcium 9.6 mg/dL (8.6-10.3) 06/10/17 16:25 Total Bilirubin 0.3 mg/dL (0.3-1.0) 06/10/17 16:25 AST 15 U/L (13-39) 06/10/17 16:25 ALT 12 U/L (7-52) 06/10/17 16:25 Alkaline Phosphatase 54 U/L (34-104) 06/10/17 16:25 Total Protein 6.9 gm/dL (6.0-8.3) 06/10/17 16:25 Albumin 3.8 gm/dL (4.2-5.5) L 06/10/17 16:25 Globulin 3.1 gm/dL 06/10/17 16:25 Albumin/Globulin Ratio 1.2 (1.0-1.8) 06/10/17 16:25 TSH 1.02 uIU/ml (0.34-5.60) 06/10/17 16:25 Urine Source RANDOM 06/10/17 17:18 Urine Color YELLOW 06/10/17 17:18 Urine Clarity CLEAR (CLEAR) 06/10/17 17:18 Urine pH 7.0 (4.6 - 8.0) 06/10/17 17:18 Ur Specific [place] 1.010 (1.005-1.030) 06/10/17 17:18 Urine Protein NEGATIVE mg/dL (NEGATIVE) 06/10/17 17:18 Urine Glucose (UA) NEGATIVE mg/dL (NEGATIVE) 06/10/17 17:18 Urine Ketones NEGATIVE mg/dL (NEGATIVE) 06/10/17 17:18 Urine Blood NEGATIVE (NEGATIVE) 06/10/17 17:18 Urine Nitrate NEGATIVE (NEGATIVE) 06/10/17 17:18 Urine Bilirubin NEGATIVE (NEGATIVE) 06/10/17 17:18 Urine Urobilinogen 0.2 E.U./dL (0.2 - 1.0) 06/10/17 17:18 Ur Leukocyte Esterase NEGATIVE (NEGATIVE) 06/10/17 17:18 Urine RBC NONE SEEN /hpf (0-5) 06/10/17 17:18 Urine WBC NONE SEEN /hpf (0-5) 06/10/17 17:18 Ur Epithelial Cells NONE SEEN /lpf (FEW) 06/10/17 17:18 Urine Bacteria NONE SEEN /hpf (NONE SEEN) 06/10/17 17:18 - Physical Exam Vitals and I&O: Vital Signs Temp 97.8 F 06/21/17 06:00 Pulse 75 06/21/17 09:32 Resp 19 06/21/17 06:00 BP 119/70 06/21/17 09:32 Pulse Ox 97 06/21/17 06:00 Intake & Output 06/20/17 06/21/17 06/21/17 18:59 06:59 18:59 Intake Total 1000 120 Balance 1000 120 Weight (lbs) 240 lb Intake: Oral 1000 120 Other: # Voids 5 5 # Bowel Movements 2 1 Stool Characteristics Soft Active Medications: Current Medications Acetaminophen (Tylenol) 650 mg PO Q4HR PRN PRN Reason: Mild Pain / Temp above 100 Stop: 08/09/17 21:25 Last Admin: 06/14/17 20:38 Dose: 650 mg Al Hydrox/Mg Hydrox/Simethicone (Maalox) 30 ml PO Q4HR PRN PRN Reason: GI DISTRESS Stop: 08/09/17 21:25 Ascorbic Acid (Vitamin C) 500 mg PO DAILY [facility] Stop: 08/10/17 08:59 Last Admin: 06/21/17 09:32 Dose: 500 mg Carbidopa/Levodopa (Sinemet 25mg-100 Mg) 1 tab PO TID [facility] Stop: 08/10/17 08:59 Last Admin: 06/21/17 09:31 Dose: 1 tab Docusate Sodium (Colace) 200 mg PO HS [facility] Stop: 08/10/17 20:59 Last Admin: 06/20/17 21:18 Dose: 100 mg Ferrous Sulfate (Iron) 325 mg PO BID [facility] Stop: 08/10/17 08:59 Last Admin: 06/21/17 09:30 Dose: 325 mg Hydrocortisone (Cortef) 25 mg PO DAILY [facility] Stop: 08/10/17 08:59 Last Admin: 06/21/17 09:56 Dose: 25 mg Lisinopril (Zestril) 10 mg PO DAILY [facility] Stop: 08/10/17 08:59 Last Admin: 06/21/17 09:32 Dose: Not Given Lorazepam (Ativan) 0.5 mg PO Q4HR PRN; Protocol PRN Reason: Anxiety Stop: 07/10/17 21:25 Last Admin: 06/20/17 21:17 Dose: 0.5 mg Magnesium Hydroxide (Milk Of Magnesia) 30 ml PO HS PRN PRN Reason: Constipation Multivitamins/Vitamin C (Theragran) 1 tab PO DAILY [facility] Stop: 08/10/17 08:59 Last Admin: 06/21/17 09:31 Dose: 1 tab Nitroglycerin (Nitrostat) 0.4 mg SL Q5MIN PRN PRN Reason: Chest Pain Stop: 08/09/17 21:30 Pantoprazole Sodium (Protonix) 40 mg PO DAILY [facility] Stop: 08/10/17 08:59 Last Admin: 06/21/17 09:30 Dose: 40 mg Quetiapine Fumarate (Seroquel) 25 mg PO HS [facility] PRN Reason: Protocol Stop: 08/10/17 20:59 Last Admin: 06/20/17 21:17 Dose: 25 mg Sevelamer Carbonate (Renvela) 800 mg PO TIDWM [facility] Stop: 08/10/17 07:59 Last Admin: 06/21/17 12:18 Dose: 800 mg Vitamin B Complex/Vit C/Folic Acid (Vitamin B Complex W/Vitamin C) 1 tab PO DAILY LURDES Stop: 08/10/17 08:59 Last Admin: 06/21/17 09:30 Dose: 1 tab General: alert HEENT: NC/AT, PERRLA Neck: Supple Lungs: CTAB Neurological: alert Internal Medicine Assmt/Plan - Assessment Assessment: HTN DM Asthma/COPD HX CVA/TIA W\Right hemiparesis PUD/GERD Parkinson's disease anemia chronic renal disease - Plan Plan: MONITOR GLUCOSE FALL PRECAUTIONS CONTINUE CURRENT ORDERS Nutritional Asmnt/Malnutr-PDOC - Dietary Evaluation Malnutrition Findings (Please click <Entered> for more info): Nutritional Asmnt/Malnutrition Start: 06/16/17 15: 47 Text: Status: Complete Freq: Document 06/16/17 15:47 GRANTLANNY (Rec: 06/16/17 15:52 LCLANNY [id number]) Nutritional Asmnt/Malnutrition Patient General Information Nutritional Screening Moderate Risk Diagnosis psychosis Pertinent Medical Hx/Surgical Hx HTN, DM, asthma/COPD, CVA/TIA, PUD/GERD, parkinson's disease anemia, CKD, encephalopathy, dysphagia Subjective Information Pt seen lying in bed at time of visit. Pt reported good appetite. Per records, PO intake 100%. Current Diet Order/ Nutrition Support pureed, nectar thick liquid Pertinent Labs 06/10 Na 136, K 4.0, Cl 103, BUn 20, Cr 1.0, Glucose 111, Ca 9.6 Nutritional Hx/Data Height 6 ft 4 in Height (Calculated Centimeters) 193.0 Current Weight (lbs) 240 lb Weight (Calculated Kilograms) 108.9 Weight (Calculated Grams) 010416.2 Apex Body Weight 202 % Apex Body Weight 119 Body Mass Index (BMI) 29.2 Weight Status Overweight GI Symptoms GI Symptoms None Last BM 06/15 x 2 Difficult in: None Skin Integrity/Comment: intact Estimated Nutritional Goals Calories/Kcals/Kg 25-30 based on IBW 92kg Kcals Calculated 3071-0134 Protein g/k Protein Calculated 92 Fluid: ml 2300-2730ml (1ml/kcal) Nutritional Problem No current Nutrition Prob Problem N/A Malnutrition Alert Protein-Calorie Malnutrition N/A Is there a minimum of two criteria No selected? Query Text:Check all the applicable criteria. A minimum of two criteria are recommended for diagnosis of either severe or non-severe malnutrition. Intervention/Recommendation Comments 1. Continue with current diet as ordered. 2. Monitor PO intake, wt, labs and skin integrity 3. F/U as low risk in 7 days, 2/8 Expected Outcomes/Goals Expected Outcomes/Goals 1. PO intake to meet at least 75% of nutritional needs. 2. Wt stability, skin to remain intact, labs to approach WNL.
--- NOTE | 2017-06-21 14:11 | Progress Notes ---
DATE: 06/21/2017 PSYCHIATRIC PROGRESS NOTE SUBJECTIVE: Staff was spoken to. The patient is interviewed. Mood is noted to be less irritable. Affect is appropriate. Insight and judgment at this time are noted to be improving. Impulse control seems to be a little better compared to the other days. The patient has not been screaming and yelling. No side effects to the medications are noted, but the patient is frustrated that he is being in here. ASSESSMENT: The patient is an impulsivity is coming down. PLAN: To continue the patient with the supportive therapy and followup. JOB# [id number]
[2017-06-22] MEDS: Ferrous Sulfate 325 MG TAB PO SCH ×2 (08:17→16:44)
[2017-06-22] MEDS: Pantoprazole 40 mg EC Tab PO SCH (08:17)
[2017-06-22] MEDS: Vitamin B Complex w/Vitamin C Tab PO SCH (08:17)
[2017-06-22] MEDS: Multivitamin Tab PO SCH (08:17)
--- NOTE | 2017-06-22 09:40 | General Progress Note ---
Subjective - Review of Systems Events since last encounter: in no acute distress awake, compliant with meds Objective - Results Result Diagrams: 06/10/17 16:25 06/10/17 16:25 Recent Labs: Laboratory Last Values WBC 12.6 Th/cmm (4.8-10.8) H D 06/10/17 16:25 RBC 4.89 Mil/cmm (4.30-5.70) 06/10/17 16:25 Hgb 14.8 gm/dL (12-16) 06/10/17 16:25 Hct 44.7 % (41.0-60) D 06/10/17 16:25 MCV 91.4 fl (80-99) 06/10/17 16:25 MCH 30.3 pg (26.0-30.0) H 06/10/17 16:25 MCHC Differential 33.2 pg (28.0-36.0) 06/10/17 16:25 RDW 12.0 % (11.5-20.0) 06/10/17 16:25 Plt Count 323 Th/cmm (150-400) D 06/10/17 16:25 MPV 6.8 fl 06/10/17 16:25 Neutrophils % 64.5 % (40.0-80.0) 06/10/17 16:25 Lymphocytes % 27.2 % (20.0-50.0) 06/10/17 16:25 Monocytes % 5.6 % (2.0-10.0) 06/10/17 16:25 Eosinophils % 1.9 % (0.0-5.0) 06/10/17 16:25 Basophils % 0.8 % (0.0-2.0) 06/10/17 16:25 Sodium 136 mEq/L (136-145) 06/10/17 16:25 Potassium 4.0 mEq/L (3.5-5.1) 06/10/17 16:25 Chloride 103 mEq/L (98-107) 06/10/17 16:25 Carbon Dioxide 25.6 mEq/L (21.0-31.0) 06/10/17 16:25 Anion Gap 11.4 (7.0-16.0) 06/10/17 16:25 BUN 20 mg/dL (7-25) 06/10/17 16:25 Creatinine 1.0 mg/dL (0.7-1.3) 06/10/17 16:25 Est GFR ( Amer) > 60.0 ml/min (>90) 06/10/17 16:25 Est GFR (Non-Af Amer) > 60.0 ml/min 06/10/17 16:25 BUN/Creatinine Ratio 20.0 06/10/17 16:25 Glucose 111 mg/dL (70-105) H 06/10/17 16:25 Whole Bld Lactic Acid 0.90 mmol/L (0.60-1.99) 06/10/17 16:25 Calcium 9.6 mg/dL (8.6-10.3) 06/10/17 16:25 Total Bilirubin 0.3 mg/dL (0.3-1.0) 06/10/17 16:25 AST 15 U/L (13-39) 06/10/17 16:25 ALT 12 U/L (7-52) 06/10/17 16:25 Alkaline Phosphatase 54 U/L (34-104) 06/10/17 16:25 Total Protein 6.9 gm/dL (6.0-8.3) 06/10/17 16:25 Albumin 3.8 gm/dL (4.2-5.5) L 06/10/17 16:25 Globulin 3.1 gm/dL 06/10/17 16:25 Albumin/Globulin Ratio 1.2 (1.0-1.8) 06/10/17 16:25 TSH 1.02 uIU/ml (0.34-5.60) 06/10/17 16:25 Urine Source RANDOM 06/10/17 17:18 Urine Color YELLOW 06/10/17 17:18 Urine Clarity CLEAR (CLEAR) 06/10/17 17:18 Urine pH 7.0 (4.6 - 8.0) 06/10/17 17:18 Ur Specific [place] 1.010 (1.005-1.030) 06/10/17 17:18 Urine Protein NEGATIVE mg/dL (NEGATIVE) 06/10/17 17:18 Urine Glucose (UA) NEGATIVE mg/dL (NEGATIVE) 06/10/17 17:18 Urine Ketones NEGATIVE mg/dL (NEGATIVE) 06/10/17 17:18 Urine Blood NEGATIVE (NEGATIVE) 06/10/17 17:18 Urine Nitrate NEGATIVE (NEGATIVE) 06/10/17 17:18 Urine Bilirubin NEGATIVE (NEGATIVE) 06/10/17 17:18 Urine Urobilinogen 0.2 E.U./dL (0.2 - 1.0) 06/10/17 17:18 Ur Leukocyte Esterase NEGATIVE (NEGATIVE) 06/10/17 17:18 Urine RBC NONE SEEN /hpf (0-5) 06/10/17 17:18 Urine WBC NONE SEEN /hpf (0-5) 06/10/17 17:18 Ur Epithelial Cells NONE SEEN /lpf (FEW) 06/10/17 17:18 Urine Bacteria NONE SEEN /hpf (NONE SEEN) 06/10/17 17:18 - Physical Exam Vitals and I&O: Vital Signs Temp 97 F 06/22/17 05:58 Pulse 64 06/22/17 08:18 Resp 19 06/22/17 05:58 BP 130/76 06/22/17 08:18 Pulse Ox 97 06/22/17 05:58 Intake & Output 06/21/17 06/22/17 06/22/17 18:59 06:59 18:59 Intake Total 1000 0 Balance 1000 0 Weight (lbs) 108.862 kg Intake: Oral 1000 0 Other: # Voids 5 2 # Bowel Movements 0 Stool Characteristics Soft Active Medications: Current Medications Acetaminophen (Tylenol) 650 mg PO Q4HR PRN PRN Reason: Mild Pain / Temp above 100 Stop: 08/09/17 21:25 Last Admin: 06/14/17 20:38 Dose: 650 mg Al Hydrox/Mg Hydrox/Simethicone (Maalox) 30 ml PO Q4HR PRN PRN Reason: GI DISTRESS Stop: 08/09/17 21:25 Ascorbic Acid (Vitamin C) 500 mg PO DAILY [facility] Stop: 08/10/17 08:59 Last Admin: 06/22/17 08:16 Dose: 500 mg Carbidopa/Levodopa (Sinemet 25mg-100 Mg) 1 tab PO TID [facility] Stop: 08/10/17 08:59 Last Admin: 06/22/17 08:17 Dose: 1 tab Docusate Sodium (Colace) 200 mg PO HS [facility] Stop: 08/10/17 20:59 Last Admin: 06/21/17 21:03 Dose: 200 mg Ferrous Sulfate (Iron) 325 mg PO BID [facility] Stop: 08/10/17 08:59 Last Admin: 06/22/17 08:17 Dose: 325 mg Hydrocortisone (Cortef) 25 mg PO DAILY [facility] Stop: 08/10/17 08:59 Last Admin: 06/22/17 08:17 Dose: 25 mg Lisinopril (Zestril) 10 mg PO DAILY [facility] Stop: 08/10/17 08:59 Last Admin: 06/22/17 08:18 Dose: 10 mg Lorazepam (Ativan) 0.5 mg PO Q4HR PRN; Protocol PRN Reason: Anxiety Stop: 07/10/17 21:25 Last Admin: 06/21/17 21:02 Dose: 0.5 mg Magnesium Hydroxide (Milk Of Magnesia) 30 ml PO HS PRN PRN Reason: Constipation Multivitamins/Vitamin C (Theragran) 1 tab PO DAILY [facility] Stop: 08/10/17 08:59 Last Admin: 06/22/17 08:17 Dose: 1 tab Nitroglycerin (Nitrostat) 0.4 mg SL Q5MIN PRN PRN Reason: Chest Pain Stop: 08/09/17 21:30 Pantoprazole Sodium (Protonix) 40 mg PO DAILY [facility] Stop: 08/10/17 08:59 Last Admin: 06/22/17 08:17 Dose: 40 mg Quetiapine Fumarate (Seroquel) 25 mg PO HS [facility] PRN Reason: Protocol Stop: 08/10/17 20:59 Last Admin: 06/21/17 21:03 Dose: 25 mg Sevelamer Carbonate (Renvela) 800 mg PO TIDWM [facility] Stop: 08/10/17 07:59 Last Admin: 06/22/17 08:16 Dose: 800 mg Vitamin B Complex/Vit C/Folic Acid (Vitamin B Complex W/Vitamin C) 1 tab PO DAILY [facility] Stop: 08/10/17 08:59 Last Admin: 06/22/17 08:17 Dose: 1 tab Assessment/Plan - Problem List Patient Problems: All Active Problems Dementia (Acute) F03.90 History of encephalopathy (Acute) Z86.69 History of schizoaffective disorder (Acute) Z86.59 Hyponatremia (Acute) E87.1 Leukocytosis (Acute) D72.829 Parkinson disease (Acute) G20 Sepsis (Acute) Nutritional Asmnt/Malnutr-PDOC - Dietary Evaluation Malnutrition Findings (Please click <Entered> for more info): Nutritional Asmnt/Malnutrition Start: 06/16/17 15: 47 Text: Status: Complete Freq: Document 06/16/17 15:47 MIKEY (Rec: 06/16/17 15:52 MIKEY [email or web address]) Nutritional Asmnt/Malnutrition Patient General Information Nutritional Screening Moderate Risk Diagnosis psychosis Pertinent Medical Hx/Surgical Hx HTN, DM, asthma/COPD, CVA/TIA, PUD/GERD, parkinson's disease anemia, CKD, encephalopathy, dysphagia Subjective Information Pt seen lying in bed at time of visit. Pt reported good appetite. Per records, PO intake 100%. Current Diet Order/ Nutrition Support pureed, nectar thick liquid Pertinent Labs 06/10 Na 136, K 4.0, Cl 103, BUn 20, Cr 1.0, Glucose 111, Ca 9.6 Nutritional Hx/Data Height 1.93 m Height (Calculated Centimeters) 193.0 Current Weight (lbs) 108.862 kg Weight (Calculated Kilograms) 108.9 Weight (Calculated Grams) 686340.2 [place] Body Weight 202 % [place] Body Weight 119 Body Mass Index (BMI) 29.2 Weight Status Overweight GI Symptoms GI Symptoms None Last BM 06/15 x 2 Difficult in: None Skin Integrity/Comment: intact Estimated Nutritional Goals Calories/Kcals/Kg 25-30 based on IBW 92kg Kcals Calculated 7096-8828 Protein g/k Protein Calculated 92 Fluid: ml 2300-2730ml (1ml/kcal) Nutritional Problem No current Nutrition Prob Problem N/A Malnutrition Alert Protein-Calorie Malnutrition N/A Is there a minimum of two criteria No selected? Query Text:Check all the applicable criteria. A minimum of two criteria are recommended for diagnosis of either severe or non-severe malnutrition. Intervention/Recommendation Comments 1. Continue with current diet as ordered. 2. Monitor PO intake, wt, labs and skin integrity 3. F/U as low risk in 7 days, 2/8 Expected Outcomes/Goals Expected Outcomes/Goals 1. PO intake to meet at least 75% of nutritional needs. 2. Wt stability, skin to remain intact, labs to approach WNL.
--- NOTE | 2017-06-22 13:02 | Progress Notes ---
DATE: 06/22/2017 SUBJECTIVE: Staff was spoken to. The patient is interviewed. Mood is noted to be anxious. Affect is appropriate. Not suicidal or homicidal. Impulsivity has been coming under control. No major behavioral problems are noted. The patient has been able to verbalize the concerns rather than to act out. The patient is currently on Zyprexa and has been able to tolerate. No side effects to the medications are noted. ASSESSMENT: The patient is stabilizing. PLAN: To discharge the patient today for followup on outpatient. JOB# [id number]
[2017-06-23] MEDS: Ferrous Sulfate 325 MG TAB PO SCH ×2 (08:18→16:17)
[2017-06-23] MEDS: Multivitamin Tab PO SCH (08:20)
[2017-06-23] MEDS: Vitamin B Complex w/Vitamin C Tab PO SCH (08:20)
[2017-06-23] MEDS: Pantoprazole 40 mg EC Tab PO SCH (08:20)
--- NOTE | 2017-06-23 08:40 | General Progress Note ---
Subjective - Review of Systems Events since last encounter: in no distress Objective - Results Result Diagrams: 06/10/17 16:25 06/10/17 16:25 Recent Labs: Laboratory Last Values WBC 12.6 Th/cmm (4.8-10.8) H D 06/10/17 16:25 RBC 4.89 Mil/cmm (4.30-5.70) 06/10/17 16:25 Hgb 14.8 gm/dL (12-16) 06/10/17 16:25 Hct 44.7 % (41.0-60) D 06/10/17 16:25 MCV 91.4 fl (80-99) 06/10/17 16:25 MCH 30.3 pg (26.0-30.0) H 06/10/17 16:25 MCHC Differential 33.2 pg (28.0-36.0) 06/10/17 16:25 RDW 12.0 % (11.5-20.0) 06/10/17 16:25 Plt Count 323 Th/cmm (150-400) D 06/10/17 16:25 MPV 6.8 fl 06/10/17 16:25 Neutrophils % 64.5 % (40.0-80.0) 06/10/17 16:25 Lymphocytes % 27.2 % (20.0-50.0) 06/10/17 16:25 Monocytes % 5.6 % (2.0-10.0) 06/10/17 16:25 Eosinophils % 1.9 % (0.0-5.0) 06/10/17 16:25 Basophils % 0.8 % (0.0-2.0) 06/10/17 16:25 Sodium 136 mEq/L (136-145) 06/10/17 16:25 Potassium 4.0 mEq/L (3.5-5.1) 06/10/17 16:25 Chloride 103 mEq/L (98-107) 06/10/17 16:25 Carbon Dioxide 25.6 mEq/L (21.0-31.0) 06/10/17 16:25 Anion Gap 11.4 (7.0-16.0) 06/10/17 16:25 BUN 20 mg/dL (7-25) 06/10/17 16:25 Creatinine 1.0 mg/dL (0.7-1.3) 06/10/17 16:25 Est GFR ( Amer) > 60.0 ml/min (>90) 06/10/17 16:25 Est GFR (Non-Af Amer) > 60.0 ml/min 06/10/17 16:25 BUN/Creatinine Ratio 20.0 06/10/17 16:25 Glucose 111 mg/dL (70-105) H 06/10/17 16:25 Whole Bld Lactic Acid 0.90 mmol/L (0.60-1.99) 06/10/17 16:25 Calcium 9.6 mg/dL (8.6-10.3) 06/10/17 16:25 Total Bilirubin 0.3 mg/dL (0.3-1.0) 06/10/17 16:25 AST 15 U/L (13-39) 06/10/17 16:25 ALT 12 U/L (7-52) 06/10/17 16:25 Alkaline Phosphatase 54 U/L (34-104) 06/10/17 16:25 Total Protein 6.9 gm/dL (6.0-8.3) 06/10/17 16:25 Albumin 3.8 gm/dL (4.2-5.5) L 06/10/17 16:25 Globulin 3.1 gm/dL 06/10/17 16:25 Albumin/Globulin Ratio 1.2 (1.0-1.8) 06/10/17 16:25 TSH 1.02 uIU/ml (0.34-5.60) 06/10/17 16:25 Urine Source RANDOM 06/10/17 17:18 Urine Color YELLOW 06/10/17 17:18 Urine Clarity CLEAR (CLEAR) 06/10/17 17:18 Urine pH 7.0 (4.6 - 8.0) 06/10/17 17:18 Ur Specific [place] 1.010 (1.005-1.030) 06/10/17 17:18 Urine Protein NEGATIVE mg/dL (NEGATIVE) 06/10/17 17:18 Urine Glucose (UA) NEGATIVE mg/dL (NEGATIVE) 06/10/17 17:18 Urine Ketones NEGATIVE mg/dL (NEGATIVE) 06/10/17 17:18 Urine Blood NEGATIVE (NEGATIVE) 06/10/17 17:18 Urine Nitrate NEGATIVE (NEGATIVE) 06/10/17 17:18 Urine Bilirubin NEGATIVE (NEGATIVE) 06/10/17 17:18 Urine Urobilinogen 0.2 E.U./dL (0.2 - 1.0) 06/10/17 17:18 Ur Leukocyte Esterase NEGATIVE (NEGATIVE) 06/10/17 17:18 Urine RBC NONE SEEN /hpf (0-5) 06/10/17 17:18 Urine WBC NONE SEEN /hpf (0-5) 06/10/17 17:18 Ur Epithelial Cells NONE SEEN /lpf (FEW) 06/10/17 17:18 Urine Bacteria NONE SEEN /hpf (NONE SEEN) 06/10/17 17:18 - Physical Exam Vitals and I&O: Vital Signs Temp 98.1 F 06/23/17 06:49 Pulse 75 06/23/17 08:19 Resp 19 06/23/17 06:49 BP 109/62 06/23/17 08:19 Pulse Ox 96 06/23/17 06:49 Intake & Output 06/22/17 06/23/17 06/23/17 18:59 06:59 18:59 Intake Total 1000 120 Balance 1000 120 Intake: Oral 1000 120 Other: # Voids 5 3 # Bowel Movements 1 Active Medications: Current Medications Acetaminophen (Tylenol) 650 mg PO Q4HR PRN PRN Reason: Mild Pain / Temp above 100 Stop: 08/09/17 21:25 Last Admin: 06/14/17 20:38 Dose: 650 mg Al Hydrox/Mg Hydrox/Simethicone (Maalox) 30 ml PO Q4HR PRN PRN Reason: GI DISTRESS Stop: 08/09/17 21:25 Ascorbic Acid (Vitamin C) 500 mg PO DAILY [facility] Stop: 08/10/17 08:59 Last Admin: 06/23/17 08:18 Dose: 500 mg Carbidopa/Levodopa (Sinemet 25mg-100 Mg) 1 tab PO TID [facility] Stop: 08/10/17 08:59 Last Admin: 06/23/17 08:18 Dose: 1 tab Docusate Sodium (Colace) 200 mg PO HS [facility] Stop: 08/10/17 20:59 Last Admin: 06/22/17 21:25 Dose: 200 mg Ferrous Sulfate (Iron) 325 mg PO BID [facility] Stop: 08/10/17 08:59 Last Admin: 06/23/17 08:18 Dose: 325 mg Hydrocortisone (Cortef) 25 mg PO DAILY [facility] Stop: 08/10/17 08:59 Last Admin: 06/23/17 08:18 Dose: 25 mg Lisinopril (Zestril) 10 mg PO DAILY [facility] Stop: 08/10/17 08:59 Last Admin: 06/23/17 08:19 Dose: Not Given Lorazepam (Ativan) 0.5 mg PO Q4HR PRN; Protocol PRN Reason: Anxiety Stop: 07/10/17 21:25 Last Admin: 06/22/17 16:44 Dose: 0.5 mg Magnesium Hydroxide (Milk Of Magnesia) 30 ml PO HS PRN PRN Reason: Constipation Multivitamins/Vitamin C (Theragran) 1 tab PO DAILY [facility] Stop: 08/10/17 08:59 Last Admin: 06/23/17 08:20 Dose: 1 tab Nitroglycerin (Nitrostat) 0.4 mg SL Q5MIN PRN PRN Reason: Chest Pain Stop: 08/09/17 21:30 Pantoprazole Sodium (Protonix) 40 mg PO DAILY [facility] Stop: 08/10/17 08:59 Last Admin: 06/23/17 08:20 Dose: 40 mg Quetiapine Fumarate (Seroquel) 25 mg PO HS [facility] PRN Reason: Protocol Stop: 08/10/17 20:59 Last Admin: 06/22/17 21:24 Dose: 25 mg Sevelamer Carbonate (Renvela) 800 mg PO TIDWM [facility] Stop: 08/10/17 07:59 Last Admin: 06/23/17 08:18 Dose: 800 mg Vitamin B Complex/Vit C/Folic Acid (Vitamin B Complex W/Vitamin C) 1 tab PO DAILY [facility] Stop: 08/10/17 08:59 Last Admin: 06/23/17 08:20 Dose: 1 tab Assessment/Plan - Problem List Patient Problems: All Active Problems Dementia (Acute) F03.90 History of encephalopathy (Acute) Z86.69 History of schizoaffective disorder (Acute) Z86.59 Hyponatremia (Acute) E87.1 Leukocytosis (Acute) D72.829 Parkinson disease (Acute) G20 Sepsis (Acute) Nutritional Asmnt/Malnutr-PDOC - Dietary Evaluation Malnutrition Findings (Please click <Entered> for more info): Nutritional Asmnt/Malnutrition Start: 06/16/17 15: 47 Text: Status: Complete Freq: Document 06/16/17 15:47 MIKEY (Rec: 06/16/17 15:52 MIKEY [email or web address]) Nutritional Asmnt/Malnutrition Patient General Information Nutritional Screening Moderate Risk Diagnosis psychosis Pertinent Medical Hx/Surgical Hx HTN, DM, asthma/COPD, CVA/TIA, PUD/GERD, parkinson's disease anemia, CKD, encephalopathy, dysphagia Subjective Information Pt seen lying in bed at time of visit. Pt reported good appetite. Per records, PO intake 100%. Current Diet Order/ Nutrition Support pureed, nectar thick liquid Pertinent Labs 06/10 Na 136, K 4.0, Cl 103, BUn 20, Cr 1.0, Glucose 111, Ca 9.6 Nutritional Hx/Data Height 1.93 m Height (Calculated Centimeters) 193.0 Current Weight (lbs) 108.862 kg Weight (Calculated Kilograms) 108.9 Weight (Calculated Grams) 782424.2 [place] Body Weight 202 % [place] Body Weight 119 Body Mass Index (BMI) 29.2 Weight Status Overweight GI Symptoms GI Symptoms None Last BM 06/15 x 2 Difficult in: None Skin Integrity/Comment: intact Estimated Nutritional Goals Calories/Kcals/Kg 25-30 based on IBW 92kg Kcals Calculated 8065-9793 Protein g/k Protein Calculated 92 Fluid: ml 2300-2730ml (1ml/kcal) Nutritional Problem No current Nutrition Prob Problem N/A Malnutrition Alert Protein-Calorie Malnutrition N/A Is there a minimum of two criteria No selected? Query Text:Check all the applicable criteria. A minimum of two criteria are recommended for diagnosis of either severe or non-severe malnutrition. Intervention/Recommendation Comments 1. Continue with current diet as ordered. 2. Monitor PO intake, wt, labs and skin integrity 3. F/U as low risk in 7 days, 2/8 Expected Outcomes/Goals Expected Outcomes/Goals 1. PO intake to meet at least 75% of nutritional needs. 2. Wt stability, skin to remain intact, labs to approach WNL.
--- NOTE | 2017-06-23 13:38 | Progress Notes ---
DATE: 06/23/2017 SUBJECTIVE: Staff was spoken to. The patient is interviewed. Mood is noted to be anxious. Affect is appropriate. 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 The patient was tried to be discharged yesterday, but the facility that is supposed to be accepting the patient states that they have no beds and they are trying to look into assisted facilities and there are no beds open at this time and hence the patient is going to be kept in here fine until the placement is found. The patient is able to tolerate the medications. No side effects to the medications are noted. No major behavioral problems are reported separately. JOB# [id number]
[2017-06-24] MEDS: Ferrous Sulfate 325 MG TAB PO SCH ×2 (08:06→16:05)
[2017-06-24] MEDS: Multivitamin Tab PO SCH (08:07)
[2017-06-24] MEDS: Pantoprazole 40 mg EC Tab PO SCH (08:07)
[2017-06-24] MEDS: Vitamin B Complex w/Vitamin C Tab PO SCH (08:08)
--- NOTE | 2017-06-24 15:09 | Progress Notes ---
DATE: 06/24/2017 SUBJECTIVE: Staff was spoken to. The patient is interviewed. Mood is noted to be irritable. Affect is constricted. The patient is stating that he is getting frustrated for being in here for too long and he wants to get out. The patient has been clearly explained that the placement is a problem at this time and we are waiting for the bed to open as the patient has been able to tolerate the medications. No major behavioral problems are noted with regards to his impulsivity. ASSESSMENT: The patient is stabilizing and awaiting placement. PLAN: To continue the patient with supportive therapy and followup. JOB# [id number]
--- NOTE | 2017-06-24 17:27 | Internal Medicine Prog Note ---
Internal Medicine Subjective - Subjective Service Date: 06/24/17 Patient is:: awake Per staff patient has:: tolerating meds Internal Medicine Objective - Results Result Diagrams: 06/10/17 16:25 06/10/17 16:25 Recent Labs: Laboratory Last Values WBC 12.6 Th/cmm (4.8-10.8) H D 06/10/17 16:25 RBC 4.89 Mil/cmm (4.30-5.70) 06/10/17 16:25 Hgb 14.8 gm/dL (12-16) 06/10/17 16:25 Hct 44.7 % (41.0-60) D 06/10/17 16:25 MCV 91.4 fl (80-99) 06/10/17 16:25 MCH 30.3 pg (26.0-30.0) H 06/10/17 16:25 MCHC Differential 33.2 pg (28.0-36.0) 06/10/17 16:25 RDW 12.0 % (11.5-20.0) 06/10/17 16:25 Plt Count 323 Th/cmm (150-400) D 06/10/17 16:25 MPV 6.8 fl 06/10/17 16:25 Neutrophils % 64.5 % (40.0-80.0) 06/10/17 16:25 Lymphocytes % 27.2 % (20.0-50.0) 06/10/17 16:25 Monocytes % 5.6 % (2.0-10.0) 06/10/17 16:25 Eosinophils % 1.9 % (0.0-5.0) 06/10/17 16:25 Basophils % 0.8 % (0.0-2.0) 06/10/17 16:25 Sodium 136 mEq/L (136-145) 06/10/17 16:25 Potassium 4.0 mEq/L (3.5-5.1) 06/10/17 16:25 Chloride 103 mEq/L (98-107) 06/10/17 16:25 Carbon Dioxide 25.6 mEq/L (21.0-31.0) 06/10/17 16:25 Anion Gap 11.4 (7.0-16.0) 06/10/17 16:25 BUN 20 mg/dL (7-25) 06/10/17 16:25 Creatinine 1.0 mg/dL (0.7-1.3) 06/10/17 16:25 Est GFR ( Amer) > 60.0 ml/min (>90) 06/10/17 16:25 Est GFR (Non-Af Amer) > 60.0 ml/min 06/10/17 16:25 BUN/Creatinine Ratio 20.0 06/10/17 16:25 Glucose 111 mg/dL (70-105) H 06/10/17 16:25 Whole Bld Lactic Acid 0.90 mmol/L (0.60-1.99) 06/10/17 16:25 Calcium 9.6 mg/dL (8.6-10.3) 06/10/17 16:25 Total Bilirubin 0.3 mg/dL (0.3-1.0) 06/10/17 16:25 AST 15 U/L (13-39) 06/10/17 16:25 ALT 12 U/L (7-52) 06/10/17 16:25 Alkaline Phosphatase 54 U/L (34-104) 06/10/17 16:25 Total Protein 6.9 gm/dL (6.0-8.3) 06/10/17 16:25 Albumin 3.8 gm/dL (4.2-5.5) L 06/10/17 16:25 Globulin 3.1 gm/dL 06/10/17 16:25 Albumin/Globulin Ratio 1.2 (1.0-1.8) 06/10/17 16:25 TSH 1.02 uIU/ml (0.34-5.60) 06/10/17 16:25 Urine Source RANDOM 06/10/17 17:18 Urine Color YELLOW 06/10/17 17:18 Urine Clarity CLEAR (CLEAR) 06/10/17 17:18 Urine pH 7.0 (4.6 - 8.0) 06/10/17 17:18 Ur Specific [place] 1.010 (1.005-1.030) 06/10/17 17:18 Urine Protein NEGATIVE mg/dL (NEGATIVE) 06/10/17 17:18 Urine Glucose (UA) NEGATIVE mg/dL (NEGATIVE) 06/10/17 17:18 Urine Ketones NEGATIVE mg/dL (NEGATIVE) 06/10/17 17:18 Urine Blood NEGATIVE (NEGATIVE) 06/10/17 17:18 Urine Nitrate NEGATIVE (NEGATIVE) 06/10/17 17:18 Urine Bilirubin NEGATIVE (NEGATIVE) 06/10/17 17:18 Urine Urobilinogen 0.2 E.U./dL (0.2 - 1.0) 06/10/17 17:18 Ur Leukocyte Esterase NEGATIVE (NEGATIVE) 06/10/17 17:18 Urine RBC NONE SEEN /hpf (0-5) 06/10/17 17:18 Urine WBC NONE SEEN /hpf (0-5) 06/10/17 17:18 Ur Epithelial Cells NONE SEEN /lpf (FEW) 06/10/17 17:18 Urine Bacteria NONE SEEN /hpf (NONE SEEN) 06/10/17 17:18 - Physical Exam Vitals and I&O: Vital Signs Temp 97.9 F 06/24/17 14:30 Pulse 86 06/24/17 14:30 Resp 18 06/24/17 14:30 BP 108/67 06/24/17 14:30 Pulse Ox 97 06/24/17 14:30 Intake & Output 06/23/17 06/24/17 06/24/17 18:59 06:59 18:59 Intake Total 1000 Balance 1000 Intake: Oral 1000 Other: # Voids 3 # Bowel Movements 1 Active Medications: Current Medications Acetaminophen (Tylenol) 650 mg PO Q4HR PRN PRN Reason: Mild Pain / Temp above 100 Stop: 08/09/17 21:25 Last Admin: 06/14/17 20:38 Dose: 650 mg Al Hydrox/Mg Hydrox/Simethicone (Maalox) 30 ml PO Q4HR PRN PRN Reason: GI DISTRESS Stop: 08/09/17 21:25 Ascorbic Acid (Vitamin C) 500 mg PO DAILY [facility] Stop: 08/10/17 08:59 Last Admin: 06/24/17 08:11 Dose: 500 mg Carbidopa/Levodopa (Sinemet 25mg-100 Mg) 1 tab PO TID [facility] Stop: 08/10/17 08:59 Last Admin: 06/24/17 14:36 Dose: 1 tab Docusate Sodium (Colace) 200 mg PO HS [facility] Stop: 08/10/17 20:59 Last Admin: 06/23/17 20:52 Dose: 200 mg Ferrous Sulfate (Iron) 325 mg PO BID [facility] Stop: 08/10/17 08:59 Last Admin: 06/24/17 16:05 Dose: 325 mg Hydrocortisone (Cortef) 25 mg PO DAILY [facility] Stop: 08/10/17 08:59 Last Admin: 06/24/17 08:06 Dose: 25 mg Lisinopril (Zestril) 10 mg PO DAILY [facility] Stop: 08/10/17 08:59 Last Admin: 06/24/17 08:07 Dose: 10 mg Lorazepam (Ativan) 0.5 mg PO Q4HR PRN; Protocol PRN Reason: Anxiety Stop: 07/10/17 21:25 Last Admin: 06/23/17 22:01 Dose: 0.5 mg Magnesium Hydroxide (Milk Of Magnesia) 30 ml PO HS PRN PRN Reason: Constipation Multivitamins/Vitamin C (Theragran) 1 tab PO DAILY [facility] Stop: 08/10/17 08:59 Last Admin: 06/24/17 08:07 Dose: 1 tab Nitroglycerin (Nitrostat) 0.4 mg SL Q5MIN PRN PRN Reason: Chest Pain Stop: 08/09/17 21:30 Pantoprazole Sodium (Protonix) 40 mg PO DAILY [facility] Stop: 08/10/17 08:59 Last Admin: 06/24/17 08:07 Dose: 40 mg Quetiapine Fumarate (Seroquel) 25 mg PO HS [place] PRN Reason: Protocol Stop: 08/10/17 20:59 Last Admin: 06/23/17 20:52 Dose: 25 mg Sevelamer Carbonate (Renvela) 800 mg PO TIDWM [facility] Stop: 08/10/17 07:59 Last Admin: 06/24/17 16:05 Dose: 800 mg Vitamin B Complex/Vit C/Folic Acid (Vitamin B Complex W/Vitamin C) 1 tab PO DAILY [facility] Stop: 08/10/17 08:59 Last Admin: 06/24/17 08:08 Dose: 1 tab General: alert HEENT: NC/AT, PERRLA Neck: Supple Lungs: CTAB Neurological: alert Internal Medicine Assmt/Plan - Assessment Assessment: HTN DM Asthma/COPD HX CVA/TIA W\Right hemiparesis PUD/GERD Parkinson's disease anemia chronic renal disease - Plan Plan: MONITOR GLUCOSE FALL PRECAUTIONS CONTINUE CURRENT ORDERS Nutritional Asmnt/Malnutr-PDOC - Dietary Evaluation Malnutrition Findings (Please click <Entered> for more info): Nutritional Asmnt/Malnutrition Start: 06/16/17 15: 47 Text: Status: Complete Freq: Document 06/16/17 15:47 GRANTLANNY (Rec: 06/16/17 15:52 STEVENKiran [id number]) Nutritional Asmnt/Malnutrition Patient General Information Nutritional Screening Moderate Risk Diagnosis psychosis Pertinent Medical Hx/Surgical Hx HTN, DM, asthma/COPD, CVA/TIA, PUD/GERD, parkinson's disease anemia, CKD, encephalopathy, dysphagia Subjective Information Pt seen lying in bed at time of visit. Pt reported good appetite. Per records, PO intake 100%. Current Diet Order/ Nutrition Support pureed, nectar thick liquid Pertinent Labs 06/10 Na 136, K 4.0, Cl 103, BUn 20, Cr 1.0, Glucose 111, Ca 9.6 Nutritional Hx/Data Height 6 ft 4 in Height (Calculated Centimeters) 193.0 Current Weight (lbs) 240 lb Weight (Calculated Kilograms) 108.9 Weight (Calculated Grams) 949152.2 [place] Body Weight 202 % [place] Body Weight 119 Body Mass Index (BMI) 29.2 Weight Status Overweight GI Symptoms GI Symptoms None Last BM 06/15 x 2 Difficult in: None Skin Integrity/Comment: intact Estimated Nutritional Goals Calories/Kcals/Kg 25-30 based on IBW 92kg Kcals Calculated 7179-1195 Protein g/k Protein Calculated 92 Fluid: ml 2300-2730ml (1ml/kcal) Nutritional Problem No current Nutrition Prob Problem N/A Malnutrition Alert Protein-Calorie Malnutrition N/A Is there a minimum of two criteria No selected? Query Text:Check all the applicable criteria. A minimum of two criteria are recommended for diagnosis of either severe or non-severe malnutrition. Intervention/Recommendation Comments 1. Continue with current diet as ordered. 2. Monitor PO intake, wt, labs and skin integrity 3. F/U as low risk in 7 days, 2/8 Expected Outcomes/Goals Expected Outcomes/Goals 1. PO intake to meet at least 75% of nutritional needs. 2. Wt stability, skin to remain intact, labs to approach WNL.
[2017-06-25] MEDS: Multivitamin Tab PO SCH (08:50)
[2017-06-25] MEDS: Vitamin B Complex w/Vitamin C Tab PO SCH (08:51)
[2017-06-25] MEDS: Pantoprazole 40 mg EC Tab PO SCH (08:51)
[2017-06-25] MEDS: Ferrous Sulfate 325 MG TAB PO SCH ×2 (08:51→16:55)
--- NOTE | 2017-06-25 14:03 | Progress Notes ---
DATE: 06/25/2017 SUBJECTIVE: Staff was spoken to. The patient is interviewed. Mood is noted to be anxious. The patient's insight and judgment are improving. Impulse control seems to be fair today. The patient is patiently waiting for placement. It is reported that the patient, placement is not available until next week. No side effects to the medications are noted. The aggressive behavior has been coming under control. The patient has been able to tolerate the medications. ASSESSMENT: The patient is stabilizing and awaiting placement. PLAN: To continue the patient with the supportive therapy and followup. JOB# [id number]
[2017-06-26] MEDS: Pantoprazole 40 mg EC Tab PO SCH (09:22)
[2017-06-26] MEDS: Multivitamin Tab PO SCH (09:22)
[2017-06-26] MEDS: Vitamin B Complex w/Vitamin C Tab PO SCH (09:22)
[2017-06-26] MEDS: Ferrous Sulfate 325 MG TAB PO SCH ×2 (09:22→18:00)
--- NOTE | 2017-06-26 10:25 | General Progress Note ---
Subjective - Review of Systems Events since last encounter: awake in no distress Objective - Results Result Diagrams: 06/10/17 16:25 06/10/17 16:25 Recent Labs: Laboratory Last Values WBC 12.6 Th/cmm (4.8-10.8) H D 06/10/17 16:25 RBC 4.89 Mil/cmm (4.30-5.70) 06/10/17 16:25 Hgb 14.8 gm/dL (12-16) 06/10/17 16:25 Hct 44.7 % (41.0-60) D 06/10/17 16:25 MCV 91.4 fl (80-99) 06/10/17 16:25 MCH 30.3 pg (26.0-30.0) H 06/10/17 16:25 MCHC Differential 33.2 pg (28.0-36.0) 06/10/17 16:25 RDW 12.0 % (11.5-20.0) 06/10/17 16:25 Plt Count 323 Th/cmm (150-400) D 06/10/17 16:25 MPV 6.8 fl 06/10/17 16:25 Neutrophils % 64.5 % (40.0-80.0) 06/10/17 16:25 Lymphocytes % 27.2 % (20.0-50.0) 06/10/17 16:25 Monocytes % 5.6 % (2.0-10.0) 06/10/17 16:25 Eosinophils % 1.9 % (0.0-5.0) 06/10/17 16:25 Basophils % 0.8 % (0.0-2.0) 06/10/17 16:25 Sodium 136 mEq/L (136-145) 06/10/17 16:25 Potassium 4.0 mEq/L (3.5-5.1) 06/10/17 16:25 Chloride 103 mEq/L (98-107) 06/10/17 16:25 Carbon Dioxide 25.6 mEq/L (21.0-31.0) 06/10/17 16:25 Anion Gap 11.4 (7.0-16.0) 06/10/17 16:25 BUN 20 mg/dL (7-25) 06/10/17 16:25 Creatinine 1.0 mg/dL (0.7-1.3) 06/10/17 16:25 Est GFR ( Amer) > 60.0 ml/min (>90) 06/10/17 16:25 Est GFR (Non-Af Amer) > 60.0 ml/min 06/10/17 16:25 BUN/Creatinine Ratio 20.0 06/10/17 16:25 Glucose 111 mg/dL (70-105) H 06/10/17 16:25 Whole Bld Lactic Acid 0.90 mmol/L (0.60-1.99) 06/10/17 16:25 Calcium 9.6 mg/dL (8.6-10.3) 06/10/17 16:25 Total Bilirubin 0.3 mg/dL (0.3-1.0) 06/10/17 16:25 AST 15 U/L (13-39) 06/10/17 16:25 ALT 12 U/L (7-52) 06/10/17 16:25 Alkaline Phosphatase 54 U/L (34-104) 06/10/17 16:25 Total Protein 6.9 gm/dL (6.0-8.3) 06/10/17 16:25 Albumin 3.8 gm/dL (4.2-5.5) L 06/10/17 16:25 Globulin 3.1 gm/dL 06/10/17 16:25 Albumin/Globulin Ratio 1.2 (1.0-1.8) 06/10/17 16:25 TSH 1.02 uIU/ml (0.34-5.60) 06/10/17 16:25 Urine Source RANDOM 06/10/17 17:18 Urine Color YELLOW 06/10/17 17:18 Urine Clarity CLEAR (CLEAR) 06/10/17 17:18 Urine pH 7.0 (4.6 - 8.0) 06/10/17 17:18 Ur Specific [place] 1.010 (1.005-1.030) 06/10/17 17:18 Urine Protein NEGATIVE mg/dL (NEGATIVE) 06/10/17 17:18 Urine Glucose (UA) NEGATIVE mg/dL (NEGATIVE) 06/10/17 17:18 Urine Ketones NEGATIVE mg/dL (NEGATIVE) 06/10/17 17:18 Urine Blood NEGATIVE (NEGATIVE) 06/10/17 17:18 Urine Nitrate NEGATIVE (NEGATIVE) 06/10/17 17:18 Urine Bilirubin NEGATIVE (NEGATIVE) 06/10/17 17:18 Urine Urobilinogen 0.2 E.U./dL (0.2 - 1.0) 06/10/17 17:18 Ur Leukocyte Esterase NEGATIVE (NEGATIVE) 06/10/17 17:18 Urine RBC NONE SEEN /hpf (0-5) 06/10/17 17:18 Urine WBC NONE SEEN /hpf (0-5) 06/10/17 17:18 Ur Epithelial Cells NONE SEEN /lpf (FEW) 06/10/17 17:18 Urine Bacteria NONE SEEN /hpf (NONE SEEN) 06/10/17 17:18 - Physical Exam Vitals and I&O: Vital Signs Temp 98 F 06/26/17 06:35 Pulse 81 06/26/17 09:22 Resp 19 06/26/17 06:35 BP 134/60 06/26/17 09:22 Pulse Ox 99 06/26/17 06:35 Intake & Output 06/25/17 06/26/17 06/26/17 18:59 06:59 18:59 Intake Total 1000 Balance 1000 Intake: Oral 1000 Other: # Voids 4 3 # Bowel Movements 0 Active Medications: Current Medications Acetaminophen (Tylenol) 650 mg PO Q4HR PRN PRN Reason: Mild Pain / Temp above 100 Stop: 08/09/17 21:25 Last Admin: 06/14/17 20:38 Dose: 650 mg Al Hydrox/Mg Hydrox/Simethicone (Maalox) 30 ml PO Q4HR PRN PRN Reason: GI DISTRESS Stop: 08/09/17 21:25 Ascorbic Acid (Vitamin C) 500 mg PO DAILY [facility] Stop: 08/10/17 08:59 Last Admin: 06/26/17 09:22 Dose: 500 mg Carbidopa/Levodopa (Sinemet 25mg-100 Mg) 1 tab PO TID [facility] Stop: 08/10/17 08:59 Last Admin: 06/26/17 09:22 Dose: 1 tab Docusate Sodium (Colace) 200 mg PO HS [facility] Stop: 08/10/17 20:59 Last Admin: 06/25/17 21:22 Dose: 200 mg Ferrous Sulfate (Iron) 325 mg PO BID [facility] Stop: 08/10/17 08:59 Last Admin: 06/26/17 09:22 Dose: 325 mg Hydrocortisone (Cortef) 25 mg PO DAILY [facility] Stop: 08/10/17 08:59 Last Admin: 06/25/17 08:50 Dose: 25 mg Lisinopril (Zestril) 10 mg PO DAILY [facility] Stop: 08/10/17 08:59 Last Admin: 06/26/17 09:22 Dose: 10 mg Lorazepam (Ativan) 0.5 mg PO Q4HR PRN; Protocol PRN Reason: Anxiety Stop: 07/10/17 21:25 Last Admin: 06/25/17 16:56 Dose: 0.5 mg Magnesium Hydroxide (Milk Of Magnesia) 30 ml PO HS PRN PRN Reason: Constipation Multivitamins/Vitamin C (Theragran) 1 tab PO DAILY [facility] Stop: 08/10/17 08:59 Last Admin: 06/26/17 09:22 Dose: 1 tab Nitroglycerin (Nitrostat) 0.4 mg SL Q5MIN PRN PRN Reason: Chest Pain Stop: 08/09/17 21:30 Pantoprazole Sodium (Protonix) 40 mg PO DAILY [facility] Stop: 08/10/17 08:59 Last Admin: 06/26/17 09:22 Dose: 40 mg Quetiapine Fumarate (Seroquel) 25 mg PO HS [facility] PRN Reason: Protocol Stop: 08/10/17 20:59 Last Admin: 06/25/17 21:22 Dose: 25 mg Sevelamer Carbonate (Renvela) 800 mg PO TIDWM [facility] Stop: 08/10/17 07:59 Last Admin: 06/25/17 16:56 Dose: 800 mg Vitamin B Complex/Vit C/Folic Acid (Vitamin B Complex W/Vitamin C) 1 tab PO DAILY [facility] Stop: 08/10/17 08:59 Last Admin: 06/26/17 09:22 Dose: 1 tab Nutritional Asmnt/Malnutr-PDOC - Dietary Evaluation Malnutrition Findings (Please click <Entered> for more info): Nutritional Asmnt/Malnutrition Start: 06/16/17 15: 47 Text: Status: Complete Freq: Document 06/16/17 15:47 LCHENG (Rec: 06/16/17 15:52 LCHENG [email or web address]) Nutritional Asmnt/Malnutrition Patient General Information Nutritional Screening Moderate Risk Diagnosis psychosis Pertinent Medical Hx/Surgical Hx HTN, DM, asthma/COPD, CVA/TIA, PUD/GERD, parkinson's disease anemia, CKD, encephalopathy, dysphagia Subjective Information Pt seen lying in bed at time of visit. Pt reported good appetite. Per records, PO intake 100%. Current Diet Order/ Nutrition Support pureed, nectar thick liquid Pertinent Labs 06/10 Na 136, K 4.0, Cl 103, BUn 20, Cr 1.0, Glucose 111, Ca 9.6 Nutritional Hx/Data Height 1.93 m Height (Calculated Centimeters) 193.0 Current Weight (lbs) 108.862 kg Weight (Calculated Kilograms) 108.9 Weight (Calculated Grams) 437790.2 [place] Body Weight 202 % [place] Body Weight 119 Body Mass Index (BMI) 29.2 Weight Status Overweight GI Symptoms GI Symptoms None Last BM 06/15 x 2 Difficult in: None Skin Integrity/Comment: intact Estimated Nutritional Goals Calories/Kcals/Kg 25-30 based on IBW 92kg Kcals Calculated 5528-6527 Protein g/k Protein Calculated 92 Fluid: ml 2300-2730ml (1ml/kcal) Nutritional Problem No current Nutrition Prob Problem N/A Malnutrition Alert Protein-Calorie Malnutrition N/A Is there a minimum of two criteria No selected? Query Text:Check all the applicable criteria. A minimum of two criteria are recommended for diagnosis of either severe or non-severe malnutrition. Intervention/Recommendation Comments 1. Continue with current diet as ordered. 2. Monitor PO intake, wt, labs and skin integrity 3. F/U as low risk in 7 days, 2/8 Expected Outcomes/Goals Expected Outcomes/Goals 1. PO intake to meet at least 75% of nutritional needs. 2. Wt stability, skin to remain intact, labs to approach WNL.
--- NOTE | 2017-06-26 13:05 | Progress Notes ---
DATE: 06/26/2017 SUBJECTIVE: Staff was spoken to. Patient is interviewed. Mood is noted to be anxious. Affect is appropriate. Not suicidal or homicidal. Insight and judgment noted to be improving. Impulse control seems to be fair. Coping skills are noted to be fair. No side effects to the medications are noted. The patient has been able to verbalize the concerns rather than to act out. The patient is willing to comply with the treatment, however, the placement is not available until next week. The patient at this time being closely monitored. ASSESSMENT: The patient is currently on the carbidopa levodopa on lisinopril for his blood pressure and is also receiving the quetiapine 25 mg at bedtime. No major behavioral problems are noted. [facility]# [id number]
[2017-06-27] MEDS: Pantoprazole 40 mg EC Tab PO SCH (08:13)
[2017-06-27] MEDS: Ferrous Sulfate 325 MG TAB PO SCH ×2 (08:13→16:49)
[2017-06-27] MEDS: Multivitamin Tab PO SCH (08:13)
[2017-06-27] MEDS: Vitamin B Complex w/Vitamin C Tab PO SCH (08:14)
--- NOTE | 2017-06-27 16:13 | General Progress Note ---
Subjective - Review of Systems Events since last encounter: in no distress Objective - Results Result Diagrams: 06/10/17 16:25 06/10/17 16:25 Recent Labs: Laboratory Last Values WBC 12.6 Th/cmm (4.8-10.8) H D 06/10/17 16:25 RBC 4.89 Mil/cmm (4.30-5.70) 06/10/17 16:25 Hgb 14.8 gm/dL (12-16) 06/10/17 16:25 Hct 44.7 % (41.0-60) D 06/10/17 16:25 MCV 91.4 fl (80-99) 06/10/17 16:25 MCH 30.3 pg (26.0-30.0) H 06/10/17 16:25 MCHC Differential 33.2 pg (28.0-36.0) 06/10/17 16:25 RDW 12.0 % (11.5-20.0) 06/10/17 16:25 Plt Count 323 Th/cmm (150-400) D 06/10/17 16:25 MPV 6.8 fl 06/10/17 16:25 Neutrophils % 64.5 % (40.0-80.0) 06/10/17 16:25 Lymphocytes % 27.2 % (20.0-50.0) 06/10/17 16:25 Monocytes % 5.6 % (2.0-10.0) 06/10/17 16:25 Eosinophils % 1.9 % (0.0-5.0) 06/10/17 16:25 Basophils % 0.8 % (0.0-2.0) 06/10/17 16:25 Sodium 136 mEq/L (136-145) 06/10/17 16:25 Potassium 4.0 mEq/L (3.5-5.1) 06/10/17 16:25 Chloride 103 mEq/L (98-107) 06/10/17 16:25 Carbon Dioxide 25.6 mEq/L (21.0-31.0) 06/10/17 16:25 Anion Gap 11.4 (7.0-16.0) 06/10/17 16:25 BUN 20 mg/dL (7-25) 06/10/17 16:25 Creatinine 1.0 mg/dL (0.7-1.3) 06/10/17 16:25 Est GFR ( Amer) > 60.0 ml/min (>90) 06/10/17 16:25 Est GFR (Non-Af Amer) > 60.0 ml/min 06/10/17 16:25 BUN/Creatinine Ratio 20.0 06/10/17 16:25 Glucose 111 mg/dL (70-105) H 06/10/17 16:25 Whole Bld Lactic Acid 0.90 mmol/L (0.60-1.99) 06/10/17 16:25 Calcium 9.6 mg/dL (8.6-10.3) 06/10/17 16:25 Total Bilirubin 0.3 mg/dL (0.3-1.0) 06/10/17 16:25 AST 15 U/L (13-39) 06/10/17 16:25 ALT 12 U/L (7-52) 06/10/17 16:25 Alkaline Phosphatase 54 U/L (34-104) 06/10/17 16:25 Total Protein 6.9 gm/dL (6.0-8.3) 06/10/17 16:25 Albumin 3.8 gm/dL (4.2-5.5) L 06/10/17 16:25 Globulin 3.1 gm/dL 06/10/17 16:25 Albumin/Globulin Ratio 1.2 (1.0-1.8) 06/10/17 16:25 TSH 1.02 uIU/ml (0.34-5.60) 06/10/17 16:25 Urine Source RANDOM 06/10/17 17:18 Urine Color YELLOW 06/10/17 17:18 Urine Clarity CLEAR (CLEAR) 06/10/17 17:18 Urine pH 7.0 (4.6 - 8.0) 06/10/17 17:18 Ur Specific [place] 1.010 (1.005-1.030) 06/10/17 17:18 Urine Protein NEGATIVE mg/dL (NEGATIVE) 06/10/17 17:18 Urine Glucose (UA) NEGATIVE mg/dL (NEGATIVE) 06/10/17 17:18 Urine Ketones NEGATIVE mg/dL (NEGATIVE) 06/10/17 17:18 Urine Blood NEGATIVE (NEGATIVE) 06/10/17 17:18 Urine Nitrate NEGATIVE (NEGATIVE) 06/10/17 17:18 Urine Bilirubin NEGATIVE (NEGATIVE) 06/10/17 17:18 Urine Urobilinogen 0.2 E.U./dL (0.2 - 1.0) 06/10/17 17:18 Ur Leukocyte Esterase NEGATIVE (NEGATIVE) 06/10/17 17:18 Urine RBC NONE SEEN /hpf (0-5) 06/10/17 17:18 Urine WBC NONE SEEN /hpf (0-5) 06/10/17 17:18 Ur Epithelial Cells NONE SEEN /lpf (FEW) 06/10/17 17:18 Urine Bacteria NONE SEEN /hpf (NONE SEEN) 06/10/17 17:18 - Physical Exam Vitals and I&O: Vital Signs Temp 97.7 F 06/27/17 14:49 Pulse 79 06/27/17 14:49 Resp 20 06/27/17 14:49 BP 116/68 06/27/17 14:49 Pulse Ox 96 06/27/17 14:49 Intake & Output 06/26/17 06/27/17 06/27/17 18:59 06:59 18:59 Intake Total 1000 Balance 1000 Intake: Oral 1000 Other: # Voids 4 2 # Bowel Movements 0 Active Medications: Current Medications Acetaminophen (Tylenol) 650 mg PO Q4HR PRN PRN Reason: Mild Pain / Temp above 100 Stop: 08/09/17 21:25 Last Admin: 06/14/17 20:38 Dose: 650 mg Al Hydrox/Mg Hydrox/Simethicone (Maalox) 30 ml PO Q4HR PRN PRN Reason: GI DISTRESS Stop: 08/09/17 21:25 Ascorbic Acid (Vitamin C) 500 mg PO DAILY [facility] Stop: 08/10/17 08:59 Last Admin: 06/27/17 08:13 Dose: 500 mg Carbidopa/Levodopa (Sinemet 25mg-100 Mg) 1 tab PO TID [facility] Stop: 08/10/17 08:59 Last Admin: 06/27/17 08:13 Dose: 1 tab Docusate Sodium (Colace) 200 mg PO HS [facility] Stop: 08/10/17 20:59 Last Admin: 06/26/17 20:43 Dose: 200 mg Ferrous Sulfate (Iron) 325 mg PO BID [facility] Stop: 08/10/17 08:59 Last Admin: 06/27/17 08:13 Dose: 325 mg Hydrocortisone (Cortef) 25 mg PO DAILY [facility] Stop: 08/10/17 08:59 Last Admin: 06/27/17 08:23 Dose: 25 mg Lisinopril (Zestril) 10 mg PO DAILY [facility] Stop: 08/10/17 08:59 Last Admin: 06/27/17 08:14 Dose: 10 mg Lorazepam (Ativan) 0.5 mg PO Q4HR PRN; Protocol PRN Reason: Anxiety Stop: 07/10/17 21:25 Last Admin: 06/27/17 08:14 Dose: 0.5 mg Magnesium Hydroxide (Milk Of Magnesia) 30 ml PO HS PRN PRN Reason: Constipation Multivitamins/Vitamin C (Theragran) 1 tab PO DAILY [facility] Stop: 08/10/17 08:59 Last Admin: 06/27/17 08:13 Dose: 1 tab Nitroglycerin (Nitrostat) 0.4 mg SL Q5MIN PRN PRN Reason: Chest Pain Stop: 08/09/17 21:30 Pantoprazole Sodium (Protonix) 40 mg PO DAILY [facility] Stop: 08/10/17 08:59 Last Admin: 06/27/17 08:13 Dose: 40 mg Quetiapine Fumarate (Seroquel) 25 mg PO HS [facility] PRN Reason: Protocol Stop: 08/10/17 20:59 Last Admin: 06/26/17 20:43 Dose: 25 mg Sevelamer Carbonate (Renvela) 800 mg PO TIDWM [facility] Stop: 08/10/17 07:59 Last Admin: 06/27/17 12:29 Dose: 800 mg Vitamin B Complex/Vit C/Folic Acid (Vitamin B Complex W/Vitamin C) 1 tab PO DAILY [facility] Stop: 08/10/17 08:59 Last Admin: 06/27/17 08:14 Dose: 1 tab Nutritional Asmnt/Malnutr-PDOC - Dietary Evaluation Malnutrition Findings (Please click <Entered> for more info): Nutritional Asmnt/Malnutrition Start: 06/16/17 15: 47 Text: Status: Complete Freq: Document 06/16/17 15:47 LCHENG (Rec: 06/16/17 15:52 LCHENG [email or web address]) Nutritional Asmnt/Malnutrition Patient General Information Nutritional Screening Moderate Risk Diagnosis psychosis Pertinent Medical Hx/Surgical Hx HTN, DM, asthma/COPD, CVA/TIA, PUD/GERD, parkinson's disease anemia, CKD, encephalopathy, dysphagia Subjective Information Pt seen lying in bed at time of visit. Pt reported good appetite. Per records, PO intake 100%. Current Diet Order/ Nutrition Support pureed, nectar thick liquid Pertinent Labs 06/10 Na 136, K 4.0, Cl 103, BUn 20, Cr 1.0, Glucose 111, Ca 9.6 Nutritional Hx/Data Height 1.93 m Height (Calculated Centimeters) 193.0 Current Weight (lbs) 108.862 kg Weight (Calculated Kilograms) 108.9 Weight (Calculated Grams) 054575.2 [place] Body Weight 202 % [place] Body Weight 119 Body Mass Index (BMI) 29.2 Weight Status Overweight GI Symptoms GI Symptoms None Last BM 06/15 x 2 Difficult in: None Skin Integrity/Comment: intact Estimated Nutritional Goals Calories/Kcals/Kg 25-30 based on IBW 92kg Kcals Calculated 4357-7542 Protein g/k Protein Calculated 92 Fluid: ml 2300-2730ml (1ml/kcal) Nutritional Problem No current Nutrition Prob Problem N/A Malnutrition Alert Protein-Calorie Malnutrition N/A Is there a minimum of two criteria No selected? Query Text:Check all the applicable criteria. A minimum of two criteria are recommended for diagnosis of either severe or non-severe malnutrition. Intervention/Recommendation Comments 1. Continue with current diet as ordered. 2. Monitor PO intake, wt, labs and skin integrity 3. F/U as low risk in 7 days, 2/8 Expected Outcomes/Goals Expected Outcomes/Goals 1. PO intake to meet at least 75% of nutritional needs. 2. Wt stability, skin to remain intact, labs to approach WNL.
--- NOTE | 2017-06-27 20:47 | Progress Notes ---
DATE: 06/27/2017 SUBJECTIVE: Staff was spoken to. The patient is interviewed. Mood is noted to be irritable. Affect is constricted. Coping skills are noted to be still poor. The patient has been less impulsive. The patient has been able to verbalize the concerns. No major side effects to the medications are noted. The patient is currently on Seroquel 25 mg at bedtime. Staff was reporting that the patient has no place and then they are looking for possibly ADC tomorrow if the placement is available. JOB# [id number]
[2017-06-28] MEDS: Vitamin B Complex w/Vitamin C Tab PO SCH (08:07)
[2017-06-28] MEDS: Multivitamin Tab PO SCH (08:07)
[2017-06-28] MEDS: Ferrous Sulfate 325 MG TAB PO SCH (08:07)
[2017-06-28] MEDS: Pantoprazole 40 mg EC Tab PO SCH (08:08)
--- NOTE | 2017-06-28 11:37 | Internal Medicine Prog Note ---
Internal Medicine Subjective - Subjective Service Date: 06/28/17 Patient is:: awake Per staff patient has:: tolerating meds Internal Medicine Objective - Results Result Diagrams: 06/10/17 16:25 06/10/17 16:25 Recent Labs: Laboratory Last Values WBC 12.6 Th/cmm (4.8-10.8) H D 06/10/17 16:25 RBC 4.89 Mil/cmm (4.30-5.70) 06/10/17 16:25 Hgb 14.8 gm/dL (12-16) 06/10/17 16:25 Hct 44.7 % (41.0-60) D 06/10/17 16:25 MCV 91.4 fl (80-99) 06/10/17 16:25 MCH 30.3 pg (26.0-30.0) H 06/10/17 16:25 MCHC Differential 33.2 pg (28.0-36.0) 06/10/17 16:25 RDW 12.0 % (11.5-20.0) 06/10/17 16:25 Plt Count 323 Th/cmm (150-400) D 06/10/17 16:25 MPV 6.8 fl 06/10/17 16:25 Neutrophils % 64.5 % (40.0-80.0) 06/10/17 16:25 Lymphocytes % 27.2 % (20.0-50.0) 06/10/17 16:25 Monocytes % 5.6 % (2.0-10.0) 06/10/17 16:25 Eosinophils % 1.9 % (0.0-5.0) 06/10/17 16:25 Basophils % 0.8 % (0.0-2.0) 06/10/17 16:25 Sodium 136 mEq/L (136-145) 06/10/17 16:25 Potassium 4.0 mEq/L (3.5-5.1) 06/10/17 16:25 Chloride 103 mEq/L (98-107) 06/10/17 16:25 Carbon Dioxide 25.6 mEq/L (21.0-31.0) 06/10/17 16:25 Anion Gap 11.4 (7.0-16.0) 06/10/17 16:25 BUN 20 mg/dL (7-25) 06/10/17 16:25 Creatinine 1.0 mg/dL (0.7-1.3) 06/10/17 16:25 Est GFR ( Amer) > 60.0 ml/min (>90) 06/10/17 16:25 Est GFR (Non-Af Amer) > 60.0 ml/min 06/10/17 16:25 BUN/Creatinine Ratio 20.0 06/10/17 16:25 Glucose 111 mg/dL (70-105) H 06/10/17 16:25 Whole Bld Lactic Acid 0.90 mmol/L (0.60-1.99) 06/10/17 16:25 Calcium 9.6 mg/dL (8.6-10.3) 06/10/17 16:25 Total Bilirubin 0.3 mg/dL (0.3-1.0) 06/10/17 16:25 AST 15 U/L (13-39) 06/10/17 16:25 ALT 12 U/L (7-52) 06/10/17 16:25 Alkaline Phosphatase 54 U/L (34-104) 06/10/17 16:25 Total Protein 6.9 gm/dL (6.0-8.3) 06/10/17 16:25 Albumin 3.8 gm/dL (4.2-5.5) L 06/10/17 16:25 Globulin 3.1 gm/dL 06/10/17 16:25 Albumin/Globulin Ratio 1.2 (1.0-1.8) 06/10/17 16:25 TSH 1.02 uIU/ml (0.34-5.60) 06/10/17 16:25 Urine Source RANDOM 06/10/17 17:18 Urine Color YELLOW 06/10/17 17:18 Urine Clarity CLEAR (CLEAR) 06/10/17 17:18 Urine pH 7.0 (4.6 - 8.0) 06/10/17 17:18 Ur Specific [place] 1.010 (1.005-1.030) 06/10/17 17:18 Urine Protein NEGATIVE mg/dL (NEGATIVE) 06/10/17 17:18 Urine Glucose (UA) NEGATIVE mg/dL (NEGATIVE) 06/10/17 17:18 Urine Ketones NEGATIVE mg/dL (NEGATIVE) 06/10/17 17:18 Urine Blood NEGATIVE (NEGATIVE) 06/10/17 17:18 Urine Nitrate NEGATIVE (NEGATIVE) 06/10/17 17:18 Urine Bilirubin NEGATIVE (NEGATIVE) 06/10/17 17:18 Urine Urobilinogen 0.2 E.U./dL (0.2 - 1.0) 06/10/17 17:18 Ur Leukocyte Esterase NEGATIVE (NEGATIVE) 06/10/17 17:18 Urine RBC NONE SEEN /hpf (0-5) 06/10/17 17:18 Urine WBC NONE SEEN /hpf (0-5) 06/10/17 17:18 Ur Epithelial Cells NONE SEEN /lpf (FEW) 06/10/17 17:18 Urine Bacteria NONE SEEN /hpf (NONE SEEN) 06/10/17 17:18 - Physical Exam Vitals and I&O: Vital Signs Temp 98.0 F 06/28/17 09:00 Pulse 81 06/28/17 09:00 Resp 19 06/28/17 09:00 BP 134/60 06/28/17 09:00 Pulse Ox 99 06/28/17 09:00 Intake & Output 06/27/17 06/28/17 06/28/17 18:59 06:59 18:59 Intake Total 1000 120 Balance 1000 120 Weight (lbs) 240 lb Intake: Oral 1000 120 Other: # Voids 5 3 # Bowel Movements 2 1 Active Medications: Current Medications Acetaminophen (Tylenol) 650 mg PO Q4HR PRN PRN Reason: Mild Pain / Temp above 100 Stop: 08/09/17 21:25 Last Admin: 06/14/17 20:38 Dose: 650 mg Al Hydrox/Mg Hydrox/Simethicone (Maalox) 30 ml PO Q4HR PRN PRN Reason: GI DISTRESS Stop: 08/09/17 21:25 Ascorbic Acid (Vitamin C) 500 mg PO DAILY [facility] Stop: 08/10/17 08:59 Last Admin: 06/28/17 08:07 Dose: 500 mg Carbidopa/Levodopa (Sinemet 25mg-100 Mg) 1 tab PO TID [facility] Stop: 08/10/17 08:59 Last Admin: 06/28/17 08:07 Dose: 1 tab Docusate Sodium (Colace) 200 mg PO HS [facility] Stop: 08/10/17 20:59 Last Admin: 06/27/17 20:54 Dose: 200 mg Ferrous Sulfate (Iron) 325 mg PO BID [facility] Stop: 08/10/17 08:59 Last Admin: 06/28/17 08:07 Dose: 325 mg Hydrocortisone (Cortef) 25 mg PO DAILY [facility] Stop: 08/10/17 08:59 Last Admin: 06/28/17 08:10 Dose: 25 mg Lisinopril (Zestril) 10 mg PO DAILY [facility] Stop: 08/10/17 08:59 Last Admin: 06/28/17 08:07 Dose: 10 mg Lorazepam (Ativan) 0.5 mg PO Q4HR PRN; Protocol PRN Reason: Anxiety Stop: 07/10/17 21:25 Last Admin: 06/27/17 08:14 Dose: 0.5 mg Magnesium Hydroxide (Milk Of Magnesia) 30 ml PO HS PRN PRN Reason: Constipation Multivitamins/Vitamin C (Theragran) 1 tab PO DAILY [facility] Stop: 08/10/17 08:59 Last Admin: 06/28/17 08:07 Dose: 1 tab Nitroglycerin (Nitrostat) 0.4 mg SL Q5MIN PRN PRN Reason: Chest Pain Stop: 08/09/17 21:30 Pantoprazole Sodium (Protonix) 40 mg PO DAILY [facility] Stop: 08/10/17 08:59 Last Admin: 06/28/17 08:08 Dose: 40 mg Quetiapine Fumarate (Seroquel) 25 mg PO HS [facility] PRN Reason: Protocol Stop: 08/10/17 20:59 Last Admin: 06/27/17 20:54 Dose: 25 mg Sevelamer Carbonate (Renvela) 800 mg PO TIDWM [facility] Stop: 08/10/17 07:59 Last Admin: 06/28/17 08:06 Dose: 800 mg Vitamin B Complex/Vit C/Folic Acid (Vitamin B Complex W/Vitamin C) 1 tab PO DAILY [facility] Stop: 08/10/17 08:59 Last Admin: 06/28/17 08:07 Dose: 1 tab General: alert HEENT: NC/AT, PERRLA Neck: Supple Lungs: CTAB Neurological: alert Internal Medicine Assmt/Plan - Assessment Assessment: HTN DM Asthma/COPD HX CVA/TIA W\Right hemiparesis PUD/GERD Parkinson's disease anemia chronic renal disease - Plan Plan: MONITOR GLUCOSE FALL PRECAUTIONS CONTINUE CURRENT ORDERS Nutritional Asmnt/Malnutr-PDOC - Dietary Evaluation Malnutrition Findings (Please click <Entered> for more info): Nutritional Asmnt/Malnutrition Start: 06/16/17 15: 47 Text: Status: Complete Freq: Document 06/16/17 15:47 GRANTLANNY (Rec: 06/16/17 15:52 GRANTLANNY [id number]) Nutritional Asmnt/Malnutrition Patient General Information Nutritional Screening Moderate Risk Diagnosis psychosis Pertinent Medical Hx/Surgical Hx HTN, DM, asthma/COPD, CVA/TIA, PUD/GERD, parkinson's disease anemia, CKD, encephalopathy, dysphagia Subjective Information Pt seen lying in bed at time of visit. Pt reported good appetite. Per records, PO intake 100%. Current Diet Order/ Nutrition Support pureed, nectar thick liquid Pertinent Labs 06/10 Na 136, K 4.0, Cl 103, BUn 20, Cr 1.0, Glucose 111, Ca 9.6 Nutritional Hx/Data Height 6 ft 4 in Height (Calculated Centimeters) 193.0 Current Weight (lbs) 240 lb Weight (Calculated Kilograms) 108.9 Weight (Calculated Grams) 641668.2 [place] Body Weight 202 % [place] Body Weight 119 Body Mass Index (BMI) 29.2 Weight Status Overweight GI Symptoms GI Symptoms None Last BM 06/15 x 2 Difficult in: None Skin Integrity/Comment: intact Estimated Nutritional Goals Calories/Kcals/Kg 25-30 based on IBW 92kg Kcals Calculated 7633-5475 Protein g/k Protein Calculated 92 Fluid: ml 2300-2730ml (1ml/kcal) Nutritional Problem No current Nutrition Prob Problem N/A Malnutrition Alert Protein-Calorie Malnutrition N/A Is there a minimum of two criteria No selected? Query Text:Check all the applicable criteria. A minimum of two criteria are recommended for diagnosis of either severe or non-severe malnutrition. Intervention/Recommendation Comments 1. Continue with current diet as ordered. 2. Monitor PO intake, wt, labs and skin integrity 3. F/U as low risk in 7 days, 2/8 Expected Outcomes/Goals Expected Outcomes/Goals 1. PO intake to meet at least 75% of nutritional needs. 2. Wt stability, skin to remain intact, labs to approach WNL.
--- NOTE | 2017-06-29 03:17 | Progress Notes ---
DATE: 06/28/2017 SUBJECTIVE: Staff was spoken to. The patient is interviewed. Mood is noted to be anxious. Affect is appropriate. Not suicidal or homicidal. Insight and judgment are improving. Impulse control seems to be fair. No side effects to the medications are noted. The patient has been able to verbalize the concerns rather than to act out. ASSESSMENT: The patient is stabilizing. PLAN: To discharge the patient today for followup on outpatient basis. [facility]# [id number]
--- NOTE | 2017-07-23 13:20 | Discharge Summary ---
DATE OF DISCHARGE: 06/28/2017 IDENTIFYING DATA: The patient is a 57-year-old male sent from the nursing facility. Information obtained by directly interviewing the patient as well as reviewing the admission papers and they are reliable. JUSTIFICATION OF HOSPITALIZATION: The patient is admitted for acute agitation and aggressive behavior. DIAGNOSES AT THE TIME OF ADMISSION: AXIS I: Psychotic disorder, not otherwise specified. AXIS IB: Rule out major depressive disorder. AXIS IC: Dementia, vascular type. AXIS II: None. AXIS III: As per Dr. Celestin. HISTORY OF PRESENT ILLNESS: Please refer to 06/12/[address] Griffiths. Physical examination was done by Dr. Celestin's group and is noted to be significant for Parkinson's disease, GERD, asthma, diabetes mellitus, hypertension, and history of cerebrovascular accident. HOSPITAL COURSE AND RESPONSE TO TREATMENT: The patient had the blood work done and has been reviewed by Dr. Celestin. The patient has been closely monitored on the inpatient unit, provided with supportive psychotherapy. The patient has been on carbidopa/levodopa. The patient also has been closely monitored for his blood sugar and patient has been placed on the lorazepam on a p.r.n. basis and also has been given the lisinopril for his blood pressure. The patient has been placed on the quetiapine 25 mg at bedtime for his psychosis. With these medications, the patient has been observed and the patient has been finally discharged to [facility] to be followed up by Dr. Davis on outpatient basis. MENTAL STATUS EXAMINATION: At the time of discharge, the patient's mood is noted to be anxious. Affect is appropriate. Insight and judgment noted to be improving. Impulse control seems to be fair. Coping skills are also noted to be fair. No side effects to the medications are noted at the time of discharge. CONDITION: At the time of discharge noted to be stable. DIAGNOSES AT THE TIME OF DISCHARGE: 1. Psychotic disorder, not otherwise specified. AXIS II: None. AXIS III: As per Dr. Celestin. AFTERCARE PLAN: The patient is discharged to be followed up by Dr. Davis. JOB# [id number]
== END 2017-06-28 14:30 | disposition home or self-care (01) | DRG 885 ==
LOC: ER 15:54 → GERO 18:00
PROVIDERS: ADMIT Psychiatry & Neurology Psychiatry; ATTEND Psychiatry & Neurology Psychiatry
DX: F29 Unspecified psychosis not due to a substance or known physiological condition (principal); F01.50 Vascular dementia, unspecified severity, without behavioral disturbance, psychotic disturbance, mood disturbance, and anxiety; N18.9 Chronic kidney disease, unspecified; Z93.1 Gastrostomy status; E11.22 Type 2 diabetes mellitus with diabetic chronic kidney disease; G20 Parkinson's disease; I69.351 Hemiplegia and hemiparesis following cerebral infarction affecting right dominant side; D64.9 Anemia, unspecified; J44.9 Chronic obstructive pulmonary disease, unspecified; K21.9 Gastro-esophageal reflux disease without esophagitis; I12.9 Hypertensive chronic kidney disease with stage 1 through stage 4 chronic kidney disease, or unspecified chronic kidney disease; R13.10 Dysphagia, unspecified; F20.9 Schizophrenia, unspecified; D72.829 Elevated white blood cell count, unspecified; Z88.8 Allergy status to other drugs, medicaments and biological substances
CPT/HCPCS: 36415-UA; 71045-TC; 80053-TC; 81001-TC; 83605; 84443-TC; 85025-TC; 93005; J1885; Z7610